=== PATIENT | female | born 1945 | race Caucasian/White ===

== ENCOUNTER → 2022-01-04 | Outpatient (CLI) | payer MEDICARE ==
[2022-01-04 23:13] LABS: Appearance,Urine Clear (Clear); Bilirubin,Urine Negative (Negative); Blood,Urine Negative (Negative); Color,Urine Yellow (Yellow); Ketones,Urine Negative (Negative); Nitrite,Urine Negative (Negative); Specific Gravity,Urine 1.016 (1.001-1.030); Urobilinogen,Urine 0.2 (0.2,1.0)
[2022-01-04 23:28] LABS: Bacteria,Urine None Seen /HPF (None Seen)
[2022-01-04 23:51] LABS: Basophils # (A) 0.07 X 10*3/uL (0.00-0.10); Eosinophils # (A) 0.33 X 10*3/uL (0.04-0.35); Eosinophils % (A) 4.7 %; HCT 39.2 % (37.2-46.3); HGB 12.4 g/dL (12.0-15.0); Immature Grans, Automated 0.1 %; Lymphocytes # (A) 1.85 X 10*3/uL (0.90-5.00); Lymphocytes % (A) 26.5 %; MCH 29.7 pg (27.0-32.0); MCHC 31.6 g/dL (32.0-37.0); Mean Platelet Volume 9.5 fL (9.5-12.2); NRBC Per 100 WBC 0 /100 WBCS (0.0-0.0); Neutrophils # (A) 4.02 X 10*3/uL (1.80-7.70); Neutrophils % (A) 57.7 %; Platelet Count 239 X 10*3/uL (140-440); RBC 4.17 X 10*6/uL (4.10-5.20); RDW 13.6 % (11.5-14.5); WBC 6.98 X 10*3/uL (4.50-10.00)
== END | disposition home or self-care (01) ==
LOC: LABPAT 16:09
PROVIDERS: ATTEND Urology
DX: Z01.812 Encounter for preprocedural laboratory examination (principal); D41.02 Neoplasm of uncertain behavior of left kidney
CPT/HCPCS: 81001; 85025; 87086

== ENCOUNTER 2022-01-13 05:36 | Inpatient (IN) | payer MEDICARE ==
[2022-01-07 15:13] VITALS: BMI 32.0
[2022-01-13] MEDS ORDERED: ONDANSETRON 4 MG/2 ML VIAL IVP ONE (06:02)
[2022-01-13] MEDS ORDERED: MIDAZOLAM 2 MG/2 ML VIAL IV PRN (06:02)
[2022-01-13] MEDS ORDERED: DEXAMETHASONE SOD PHOSPHATE 4 MG/ML 1 ML VIAL IV ONE (06:02)
[2022-01-13] MEDS ORDERED: LIDOCAINE 1% (10MG/ML) FOR IV START INTRADERMA PRN (06:02)
[2022-01-13 06:32] LABS: Glucose,Whole Blood 100 mg/dL (70-110)
[2022-01-13] MEDS ORDERED: LACTATED RINGERS 1,000 ML IV ONE ×4 (06:35→11:14)
[2022-01-13 06:50] LABS: Calcium 9.3 mg/dL (8.4-10.2); Potassium 3.5 mmol/L (3.5-5.1)
[2022-01-13] MEDS ORDERED: HYDROmorphone 0.5 MG/0.5 ML SYRINGE IVP PRN (07:00)
[2022-01-13] MEDS: fentaNYL (PF) 50 MCG/ML 2 ML AMP IVP ONE ×5 (07:09→11:47)
[2022-01-13] MEDS ORDERED: MIDAZOLAM 2 MG/2 ML VIAL IVP ONE (07:09)
[2022-01-13] MEDS ORDERED: ROCURONIUM 10 MG/ML (5 ML VIAL) IV ONE (07:25)
[2022-01-13] MEDS ORDERED: PHENYLEPHRINE-0.9% NACL SYG 1,000 MCG/10 ML SYRINGE ONE (07:25)
[2022-01-13] MEDS ORDERED: NEOSTIGMINE 1 MG/ML 10 ML VIAL ONE (07:25)
[2022-01-13] MEDS ORDERED: SUCCINYLCHOLINE CHLORIDE 200 MG/10 ML VIAL IV ONE (07:25)
[2022-01-13] MEDS ORDERED: fentaNYL (PF) 50 MCG/ML 2 ML AMP ONE (07:25)
[2022-01-13] MEDS ORDERED: ePHEDrine 50 MG/ML 1 ML VIAL ONE (07:25)
[2022-01-13] MEDS ORDERED: GLYCOPYRROLATE 0.2 MG/ML 2 ML VIAL ONE (07:25)
[2022-01-13] MEDS ORDERED: LIDOCAINE 2% INJ 20 MG/ML (2 ML VIAL) ONE (07:25)
[2022-01-13] MEDS ORDERED: PROPOFOL 10 MG/ML 20 ML VIAL IV ONE (07:25)
--- NOTE | 2022-01-13 07:34 | P.HPIHPCON ---
History of Present Illness H&P Date: 01/13/22 Chief Complaint: left renal mass This is a 76 yo female with hx of 9.5 cm left sided upper pole renal mass and 3 cm left lower pole renal mass. Mass was found incidentally on a CT scan for abdominal pain. Had a prolonged discussion with the patient and her family the findings are highly concerning for renal cell carcinoma. Option of robotic versus open nephrectomy was discussed in detail. Risk and benefit were discussed in detail. Discussed given the size of the tumor a it's not amenable to nephron sparing surgery. She agreed to proceed with left-sided radical n ephrectomy. Discussed the risk which includes but not limited to bleeding, infection, injury to nearby organs which include but not limited to the spleen, pancreas, bowel. Discussed also the potential of needing hemodialysis in the future and following surgery. Discussed also the risk of cancer recurrence even if nephrectomy is performed, and the need for post op imaging. Discussed also the potential this could be a benign pathology but highly unlikely. Discussed also the risk of anesthesia and that she is at increased risk given her age. She understood all the risk and agreed to proceed with left-sided open nephrectomy Consent for Procedure: I have explained the operation/procedure to the patient, including the risks, benefits, side effects, alternative therapies (including not receiving the proposed treatment or service), the likelihood of the patient achieving his/her goals, and potential recuperation problems for the procedure/sedation/analgesia, as well as any blood products, if indicated. I also explained to the patient the risks, benefits and side effects of the alternatives, as well as the risks related to not receiving the proposed procedure, care, treatment, or services. Past Medical History Past Medical History: Hypertension Additional Past Medical History / Comment(s): left kidney mass,"prediabetes" History of Any Multi-Drug Resistant Organisms: None Reported Past Surgical History: Appendectomy, Cholecystectomy, Hysterectomy, Tonsillectomy Additional Past Anesthesia/Blood Transfusion Reaction / Comment(s): no hx blood transfusions Smoking Status: Never smoker - Past Family History Mother Family Medical History: Cancer Additional Family Medical History / Comment(s): lung Medications and Allergies Home Medications Medication Instructions Recorded Confirmed Type Sertraline [Zoloft] 150 mg PO DAILY 01/07/22 01/13/22 History amLODIPine [Norvasc] 5 mg PO QAM 01/07/22 01/13/22 History hydrALAZINE HCL [Apresoline] 50 mg PO TID 01/07/22 01/13/22 History metFORMIN HCL 500 mg PO 1800 01/07/22 01/13/22 History Allergies Allergy/AdvReac Type Severity Reaction Status Date / Time Sulfa (Sulfonamide Allergy Rash/Hives Verified 01/13/22 06:24 Antibiotics) Surgical - Exam Vital Signs Temp Pulse Resp BP Pulse Ox 98.1 F 80 16 180/81 94 L 01/13/22 06:25 01/13/22 06:25 01/13/22 06:25 01/13/22 06:25 01/13/22 06:25 - General no distress, no pain - Eyes normal ocular movement, no pale - Respiratory normal expansion, normal respiratory effort - Abdomen Abdomen: soft, non tender Results - Labs 01/13/22 06:32 Abnormal Lab Results - Last 24 Hours (Table) 01/13/22 Range/Units 06:32 Chloride 109 H (98-107) mmol/L Carbon Dioxide 20 L (22-30) mmol/L Glucose 105 H (74-99) mg/dL Diabetes panel 01/13/22 Range/Units 06:32 Sodium 142 (137-145) mmol/L Potassium 3.5 (3.5-5.1) mmol/L Chloride 109 H (98-107) mmol/L Carbon Dioxide 20 L (22-30) mmol/L BUN 16 (7-17) mg/dL Creatinine 0.81 (0.52-1.04) mg/dL Glucose 105 H (74-99) mg/dL Calcium 9.3 (8.4-10.2) mg/dL Calcium panel 01/13/22 Range/Units 06:32 Calcium 9.3 (8.4-10.2) mg/dL Pituitary panel 01/13/22 Range/Units 06:32 Sodium 142 (137-145) mmol/L Potassium 3.5 (3.5-5.1) mmol/L Chloride 109 H (98-107) mmol/L Carbon Dioxide 20 L (22-30) mmol/L BUN 16 (7-17) mg/dL Creatinine 0.81 (0.52-1.04) mg/dL Glucose 105 H (74-99) mg/dL Calcium 9.3 (8.4-10.2) mg/dL Adrenal panel 01/13/22 Range/Units 06:32 Sodium 142 (137-145) mmol/L Potassium 3.5 (3.5-5.1) mmol/L Chloride 109 H (98-107) mmol/L Carbon Dioxide 20 L (22-30) mmol/L BUN 16 (7-17) mg/dL Creatinine 0.81 (0.52-1.04) mg/dL Glucose 105 H (74-99) mg/dL Calcium 9.3 (8.4-10.2) mg/dL Assessment and Plan Assessment: OR for left-sided open nephrectomy
[2022-01-13] MEDS ORDERED: MAG HYDROX/AL HYDROX/SIMETH 30 ML CUP PO PRN (07:35)
[2022-01-13] MEDS ORDERED: ACETAMINOPHEN TAB 325 MG TAB PO PRN (07:35)
[2022-01-13] MEDS ORDERED: ONDANSETRON 4 MG/2 ML VIAL IVP PRN (07:35)
[2022-01-13] MEDS ORDERED: NALOXONE 0.4 MG/ML 1 ML VIAL IV PRN (08:20)
--- NOTE | 2022-01-13 08:30 | P.ANPRN ---
Procedure Note - Anesthesia - Epidural/Spinal Epidural Time Out Performed: Yes Date of Procedure: 01/13/22 Procedure Start Time: 07:08 Procedure Stop Time: :19 Location of Patient: PreOp Indication: Acute Post-Operative Pain, Requested by Surgeon Sedation Type: Sedate with meaningful contact maintained Preparation: Sterile Dressing Position: Sitting Catheter: Indwelling Needle Guage: 18 Injectate: Test Dose Lidocaine1.5% w/1:200,000 epi (3cc without response) Blood Aspirated: No Pain Paresthesia on Injection Noted: No Events: Uneventful and Well Tolerated
[2022-01-13] MEDS ORDERED: amLODIPine 5 MG TAB PO SCH (09:00)
[2022-01-13] MEDS ORDERED: hydrALAZINE HCL 50 MG TAB PO SCH (09:00)
[2022-01-13] MEDS ORDERED: SODIUM CHLORIDE 0.9% 1,000 ML IV ONE (09:10)
--- NOTE | 2022-01-13 10:06 | P.OP ---
Date of Procedure: 01/13/22 Preoperative Diagnosis: Left renal mass Postoperative Diagnosis: Same Procedure(s) Performed: Open left radical nephrectomy Implants: none Anesthesia: JOSIAH Surgeon: Car Benton Estimated Blood Loss (ml): 1,500 Pathology: other (left kidney) Condition: stable Disposition: PACU Indications for Procedure: This is a 76 yo female with hx of 9.5 cm left sided upper pole renal mass and 3 cm left lower pole renal mass. Mass was found incidentally on a CT scan for abdominal pain. Had a prolonged discussion with the patient and her family the findings are highly concerning for renal cell carcinoma. Option of robotic versus open nephrectomy was discussed in detail. Risk and benefit were discussed in detail. Discussed given the size of the tumor a it's not amenable to nephron sparing surgery. She agreed to proceed with left-sided radical nephrectomy. Discussed the risk which includes but not limited to bleeding, infection, injury to nearby organs which include but not limited to the spleen, pancreas, bowel. Discussed also the potential of needing hemodialysis in the future and following surgery. Discussed also the risk of cancer recurrence even if nephrectomy is performed, and the need for post op imaging. Discussed also the potential this could be a benign pathology but highly unlikely. Discussed also the risk of anesthesia and that she is at increased risk given her age. She understood all the risk and agreed to proceed with left-sided open nephrectomy Description of Procedure: The patient was taken to the operating room and placed in the supine position. After being given general anesthesia, the abdomen was prepped and draped sterilely. A left sided chevron incision was made using the scalpel. The Bovie electrocautery was used to incise the subcutaneous tissues and muscular layers of the abdominal wall down to the peritoneum. The peritoneum was then carefully entered, and opened the full length of the incision. The abdomen was examined, and no abnormalities were noted other than the renal mass. Specifically, there was no evidence of malignancy elsewhere within the abdomen. The Bookwalter retractor was used for exposure. The peritoneum was incised at the line of Toldt, allowing the left hemicolon to be mobilized medially off of Gerota's fascia. Patient had significant amount of parasitic vessel around the tumor. Which made mobilizing the kidney very challenging, parasitic vessels were controlled using clips. Given the amount of bleeding from the parasitic vessel, and made exposure of the aorta challenging. Eventually the lateral edge of the aorta was palpated, The aorta was exposed anteriorly. The left renal vein was identified at this time, and dissected in preparation to the ligation.. At this time given the anterior location of the tumor visualization of the renal artery was not possible, additionally there was significant parasitic bleeding which limited visualization. We attempted to place a silk suture around the artery were unsuccessful. At this time using the stellae the artery was controlled. The left renal vein was then ligated twice proximally and distally. A suture ligature was placed through the proximal aspect of the vein prior to dividing it. There continues to be significant backbleeding from the kidney, the parasitic vessels. Given this finding decision was made to proceed with removal of the kidney prior to dividing the renal artery.The tail of Gerota's fascia was isolated, and both the ureter and gonadal veins were identified. The ureter was clipped, the gonadal vein was ligated, and both were divided. Blunt dissection was then performed to dissect the kidney off of the posterior abdominal wall. Superiorly, the thick perinephric fat was divided down to the upper pole of the kidney. The remaining dissection was then performed over the superior aspect of the kidney, thus preserving the left adrenal gland. At this time renal artery could be clearly visualized and dissected. The renal artery was divided using a vascular stapler.The remaining hilar tissues were clipped and divided at this time. A small amount of bleeding occurred from a lumbar vein, which required placement of a 3-0 silk suture. Once the hilar dissection had been completed, the inferior aspect of the dissection was performed. T Once all attachments were divided, the specimen was removed. The surgical field was examined for hemostasis. Some oozing was noted from the left adrenal gland, requiring placement of a silk suture. Hemostasis within the entire surgical field was excellent at this time. The kidney bed was irrigated with warm sterile water. The Bookwalter retractor was removed. The abdominal contents were allowed to return to their normal location. Each individual muscle layer of the anterior abdominal wall was closed using #1 Vicryl suture in a running fashion. Hemostasis within the subcutaneous tissues was excellent. The skin was closed using camacho. A sterile gauze dressing was applied over the incision. All sponge and needle counts were correct. The patient tolerated the procedure well was taken to the recovery room in stable condition.
[2022-01-13 12:30] LABS: Glucose,Whole Blood 229 mg/dL (70-110)
[2022-01-13] MEDS: amLODIPine 5 MG TAB PO SCH (12:46)
[2022-01-13] MEDS: methocarbamoL 750 MG TAB PO SCH ×3 (12:46→22:57)
[2022-01-13] MEDS: ROPIVACAINE 250 MG, fentaNYL (PF) 625 MCG in SODIUM CHLORIDE 0.9% 188 ML EPIDURAL PRN (13:09)
[2022-01-13] MEDS: SODIUM CHLORIDE 0.9% 1,000 ML IV SCH ×2 (13:37→16:12)
[2022-01-13] MEDS: LACTATED RINGERS 1,000 ML IV SCH ×2 (13:37→23:00)
[2022-01-13] MEDS: HEPARIN SODIUM,PORCINE/PF 5,000 UNIT/0.5 ML SYRINGE SQ SCH ×2 (14:33→22:57)
[2022-01-13] MEDS: HYDROmorphone 0.5 MG/0.5 ML SYRINGE IVP PRN (14:33)
--- NOTE | 2022-01-13 14:42 | P.CNPUL ---
History of Present Illness Consult date: 01/13/22 Chief complaint: Left nephrectomy History of present illness: Visit 76-year-old female patient who was found to have an operative 5 cm left sided upper lobe/cold renal mass. The patient was found to have a renal mass on a CAT scan of the abdomen and this was an incidental finding. There was a high concern for renal cell carcinoma. Based on that, the patient was taken to the operating room and the patient underwent an open left radical nephrectomy. During the procedure, there was some intraoperative blood loss that was controlled. The patient suspected to have a total blood loss of 1500 mL's. The patient was given a total of packed RBC. Awaiting a follow-up hemoglobin level for now. She did get extubated in the operating room and she was brought in to the ICU for further monitoring. At this point in time, the patient is awake and alert and she is following commands. She has an NG tube in place. She is currently on oxygen at 3 L nasal cannula. She is on IV fluids running in the form of lactated Ringer at the rate of 75 mL an hour. She receives a total of 2 L of fluid or less in the form of normal saline in the PACU. She is producing adequate amount of urine output. No hematuria this point in time. Castañeda cath is in place. Cardiac rhythm is sinus. The postop electrolytes were checked and the patient is a BUN of 60 with a creatinine of 0.8. Sodium is 142. Blood sugars at 229. The patient is diabetic and the patient has been maintained on metformin on an outpatient basis. She also has issues with hypertension. In terms of pain control, the patient currently has an epidural and she is receiving epidural. Bupivacaine along with fentanyl. Review of Systems Constitutional: Reports as per HPI Eyes: denies as per HPI, denies blurred vision, denies bulging eye, denies decreased vision, denies diplopia, denies discharge, denies dry eye, denies irritation, denies itching, denies pain, denies photophobia, denies loss of peripheral vision, denies loss of vision, denies tunnel vision/blind spots Ears: deny: decreased hearing, ear discharge, earache, tinnitus Ears, nose, mouth and throat: Reports as per HPI Breasts: absent: as per HPI, change in shape, gynecomastia, masses, nipple discharge, pain, skin changes, swelling Cardiovascular: Reports as per HPI Respiratory: Reports as per HPI Gastrointestinal: Reports as per HPI Genitourinary: Reports as per HPI Menstruation: Reports as per HPI Musculoskeletal: Reports as per HPI Musculoskeletal: absent: ankle pain, ankle stiffness, ankle swelling, as per HPI, elbow pain, elbow stiffness, elbow swelling, foot pain, foot stiffness, foot swelling, hand pain, hand stiffness, hand swelling, hip pain, hip stiffness, hip swelling, knee pain, knee stiffness, knee swelling, shoulder pain, shoulder stiffness, shoulder swelling, wrist pain, wrist stiffness, wrist swelling Integumentary: Reports as per HPI Neurological: Reports as per HPI Psychiatric: Reports as per HPI Endocrine: Reports as per HPI Hematologic/Lymphatic: Reports as per HPI Allergic/Immunologic: Reports as per HPI Past Medical History Past Medical History: Hypertension Additional Past Medical History / Comment(s): left kidney mass,"prediabetes" History of Any Multi-Drug Resistant Organisms: None Reported Past Surgical History: Appendectomy, Cholecystectomy, Hysterectomy, Tonsillectomy Additional Past Anesthesia/Blood Transfusion Reaction / Comment(s): no hx blood transfusions Smoking Status: Never smoker - Past Family History Mother Family Medical History: Cancer Additional Family Medical History / Comment(s): lung Medications and Allergies Home Medications Medication Instructions Recorded Confirmed Type Sertraline [Zoloft] 150 mg PO DAILY 01/07/22 01/13/22 History amLODIPine [Norvasc] 5 mg PO QAM 01/07/22 01/13/22 History hydrALAZINE HCL [Apresoline] 50 mg PO TID 01/07/22 01/13/22 History metFORMIN HCL 500 mg PO 1800 01/07/22 01/13/22 History Allergies Allergy/AdvReac Type Severity Reaction Status Date / Time Sulfa (Sulfonamide Allergy Rash/Hives Verified 01/13/22 06:24 Antibiotics) Physical Exam Vitals: Vital Signs Temp Pulse Pulse Pulse Resp BP BP 01/13/22 12:14 67 16 92/51 01/13/22 12:00 70 16 94/53 01/13/22 11:47 69 16 102/50 01/13/22 11:36 97.4 F L 71 16 91/55 01/13/22 11:30 71 16 91/55 01/13/22 11:15 71 16 97/51 01/13/22 11:04 76 16 92/55 10/12/22 10:54 97.6 F 75 16 84/52 01/13/22 10:46 79 16 85/53 01/13/22 10:34 96.8 F L 84 16 90/54 01/13/22 10:30 83 16 84/49 01/13/22 10:15 88 14 89/49 01/13/22 10:04 97.1 F L 110 H 14 93/52 01/13/22 09:58 97.1 F L 89 14 89/49 01/13/22 07:27 81 17 114/57 01/13/22 06:25 98.1 F 80 16 180/81 Pulse Ox 01/13/22 12:14 96 01/13/22 12:00 96 01/13/22 11:47 96 01/13/22 11:36 96 01/13/22 11:30 96 01/13/22 11:15 100 01/13/22 11:04 100 01/13/22 10:54 100 01/13/22 10:46 100 01/13/22 10:34 100 01/13/22 10:30 100 01/13/22 10:15 99 01/13/22 10:04 99 01/13/22 09:58 98 01/13/22 07:27 95 01/13/22 06:25 94 L Intake and Output 01/12/22 01/13/22 01/13/22 22:59 06:59 14:59 Intake Total 400 3310 Output Total 1630 Balance 400 1680 Intake: IV 400 3000 Blood Product 310 As-1 Unit 0 [id number] As-1 Unit 310 [id number] Output: Urine 130 Estimated Blood Loss 1500 Other: Weight 78.71 kg General appearance the patient is calm and comfortable awake, NG tube is in place and the patient's oxygen by nasal cannula at 2 L Head exam was generally normal. There was no scleral icterus or corneal arcus. Mucous membranes were moist. Neck was supple and without jugular venous distension, thyromegaly, or carotid bruits. Carotids were easily palpable bilaterally. There was no adenopathy. She was in place for now. Lungs sounds are diminished bilaterally other was clear. Cardiac exam revealed the PMI to be normally situated and sized. The rhythm was regular and no extrasystoles were noted during several minutes of auscultation. The first and second heart sounds were normal and physiologic splitting of the second heart sound was noted. There were no murmurs, rubs, clicks, or gallops. Abdomen is soft and the patient's surgical sites are clean and intact. The patient has an incision over the left lateral abdominal wall. Bowel sounds are hypoactive. No direct tenderness. No rebound tenderness. No guarding. Examination of the extremities revealed easily palpable radial, femoral and pedal pulses. There was no cyanosis, clubbing or edema. Examination of the skin revealed no evidence of significant rashes, suspicious a ppearing nevi or other concerning lesions. Neurologically, the patient is awake and alert and the patient does not have any focal neurological deficit. Cranial nerves are essentially intact. Results - Laboratory Findings CBC and BMP: 01/13/22 06:32 Abnormal lab findings: Abnormal Labs 01/04/22 01/13/22 01/13/22 16:41 06:32 12:29 Chloride 109 H Carbon Dioxide 20 L Glucose 105 H POC Glucose (mg/dL) 229 H Crossmatch See Detail - Diagnostic Findings Chest x-ray: image reviewed Assessment and Plan Plan: Kidney mass, post left nephrectomy. The patient supposedly #0. Based on the CAT scan findings, the findings highly suspicious for renal cell carcinoma Intraoperative blood loss and the order of 1.5 L, she was transfused with a total of 2 units of packed RBC. The patient's hemodynamics are stable. Adequate urine output Hypertension Diabetes mellitus maternal metformin outpatient basis Plan Keep the NG tube in place and monitor the output The patient has epidural Dilaudid for pain control in addition to bupivacaine. Pain is under adequate control for now. Compression devices to lower extremities regarding DVT prophylaxis and the patient can be started on heparin subcu after confirming this with urology IV fluids with lactated Ringer at a rate of 75 mL an hour Insulin sliding scale coverage Resume all medications Clear liquid diet only Incentive spirometer We'll continue to follow
[2022-01-13 15:22] LABS: Basophils % (A) 0 %; Eosinophils % (A) 0 %; HCT 32.4 % (34.0-46.0); HGB 10.4 gm/dL (11.4-16.0); Hypochromasia Marked; Lymphocytes # (A) 0.3 k/uL (1.0-4.8); Lymphocytes % (A) 2 %; MCH 30.2 pg (25.0-35.0); MCHC 32.1 g/dL (31.0-37.0); Mean Platelet Volume 8.1; Monocytes # (A) 0.9 k/uL (0-1.0); Monocytes % (A) 5 %; Neutrophils # (A) 16.8 k/uL (1.3-7.7); Neutrophils % (A) 92 %; Platelet Count 190 k/uL (150-450); RBC 3.45 m/uL (3.80-5.40); WBC 18.2 k/uL (3.8-10.6)
[2022-01-13 15:36] LABS: Albumin 2.3 g/dL (3.5-5.0); Calcium 7.3 mg/dL (8.4-10.2); Potassium 3.5 mmol/L (3.5-5.1); Total Bilirubin 0.4 mg/dL (0.2-1.3); Total Protein 4.1 g/dL (6.3-8.2)
[2022-01-13] MEDS: hydrALAZINE HCL 50 MG TAB PO SCH ×2 (16:09→22:57)
[2022-01-13] MEDS: POTASSIUM CHLORIDE ER 20 MEQ TAB.ER PO SCH ×2 (16:12→17:14)
[2022-01-13] MEDS: metFORMIN 500 MG TAB PO SCH (17:14)
[2022-01-14] MEDS: HYDROmorphone 0.5 MG/0.5 ML SYRINGE IVP PRN ×3 (03:58→21:11)
[2022-01-14 07:57] LABS: HCT 28.2 % (34.0-46.0); HGB 9.4 gm/dL (11.4-16.0); Hypochromasia Slight; MCHC 33.3 g/dL (31.0-37.0); MCV 90.1 fL (80.0-100.0); Mean Platelet Volume 8.6; Platelet Count 158 k/uL (150-450); Poikilocytosis Slight; RBC 3.13 m/uL (3.80-5.40); RDW 15.5 % (11.5-15.5); WBC 12.1 k/uL (3.8-10.6)
--- NOTE | 2022-01-14 08:01 | P.PN ---
Progress Note - Text Date: 01/14/2022 Time: 07:07 The patient is status post, left open nephrectomy, postoperative day number 1. The patient has no complaints of nausea vomiting or headache. The patient does not complain of any lower extremity numbness or weakness. The epidural is running at 5 mL per hour. VAS 2-10. The epidural will be maintained and a djusted as needed.
[2022-01-14 08:11] LABS: Albumin 2.3 g/dL (3.5-5.0); Calcium 7.6 mg/dL (8.4-10.2); Magnesium 1.6 mg/dL (1.6-2.3); Potassium 4.1 mmol/L (3.5-5.1); Total Bilirubin 0.4 mg/dL (0.2-1.3); Total Protein 4.3 g/dL (6.3-8.2)
[2022-01-14] MEDS: SERTRALINE 50 MG TAB PO SCH (08:29)
[2022-01-14] MEDS: HEPARIN SODIUM,PORCINE/PF 5,000 UNIT/0.5 ML SYRINGE SQ SCH ×2 (08:29→16:15)
[2022-01-14] MEDS: methocarbamoL 750 MG TAB PO SCH ×4 (08:29→21:11)
[2022-01-14] MEDS: LACTATED RINGERS 1,000 ML IV SCH (08:30)
[2022-01-14] MEDS: amLODIPine 5 MG TAB PO SCH (08:30)
--- NOTE | 2022-01-14 09:31 | P.PN ---
Subjective Progress Note Date: 01/14/22 first post op day from left rad nephrectomy. In icu because of intraop hypotension due to acute blood loss . Has recouperated nicely with blood repllacement. Did well over night. VSS uo adequate hgb 9.4 cr 1.3 abdomen soft. Urine clear. WIll c/w supportive care. Objective - Vital Signs Vital signs: Vital Signs Temp 98.3 F 01/14/22 08:00 Pulse 68 01/14/22 08:00 Resp 10 L 01/14/22 08:00 BP 111/54 01/14/22 08:00 Pulse Ox 96 01/14/22 08:00 FiO2 Intake & Output 01/13/22 01/14/22 01/14/22 18:59 06:59 18:59 Intake Total 3460 960 150 Output Total 1690 185 45 Balance 1770 775 105 Weight 87 kg Intake: IV 3000 900 150 LR @ 75 900 150 Intake, IV Titration 150 60 Amount Lactated Ringers 1,000 ml 150 @ 75 mls/hr IV .[id number] Rx#:[id number] Ropivacaine 250 mg 60 fentaNYL (PF) 625 mcg In Sodium Chloride 0.9% 188 ml @ Per Protocol EPIDURAL .Q0M PRN Rx#: [id number] Blood Product 310 Rc As-1 Unit 0 [id number] Rc As-1 Unit 310 [id number] Output: Urine 190 185 45 Estimated Blood Loss 1500 Other: Voiding Method Indwelling Catheter Indwelling Catheter - Labs CBC & Chem 7: 01/14/22 07:14 01/14/22 07:14 Labs: Abnormal Lab Results - Last 24 Hours (Table) 01/04/22 01/13/22 01/13/22 Range/Units 16:41 12:29 14:48 WBC 18.2 H (3.8-10.6) k/uL RBC 3.45 L (3.80-5.40) m/uL Hgb 10.4 L (11.4-16.0) gm/dL Hct 32.4 L (34.0-46.0) % Neutrophils # 16.8 H (1.3-7.7) k/uL Lymphocytes # 0.3 L (1.0-4.8) k/uL Chloride (98-107) mmol/L Carbon Dioxide (22-30) mmol/L BUN (7-17) mg/dL Creatinine (0.52-1.04) mg/dL Glucose (74-99) mg/dL POC Glucose (mg/dL) 229 H (70-110) mg/dL Calcium (8.4-10.2) mg/dL Alkaline Phosphatase (38-126) U/L Total Protein (6.3-8.2) g/dL Albumin (3.5-5.0) g/dL Crossmatch See Detail 01/13/22 01/14/22 01/14/22 Range/Units 14:48 07:14 07:14 WBC 12.1 H (3.8-10.6) k/uL RBC 3.13 L (3.80-5.40) m/uL Hgb 9.4 L (11.4-16.0) gm/dL Hct 28.2 L (34.0-46.0) % Neutrophils # (1.3-7.7) k/uL Lymphocytes # (1.0-4.8) k/uL Chloride 113 H 114 H (98-107) mmol/L Carbon Dioxide 18 L 19 L (22-30) mmol/L BUN 20 H (7-17) mg/dL Creatinine 1.05 H 1.31 H (0.52-1.04) mg/dL Glucose 163 H (74-99) mg/dL POC Glucose (mg/dL) (70-110) mg/dL Calcium 7.3 L 7.6 L (8.4-10.2) mg/dL Alkaline Phosphatase 32 L 32 L (38-126) U/L Total Protein 4.1 L 4.3 L (6.3-8.2) g/dL Albumin 2.3 L 2.3 L (3.5-5.0) g/dL Crossmatch
--- NOTE | 2022-01-14 09:31 | P.PN ---
Subjective Progress Note Date: 01/14/22 first post op day from left rad nephrectomy. In icu because of intraop hypotension due to acute blood loss . Has recouperated nicely with blood repllacement. Did well over night. VSS uo adequate hgb 9.4 cr 1.3 abdomen soft. Urine clear. WIll c/w supportive care. Objective - Vital Signs Vital signs: Vital Signs Temp 98.3 F 01/14/22 08:00 Pulse 68 01/14/22 08:00 Resp 10 L 01/14/22 08:00 BP 111/54 01/14/22 08:00 Pulse Ox 96 01/14/22 08:00 FiO2 Intake & Output 01/13/22 01/14/22 01/14/22 18:59 06:59 18:59 Intake Total 3460 960 150 Output Total 1690 185 45 Balance 1770 775 105 Weight 87 kg Intake: IV 3000 900 150 LR @ 75 900 150 Intake, IV Titration 150 60 Amount Lactated Ringers 1,000 ml 150 @ 75 mls/hr IV .[id number] Rx#:[id number] Ropivacaine 250 mg 60 fentaNYL (PF) 625 mcg In Sodium Chloride 0.9% 188 ml @ Per Protocol EPIDURAL .Q0M PRN Rx#: [id number] Blood Product 310 Rc As-1 Unit 0 [id number] Rc As-1 Unit 310 [id number] Output: Urine 190 185 45 Estimated Blood Loss 1500 Other: Voiding Method Indwelling Catheter Indwelling Catheter - Labs CBC & Chem 7: 01/14/22 07:14 01/14/22 07:14 Labs: Abnormal Lab Results - Last 24 Hours (Table) 01/04/22 01/13/22 01/13/22 Range/Units 16:41 12:29 14:48 WBC 18.2 H (3.8-10.6) k/uL RBC 3.45 L (3.80-5.40) m/uL Hgb 10.4 L (11.4-16.0) gm/dL Hct 32.4 L (34.0-46.0) % Neutrophils # 16.8 H (1.3-7.7) k/uL Lymphocytes # 0.3 L (1.0-4.8) k/uL Chloride (98-107) mmol/L Carbon Dioxide (22-30) mmol/L BUN (7-17) mg/dL Creatinine (0.52-1.04) mg/dL Glucose (74-99) mg/dL POC Glucose (mg/dL) 229 H (70-110) mg/dL Calcium (8.4-10.2) mg/dL Alkaline Phosphatase (38-126) U/L Total Protein (6.3-8.2) g/dL Albumin (3.5-5.0) g/dL Crossmatch See Detail 01/13/22 01/14/22 01/14/22 Range/Units 14:48 07:14 07:14 WBC 12.1 H (3.8-10.6) k/uL RBC 3.13 L (3.80-5.40) m/uL Hgb 9.4 L (11.4-16.0) gm/dL Hct 28.2 L (34.0-46.0) % Neutrophils # (1.3-7.7) k/uL Lymphocytes # (1.0-4.8) k/uL Chloride 113 H 114 H (98-107) mmol/L Carbon Dioxide 18 L 19 L (22-30) mmol/L BUN 20 H (7-17) mg/dL Creatinine 1.05 H 1.31 H (0.52-1.04) mg/dL Glucose 163 H (74-99) mg/dL POC Glucose (mg/dL) (70-110) mg/dL Calcium 7.3 L 7.6 L (8.4-10.2) mg/dL Alkaline Phosphatase 32 L 32 L (38-126) U/L Total Protein 4.1 L 4.3 L (6.3-8.2) g/dL Albumin 2.3 L 2.3 L (3.5-5.0) g/dL Crossmatch
[2022-01-14] MEDS: hydrALAZINE HCL 50 MG TAB PO SCH ×3 (09:56→21:11)
[2022-01-14] MEDS ORDERED: Magnesium Replacement Protocol 1 EACH MISC MISCELLANE PRN (09:58)
--- NOTE | 2022-01-14 09:58 | P.PN ---
Subjective Progress Note Date: 01/14/22 Visit 76-year-old female patient who was found to have an operative 5 cm left sided upper lobe/cold renal mass. The patient was found to have a renal mass on a CAT scan of the abdomen and this was an incidental finding. There was a high concern for renal cell carcinoma. Based on that, the patient was taken to the operating room and the patient underwent an open left radical nephrectomy. During the procedure, there was some intraoperative blood loss that was controlled. The patient suspected to have a total blood loss of 1500 mL's. The patient was given a total of packed RBC. Awaiting a follow-up hemoglobin level for now. She did get extubated in the operating room and she was brought in to the ICU for further monitoring. At this point in time, the patient is awake and alert and she is following commands. She has an NG tube in place. She is currently on oxygen at 3 L nasal cannula. She is on IV fluids running in the form of lactated Ringer at the rate of 75 mL an hour. She receives a total of 2 L of fluid or less in the form of normal saline in the PACU. She is producing adequate amount of urine output. No hematuria this point in time. Castñaeda cath is in place. Cardiac rhythm is sinus. The postop electrolytes were checked and the patient is a BUN of 60 with a creatinine of 0.8. Sodium is 142. Blood sugars at 229. The patient is diabetic and the patient has been maintained on metformin on an outpatient basis. She also has issues with hypertension. In terms of pain control, the patient currently has an epidural and she is receiving epidural. Bupivacaine along with fentanyl. On 01/14/2022, the patient is profoundly #1. Doing well. NG tube is still in place and the output cannot be accurately recorded as the patient is taking some clear liquid diet in addition. Nevertheless, her abdomen is non-distended. Bowel sounds are hypoactive. She has not passed any flatus yet. No bowel movements yet. No fever. No chills. Surgical incisions are clean and intact. No signs of any respiratory distress. The patient remains on normal saline at rate of 75 mL an hour. The patient is on 2 L O2 nasal cannula with pulse ox of 96%. In terms of her blood work, the patient's is showing a white cell count of 12.1 with a hemoglobin of 9.4. There is a slight drop in hemoglobin and creatinine is up to 1.3 from a baseline of 1 and his sodiums of 140 with a pot assium level of 4.1. Total protein is 4.3 albumin is low at 2.3. She does have Dilaudid epidural catheter along with bupivacaine for pain control and her pain is under excellent control for now. She is using the [place] spirometer. Objective - Vital Signs Vital signs: Vital Signs Temp 98.3 F 01/14/22 08:00 Pulse 68 01/14/22 08:00 Resp 10 L 01/14/22 08:00 BP 111/54 01/14/22 08:00 Pulse Ox 96 01/14/22 08:00 FiO2 Intake & Output 01/13/22 01/14/22 01/14/22 18:59 06:59 18:59 Intake Total 3460 960 150 Output Total 1690 185 45 Balance 1770 775 105 Weight 87 kg Intake: IV 3000 900 150 LR @ 75 900 150 Intake, IV Titration 150 60 Amount Lactated Ringers 1,000 ml 150 @ 75 mls/hr IV .[id number] [facility] Rx#:[id number] Ropivacaine 250 mg 60 fentaNYL (PF) 625 mcg In Sodium Chloride 0.9% 188 ml @ Per Protocol EPIDURAL .Q0M PRN Rx#: [id number] Blood Product 310 Rc As-1 Unit 0 [id number] Rc As-1 Unit 310 [id number] Output: Urine 190 185 45 Estimated Blood Loss 1500 Other: Voiding Method Indwelling Catheter Indwelling Catheter - Exam General appearance the patient is calm and comfortable awake, NG tube is in place and the patient's oxygen by nasal cannula at 2 L Head exam was generally normal. There was no scleral icterus or corneal arcus. Mucous membranes were moist. Neck was supple and without jugular venous distension, thyromegaly, or carotid bruits. Carotids were easily palpable bilaterally. There was no adenopathy. She was in place for now. Lungs sounds are diminished bilaterally other was clear. Cardiac exam revealed the PMI to be normally situated and sized. The rhythm was regular and no extrasystoles were noted during several minutes of auscultation. The first and second heart sounds were normal and physiologic splitting of the second heart sound was noted. There were no murmurs, rubs, clicks, or gallops. Abdomen is soft and the patient's surgical sites are clean and intact. The patient has an incision over the left lateral abdominal wall. Bowel sounds are hypoactive. No direct tenderness. No rebound tenderness. No guarding. Examination of the extremities revealed easily palpable radial, femoral and pedal pulses. There was no cyanosis, clubbing or edema. Examination of the skin revealed no evidence of significant rashes, suspicious appearing nevi or other concerning lesions. Neurologically, the patient is awake and alert and the patient does not have any focal neurological deficit. Cranial nerves are essentially intact. - Labs CBC & Chem 7: 01/14/22 07:14 01/14/22 07:14 Labs: Abnormal Lab Results - Last 24 Hours (Table) 01/04/22 01/13/22 01/13/22 Range/Units 16:41 12:29 14:48 WBC 18.2 H (3.8-10.6) k/uL RBC 3.45 L (3.80-5.40) m/uL Hgb 10.4 L (11.4-16.0) gm/dL Hct 32.4 L (34.0-46.0) % Neutrophils # 16.8 H (1.3-7.7) k/uL Lymphocytes # 0.3 L (1.0-4.8) k/uL Chloride (98-107) mmol/L Carbon Dioxide (22-30) mmol/L BUN (7-17) mg/dL Creatinine (0.52-1.04) mg/dL Glucose (74-99) mg/dL POC Glucose (mg/dL) 229 H (70-110) mg/dL Calcium (8.4-10.2) mg/dL Alkaline Phosphatase (38-126) U/L Total Protein (6.3-8.2) g/dL Albumin (3.5-5.0) g/dL Crossmatch See Detail 01/13/22 01/14/22 01/14/22 Range/Units 14:48 07:14 07:14 WBC 12.1 H (3.8-10.6) k/uL RBC 3.13 L (3.80-5.40) m/uL Hgb 9.4 L (11.4-16.0) gm/dL Hct 28.2 L (34.0-46.0) % Neutrophils # (1.3-7.7) k/uL Lymphocytes # (1.0-4.8) k/uL Chloride 113 H 114 H (98-107) mmol/L Carbon Dioxide 18 L 19 L (22-30) mmol/L BUN 20 H (7-17) mg/dL Creatinine 1.05 H 1.31 H (0.52-1.04) mg/dL Glucose 163 H (74-99) mg/dL POC Glucose (mg/dL) (70-110) mg/dL Calcium 7.3 L 7.6 L (8.4-10.2) mg/dL Alkaline Phosphatase 32 L 32 L (38-126) U/L Total Protein 4.1 L 4.3 L (6.3-8.2) g/dL Albumin 2.3 L 2.3 L (3.5-5.0) g/dL Crossmatch Assessment and Plan Plan: Kidney mass, post left nephrectomy. The patient POD #1. Based on the CAT scan findings, the findings highly suspicious for renal cell carcinoma Intraoperative blood loss and the order of 1.5 L, she was transfused with a total of 2 units of packed RBC. The patient's hemodynamics are stable. A dequate urine output subsequent hemoglobin came at 10.4 and later on dropped to 9.4. No evidence of any bleeding in the surgical incisions are clean and intact. We're monitoring the hemoglobin. A little mottling also the creatinine. The patient did develop a rise in the creatinine up to 1.3. Her pain is under adequate control for now. She has an epidural Dilaudid in combination with bupivacaine. Hypertension Diabetes mellitus maternal metformin outpatient basis Plan Keep the NG tube in place and monitor the output, this will be kept for another 24 hours The patient has epidural Dilaudid for pain control in addition to bupivacaine. Pain is under adequate control for now. Compression devices to lower extremities regarding DVT prophylaxis and the patient can be started on heparin subcu after confirming this with urology IV fluids with lactated Ringer at a rate of 75 mL an hour Insulin sliding scale coverage Resume all medications Monitor the creatinine and the hemoglobin On a chair Incentive spirometer We'll continue to follow May transfer to a medical surgical floor
[2022-01-14] MEDS: MAGNESIUM SULFATE-D5W PMX 1 GM in DEXTROSE/WATER 1 100ML.BAG IVPB SCH ×2 (11:18→12:40)
--- NOTE | 2022-01-14 16:30 | CDI ---
Documentation Clarification Form Date: 01/14/2022 04:08:07 PM From: Marta Tavares RN, CCDS Email: [email or web address] Admit Date: 01/13/2022 05:36:00 AM Patient Name: Geraldine Peters Visit Number: [id number] Discharge Date: ATTENTION: The Clinical Documentation Specialists (CDI) and [facility] Coding Staff appreciate your assistance in clarifying documentation. Please respond to the clarification below the line at the bottom and electronically sign. The CDI & [facility] Coding staff will review the response and follow-up if needed. Please note: Queries are made part of the Legal Health Record. If you have any questions, please contact the author of this message via ITS. Dr. Car Benton Your patient had intraop acute blood loss. Please clarify if there is an additional diagnosis and/or clinical significance related to this. 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 At this time given the anterior location of the tumor, visualization of the renal artery was not possible, additionally there was significant parasitic bleeding which limited visualization. A small amount of bleeding occurred from a lumbar vein. Some oozing was noted from the left adrenal gland, requiring placement of a silk suture." EBL 1500 ml 01/14: "first post op day from left rad nephrectomy. In ICU because of intraop hypotension due to acute blood loss. Has recuperated nicely with blood replacement." Treatment: 2 units PRBC's, 1L IV bolus on 01/13 Is there an additional diagnosis and/or clinical significance related to the above information: [ X ] Acute blood loss anemia [ ] Unable to determine [ ] Other, please specify MTDD
--- NOTE | 2022-01-14 16:30 | CDI ---
Documentation Clarification Form Date: 01/14/2022 04:08:07 PM From: Marta Tavares RN, CCDS Email: [email or web address] Admit Date: 01/13/2022 05:36:00 AM Patient Name: Geraldine Peters Visit Number: [id number] Discharge Date: ATTENTION: The Clinical Documentation Specialists (CDI) and [facility] Coding Staff appreciate your assistance in clarifying documentation. Please respond to the clarification below the line at the bottom and electronically sign. The CDI & [facility] Coding staff will review the response and follow-up if needed. Please note: Queries are made part of the Legal Health Record. If you have any questions, please contact the author of this message via ITS. Dr. Car Benton Your patient had intraop acute blood loss. Please clarify if there is an additional diagnosis and/or clinical significance related to this. 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 At this time given the anterior location of the tumor, visualization of the renal artery was not possible, additionally there was significant parasitic bleeding which limited visualization. A small amount of bleeding occurred from a lumbar vein. Some oozing was noted from the left adrenal gland, requiring placement of a silk suture." EBL 1500 ml 01/14: "first post op day from left rad nephrectomy. In ICU because of intraop hypotension due to acute blood loss. Has recuperated nicely with blood replacement." Treatment: 2 units PRBC's, 1L IV bolus on 01/13 Is there an additional diagnosis and/or clinical significance related to the above information: [ X ] Acute blood loss anemia [ ] Unable to determine [ ] Other, please specify MTDD
[2022-01-14] MEDS: metFORMIN 500 MG TAB PO SCH (17:38)
[2022-01-15] MEDS: HEPARIN SODIUM,PORCINE/PF 5,000 UNIT/0.5 ML SYRINGE SQ SCH ×3 (00:50→17:23)
[2022-01-15] MEDS: LACTATED RINGERS 1,000 ML IV SCH ×2 (03:30→14:49)
--- NOTE | 2022-01-15 07:47 | P.PN ---
Subjective Progress Note Date: 01/15/22 The patient is status post radical nephrectomy. She is in the intensive care unit. She seems to be doing well from a clinical standpoint. Her vital signs are stable. Urine output is good. I removed her NG tube this morning. It was somewhat soft. From a urologic standpoint she can be transferred to the floor whenever it is okay with the intensive physicians. Objective - Vital Signs Vital signs: Vital Signs Temp 97.6 F 01/14/22 23:00 Pulse 90 01/14/22 23:00 Resp 22 01/14/22 23:00 BP 147/71 01/14/22 23:15 Pulse Ox 93 L 01/14/22 23:15 FiO2 Intake & Output 01/14/22 01/15/22 01/15/22 18:59 06:59 18:59 Intake Total 875 Output Total 315 Balance 560 Weight 86.2 kg Intake: IV 875 LR @ 75 675 Magnesium Sulfate-D5w Pmx 200 1 gm In Dextrose/Water 1 100ml.bag @ 100 mls/hr IVPB Q1H [facility] Rx#: [id number] Output: Urine 315 Other: Voiding Method Indwelling Catheter - Labs CBC & Chem 7: 01/14/22 07:14 01/14/22 07:14 Labs: Abnormal Lab Results - Last 24 Hours (Table) 01/14/22 01/14/22 Range/Units 07:14 07:14 WBC 12.1 H (3.8-10.6) k/uL RBC 3.13 L (3.80-5.40) m/uL Hgb 9.4 L (11.4-16.0) gm/dL Hct 28.2 L (34.0-46.0) % Chloride 114 H (98-107) mmol/L Carbon Dioxide 19 L (22-30) mmol/L BUN 20 H (7-17) mg/dL Creatinine 1.31 H (0.52-1.04) mg/dL Calcium 7.6 L (8.4-10.2) mg/dL Alkaline Phosphatase 32 L (38-126) U/L Total Protein 4.3 L (6.3-8.2) g/dL Albumin 2.3 L (3.5-5.0) g/dL
--- NOTE | 2022-01-15 07:47 | P.PN ---
Subjective Progress Note Date: 01/15/22 The patient is status post radical nephrectomy. She is in the intensive care unit. She seems to be doing well from a clinical standpoint. Her vital signs are stable. Urine output is good. I removed her NG tube this morning. It was somewhat soft. From a urologic standpoint she can be transferred to the floor whenever it is okay with the intensive physicians. Objective - Vital Signs Vital signs: Vital Signs Temp 97.6 F 01/14/22 23:00 Pulse 90 01/14/22 23:00 Resp 22 01/14/22 23:00 BP 147/71 01/14/22 23:15 Pulse Ox 93 L 01/14/22 23:15 FiO2 Intake & Output 01/14/22 01/15/22 01/15/22 18:59 06:59 18:59 Intake Total 875 Output Total 315 Balance 560 Weight 86.2 kg Intake: IV 875 LR @ 75 675 Magnesium Sulfate-D5w Pmx 200 1 gm In Dextrose/Water 1 100ml.bag @ 100 mls/hr IVPB Q1H [facility] Rx#: [id number] Output: Urine 315 Other: Voiding Method Indwelling Catheter - Labs CBC & Chem 7: 01/14/22 07:14 01/14/22 07:14 Labs: Abnormal Lab Results - Last 24 Hours (Table) 01/14/22 01/14/22 Range/Units 07:14 07:14 WBC 12.1 H (3.8-10.6) k/uL RBC 3.13 L (3.80-5.40) m/uL Hgb 9.4 L (11.4-16.0) gm/dL Hct 28.2 L (34.0-46.0) % Chloride 114 H (98-107) mmol/L Carbon Dioxide 19 L (22-30) mmol/L BUN 20 H (7-17) mg/dL Creatinine 1.31 H (0.52-1.04) mg/dL Calcium 7.6 L (8.4-10.2) mg/dL Alkaline Phosphatase 32 L (38-126) U/L Total Protein 4.3 L (6.3-8.2) g/dL Albumin 2.3 L (3.5-5.0) g/dL
--- NOTE | 2022-01-15 09:34 | P.PN ---
Progress Note - Text 01/15/22 651am 76-year-old female status post left open nephrectomy by . Patient has an epidural catheter for postop pain control with the solution running at 5 mL an hour with a VAS of 4. No motor or sensory deficit noted. Plan to continue epidural infusion and DC the catheter postop day 3
[2022-01-15] MEDS: amLODIPine 5 MG TAB PO SCH (09:52)
[2022-01-15] MEDS: hydrALAZINE HCL 50 MG TAB PO SCH ×3 (09:52→21:34)
[2022-01-15] MEDS: SERTRALINE 50 MG TAB PO SCH (09:52)
[2022-01-15] MEDS: methocarbamoL 750 MG TAB PO SCH ×3 (09:53→17:29)
[2022-01-15] MEDS: HYDROmorphone 0.5 MG/0.5 ML SYRINGE IVP PRN (09:57)
--- NOTE | 2022-01-15 10:57 | P.PN ---
Subjective Progress Note Date: 01/15/22 Visit 76-year-old female patient who was found to have an operative 5 cm left sided upper lobe/cold renal mass. The patient was found to have a renal mass on a CAT scan of the abdomen and this was an incidental finding. There was a high concern for renal cell carcinoma. Based on that, the patient was taken to the operating room and the patient underwent an open left radical nephrectomy. During the procedure, there was some intraoperative blood loss that was controlled. The patient suspected to have a total blood loss of 1500 mL's. The patient was given a total of packed RBC. Awaiting a follow-up hemoglobin level for now. She did get extubated in the operating room and she was brought in to the ICU for further monitoring. At this point in time, the patient is awake and alert and she is following commands. She has an NG tube in place. She is currently on oxygen at 3 L nasal cannula. She is on IV fluids running in the form of lactated Ringer at the rate of 75 mL an hour. She receives a total of 2 L of fluid or less in the form of normal saline in the PACU. She is producing adequate amount of urine output. No hematuria this point in time. Castañeda cath is in place. Cardiac rhythm is sinus. The postop electrolytes were checked and the patient is a BUN of 60 with a creatinine of 0.8. Sodium is 142. Blood sugars at 229. The patient is diabetic and the patient has been maintained on metformin on an outpatient basis. She also has issues with hypertension. In terms of pain control, the patient currently has an epidural and she is receiving epidural. Bupivacaine along with fentanyl. On 01/14/2022, the patient is profoundly #1. Doing well. NG tube is still in place and the output cannot be accurately recorded as the patient is taking some clear liquid diet in addition. Nevertheless, her abdomen is non-distended. Bowel sounds are hypoactive. She has not passed any flatus yet. No bowel movements yet. No fever. No chills. Surgical incisions are clean and intact. No signs of any respiratory distress. The patient remains on normal saline at rate of 75 mL an hour. The patient is on 2 L O2 nasal cannula with pulse ox of 96%. In terms of her blood work, the patient's is showing a white cell count of 12.1 with a hemoglobin of 9.4. There is a slight drop in hemoglobin and creatinine is up to 1.3 from a baseline of 1 and his sodiums of 140 with a pot assium level of 4.1. Total protein is 4.3 albumin is low at 2.3. She does have Dilaudid epidural catheter along with bupivacaine for pain control and her pain is under excellent control for now. She is using the [place] spirometer. On 01/15/2022, the patient's postop day #2. For the most part, the patient is doing well. NG tube is notable today. The patient is passing flatness. Her diet will be gradually advanced and currently she is taken clear liquid diet. Surgical once is striking and intact. The ends of 20 with a creatinine of 1.3 and there is an obvious size and the creatinine post nephrectomy. Sodiums of 140 and the serum bicarbs of 19. The white cell count is at 12.1 with a hemoglobin of 9.3. Note that these are yesterday's labs and follow-up as from today are still pending. Using [employer] spirometer. No altered mentation. She is hard of hearing. No other significant events overnight. She is currently on oxygen at 2 L and the pulse ox 94%. She is on heparin subcu for DVT prophylaxis. At epidural is in till tomorrow and she is receiving adequate pain control with a combination of fentanyl and bupivacaine Objective - Vital Signs Vital signs: Vital Signs Temp 98.1 F 01/15/22 08:00 Pulse 89 01/15/22 08:00 Resp 15 01/15/22 08:00 BP 157/74 01/15/22 10:00 Pulse Ox 95 01/15/22 10:00 FiO2 Intake & Output 01/14/22 01/15/22 01/15/22 18:59 06:59 18:59 Intake Total 875 Output Total 315 Balance 560 Weight 86.2 kg Intake: IV 875 LR @ 75 675 Magnesium Sulfate-D5w Pmx 200 1 gm In Dextrose/Water 1 100ml.bag @ 100 mls/hr IVPB Q1H [facility] Rx#: [id number] Output: Urine 315 Other: Voiding Method Indwelling Catheter - Exam General appearance the patient is calm and comfortable awake, N the patient's oxygen by nasal cannula at 2 L Head exam was generally normal. There was no scleral icterus or corneal arcus. Mucous membranes were moist. Neck was supple and without jugular venous distension, thyromegaly, or carotid bruits. Carotids were easily palpable bilaterally. There was no adenopathy. She was in place for now. Lungs sounds are diminished bilaterally other was clear. Cardiac exam revealed the PMI to be normally situated and sized. The rhythm was regular and no extrasystoles were noted during several minutes of auscultation. The first and second heart sounds were normal and physiologic splitting of the second heart sound was noted. There were no murmurs, rubs, clicks, or gallops. Abdomen is soft and the patient's surgical sites are clean and intact. The patient has an incision over the left lateral abdominal wall. Bowel sounds are hypoactive. No direct tenderness. No rebound tenderness. No guarding. Examination of the extremities revealed easily palpable radial, femoral and pedal pulses. There was no cyanosis, clubbing or edema. Examination of the skin revealed no evidence of significant rashes, suspicious appearing nevi or other concerning lesions. Neurologically, the patient is awake and alert and the patient does not have any focal neurological deficit. Cranial nerves are essentially intact. - Labs CBC & Chem 7: 01/14/22 07:14 01/14/22 07:14 Assessment and Plan Plan: Kidney mass, post left nephrectomy. The patient POD #3. Based on the CAT scan findings, the findings highly suspicious for renal cell carcinoma recovering nicely, adequate pain control with fentanyl and epidural catheter and the patient has been NG tube removed and the diet is being gradually advanced. Surgical with suspected and intact. Intraoperative blood loss and the order of 1.5 L, she was transfused with a total of 2 units of packed RBC. The patient's hemodynamics are stable. She has an epidural Fentanyl in combination with bupivacaine. Hypertension Diabetes mellitus maternal metformin outpatient basis Acute kidney injury, post nephrectomy and the creatinine was monitored. Last creatinine was 1.3, Plan Discontinue the NG tube The patient has epidural fentanyl for pain control in addition to bupivacaine. Pain is under adequate control for now. The catheter will be kept for another 24 hours Compression devices to lower extremities regarding DVT prophylaxis and subcutaneous heparin Advanced oral intake IV fluids with lactated Ringer at a rate of 75 mL an hour Insulin sliding scale coverage Resume all medications Monitor the creatinine and the hemoglobin On a chair Incentive spirometer We'll continue to follow We'll definitely needs labs from today to follow-up on her renal function and electrolytes post Nephrectomy May transfer to a medical surgical floor
[2022-01-15 13:11] LABS: Calcium 8.3 mg/dL (8.4-10.2); HCT 25.4 % (34.0-46.0); HGB 8.5 gm/dL (11.4-16.0); Hypochromasia Slight; MCH 30.7 pg (25.0-35.0); MCHC 33.5 g/dL (31.0-37.0); MCV 91.6 fL (80.0-100.0); Mean Platelet Volume 9.9; Platelet Count 161 k/uL (150-450); RBC 2.77 m/uL (3.80-5.40); RDW 14.8 % (11.5-15.5); WBC 11.1 k/uL (3.8-10.6)
[2022-01-15] MEDS: ROPIVACAINE 250 MG, fentaNYL (PF) 625 MCG in SODIUM CHLORIDE 0.9% 188 ML EPIDURAL PRN (13:35)
[2022-01-15] MEDS: metFORMIN 500 MG TAB PO SCH (17:24)
[2022-01-16] MEDS: HEPARIN SODIUM,PORCINE/PF 5,000 UNIT/0.5 ML SYRINGE SQ SCH ×3 (01:00→17:08)
[2022-01-16] MEDS: methocarbamoL 750 MG TAB PO SCH ×5 (02:16→21:32)
[2022-01-16] MEDS: LACTATED RINGERS 1,000 ML IV SCH ×3 (04:43→21:33)
[2022-01-16] MEDS: amLODIPine 5 MG TAB PO SCH (09:00)
[2022-01-16] MEDS: hydrALAZINE HCL 50 MG TAB PO SCH ×3 (09:01→21:32)
[2022-01-16] MEDS: SERTRALINE 50 MG TAB PO SCH (09:01)
--- NOTE | 2022-01-16 10:24 | P.PN ---
Progress Note - Text Progress Note Date: 01/16/22 (9326) Anesthesia Postop day #3 Status post left open nephrectomy with epidural and #4 Patient seen and examined. Doing well without complaint. VAS 0 out of 10. No nausea vomiting or pruritus. Ropivacaine 0.1% with fentanyl at 5 mL an hour. + Ambulation Objective: Vital signs reviewed Lungs: Good chest excursion Abdomen: Appears nondistended Other: Epidural Site Intact without induration. Dressing intact Neuro: No apparent motor block. Sensory within normal limits. Assessment: Status post left open nephrectomy postop day #3 Plan: Continue current care with your medical management. Anticipate discontinued catheter today. Spoke with nurse and inform them catheter must be pulled 6 hours after last subcu heparin dose..
--- NOTE | 2022-01-16 10:24 | P.PN ---
Progress Note - Text Progress Note Date: 01/16/22 (5442) Anesthesia Postop day #3 Status post left open nephrectomy with epidural and #4 Patient seen and examined. Doing well without complaint. VAS 0 out of 10. No nausea vomiting or pruritus. Ropivacaine 0.1% with fentanyl at 5 mL an hour. + Ambulation Objective: Vital signs reviewed Lungs: Good chest excursion Abdomen: Appears nondistended Other: Epidural Site Intact without induration. Dressing intact Neuro: No apparent motor block. Sensory within normal limits. Assessment: Status post left open nephrectomy postop day #3 Plan: Continue current care with your medical management. Anticipate discontinued catheter today. Spoke with nurse and inform them catheter must be pulled 6 hours after last subcu heparin dose..
--- NOTE | 2022-01-16 10:33 | P.PN ---
Subjective Progress Note Date: 01/16/22 the patient is in her third postoperative day from a left radical nephrectomy. She continues to improve. She is tolerating liquids although not very hungry. Her urine is clear. Abdomen was soft. The wound looks good. Her vital signs are stable. The Castañeda catheter be removed. The epidural is removed. She is on oral pain medicine. HER diet to regular. She'll ambulate. Objective - Vital Signs Vital signs: Vital Signs Temp 98.4 F 01/16/22 08:00 Pulse 84 01/16/22 08:00 Resp 18 01/16/22 08:00 BP 159/74 01/16/22 08:00 Pulse Ox 93 L 01/16/22 08:00 FiO2 Intake & Output 01/15/22 01/16/22 01/16/22 18:59 06:59 18:59 Intake Total 1242.167 60 Output Total 240 1500 400 Balance 1002.167 -1500 -340 Intake: IV 600 LR @ 75 600 Intake, IV Titration 242.167 Amount Ropivacaine 250 mg 242.167 fentaNYL (PF) 625 mcg In Sodium Chloride 0.9% 188 ml @ Per Protocol EPIDURAL .Q0M PRN Rx#: [id number] Oral 400 60 Output: Urine 240 1500 400 Other: Voiding Method Indwelling Catheter Indwelling Catheter - Labs CBC & Chem 7: 01/15/22 07:25 01/15/22 07:25 Labs: Abnormal Lab Results - Last 24 Hours (Table) 01/15/22 01/15/22 Range/Units 07:25 07:25 WBC 11.1 H (3.8-10.6) k/uL RBC 2.77 L (3.80-5.40) m/uL Hgb 8.5 L (11.4-16.0) gm/dL Hct 25.4 L (34.0-46.0) % Chloride 111 H (98-107) mmol/L Carbon Dioxide 19 L (22-30) mmol/L Creatinine 1.15 H (0.52-1.04) mg/dL Calcium 8.3 L (8.4-10.2) mg/dL
--- NOTE | 2022-01-16 13:28 | P.PN ---
Subjective Progress Note Date: 01/16/22 Visit 76-year-old female patient who was found to have an operative 5 cm left sided upper lobe/cold renal mass. The patient was found to have a renal mass on a CAT scan of the abdomen and this was an incidental finding. There was a high concern for renal cell carcinoma. Based on that, the patient was taken to the operating room and the patient underwent an open left radical nephrectomy. During the procedure, there was some intraoperative blood loss that was controlled. The patient suspected to have a total blood loss of 1500 mL's. The patient was given a total of packed RBC. Awaiting a follow-up hemoglobin level for now. She did get extubated in the operating room and she was brought in to the ICU for further monitoring. At this point in time, the patient is awake and alert and she is following commands. She has an NG tube in place. She is currently on oxygen at 3 L nasal cannula. She is on IV fluids running in the form of lactated Ringer at the rate of 75 mL an hour. She receives a total of 2 L of fluid or less in the form of normal saline in the PACU. She is producing adequate amount of urine output. No hematuria this point in time. Castañeda cath is in place. Cardiac rhythm is sinus. The postop electrolytes were checked and the patient is a BUN of 60 with a creatinine of 0.8. Sodium is 142. Blood sugars at 229. The patient is diabetic and the patient has been maintained on metformin on an outpatient basis. She also has issues with hypertension. In terms of pain control, the patient currently has an epidural and she is receiving epidural. Bupivacaine along with fentanyl. On 01/14/2022, the patient is profoundly #1. Doing well. NG tube is still in place and the output cannot be accurately recorded as the patient is taking some clear liquid diet in addition. Nevertheless, her abdomen is non-distended. Bowel sounds are hypoactive. She has not passed any flatus yet. No bowel movements yet. No fever. No chills. Surgical incisions are clean and intact. No signs of any respiratory distress. The patient remains on normal saline at rate of 75 mL an hour. The patient is on 2 L O2 nasal cannula with pulse ox of 96%. In terms of her blood work, the patient's is showing a white cell count of 12.1 with a hemoglobin of 9.4. There is a slight drop in hemoglobin and creatinine is up to 1.3 from a baseline of 1 and his sodiums of 140 with a pot assium level of 4.1. Total protein is 4.3 albumin is low at 2.3. She does have Dilaudid epidural catheter along with bupivacaine for pain control and her pain is under excellent control for now. She is using the senna spirometer. On 01/15/2022, the patient's postop day #2. For the most part, the patient is doing well. NG tube is notable today. The patient is passing flatness. Her diet will be gradually advanced and currently she is taken clear liquid diet. Surgical once is striking and intact. The ends of 20 with a creatinine of 1.3 and there is an obvious size and the creatinine post nephrectomy. Sodiums of 140 and the serum bicarbs of 19. The white cell count is at 12.1 with a hemoglobin of 9.3. Note that these are yesterday's labs and follow-up as from today are still pending. Using incentive spirometer. No altered mentation. She is hard of hearing. No other significant events overnight. She is currently on oxygen at 2 L and the pulse ox 94%. She is on heparin subcu for DVT prophylaxis. At epidural is in till tomorrow and she is receiving adequate pain control with a combination of fentanyl and bupivacaine 01/16/2022, the patient's postop day #3. She is transferred out of the intensive care unit. She is using the incentive spirometer which is falling a pproximately 500 mL. She has no respiratory difficulties. Surgical incisions are clean and intact. She is passing flatness to no bowel movements yet. Epidural catheter has been removed. No nausea, no vomiting. No other significant event otherwise for now. Renal function is normalized and the creatinine is currently down to 1.15. Sodium is at 138. Hemoglobin is at 8.5. White cell count is 11.1. Objective - Vital Signs Vital signs: Vital Signs Temp 98.4 F 01/16/22 08:00 Pulse 84 01/16/22 08:00 Resp 18 01/16/22 08:00 BP 159/74 01/16/22 08:00 Pulse Ox 93 L 01/16/22 08:00 FiO2 Intake & Output 01/15/22 01/16/22 01/16/22 18:59 06:59 18:59 Intake Total 1242.167 60 Output Total 240 1500 400 Balance 1002.167 -1500 -340 Intake: IV 600 LR @ 75 600 Intake, IV Titration 242.167 Amount Ropivacaine 250 mg 242.167 fentaNYL (PF) 625 mcg In Sodium Chloride 0.9% 188 ml @ Per Protocol EPIDURAL .Q0M PRN Rx#: [id number] Oral 400 60 Output: Urine 240 1500 400 Other: Voiding Method Indwelling Catheter Indwelling Catheter - Exam General appearance the patient is calm and comfortable awake, N the patient's oxygen by nasal cannula at 2 L Head exam was generally normal. There was no scleral icterus or corneal arcus. Mucous membranes were moist. Neck was supple and without jugular venous distension, thyromegaly, or carotid bruits. Carotids were easily palpable bilaterally. There was no adenopathy. She was in place for now. Lungs sounds are diminished bilaterally other was clear. Cardiac exam revealed the PMI to be normally situated and sized. The rhythm was regular and no extrasystoles were noted during several minutes of auscultation. The first and second heart sounds were normal and physiologic splitting of the second heart sound was noted. There were no murmurs, rubs, clicks, or gallops. Abdomen is soft and the patient's surgical sites are clean and intact. The blake ent has an incision over the left lateral abdominal wall. Bowel sounds are hypoactive. No direct tenderness. No rebound tenderness. No guarding. Examination of the extremities revealed easily palpable radial, femoral and pedal pulses. There was no cyanosis, clubbing or edema. Examination of the skin revealed no evidence of significant rashes, suspicious appearing nevi or other concerning lesions. Neurologically, the patient is awake and alert and the patient does not have any focal neurological deficit. Cranial nerves are essentially intact. - Labs CBC & Chem 7: 01/15/22 07:25 01/15/22 07:25 Assessment and Plan Plan: Kidney mass, post left nephrectomy. The patient POD #3. Based on the CAT scan findings, the findings highly suspicious for renal cell carcinoma recovering nicely, adequate pain control with fentanyl and epidural catheter and the patient has been NG tube removed and the diet is being gradually advanced. Surgical with suspected and intact. Intraoperative blood loss and the order of 1.5 L, she was transfused with a total of 2 units of packed RBC. The patient's hemodynamics are stable. She has an epidural Fentanyl in combination with bupivacaine. The epidural catheter has been removed Hypertension Diabetes mellitus maternal metformin outpatient basis Acute kidney injury, post nephrectomy and the creatinine was monitored. Last creatinine was 1.15 Plan Patient is passing flatness No bowel movements yet Epidural catheter has been removed Physical intake Continue IV fluids IV fluids with lactated Ringer at a rate of 75 mL an hour Insulin sliding scale coverage Resume all medications Monitor the creatinine and the hemoglobin On a chair Incentive spirometer We'll continue to follow Keep the patient on medical floor
[2022-01-16] MEDS: metFORMIN 500 MG TAB PO SCH (17:08)
[2022-01-17] MEDS: HEPARIN SODIUM,PORCINE/PF 5,000 UNIT/0.5 ML SYRINGE SQ SCH ×3 (00:02→17:54)
[2022-01-17 08:16] VITALS: RESP 18
[2022-01-17] MEDS: amLODIPine 5 MG TAB PO SCH (08:45)
[2022-01-17] MEDS: methocarbamoL 750 MG TAB PO SCH ×4 (08:45→22:47)
[2022-01-17] MEDS: SERTRALINE 50 MG TAB PO SCH (08:45)
[2022-01-17] MEDS: hydrALAZINE HCL 50 MG TAB PO SCH ×3 (08:45→22:47)
--- NOTE | 2022-01-17 12:46 | P.PN ---
Subjective Progress Note Date: 01/17/22 Visit 76-year-old female patient who was found to have an operative 5 cm left sided upper lobe/cold renal mass. The patient was found to have a renal mass on a CAT scan of the abdomen and this was an incidental finding. There was a high concern for renal cell carcinoma. Based on that, the patient was taken to the operating room and the patient underwent an open left radical nephrectomy. During the procedure, there was some intraoperative blood loss that was controlled. The patient suspected to have a total blood loss of 1500 mL's. The patient was given a total of packed RBC. Awaiting a follow-up hemoglobin level for now. She did get extubated in the operating room and she was brought in to the ICU for further monitoring. At this point in time, the patient is awake and alert and she is following commands. She has an NG tube in place. She is currently on oxygen at 3 L nasal cannula. She is on IV fluids running in the form of lactated Ringer at the rate of 75 mL an hour. She receives a total of 2 L of fluid or less in the form of normal saline in the PACU. She is producing adequate amount of urine output. No hematuria this point in time. Castañeda cath is in place. Cardiac rhythm is sinus. The postop electrolytes were checked and the patient is a BUN of 60 with a creatinine of 0.8. Sodium is 142. Blood sugars at 229. The patient is diabetic and the patient has been maintained on metformin on an outpatient basis. She also has issues with hypertension. In terms of pain control, the patient currently has an epidural and she is receiving epidural. Bupivacaine along with fentanyl. On 01/14/2022, the patient is profoundly #1. Doing well. NG tube is still in place and the output cannot be accurately recorded as the patient is taking some clear liquid diet in addition. Nevertheless, her abdomen is non-distended. Bowel sounds are hypoactive. She has not passed any flatus yet. No bowel movements yet. No fever. No chills. Surgical incisions are clean and intact. No signs of any respiratory distress. The patient remains on normal saline at rate of 75 mL an hour. The patient is on 2 L O2 nasal cannula with pulse ox of 96%. In terms of her blood work, the patient's is showing a white cell count of 12.1 with a hemoglobin of 9.4. There is a slight drop in hemoglobin and creatinine is up to 1.3 from a baseline of 1 and his sodiums of 140 with a pot assium level of 4.1. Total protein is 4.3 albumin is low at 2.3. She does have Dilaudid epidural catheter along with bupivacaine for pain control and her pain is under excellent control for now. She is using the senna spirometer. On 01/15/2022, the patient's postop day #2. For the most part, the patient is doing well. NG tube is notable today. The patient is passing flatness. Her diet will be gradually advanced and currently she is taken clear liquid diet. Surgical once is striking and intact. The ends of 20 with a creatinine of 1.3 and there is an obvious size and the creatinine post nephrectomy. Sodiums of 140 and the serum bicarbs of 19. The white cell count is at 12.1 with a hemoglobin of 9.3. Note that these are yesterday's labs and follow-up as from today are still pending. Using incentive spirometer. No altered mentation. She is hard of hearing. No other significant events overnight. She is currently on oxygen at 2 L and the pulse ox 94%. She is on heparin subcu for DVT prophylaxis. At epidural is in till tomorrow and she is receiving adequate pain control with a combination of fentanyl and bupivacaine 01/16/2022, the patient's postop day #3. She is transferred out of the intensive care unit. She is using the incentive spirometer which is falling a pproximately 500 mL. She has no respiratory difficulties. Surgical incisions are clean and intact. She is passing flatness to no bowel movements yet. Epidural catheter has been removed. No nausea, no vomiting. No other significant event otherwise for now. Renal function is normalized and the creatinine is currently down to 1.15. Sodium is at 138. Hemoglobin is at 8.5. White cell count is 11.1. 01/17 2022, postoperative day number the #4. Creatinine is stable at 0.6. BUN is 18. Sodiums of 135. Passing flatus. No bowel movement yet. Surgical incision site clean and intact. Using incentive spirometer. Hemoglobin was at 7.8. Objective - Vital Signs Vital signs: Vital Signs Temp 98.3 F 01/17/22 08:00 Pulse 86 01/17/22 08:00 Resp 18 01/17/22 08:00 BP 156/79 01/17/22 08:00 Pulse Ox 95 01/17/22 08:00 FiO2 Intake & Output 01/16/22 01/17/22 01/17/22 18:59 06:59 18:59 Intake Total 60 100 Output Total 400 Balance -340 100 Intake: Oral 60 100 Output: Urine 400 Other: Voiding Method Toilet # Voids 1 2 - Exam General appearance the patient is calm and comfortable awake, N the patient's ox ygen by nasal cannula at 2 L Head exam was generally normal. There was no scleral icterus or corneal arcus. Mucous membranes were moist. Neck was supple and without jugular venous distension, thyromegaly, or carotid bruits. Carotids were easily palpable bilaterally. There was no adenopathy. She was in place for now. Lungs sounds are diminished bilaterally other was clear. Cardiac exam revealed the PMI to be normally situated and sized. The rhythm was regular and no extrasystoles were noted during several minutes of auscultation. The first and second heart sounds were normal and physiologic splitting of the second heart sound was noted. There were no murmurs, rubs, clicks, or gallops. Abdomen is soft and the patient's surgical sites are clean and intact. The patient has an incision over the left lateral abdominal wall. Bowel sounds are hypoactive. No direct tenderness. No rebound tenderness. No guarding. Examination of the extremities revealed easily palpable radial, femoral and pedal pulses. There was no cyanosis, clubbing or edema. Examination of the skin revealed no evidence of significant rashes, suspicious appearing nevi or other concerning lesions. Neurologically, the patient is awake and alert and the patient does not have any focal neurological deficit. Cranial nerves are essentially intact. - Labs CBC & Chem 7: 01/15/22 07:25 01/15/22 07:25 Assessment and Plan Plan: Kidney mass, post left nephrectomy. The patient POD #4. Based on the CAT scan findings, the findings highly suspicious for renal cell carcinoma recovering nicely, adequate pain control with fentanyl and epidural catheter and the patient has been NG tube removed and the diet is being gradually advanced. Surgical with suspected and intact. Intraoperative blood loss and the order of 1.5 L, she was transfused with a total of 2 units of packed RBC. The patient's hemodynamics are stable. She has an epidural Fentanyl in combination with bupivacaine. The epidural catheter has been removed Hypertension Diabetes mellitus maternal metformin outpatient basis Acute kidney injury, post nephrectomy , recovered Plan Patient is on room air oxygen Patient is passing flatness No bowel movements yet Epidural catheter has been removed Physical intake Continue IV fluids IV fluids with lactated Ringer at a rate of 75 mL an hour Creatinine is normalized Insulin sliding scale coverage Resume all medications Monitor the creatinine and the hemoglobin On a chair Incentive spirometer Surgical wounds is clean We'll sign off the case
[2022-01-17] MEDS: metFORMIN 500 MG TAB PO SCH (17:52)
--- NOTE | 2022-01-17 19:36 | P.PN ---
Subjective Progress Note Date: 01/17/22 76 yo female sp left radical nephrectomy 01/13/2022. She is recouperating nicely. SHe is voiding without problems. She is not having pain. Her vss SHe is tolerating a regular diet. SHe will ambulate today and if she feels better she will go home tomorrow. Objective - Vital Signs Vital signs: Vital Signs Temp 98.3 F 01/17/22 14:00 Pulse 91 01/17/22 14:00 Resp 18 01/17/22 14:00 BP 171/80 01/17/22 14:00 Pulse Ox 93 L 01/17/22 14:00 FiO2 Intake & Output 01/17/22 01/17/22 01/18/22 06:59 18:59 06:59 Intake Total 100 Balance 100 Intake: Oral 100 Other: Voiding Method Toilet Toilet # Voids 2 1 - Labs CBC & Chem 7: 01/15/22 07:25 01/15/22 07:25
[2022-01-17] MEDS: LACTATED RINGERS 1,000 ML IV SCH (23:06)
[2022-01-18] MEDS: HEPARIN SODIUM,PORCINE/PF 5,000 UNIT/0.5 ML SYRINGE SQ SCH ×2 (01:32→08:50)
[2022-01-18 08:47] VITALS: BP 177/78; PULSE 75; TEMP 98.7
[2022-01-18] MEDS: amLODIPine 5 MG TAB PO SCH (08:50)
[2022-01-18] MEDS: SERTRALINE 50 MG TAB PO SCH (08:50)
[2022-01-18] MEDS: hydrALAZINE HCL 50 MG TAB PO SCH (08:50)
[2022-01-18] MEDS: methocarbamoL 750 MG TAB PO SCH ×2 (08:50→14:55)
[2022-01-18] MEDS: LACTATED RINGERS 1,000 ML IV SCH (14:55)
== END 2022-01-18 15:45 | disposition home or self-care (01) | DRG 657 ==
LOC: 2ORMAIN 05:36 → 2SICU 11:46 → 6NMEDSUR 01-15 15:40
PROVIDERS: ADMIT Urology; ATTEND Urology
PROC: 0TT10ZZ Resection of Left Kidney, Open Approach (ICD-10-PCS; principal; 2022-01-13 07:30)
PROC: 30233N1 Transfusion of Nonautologous Red Blood Cells into Peripheral Vein, Percutaneous Approach (ICD-10-PCS; principal; 2022-01-13 07:30)
DX: C64.2 Malignant neoplasm of left kidney, except renal pelvis (principal); D62 Acute posthemorrhagic anemia; N17.9 Acute kidney failure, unspecified; I95.89 Other hypotension; H91.90 Unspecified hearing loss, unspecified ear; E11.9 Type 2 diabetes mellitus without complications; I10 Essential (primary) hypertension; Z79.84 Long term (current) use of oral hypoglycemic drugs; Z79.899 Other long term (current) drug therapy; Z88.2 Allergy status to sulfonamides
CPT/HCPCS: 36430; 80048; 80053; 83735; 85025; 85027; 86850; 86900; 86901; 86920; 88307

== ENCOUNTER → 2022-08-13 | Outpatient (CLI) | payer MEDICARE ==
--- NOTE | 2022-08-13 10:50 | CT ---
EXAMINATION TYPE: CT abdomen pelvis wo con DATE OF EXAM: 08/13/2022 COMPARISON: None available HISTORY: 77-year-old female C64.2 Left kidney cancer-removed CT DLP: 990 mGycm. Automated exposure control for dose reduction was used. TECHNIQUE: Contiguous axial scanning of the abdomen and pelvis without IV contrast. Coronal and sagit rachna reconstructions performed. FINDINGS: Heart normal size without pericardial effusion. Coronary calcifications are present and there are mar ker for coronary artery disease. Emphysematous change of the lower lungs. There is some reticular homer nge in the subpleural regions and some mild patchy scattered groundglass as well. Possible postinfect ious scarring. Small hiatal hernia. Noncontrast appearance of the liver, adrenal glands, right kidney, spleen, and pancreas show no gross abnormal body. Surgical material in the left nephrectomy bed. There is some soft tissue nodularity here measuring 1. 6 cm. Moderate prostatic calcifications abdominal aorta and iliac arteries. No dilated small bowel, free fluid, or free air. No mesenteric or retroperitoneal lymphadenopathy. High riding cecum. Mild stool wording. No pericolonic inflammatory change. Bladder is urine distended. Multiple pelvic phlebolith. Uterus surgically absent. Neither ovary is se en. No abnormal fluid collection in the pelvis or pelvic lymphadenopathy. Mild pelvic floor relaxatio n. Hypertrophic facet arthropathy mid to lower lumbar spine. Degenerative grade 1 anterolisthesis L4-L5 and L5-S1. IMPRESSION: 1. Status post left nephrectomy. There is a soft tissue nodule measuring 1.6 cm in the left nephrect jackeline bed. Correlate with any available outside prior to determine stability. Close surveillance recomm ended as early local recurrence is not excluded at this time. 2. COPD with scattered reticular and mild groundglass in the lower lungs, possible postinfectious sc arring. 3. Incidental: Small hiatal hernia, status post hysterectomy, and mild pelvic floor relaxation.
== END | disposition home or self-care (01) ==
LOC: RADCTMAIN 09:14
PROVIDERS: ATTEND Urology
DX: C64.2 Malignant neoplasm of left kidney, except renal pelvis (principal); J44.9 Chronic obstructive pulmonary disease, unspecified; J98.4 Other disorders of lung; N28.89 Other specified disorders of kidney and ureter; Z90.5 Acquired absence of kidney
CPT/HCPCS: 74176

== ENCOUNTER → 2023-02-28 | Outpatient (CLI) | payer MEDICARE ==
--- NOTE | 2023-02-28 13:12 | CT ---
EXAMINATION TYPE: CT abdomen pelvis wo con DATE OF EXAM: 02/28/2023 HISTORY: f/u kidney ca CT DLP: 856 mGycm. Automated Exposure Control for Dose Reduction was Utilized. TECHNIQUE: CT scan of the abdomen and pelvis is performed without oral or IV contrast. COMPARISON: Prior CT August 13, 2022 and PET/CT October 23, 2022 FINDINGS: Within the limitations of a non-contrast study, the following observations are made. LUNG BASES: Mild scattered linear scarring and/or atelectasis is present. Coronary artery calcificati on and/or stents are again seen. Stable tiny anterior inferior pericardial effusion. LIVER/GB: Cholecystectomy clips are redemonstrated. PANCREAS: No significant abnormality is seen. SPLEEN: No significant abnormality is seen. ADRENALS: No significant abnormality is seen. KIDNEYS: Left kidney is surgically absent. Enlarging suspicious soft tissue nodularity at this level measuring 2.1 x 1.6 cm current study axial image 41 is noted. BOWEL: No significant abnormality is seen. GENITAL ORGANS: Uterus is surgically absent or atrophic in appearance. Scattered tiny bilateral pelvi c phleboliths are present. LYMPH NODES: No greater than 1cm abdominal or pelvic lymph nodes are appreciated. OSSEOUS STRUCTURES: No significant abnormality is seen. OTHER: Moderate calcified plaque of the aorta extends into branch vessels. IMPRESSION: Left-sided nephrectomy changes redemonstrated. Enlarging soft tissue mass at nephrectomy bed is noted and suspicious for residual/recurrent local neoplasm.
== END | disposition home or self-care (01) ==
LOC: RADCTMAIN 12:32
PROVIDERS: ATTEND Urology
DX: C64.2 Malignant neoplasm of left kidney, except renal pelvis (principal); Z90.5 Acquired absence of kidney
CPT/HCPCS: 74176

== ENCOUNTER → 2023-03-31 | Outpatient (CLI) | payer MEDICARE ==
[2023-03-31 13:43] LABS: African American GFR (CKD) 45 (>60 ml/min/1.73 sqM); Blood Urea Nitrogen 23 mg/dL (7-17); Non-African American GFR(CKD) 39 (>60 ml/min/1.73 sqM)
--- NOTE | 2023-03-31 14:41 | CT ---
EXAMINATION TYPE: CT chest w con DATE OF EXAM: 03/31/2023 COMPARISON: None HISTORY: Renal cell ca f/u CT DLP: 471.70 mGycm Automated exposure control for dose reduction was used. TECHNIQUE: CT scan of the chest is performed with IV Contrast, patient injected with 80 mL of Isovue 300. MIP I mages are created on CT scanner and reviewed. 3D reconstructed images are created on an independent w orkstation and reviewed. FINDINGS: There is a 7 mm well-circumscribed nodule in the left upper lobe which given the history of renal matt l carcinoma, metastatic disease cannot be excluded. No other lung nodules are seen. There is no airspace consolidation. There is no pleural effusion, pleural thickening or pneumothorax. The great vessels the chest are normal is no mediastinal, hilar or axillary adenopathy. There is a new soft tissue mass with bone destruction and the right aspect of T10 with extension into the epidural space on the right. This is consistent with bone metastasis. IMPRESSION: 1. Findings highly suspicious for metastatic disease including a left upper lobe pulmonary nodule and a lytic osseous lesion in T10. 2. No acute cardiopulmonary disease.
== END | disposition home or self-care (01) ==
LOC: RADCTMAIN 12:48
PROVIDERS: ATTEND Internal Medicine
DX: C64.2 Malignant neoplasm of left kidney, except renal pelvis (principal)
CPT/HCPCS: 82565; 84520; 71260; 36415; Q9967

== ENCOUNTER 2023-04-04 21:44 | Emergency (ER) | payer MEDICARE ==
[2023-04-04] MEDS ORDERED: MORPHINE SULFATE 4 MG/ML SYRINGE IVP STA ×2 (22:15→23:56)
--- NOTE | 2023-04-04 22:17 | ED ---
General Adult HPI - General Stated complaint: Fall, right knee injury Time Seen by Provider: 04/04/23 22:09 Source: patient, family, RN notes reviewed, old records reviewed Limitations: no limitations - History of Present Illness Initial comments: 77-year-old female presenting for evaluation of right knee pain status post fall. Patient does have chronic knee pain and was scheduled to see orthopedics tomorrow. While getting out of the shower this evening she fell and believes she landed on her right knee. There is no head or neck trauma. Pain is isolated to the right knee. She denies hip pain. - Related Data Home Medications Medication Instructions Recorded Confirmed Sertraline [Zoloft] 150 mg PO DAILY 01/07/22 01/13/22 amLODIPine [Norvasc] 5 mg PO QAM 01/07/22 01/13/22 hydrALAZINE HCL [Apresoline] 50 mg PO TID 01/07/22 01/13/22 metFORMIN HCL 500 mg PO 1800 01/07/22 01/13/22 Previous Rx's Medication Instructions Recorded HYDROcodone/APAP 5-325MG [Newberg 1 tab PO Q4HR PRN 3 Days #18 tab 01/18/22 5-325] HYDROcodone/APAP 5-325MG [Newberg 1 tab PO Q4HR PRN 3 Days #18 tab 01/18/22 5-325] methocarbamoL [Robaxin-750] 750 mg PO QID #20 tab 01/18/22 Allergies Allergy/AdvReac Type Severity Reaction Status Date / Time Sulfa (Sulfonamide Allergy Rash/Hives Verified 04/04/23 22:16 Antibiotics) Review of Systems ROS Statement: Those systems with pertinent positive or pertinent negative responses have been documented in the HPI. ROS Other: All systems not noted in ROS Statement are negative. Past Medical History Past Medical History: Hypertension Additional Past Medical History / Comment(s): left kidney mass,"prediabetes" History of Any Multi-Drug Resistant Organisms: None Reported Past Surgical History: Appendectomy, Cholecystectomy, Hysterectomy, Tonsillectomy Additional Past Anesthesia/Blood Transfusion Reaction / Comment(s): no hx blood transfusions Past Psychological History: Anxiety Smoking Status: Never smoker - Past Family History Mother Family Medical History: Cancer Additional Family Medical History / Comment(s): lung General Exam General appearance: alert, in no apparent distress Head exam: Present: atraumatic, normocephalic Eye exam: Present: normal appearance, PERRL ENT exam: Present: normal exam Neck exam: Present: normal inspection. Absent: tenderness, meningismus Respiratory exam: Present: normal lung sounds bilaterally. Absent: respiratory distress, wheezes Cardiovascular Exam: Present: regular rate, normal rhythm GI/Abdominal exam: Present: soft. Absent: distended, tenderness Extremities exam: Present: tenderness (knee ), normal capillary refill, other. Absent: full ROM Neurological exam: Present: alert, oriented X3, CN II-XII intact. Absent: motor sensory deficit Skin exam: Present: warm, dry, intact Course Vital Signs 04/04/23 04/04/23 22:17 22:20 Temperature 98.8 F 98.8 F Pulse Rate 80 80 Respiratory 18 18 Rate Blood Pressure 179/89 179/89 O2 Sat by Pulse 98 98 Oximetry Medical Decision Making - Medical Decision Making Was pt. sent in by a medical professional or institution (, PA, BASIN TENDER, urgent care, hospital, or long term...) When possible be specific @ -No Did you speak to anyone other than the patient for history (EMS, parent, family, police, friend...)? What history was obtained from this source @ -No Did you review nursing and triage notes (agree or disagree)? Why? @ -I reviewed and agree with nursing and triage notes Were old charts reviewed (outside hosp., previous admission, EMS record, old EKG, old radiological studies, urgent care reports/EKG's, long term records)? Report findings @ -No old charts were reviewed Differential Diagnosis (chest pain, altered mental status, abdominal pain women, abdominal pain men, vaginal bleeding, weakness, fever, dyspnea, syncope, headache, dizziness, GI bleed, back pain, seizure, CVA, palpatations, mental health, musculoskeletal)? @ traumatic injury after fall EKG interpreted by me (3pts min.). @ Sinus rhythm first-degree AV block rate of 69, GA interval 210, QRS duration 100, QTC [address] segment elevation. X-rays interpreted by me (1pt min.). @ -X-ray of the right femur shows a distal femur fracture, displaced fracture CT interpreted by me (1pt min.). @ -None done U/S interpreted by me (1pt. min.). @ -None done What testing was considered but not performed or refused? (CT, X-rays, U/S, labs)? Why? @ -None What meds were considered but not given or refused? Why? @ -None Did you discuss the management of the patient with other professionals (professionals i.e. , PA, BASIN TENDER, lab, RT, psych nurse, high school social studies teacher, belting and webbing inspector, teacher, hospital security officer, director case management)? Give summary @ -Discussed with Dr. Bernardo beltran for orthopedics, recommends transfer. Case discussed with [facility], will except. Was smoking cessation discussed for >3mins.? @ -No Was critical care preformed (if so, how long)? @ -No Were there social determinants of health that impacted care today? How? (Homelessness, low income, unemployed, alcoholism, drug addiction, transportation, low edu. Level, literacy, decrease access to med. care, half-way, rehab)? @ -No Was there de-escalation of care discussed even if they declined (Discuss DNR or withdrawal of care, Hospice)? DNR status @ -No What co-morbidities impacted this encounter? (DM, HTN, Smoking, COPD, CAD, C ancer, CVA, ARF, Chemo, Hep., AIDS, mental health diagnosis, sleep apnea, morbid obesity)? @ -Obesity, diabetes Was patient admitted / discharged? Hospital course, mention meds given and route, prescriptions, significant lab abnormalities, going to OR and other pertinent info. @ -[77-year-old female with mechanical fall, right knee pain. The knee is externally rotated with soft tissue swelling in the distal femur and proximal knee. Patient's has 2+ distal pulses. She is placed in a knee immobilizer. She will require higher level of care, transferred to [facility] Undiagnosed new problem with uncertain prognosis? @ -No Drug Therapy requiring intensive monitoring for toxicity (Heparin, Nitro, Insulin, Cardizem)? @ -No Were any procedures done? @ -No Diagnosis/symptom? @ - distal Femur fracture Acute, or Chronic, or Acute on Chronic? @ -[acute Uncomplicated (without systemic symptoms) or Complicated (systemic symptoms)? @ -[complicated Side effects of treatment? @ -No Exacerbation, Progression, or Severe Exacerbation? @ -No Poses a threat to life or bodily function? How? (Chest pain, USA, DC, pneumonia, PE, COPD, DKA, ARF, appy, cholecystitis, CVA, Diverticulitis, Homicidal, Suicidal, threat to staff... and all critical care pts) @ -yes, femur fracture - Lab Data Result diagrams: 04/04/23 23:00 04/04/23 23:00 Lab Results 04/04/23 04/04/23 Range/Units 23:00 23:00 WBC 14.6 H (3.8-10.6) k/uL RBC 4.34 (3.80-5.40) m/uL Hgb 12.9 (11.4-16.0) gm/dL Hct 39.9 (34.0-46.0) % MCV 92.0 (80.0-100.0) fL MCH 29.8 (25.0-35.0) pg MCHC 32.3 (31.0-37.0) g/dL RDW 13.5 (11.5-15.5) % Plt Count 186 (150-450) k/uL MPV 7.0 Neutrophils % 84 % Lymphocytes % 7 % Monocytes % 6 % Eosinophils % 2 % Basophils % 0 % Neutrophils # 12.3 H (1.3-7.7) k/uL Lymphocytes # 1.1 (1.0-4.8) k/uL Monocytes # 0.8 (0-1.0) k/uL Eosinophils # 0.2 (0-0.7) k/uL Basophils # 0.1 (0-0.2) k/uL Sodium 136 L (137-145) mmol/L Potassium 5.2 H (3.5-5.1) mmol/L Chloride 104 (98-107) mmol/L Carbon Dioxide 21 L (22-30) mmol/L Anion Gap 11 mmol/L BUN 23 H (7-17) mg/dL Creatinine 1.16 H (0.52-1.04) mg/dL Est GFR (CKD-EPI)AfAm 52 (>60 ml/min/1.73 sqM) Est GFR (CKD-EPI)NonAf 45 (>60 ml/min/1.73 sqM) Glucose 142 H (74-99) mg/dL Calcium 9.3 (8.4-10.2) mg/dL Total Bilirubin 0.6 (0.2-1.3) mg/dL AST 30 (14-36) U/L ALT 13 (4-34) U/L Alkaline Phosphatase 70 (38-126) U/L Total Protein 6.9 (6.3-8.2) g/dL Albumin 3.7 (3.5-5.0) g/dL Disposition Clinical Impression: Fall, Fracture, femur, distal Disposition: OTHER INSTITUTION NOT DEFINED Condition: Stable Is patient prescribed a controlled substance at d/c from ED?: No Referrals: None,Stated [Primary Care Provider] - 1-2 days Time of Disposition: 00:02 - Out of Hospital Transfer - Req. Specs Out of Hospital Transfer - Requested Specifics: Other Emergency Center ([facility])
[2023-04-04 22:27] VITALS: RESP 18
[2023-04-04 23:23] LABS: Basophils # (A) 0.1 k/uL (0-0.2); Basophils % (A) 0 %; Eosinophils # (A) 0.2 k/uL (0-0.7); Eosinophils % (A) 2 %; HCT 39.9 % (34.0-46.0); HGB 12.9 gm/dL (11.4-16.0); Lymphocytes # (A) 1.1 k/uL (1.0-4.8); Lymphocytes % (A) 7 %; MCH 29.8 pg (25.0-35.0); MCHC 32.3 g/dL (31.0-37.0); Monocytes # (A) 0.8 k/uL (0-1.0); Monocytes % (A) 6 %; Neutrophils # (A) 12.3 k/uL (1.3-7.7); Neutrophils % (A) 84 %; Platelet Count 186 k/uL (150-450); RBC 4.34 m/uL (3.80-5.40); RDW 13.5 % (11.5-15.5); WBC 14.6 k/uL (3.8-10.6)
[2023-04-04 23:34] LABS: ALT 13 U/L (4-34); African American GFR (CKD) 52 (>60 ml/min/1.73 sqM); Anion Gap 11 mmol/L; Blood Urea Nitrogen 23 mg/dL (7-17); Calcium 9.3 mg/dL (8.4-10.2); Carbon Dioxide 21 mmol/L (22-30); Chloride 104 mmol/L (98-107); Glucose 142 mg/dL (74-99); Non-African American GFR(CKD) 45 (>60 ml/min/1.73 sqM); Sodium 136 mmol/L (137-145); Total Bilirubin 0.6 mg/dL (0.2-1.3)
[2023-04-04 23:39] LABS: AST 30 U/L (14-36); Albumin 3.7 g/dL (3.5-5.0); Alkaline Phosphatase 70 U/L (38-126); Potassium 5.2 mmol/L (3.5-5.1); Total Protein 6.9 g/dL (6.3-8.2)
[2023-04-05 01:27] VITALS: BP 182/86; PULSE 78; TEMP 98.2
--- NOTE | 2023-04-05 02:14 | XR ---
EXAM: XR Right Knee, 3 Views CLINICAL HISTORY: ITS.REASON XR Reason: fall TECHNIQUE: Three views of the right knee. COMPARISON: No relevant prior studies available. IMPRESSION: Comminuted and significantly displaced distal femoral fracture
--- NOTE | 2023-04-05 02:15 | XR ---
EXAM: XR Chest, 1 View CLINICAL HISTORY: ITS.REASON XR Reason: FALL TECHNIQUE: Frontal view of the chest. COMPARISON: No relevant prior studies available. FINDINGS: Lungs: No consolidation or mass. Pleural space: No acute findings Heart: cardiomegaly. Bones/joints: No acute findings. IMPRESSION: No acute cardiopulmonary process.
--- NOTE | 2023-04-05 02:15 | XR ---
EXAM: XR Right Femur, 2 Views CLINICAL HISTORY: ITS.REASON XR Reason: fall TECHNIQUE: Frontal and lateral views of the right femur. COMPARISON: No relevant prior studies available. IMPRESSION: Comminuted and significantly displaced distal femoral fracture
== END 2023-04-05 01:21 | disposition other institution (70) ==
LOC: EC 21:44
DX: S72.401A Unspecified fracture of lower end of right femur, initial encounter for closed fracture (principal); I10 Essential (primary) hypertension; I25.2 Old myocardial infarction; I44.0 Atrioventricular block, first degree; F41.9 Anxiety disorder, unspecified; Z79.899 Other long term (current) drug therapy; Z88.2 Allergy status to sulfonamides; W19.XXXA Unspecified fall, initial encounter
CPT/HCPCS: 36415; 93005; 80053; 85025; 73552; 73560; 71045; 99284; 96374; 96376; J2270

== ENCOUNTER → 2023-05-27 | Outpatient (CLI) | payer MEDICARE ==
--- NOTE | 2023-05-28 15:12 | MR ---
EXAMINATION TYPE: MR brain/cspine wo/w DATE OF EXAM: 05/27/2023 4:51 PM CLINICAL INDICATION:Female, 77 years old with history of C64.9 Kidney cancer; PHH, Renal Cell Carcino ma with Nephrectomy, Pain, weakness, and numbness Left side, Right side hearing loss COMPARISON: None. TECHNIQUE: Multi planar, multi sequence imaging was performed through the brain including: T1, T2, Inversion rec overy, Diffusion weighted imaging, and gradient echo imaging. No gadolinium was given. Multi planar, multi sequence imaging was performed utilizing: T1-weighted, T2-weighted, and turbo inv ersion recovery imaging of the cervical spine. IV Contrast: 7.5 cc Gadavist FINDINGS: The crawford-white junctions, ventricular system, basal cisterns appear unremarkable. Patchy areas of h igh T2 signal intensity are seen within the periventricular white matter. Midline structures show no abnormality. Diffusion-weighted imaging shows no evidence of restricted diffusion. The susceptibility weighted images do not reveal any evidence for micro-hemorrhage. The bone marrow signal is within normal limits. Paranasal sinuses and mastoid air cells: No significant paranasal sinus disease. Visualized orbits: Bilaterally aphakia. Motion artifact limits evaluation. Alignment: The cervical vertebral bodies have preserved heights. Alignment is within normal limits gi lobo patient positioning. Bones: Bone signal is within normal limits. No abnormal bone marrow edema on inversion recovery seque nces. No abnormal postcontrast enhancement. Cord: The spinal cord is unremarkable with regards to their signal intensity and morphology. No abnormal postcontrast enhancement. Discs: Multilevel disc desiccation is present. C2-C3: No significant disc pathology. The spinal canal is patent. No neural foraminal stenosis. C3-C4: No significant disc pathology. The spinal canal is patent. No neural foraminal stenosis. C4-C5: No significant disc pathology. The spinal canal is patent. No neural foraminal stenosis. C5-C6: No significant disc pathology. The spinal canal is patent. No neural foraminal stenosis. C6-C7: No significant disc pathology. The spinal canal is patent. No neural foraminal stenosis. C7-T1: No significant disc pathology. The spinal canal is patent. No neural foraminal stenosis. Other: None. IMPRESSION: 1. No evidence for disc herniation or significant spinal canal stenosis. 2. Multilevel disc degeneration with associated osteoarthritic changes. 3. No evidence of intracranial mass or acute/subacute infarct. 4. Nonspecific white matter changes, likely secondary to small vessel ischemic disease. 5. No abnormal postcontrast enhancement.
== END | disposition home or self-care (01) ==
LOC: RADMRIMAIN 15:22
PROVIDERS: ATTEND Orthopaedic Surgery
DX: G93.89 Other specified disorders of brain (principal); C64.9 Malignant neoplasm of unspecified kidney, except renal pelvis; S24.113A Complete lesion at T7-T10 level of thoracic spinal cord, initial encounter; I10 Essential (primary) hypertension; R53.1 Weakness; Z90.5 Acquired absence of kidney; H91.91 Unspecified hearing loss, right ear; X58.XXXA Exposure to other specified factors, initial encounter
CPT/HCPCS: 70553; 72156; A9585

== ENCOUNTER → 2023-05-30 | Outpatient (CLI) | payer MEDICARE ==
--- NOTE | 2023-05-31 10:47 | MR ---
EXAMINATION TYPE: MR tspine/lspine wo/w con DATE OF EXAM: 05/30/2023 11:03 AM CLINICAL INDICATION:Female, 77 years old with history of T10 lesion; PHH, Hx renal cell cancer, fract ured femur Apr 2023, unable to ambulate. COMPARISON: Pet/CT 10/23/2022, 03/31/2023 CT TECHNIQUE: Multi planar, multi sequence imaging was performed utilizing: T1-weighted, T2-weighted, a nd turbo inversion recovery imaging of the thoracic and lumbar spine. IV Contrast: 8 cc Gadavist. None. FINDINGS: Alignment: The thoracic and lumbar vertebral bodies have preserved heights and alignment. Cord: The conus medullaris and the distal spinal cord appear unremarkable with regards to their signa l intensity and morphology. Bones/Discs: Bone signal is within normal limits. Multilevel degenerative disc disease is noted and most pronounced at the . THORACIC: Metastatic lesion in the T10 vertebral body measures 25 x 29 x 21 mm it extends to the post erior vertebral body wall into the spinal canal with mild to moderate spinal canal stenosis. The spin al cord signal is maintained. The lesion does appear to extend into the pedicle on the right. LUMBAR: T12-L1: No evidence of significant spinal canal stenosis or neural foraminal stenosis. L1-L2: No evidence of significant spinal canal stenosis or neural foraminal stenosis. L2-L3: No evidence of significant spinal canal stenosis or neural foraminal stenosis. L3-L4: No evidence of significant spinal canal stenosis or neural foraminal stenosis. L4-L5: No evidence of significant spinal canal stenosis or neural foraminal stenosis. L5-S1: The disc is rounded posterior morphology without significant spinal canal stenosis. Facet join t arthropathy with mild neural foraminal stenosis. Other findings: None. IMPRESSION: T10 vertebral body metastatic lesion which extends through the posterior vertebral body wall into the spinal canal. This results in at least mild to moderate spinal canal stenosis.
== END | disposition home or self-care (01) ==
LOC: RADMRIMAIN 08:33
PROVIDERS: ATTEND Orthopaedic Surgery
DX: C79.51 Secondary malignant neoplasm of bone (principal); C64.9 Malignant neoplasm of unspecified kidney, except renal pelvis; M48.04 Spinal stenosis, thoracic region
CPT/HCPCS: 72157; 72158; A9585

== ENCOUNTER → 2023-06-20 | Outpatient (CLI) | payer MEDICARE ==
[2023-06-20 16:09] LABS: HCT 39.4 % (37.2-46.3); HGB 11.9 g/dL (12.0-15.0); MCH 27.7 pg (27.0-32.0); MCHC 30.2 g/dL (32.0-37.0); MCV 91.8 FL (80.0-97.0); Mean Platelet Volume 10.3 FL (9.5-12.2); NRBC Per 100 WBC 0 X 10*3/uL (0.00-0.01); Platelet Count 212 X 10*3/uL (140-440); RBC 4.29 X 10*6/uL (4.10-5.20); WBC 7.31 X 10*3/uL (4.50-10.00)
[2023-06-20 16:33] LABS: ALT <5 U/L (8-44); AST 17 U/L (13-35); Albumin 3.6 g/dL (3.8-4.9); Albumin/Globulin Ratio 1.33 Ratio (1.60-3.17); Alkaline Phosphatase 77 U/L (41-126); Blood Urea Nitrogen 11.7 mg/dL (9.0-27.0); Calcium 9.9 mg/dL (8.7-10.3); Carbon Dioxide 18.5 mmol/L (21.6-31.8); Chloride 106 mmol/L (96-109); Globulin 2.7 g/dL (1.6-3.3); Glucose 79 mg/dL (70-110); Potassium 4.3 mmol/L (3.5-5.5); Sodium 140 mmol/L (135-145); Total Bilirubin 0.3 mg/dL (0.3-1.2); Total Protein 6.3 g/dL (6.2-8.2)
[2023-06-20 20:33] LABS: INR 1.14 sec (0.93-1.11); Prothrombin Time 12.2 sec (9.9-11.9)
== END | disposition home or self-care (01) ==
LOC: LABWHC1 09:28
PROVIDERS: ATTEND Orthopaedic Surgery
DX: Z01.812 Encounter for preprocedural laboratory examination (principal); C79.51 Secondary malignant neoplasm of bone; I21.9 Acute myocardial infarction, unspecified; I21.09 ST elevation (STEMI) myocardial infarction involving other coronary artery of anterior wall; R94.31 Abnormal electrocardiogram [ECG] [EKG]
CPT/HCPCS: 36415; 80053; 82306; 85027; 85610; 86850; 86900; 86901; 87070; 93005

== ENCOUNTER 2023-08-08 05:37 | Day surgery (SDC) | payer MEDICARE ==
[2023-08-03 15:13] VITALS: BMI 29.2
[~2023-08-08 05:37] MED LIST: ONDANSETRON 4 MG/2 ML VIAL IVP PRN; TRANEXAMIC 1,000 MG/100ML-NACL 1,000 MG in SALINE 1 100ML.BAG IVPB PRN
[2023-08-08] MEDS: ACETAMINOPHEN TAB 500 MG TAB PO PRN (06:44)
[2023-08-08] MEDS: GABAPENTIN 300 MG CAP PO PRN (06:44)
[2023-08-08] MEDS: LIDOCAINE 1% (10MG/ML) FOR IV START INTRADERMA ONE (06:47)
[2023-08-08] MEDS: LACTATED RINGERS 1,000 ML IV SCH (06:48)
[2023-08-08] MEDS: ONDANSETRON 4 MG/2 ML VIAL IVP ONE (06:48)
[2023-08-08] MEDS: DEXAMETHASONE SOD PHOSPHATE 4 MG/ML 1 ML VIAL IV ONE (06:48)
[2023-08-08] MEDS ORDERED: HYDROmorphone 0.5 MG/0.5 ML SYRINGE IVP PRN (07:00)
[2023-08-08] MEDS: DEXTROSE 50% SYRINGE 50 ML IVP ONE (07:05)
[2023-08-08 07:07] LABS: Glucose,Whole Blood 66 mg/dL (70-110)
[2023-08-08] MEDS ORDERED: SUCCINYLCHOLINE CHLORIDE 200 MG/10 ML VIAL IV ONE (07:24)
[2023-08-08] MEDS ORDERED: PROPOFOL 10 MG/ML 20 ML VIAL IV ONE (07:24)
[2023-08-08] MEDS ORDERED: KETAMINE HCL IN 0.9 % NACL 50 MG/5 ML SYRINGE ONE (07:24)
[2023-08-08] MEDS ORDERED: PHENYLEPHRINE-0.9% NACL SYG 1,000 MCG/10 ML SYRINGE ONE (07:24)
[2023-08-08] MEDS ORDERED: TRANEXAMIC 1,000 MG/100ML-NACL PREMIX BAG ONE (07:24)
[2023-08-08] MEDS ORDERED: LIDOCAINE 1% INJ 10MG/ML (20 ML MDV) ONE (07:24)
--- NOTE | 2023-08-08 07:24 | P.HPOR ---
History of Present Illness H&P Date: 08/08/23 .D:Date: 06/17/23 : 08:22am .T:Title: [facility] HISTORY AND PHYSICAL Age: 77 year Height: 5' Weight: 175 lbs BMI: 34.18 kg/m2 Occupation: Retired VAS: 0 CC: Evaluation of lesion on thoracic spine / Review MRIs of brain, cervical, thoracic, and lumbar spine HISTORY: Ms. Peters presents to the office today,06/17/23, for re-evaluation of possible lesion on thoracic spine and review recent MRIs of the brain, cervical, thoracic, and lumbar spine. The patient denies experiencing any significant pain throughout the neck, mid or low back. The patient continues to note numbness throughout the left hand. She states her current numbness occurs on an intermittent basis. The patient reports a continued inability to walk. She states her symptoms have remained relatively stable since she was last evaluated in office on 05/13/2023. She is currently taking Tylenol and Oxycodone for relief of her current symptoms. Otherwise patient denies any f/c/sob/cp, perineal numbness or tingling, bowel or bladder incontinence/retention. Patient is ambulatorywith the use of a wheelchair today. The patients' past social, medical, family, surgical history, as well as review of systems, have been reviewed. Please refer to the Neurosurgery History and Physical form that has been scanned into our electronic medical record system. 16 points review of systems completed and as stated in HPI, all other systems reviewed are negative. PAST TREATMENTS: PAST IMAGING: - MRI brain and cervical spine completed at [facility] on 05/27/2022 - MRI thoracic and lumbar spine completed at [facility] on 05/30/2023 TRAUMA RELATED: - No WORK RELATED: - No PT IN LAST 6 MONTHS: - No PHYSICIAN DIRECTED HOME EXERCISE PRO - No ACTIVITY MODIFICAITON: - Yes MEDICATIONS: - Tylenol & Oxycodone ALTERNATIVE INTERVENTIONS (CHIROPRACTIC, ACCUPUNCTURE, MASSAGE, RICE): - Rest BRACING: - No INJECTIONS (HARLEY, TF, RFA): - None MEDICAL HISTORY: Social History: Reviewed, see appropriate section of the chart for details. Family History: Reviewed, see appropriate section of the chart for details. P2 Past Medical History: Reviewed, see appropriate section of the chart for details. Current Medications: P1Rx: amLODIPine 5 mg tablet Ref: 0 Rx: metFORMIN 500 mg tablet Ref: 0 Rx: oxyCODONE 5 mg capsule Ref: 0 Rx: TylenoL 325 mg tablet Ref: 0 Rx: Zoloft 100 mg tablet Ref: 0 P1 IMAGING Study Findings XRAY No new x-rays taken in office today. Please see previous notes CT N/A MRI Brain Date: 05/27/2023 Location: [facility] Region:Brain Contrast:Y (with and without) MRI Cervical Date: 05/27/2023 Location: [facility] Region:Cervical Contrast:Y (with and without) MRI Thoracic Date: 05/27/2023 Location: [facility] Region:Thoracic Contrast:Y (with and without) MRI Lumbar Date: 05/30/2023 Location: [facility] Region:Lumbar Contrast:Y (wit and without) MRI of the Brain, Ceevical spine, Lumbar and Tgoracic spine are reviewed with thw patient today in office. I have also revi ewed the radiology reqds and agree with their assessments. On the thoracic image there appears to be recurrence of the T10 metastatic lesion with hypertensive signal on T2 and STIR images this suggests a lesion in the T10 body and given her history would likely be mets. Biopsy needed to confirm. No acute fractures noted at this time. Alignment relatively stable. PHYSICAL EXAM: General: AOX3, NAD, Well hydrate, Well nourished HEENT: No lumps or masses Extremities: No color changes, no pooling INTEGUMENT: Hairy Patches: ABSENT Dorsal Skin Dimples: Normal [employer] spots: ABSENT Surgical Incisions: None Muscle Appearance: Well formed, no atrophy PALPATION: Midline: NO Paracervical:NO Parathoracic:YES Paralumbar:NO SIJ TESTING: Yes TTP: No [place] Finger:No FABER4:No Compression:No Distraction:No Thigh thrust:No Hip thrust: No POSTURAL BALANCE: Coronal: BALANCED Sagittal: BALANCED Shoulder height: LEVEL Pelvic Girdle: LEVEL ROM AND APPEARANCE: Neck: UNRESTRICTED Lumbar: RESTRICTED Shoulders: Symmetrical Hips: Symmetrical Knees: Symmetrical Hands: Symmetrical Feet: Symmetrical VASCULAR STATUS: RUE- 2 LUE-2 RLE-2 LLE-2 Edema: NONE NEUROLOGICAL EXAMINATION: Mental Status: Awake, alert, oriented fully with normal attention, concentration and memory. Fluent appropriate speech. CRANIAL NERVES: I: Olfactory not tested. II: Visual acuity normal, no visual field deficit noted with confrontation. III,IV: Normal pupillary reflexes & intact extraocular movements without nystagmus. V,: Intact symmetrical facial sensation. VII: Intact symmetrical facial motor movementVIII: Hearing intact. IX,X: Intact gag, swallow, & normal voice. XI: Sternocleidomastoid, trapezius function intact. XII: Tongue midline with normal movements. TENSIONING: L'HERMITTE'S SIGN NEG SPURLUNG'S SIGN NEG CUBITAL COMPRESSION NEG TINELS AT WRIST NEG SLR/CROSSED SLR NEG MOTOR EXAM (0-5/5, NT) Muscle appearance:Symmetrical, without signs of atrophy or dystrophy UPPER EXTREMITY RIGHT LEFT Shoulder Abduction 5 5 Biceps 5 5 Triceps 5 5 Wrist Extension 5 5 Hand Intrnsics 5 5 Centrifuge Operator 5 5 LOWER EXTREMITY RIGHT LEFT Hip Flexion 5 5 Knee Extension 5 5 Knee Flexion 5 5 Dorsiflexion 5 5 Plantarflexion 5 5 EHL 5 5 FHL 5 5 -Hand and finger dexterity intact bilaterally? YES -Dysdiadochokinesia examination negative bilaterally? YES -Toe heel walk / heel-toe walk intact while maintaining satisfactory balance? YES -Squatting/straightening w/o assistance to a min of 60 degree knee flexion? YES -Single leg stance: ABLE -Trendelenburg sign NEGATIVE B/L REFLEXES (0-4/2, NT): RUE- 2LUE- 2 RLE- 2 LLE- 2 PATHOLOGICAL REFLEXES: RIGHT LEFT LE'S ABSENT ABSENT CLONUS ABSENT ABSENT BABINSKI ABSENT ABSENT Rectal Tone: INTACT SENSATION (0-4, NT): RUE-2LUE-2 RLE-2 LLE-2 Dermatomal deficit: none GAIT AND FUNCTIONAL EVALUATION: Ambulatory aids - INDEPENDENT Rombergs test - NEG IMPRESSION: It was my pleasure to have seen and examined Yuliya. I reviewed the patient's clinical syndrome, physical findings, and imaging studies during the appointment today. It is my impression that the patient has a diagnosis of. 1. T10 metastatic lesion, recurrent PLAN: MEDICATIONS - Take all current medications as directed IMAGING - MRIs of brain, cervical, thoracic, and lumbar spine all reviewed today in office with the patient and her family members SURGICAL RECOMMENDATION - Recommended T10 Biopsy with tumoral ablation to address the patient's recurrent T10 metastatic lesion. The patient verbally understands all risks, benefits, and alternatives to surgeryand elects to proceed at this time. Spine Surgery Risk Review Ms. Peters is presenting for evaluation of T10 lesion. It was my pleasure to have seen and examined Ms. Peters. In our visit today we have had a chance to go over subjective complaints, physical examination findings and treatments including the natural course history without intervention and various interventional options. The patients imaging demonstrates: T10 likely metestatic lesion in vertebralbody, biopay needed to confirm. No acute fractures. alignment maintained. On physical exam, Ms. Peters demonstrates: The patient denies experiencing any significant pain throughout the neck, mid or low back. The patient continues to note numbness throughout the left hand. She states her current numbness occurs on an intermittent basis. The patient reports a continued inability to walk. She states her symptoms have remained relatively stable since she was last evaluated in office on 05/13/2023. She is currently taking Tylenol and Oxycodone for relief of her current symptoms. I have explained to the patient that as their condition progresses it will cause further neurological deficits and eventual paralysis. Based on the patients imaging, physical exam, and the rapid progression and disabling nature of their symptoms, at this time I recommend surgery in the form of a: T10 biopsy with tumoral ablation. I discussed the risk and benefits of this procedure at length with Ms. Peters. The patient agreed to considered pursuing the procedure above mentioned. Prior to surgery, she should follow up with her PCP (Cardio, ID, IM etc) for clearance. Questions were invited and answered, and the patient wishes to proceed as outlined below. n Currently, I am recommendin.T10 biopsy with tumoral ablation 2.Follow up with PCP for surgical clearance 3.Review of surgical risks and benefits as well as an educational packet on the proposed surgical procedure. Risks: All surgical procedures come with inherent risks, including those related to positioning, anesthesia, intraoperative findings, and postoperative complications. It is important to understand that surgery does not come with any guarantee of a successful outcome as complications and adverse events are always possible. The patient was given a handout in office today discussing the surgical procedure and risks associated with the intervention, both of which were discussed with the patient. These risks include but are not limited to the following: * Experiencing same, different or even worse symptoms in back, neck, arms, or legs compared to before surgery. Requiring further surgery or other forms of treatment presently or at some time in the future at same or other levels of the intended spine surgery. On an extreme but fortunately relatively rare basis severe complication such as blindness, stroke, heart attack, temporary and/or permanent nerve injury, paralysis, coma, or may occur, sometimes without known explanation. Surgical complications may include but are not limited to risk of infection, fluid accumulation in the surgical dissection site, including a seroma or hematoma, that requires additional surgery, wound drainage, bleeding, new numbness or weakness, vision changes/loss, spinal fluid leakage, non-healing and/or infected incision, headaches, difficulty or inability to swallow, swathi rseness, hemopneumothorax, pneumothorax, impotence, retrograde ejaculation, vaginal dryness; injury to nerves, spinal cord, blood vessels, lymphatics or other vital organs (i.e., bowel injury, injury to the great vessels); heterotopic bone formation; complications related to the hardware such as screws, rods, cages including misplaced hardware, device failure, instrumentation at the wrong spine level, hardware fracture/breakage, or hardware loosening; vertebral failure of the spinal column above or below the newly placed hardware; retained surgical instrumentations or devices and the need for further surgery. * Medical risks of the planned spine surgery include but are not limited to generalized Infections to the whole body or local areas outside of the surgical site (sepsis), heart attack, bleeding, anaphylaxis, meningitis, seizure, epilepsy, hearing loss, burn robertson, laceration of the head or other areas of the body, bruising, hypersensitivity of the skin, bladder over distension; allergic reaction; shoulder injury related to positioning; fat, blood and air clots to other areas of the body like heart, lungs, brain; failure of internal organs such as lungs, kidneys, liver and excessive bleeding. If blood transfusions are necessary, note that transfusions may cause intolerance reactions such as anaphylaxis or other complex reactions. Despite best efforts, the results of spine surgery might not heal in terms of bone, soft tissues such as skin, fascia, ligaments, and joints. Additionally, in order to achieve best possible results, spine surgery may be carried out beyond the initially planned levels and involve decompression, fusion including insertion of hardware at levels other than the original intended area of surgical interest change some portions of the procedure in order to ensure the best possible outcomes. With spine surgery and spinal fusion, there are different off label uses of instrumentation (devices, implants and hardware) as well as biological friend bstances (bone morphogenic proteins, demineralized bone matrix) as well as using extra bone from allograft sources (i.e. cadaver bone) or autograft (iliac crest bone, ribs, or the spine itself). The patient has been given information about these practices and their inherent risks and benefits. [facility] is an educational center that serves as a training facility for neurosurgical and orthopedic RISK PREVENTION ENGINEER and Nursing students. Physician assistants are medically trained surgical providers who function in the outpatient, inpatient, and operating room setting under the direct supervision of the attending surgeon. [facility] has multiple operating rooms with single and overlapping rooms running daily. They currently function under the required guidelines as produced by the [facility] Finance Committee with regards to the overlapping rooms and will continue to comply with changes to this policy as they occur. The requirements include and are complied with as follows: (1) the critical portions of the overlapping rooms will not occur at the same time, (2) the attending physician will be physically present during the critical portions of the procedure and immediately available during the entire case, and (3) a back-up attending is designated should the primary attending not be immediately available. The patient has had a chance to review all the listed information, has been given print outs detailing this information, and has had all his/her questions answered to their satisfaction. It was my pleasure to have seen and examined Ms. Peters. In our visit today we have had a chance to go over my understanding of our patient's current condition, the natural course history without intervention and various interventional options. Questions were invited and answered, and the patient wishes to proceed as outlined above. I have seen and examined the patient for 25 minutes and we have spent more than 50% of the time in repeat and detailed counseling about the patient's condition, its natural course history with out and as much as can be predicted with surgery and re-review of various surgical treatment options. In conclusion, Ms. Peters requested we proceed with the above suggested surgery and are willing to accept risks and limitations of the suggested surgery as nature of the disease process and our best attempts at treatment for the condition. Thank you again for allowing us to be part of your patient's care. Please don't hesitate to contact me if you have any further questions. Madan Bass DO [facility] Orthopedics and Spine Complex and Minimally Invasive Spine Surgery [address] [facility], [address] [address] FOLLOW UP: Post Procedure PATIENT EDUCATION: Medications Reviewed: YES In our visit today Ms. Peters and I have had a chance to go over my understanding of the patient's current condition, the natural course history without intervention and various interventional options. Questions were invited and answered, and the patient wishes to proceed as outlined above. I will be sure to keep you updated after Ms. Peters returns here for further follow-up. Thank you again for your referral. Please do not hesitate to contact me if you have any further questions. Signed and authenticated by: Madan Bass DO [facility] and Minimally Invasive Spine Surgery [address], [address] [address] This message is confidential, intended only for the named recipient(s) and may contain information that is privileged or exempt from disclosure under applicable law. If you are not the intended recipient(s), you are notified that the dissemination, distribution or copying of this information is strictly prohibited. If you received this message in error, please notify the sender then delete this message. 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 Type II DM. Hx fractured right femur from fall 04/04/23. History of Any Multi-Drug Resistant Organisms: None Reported Past Surgical History: Appendectomy, Cholecystectomy, Hysterectomy, Orthopedic Surgery, Tonsillectomy Additional Past Surgical History / Comment(s): Left nephrectomy 01/23, left femur surgery. Past Anesthesia/Blood Transfusion Reactions: No Reported Reaction Additional Past Anesthesia/Blood Transfusion Reaction / Comment(s): no hx blood transfusions Past Psychological History: Anxiety Smoking Status: Never smoker Past Alcohol Use History: None Reported Past Drug Use History: None Reported - Past Family History Mother Family Medical History: Cancer Additional Family Medical History / Comment(s): Lung cancer. Medications and Allergies Home Medications Medication Instructions Recorded Confirmed Type Sertraline [Zoloft] 150 mg PO QAM 01/07/22 08/03/23 History amLODIPine [Norvasc] 5 mg PO QAM 01/07/22 08/03/23 History metFORMIN HCL 500 mg PO 1800 01/07/22 08/03/23 History oxyCODONE HCL/ACETAMINOPHEN 1 tab PO Q6HR PRN 06/24/23 08/03/23 History [Endocet 2.5-325 mg Tablet] Vitamin B (Unknown Dose) 1 tab PO DAILY 08/03/23 08/03/23 History Vitamin D (Unknown Dose) 1 tab PO DAILY 08/03/23 08/03/23 History Allergies Allergy/AdvReac Type Severity Reaction Status Date / Time Sulfa (Sulfonamide Allergy Rash/Hives Verified 08/03/23 14:43 Antibiotics) Physical Examination Osteopathic Statement: *. No significant issues noted on an osteopathic structural exam other than those noted in the History and Physical/Consult.
[2023-08-08 07:25] LABS: Glucose,Whole Blood 109 mg/dL (70-110)
[2023-08-08] MEDS: BUPIVACAINE (PF) 0.5% 30 ML VIAL SQ ONE (08:00)
[2023-08-08] MEDS: IOPAMIDOL M200 10 ML VIAL MISCELLANE ONE (08:00)
[2023-08-08] MEDS: LIDOCAINE 2%-EPI 1:100,000 20 ML VIAL SQ ONE (08:00)
--- NOTE | 2023-08-08 08:20 | P.OP ---
Date of Procedure: 08/08/23 Preoperative Diagnosis: 1. T10 LYTIC LESION WITH PATHOLOGICAL FRACTURE 2. HX RCC 3. BACK PAIN Postoperative Diagnosis: 1. T10 LYTIC LESION WITH PATHOLOGICAL FRACTURE 2. HX RCC 3. BACK PAIN Procedure(s) Performed: 1. T10 BIOPSY WITH TUMORAL ABLATION AND KYPHOPLASTY Implants: CEMENT Anesthesia: GETA Surgeon: Madan Bass Filling Carrier #1: Glen Gonzalez (KRISTI Macdonald Was present and assisted with all aspects of the case from positioning to dressing placement) Estimated Blood Loss (ml): 15 IV fluids (ml): 1,000 Urine output (ml): 0 Pathology: other (T10 VERTEBRAL BODY) Condition: stable Disposition: PACU Indications for Procedure: Ms. Peters is presenting for evaluation of T10 lesion. It was my pleasure to have seen and examined Ms. Peters. In our visit today we have had a chance to go over subjective complaints, physical examination findings and treatments including the natural course history without intervention and various interventional options. The patients imaging demonstrates: T10 likely metestatic lesion in vertebralbody, biopay needed to confirm. No acute fractures. alignment maintained. On physical exam, Ms. Peters demonstrates: The patient denies experiencing any significant pain throughout the neck, mid or low back. The patient continues to note numbness throughout the left hand. She states her current numbness occurs on an intermittent basis. The patient reports a continued inability to walk. She states her symptoms have remained relatively stable since she was last evaluated in office on 05/13/2023. She is currently taking Tylenol and Oxycodone for relief of her current symptoms. I have explained to the patient that as their condition progresses it will cause further neurological deficits and eventual paralysis. Based on the patients imaging, physical exam, and the rapid progression and disabling nature of their symptoms, at this time I recommend surgery in the form of a: T10 biopsy with tumoral ablation. I discussed the risk and benefits of this procedure at length with Ms. Peters. The patient agreed to considered pursuing the procedure above mentioned. Prior to surgery, she should follow up with her PCP (Cardio, ID, IM etc) for clearance. Questions were invited and answered, and the patient wishes to proceed as outlined below. n Currently, I am recommendin.T10 biopsy with tumoral ablation Description of Procedure: T10 kyphoplasty, biopsy, tumoral ablation, Spine Pritesh The patient was seen and examined in the preoperative area. All preoperative protocols were followed. Informed consent was obtained, risks and benefits of the procedure were discussed at length. Risks including bleeding infection damage to the surrounding tissue and risk of re-operation were discussed with the patient. Risk of anesthesia up to and including was discussed with the patient. These are outlined in the risk review. They were willing to accept these risks and all the risks of surgery. The patient was given a weight-based dose of antibiotics in the form of 2 g Ancef. The patient was seen and evaluated by the anesthesia team who deemed them fit for surgery. The site was marked, the patient was willing to proceed with the procedure. The patient was transferred to the operative suite by the Department of anesthesia. They were then drifted off to sleep by the department anesthesia and GETA was performed. The patient tolerated this well. Once confirmation of lines and ventilation the patient was transferred to a prone Tom table very carefully. All bony prominences including wrists, elbows, axilla, chest, hips, and thighs, and feet were padded very well. Special attention was paid to the genitalia, and these were padded accordingly. SCDs were placed on bilateral lower extremities and were connected. Arms were well padded and placed on arm boards up and out in the 90/90 position. Once in position, again we confirmed good ventilation capabilities and that lines were running appropriately. The patients Lumbar spine was then exposed. 1010s were placed outlining the incision site. Standard alcohol was used to clean the incision site and allowed to dry. C-arm was used to needle localize the pedicles at T10 and bio-connie the patient and confirm level for incision which was marked with a skin marker. Operative briefing was performed with all teams and everyone in agreement to proceed. The patient was then prepped and draped in a normal sterile fashion. Timeout was then performed, and all parties agreed with the procedure to be perf ormed. Bilateral Skin binh was made. Jamshitdis was passed into the T10 vertebral body via the pedicle. This was done with biplane fluoroscopy. Once in good position in the body the trochar removed. Biopsy needle was passed into the body and biopsy taken. Drill was then passed and biopsy material taken from drill as well. Ablation probes were then passed into the vertebral body bilaterally and t he tumoral ablation was run for 9 min as prescribed and as directed in [employer] Ablation protocol. Balloon was then passed an inflated which showed minor reduction of endplate on AP and Lateral and confirmed central placement. It was then elected to proceed with Spine Pritesh system as the balloon was not adequate. Bilateral access was kept. The Spine Pritesh protocol was followed and bilateral jacks placed. They were then sequentially and simultaneously expanded bilateral in optimal position until good reduction of height and sagittal alignment was obtained. Cement was then placed bilaterally under flouroscopic guidance. Good fill of cement was seen without extravasation. Pt remained stable through process. Once good fill, the Jamshedi was removed and the wound irrigated. AP and lateral confirmed good reduction of the fracture and good cement fill. The skin was closed with a simple stitch and dressed with glue and a bandaid. The patient was then transferred off the table back to their hospital bed a- traumatically. They were extubated by the department of anesthesia. They were then transferred to PACU in stable condition having tolerated the procedure with no complications.
[2023-08-08 08:37] LABS: Glucose,Whole Blood 104 mg/dL (70-110)
[2023-08-08 09:02] VITALS: TEMP 97
--- NOTE | 2023-08-08 10:07 | FL ---
EXAMINATION TYPE: FL guidance operating room, XR thoracic spine 2V Intraoperative/procedural fluorosc opic services were provided. Total fluoroscopy time is 1 minute 1 second with a total of 8 submitted images to PACS. Please see the operative/procedural note for further details. DAP: 5.8695 Gycm2
[2023-08-08 11:04] LABS: Glucose,Whole Blood 116 mg/dL (70-110)
[2023-08-08 11:19] VITALS: BP 133/75; PULSE 78; RESP 16
== END 2023-08-08 11:20 | disposition home or self-care (01) ==
LOC: OR 05:37
PROVIDERS: ATTEND Orthopaedic Surgery
DX: S24.113A Complete lesion at T7-T10 level of thoracic spinal cord, initial encounter (principal); C79.51 Secondary malignant neoplasm of bone; E11.9 Type 2 diabetes mellitus without complications; F03.94 Unspecified dementia, unspecified severity, with anxiety; I10 Essential (primary) hypertension; Z85.528 Personal history of other malignant neoplasm of kidney; Z88.1 Allergy status to other antibiotic agents; Z88.2 Allergy status to sulfonamides; X58.XXXA Exposure to other specified factors, initial encounter
CPT/HCPCS: 20220; 22513; 88307; 72070; J0330; J1100; J0690; J2405; J2001; J2704; Q9966; J2371; J0665

== ENCOUNTER → 2023-09-13 | Outpatient (CLI) | payer MEDICARE ==
[2023-09-13 11:49] LABS: African American GFR (CKD) 75 (>60 ml/min/1.73 sqM); Blood Urea Nitrogen 19 mg/dL (7-17); Non-African American GFR(CKD) 65 (>60 ml/min/1.73 sqM)
--- NOTE | 2023-09-13 15:03 | CT ---
EXAMINATION TYPE: CT ChestAbdPelvis w con CT DLP: 1418 mGycm, Automated exposure control for dose reduction was used. DATE OF EXAM: 09/13/2023 2:35 PM COMPARISON: CT chest 03/31/2023, CT abdomen and pelvis 02/28/2023, PET/CT 10/23/2022. CLINICAL INDICATION:Female, 78 years old with history of C64.2 MALIGNANT NEOPLASM OF LEFT KIDNEY; PH[facility] , Malignant neoplasm of kidney Technique: Multiple axial images of the chest, abdomen, and pelvis were obtained following the intrav enous administration of 100 mL Isovue-300. Oral contrast was administered. Two-dimensional coronal an d sagittal reconstructions were obtained. Findings: CHEST: LUNGS/ PLEURA: No pleural effusion, focal consolidation, or pneumothorax. Bibasilar subpleural reticu lar opacities redemonstrated. Stable left upper lobe 6 mm pulmonary nodule. (Series 4, image 11). No new or enlarging pulmonary nodules. AIRWAY: Patent and unremarkable.. HEART: Size within normal limits. Trace pericardial effusion. Moderate coronary arterial calcificatio ns. MEDIASTINUM: No gross evidence of adenopathy. VASCULATURE: No aortic aneurysm. Tortuosity of the thoracic aorta. At this chronic calcification of the aorta and its branches. MUSCULOSKELETAL: No acute osseous abnormalities. Redemonstration of lytic lesion involving the T10 ve rtebral body with pathologic collapse and vertebral augmentation demonstrated. There is a soft tissue expansile lesion identified within the sternum measuring 2.9 x 1.8 x 4.7 cm which has progressed fro m prior exam. SOFT TISSUES/LYMPH NODES: Stable 1.5 cm lesion with peripheral coarse calcifications within the left breast (series 3, image 35). LOWER NECK: Subcentimeter hypodense nodule within the inferior right thyroid lobe. ABDOMEN: ABDOMEN LIVER: Unremarkable GALLBLADDER AND BILE DUCTS: Mild intra and extra hepatic biliary duct dilatation which is likely rela jasmyne to postcholecystectomy. PANCREAS: Unremarkable. SPLEEN: Small region of low attenuation along the inferior aspect of the spleen. ADRENAL GLANDS: Right adrenal gland is unremarkable. The left adrenal gland is not well identified an d may be surgically absent. KIDNEYS AND URETERS: No hydronephrosis or renal calculus involving the right kidney. Contrast demonst rated within the right collecting system on the delayed phase. Postsurgical changes from left nephrec cindy. There is enhancing nodularity in the left nephrectomy bed posteriorly measuring 2.5 cm (series 3, image 56 and 2.9 x 1.8 cm (series 3, image 52). Previously measured 2.5 x 1.4 cm. Additional incr eased nodularity within the left paracolic gutter measuring up to 2.2 cm, previously measured up to 1 .6 cm (series 3, image 67). PELVIS BLADDER: Unremarkable REPRODUCTIVE: Uterus is surgically absent. ABDOMEN & PELVIS STOMACH AND BOWEL: Stomach and duodenum are unremarkable. No focal bowel wall thickening or surroundi ng inflammatory changes. Enteric contrast reaches the cecum. No evidence of bowel obstruction. PERITONEUM: No evidence of pneumoperitoneum or free fluid. VASCULATURE: Moderate atherosclerotic calcifications are present throughout the abdominal aorta and i ts branches. No abdominal aortic aneurysm. Few pelvic phleboliths. MUSCULOSKELETAL: No acute osseous abnormalities. Partial visualization of right intramedullary femora l cynthia. LYMPH NODES: No gross evidence for lymphadenopathy. SOFT TISSUE/ABDOMINAL WALL: Mild diffuse anasarca. IMPRESSION: 1. Status post left nephrectomy with progression of disease demonstrating several enhancing and enla rging nodules within the left nephrectomy site and in the left paracolic gutter. 2. Redemonstration of osseous metastasis with pathologic collapse of the T10 vertebral body status p ost vertebral augmentation. Progression of osseous metastasis with enlarging expansile soft tissue le curry within the sternum. 3. Small low density region within the inferior spleen likely representing a splenic infarct. 4. Stable nonspecific left upper lobe 6 mm pulmonary nodule. No new or enlarging pulmonary nodules. 5. Stable 1.5 cm lesion within the left breast with peripheral coarse calcifications. Correlation wi th prior breast imaging is recommended.
--- NOTE | 2023-09-14 08:34 | NM ---
EXAMINATION TYPE: NM bone scan whole body DATE OF EXAM: 09/13/2023 COMPARISON: NONE CLINICAL INDICATION: Female, 78 years old with history of C64.2 MALIGNANT NEOPLASM OF LEFT KIDNEY; Delayed whole-body scanning was performed following the injection of 22.8 mCi Tc 99m MDP. Images acq uired 3 hours post injection. FINDINGS: There is bilateral pedicle uptake involving T10. There also appears to be sternal uptake. Focal uptak e is noted to involve left rib #8 anteriorly laterally. Moderate uptake about the knees. Intramedull melany cynthia noted right femur. Focal defect suggestive distal right femur or lytic lesion is difficult to exclude. Focal uptake left midfoot. IMPRESSION: These compatible with bony metastatic disease as discussed above. Radiographic correlation advised.
== END | disposition home or self-care (01) ==
LOC: RADNMMAIN 10:49
PROVIDERS: ATTEND Internal Medicine
DX: C79.51 Secondary malignant neoplasm of bone (principal); C64.2 Malignant neoplasm of left kidney, except renal pelvis; N28.89 Other specified disorders of kidney and ureter; M48.54XA Collapsed vertebra, not elsewhere classified, thoracic region, initial encounter for fracture; R91.1 Solitary pulmonary nodule; N64.9 Disorder of breast, unspecified; R92.1 Mammographic calcification found on diagnostic imaging of breast; Z90.5 Acquired absence of kidney; Z96.698 Presence of other orthopedic joint implants
CPT/HCPCS: 82565; 84520; 71260; 74177; 36415; 78306; A9503; Q9967

== ENCOUNTER 2023-09-29 11:15 | Day surgery (SDC) | payer MEDICARE ==
[2023-09-27 12:33] VITALS: BMI 28.5
[~2023-09-29 11:15] MED LIST changes: +ACETAMINOPHEN TAB 500 MG TAB PO PRN; +HYDROmorphone 0.5 MG/0.5 ML SYRINGE IVP PRN; +LACTATED RINGERS 1,000 ML IV SCH; +LIDOCAINE 1% (10MG/ML) FOR IV START INTRADERMA PRN; +MIDAZOLAM 2 MG/2 ML VIAL IV PRN; -ONDANSETRON 4 MG/2 ML VIAL IVP PRN; +Pre Op ABX Message 1 EACH MISC MISCELLANE ONE; -TRANEXAMIC 1,000 MG/100ML-NACL 1,000 MG in SALINE 1 100ML.BAG IVPB PRN; +fentaNYL (PF) 50 MCG/ML 2 ML AMP IVP PRN
[2023-09-29] MEDS: IV FLUID CONTINUATION 1,000 ML IV ONE (12:30)
[2023-09-29] MEDS: HEPARIN SODIUM,PORCINE 5,000 UNIT/ML 1 ML VIAL SQ PRN (12:55)
[2023-09-29] MEDS: DEXAMETHASONE SOD PHOSPHATE 4 MG/ML 1 ML VIAL IV ONE (12:55)
[2023-09-29] MEDS: ONDANSETRON 4 MG/2 ML VIAL IVP ONE (12:55)
--- NOTE | 2023-09-29 12:56 | P.GSHP ---
History of Present Illness H&P Date: 09/29/23 Chief Complaint: Metastatic renal cancer 78-year-old female here today for Port-A-Cath placement. Patient with poor IV access. Recently diagnosed with metastatic renal cancer. She has not had a port previously. Past Medical History Past Medical History: Dementia, Diabetes Mellitus, Hypertension Additional Past Medical History / Comment(s): Current renal cell cancer. 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 Type II DM. Hx fractured right femur from fall 04/04/23. No medication needed for Diabetes at this time. History of Any Multi-Drug Resistant Organisms: None Reported Past Surgical History: Appendectomy, Cholecystectomy, Hysterectomy, Orthopedic Surgery, Tonsillectomy Additional Past Surgical History / Comment(s): Left nephrectomy 01/23, left femur surgery, T-10 ablation with vertebroplasty. Past Anesthesia/Blood Transfusion Reactions: No Reported Reaction Additional Past Anesthesia/Blood Transfusion Reaction / Comment(s): Hx blood transfusion witj no issues. Past Psychological History: Anxiety Smoking Status: Never smoker Past Alcohol Use History: None Reported Past Drug Use History: None Reported - Past Family History Mother Family Medical History: Cancer Additional Family Medical History / Comment(s): Lung cancer. Medications and Allergies Home Medications Medication Instructions Recorded Confirmed Type Sertraline [Zoloft] 150 mg PO QAM 01/07/22 09/29/23 History amLODIPine [Norvasc] 5 mg PO QAM 01/07/22 09/29/23 History Vitamin D (Unknown Dose) 1 tab PO DAILY 08/03/23 09/29/23 History Vitamin B-12 (Unknown Dose) 1 tab PO DAILY 09/27/23 09/29/23 History oxyCODONE HCL [oxyCODONE HCL (IR)] 5 mg PO Q6H PRN 09/27/23 09/29/23 History Allergies Allergy/AdvReac Type Severity Reaction Status Date / Time Sulfa (Sulfonamide Allergy Rash/Hives Verified 09/29/23 12:29 Antibiotics) Surgical - Exam Physical exam: General: Well-developed, well-nourished HEENT: Normocephalic, sclerae nonicteric Abdomen: Nontender, nondistended Extremities: No edema Neuro: Alert and oriented Assessment and Plan (1) Renal cancer Narrative/Plan: 78-year-old female with metastatic renal cancer. Will proceed with Port-A-Cath placement at this time. Risks of bleeding, infection, DVT, pneumothorax, catheter malfunction, anesthesia related complications were discussed. The patient understands and wishes to proceed. Current Visit: Yes Status: Acute Code(s): C64.9 - MALIGNANT NEOPLASM OF UNSP KIDNEY, EXCEPT RENAL PELVIS SNOMED Code(s): 789697220
[2023-09-29 13:03] LABS: Glucose,Whole Blood 66 mg/dL (70-110)
[2023-09-29] MEDS: DEXTROSE 5% IN WATER 50 ML BAG IVPB ONE (13:07)
[2023-09-29] MEDS ORDERED: DEXTROSE 50% SYRINGE 50 ML IVP STA (13:07)
[2023-09-29] MEDS ORDERED: LIDOCAINE 1% INJ 10MG/ML (20 ML MDV) ONE (13:40)
[2023-09-29] MEDS ORDERED: fentaNYL (PF) 50 MCG/ML 2 ML AMP ONE (13:40)
[2023-09-29] MEDS ORDERED: PROPOFOL 10 MG/ML 20 ML VIAL IV ONE (13:40)
[2023-09-29] MEDS: HEPARIN SODIUM,PORCINE 100 UNIT/ML 5 ML VIAL IV ONE ×2 (14:33→14:36)
[2023-09-29] MEDS: LIDOCAINE (PF) 10 MG/ML 2 ML VIAL SQ ONE (14:34)
[2023-09-29] MEDS: LIDOCAINE 1% INJ 10MG/ML (20 ML MDV) SQ ONE (14:36)
[2023-09-29] MEDS ORDERED: NALOXONE 0.4 MG/ML 1 ML VIAL IV PRN (14:41)
--- NOTE | 2023-09-29 14:42 | FL ---
EXAMINATION TYPE: FL guided central line placemt Intraoperative/procedural fluoroscopic services were provided. Total fluoroscopy time is 9.1 seconds with a total of 1 submitted images to PACS. Please s ee the operative/procedural note for further details. DAP: 0.4932 mGym2
[2023-09-29 14:45] LABS: Glucose,Whole Blood 73 mg/dL (70-110)
[2023-09-29 14:50] VITALS: TEMP 97
--- NOTE | 2023-09-29 15:03 | XR ---
EXAMINATION TYPE: XR chest 1V confirm line [facility] DATE OF EXAM: 09/29/2023 COMPARISON: 04/04/2023 HISTORY: 78-year-old female confirm line placement TECHNIQUE: Single frontal view of the chest is obtained. FINDINGS: Right anterior chest wall injection port with catheter tip at the cavoatrial junction. Hea rt upper limits of normal size. Borderline heart size. Similar hazy upper lung densities may be due t o patient positioning. Unable to exclude developing infiltrate here. No sizable pleural effusion. IMPRESSION: Right anterior chest wall injection port. Catheter tip at the cavoatrial junction. Hazy upper lung densities may be projectional or could represent developing infiltrates. Attention on foll ow-up.
[2023-09-29 15:15] LABS: Glucose,Whole Blood 90 mg/dL (70-110)
[2023-09-29 15:52] VITALS: RESP 14
[2023-09-29 16:00] LABS: Glucose,Whole Blood 94 mg/dL (70-110)
[2023-09-29 16:01] VITALS: BP 130/83; PULSE 78
--- NOTE | 2023-09-30 11:41 | P.OP ---
Date of Procedure: 09/30/23 Procedure(s) Performed: PREOPERATIVE DIAGNOSIS: Breast cancer POSTOPERATIVE DIAGNOSIS: Same PROCEDURE: Port-A-Cath placement with fluoroscopic and ultrasound guidance SURGEON: Patricia EBL: Minimal ANESTHESIA: General COMPLICATIONS: None OPERATIVE PROCEDURE: Patient was brought and placed on the operative table in the supine position. The patient was placed under general anesthesia at that time. The chest and neck were prepped and draped in usual sterile fashion. The ultrasound probe was used to identify the location of the right internal jugular vein. The skin was localized with lidocaine. The Seldinger needle was advanced into the IJ under ultrasound guidance. The wire was advanced through the needle under fluoroscopic guidance into the superior vena cava. A port pocket was created in the right infraclavicular location. The catheter was tunneled from the wire entrance site to the port pocket. The port was then connected to the catheter. The dilator introducer was threaded over the guidewire. The guidewire and dilator were then removed. The catheter was advanced through the introducer and introducer was then removed. The tip was seen to be in the right atrial junction via fluoroscopy. A picture of the radiograph showing the tip of the catheter was taken. Port was flushed with both saline and a Hep-Lock solution. There was good flow both in and out of the port. The port was sutured in underlying tissues using 3-0 silk sutures. The subcutaneous tissues were reapproximated using 3-0 Vicryl sutures and the skin at both locations using 4-0 Monocryl sutures. Skin glue and sterile dressings then applied. DISPOSITION: Stable to recovery room
== END 2023-09-29 16:16 | disposition home or self-care (01) ==
LOC: OR 11:15
PROVIDERS: ATTEND Surgery
DX: Z45.2 Encounter for adjustment and management of vascular access device (principal); C50.919 Malignant neoplasm of unspecified site of unspecified female breast; E11.9 Type 2 diabetes mellitus without complications; F03.94 Unspecified dementia, unspecified severity, with anxiety; I10 Essential (primary) hypertension; J98.4 Other disorders of lung; Z85.528 Personal history of other malignant neoplasm of kidney; Z88.1 Allergy status to other antibiotic agents; Z88.2 Allergy status to sulfonamides; Z90.49 Acquired absence of other specified parts of digestive tract; Z90.710 Acquired absence of both cervix and uterus; Z79.899 Other long term (current) drug therapy
CPT/HCPCS: 77001; 36561; J1644; J1642; J1100; J2405; J2001

== ENCOUNTER 2023-10-12 10:01 | Inpatient (IN) | payer MEDICARE ==
[2023-10-12] MEDS: KETOROLAC 15 MG/ML 1 ML VIAL IVP STA (10:41)
--- NOTE | 2023-10-12 10:45 | ED ---
General Adult HPI - General Chief complaint: Chest Pain Stated complaint: Chest pain, fall Time Seen by Provider: 10/12/23 10:05 Source: patient, RN notes reviewed, old records reviewed Mode of arrival: ambulatory Limitations: no limitations - History of Present Illness Initial comments: This is an 78-year-old female who presents to the emergency department past medical history significant for renal cell carcinoma with metastatic disease. Patient comes in complaining of right-sided chest pain and according to the oncologist who saw him today the patient is also somewhat confused and weaker in general. Patient did have a fall but only scraped her right knee. Patient denies any head trauma or neck pain. According to the oncologist friends are helping her but they are unable to be with her at all times and she is unsafe at home according to them and the oncologist agrees. Patient's chest pain only occurs if she is moving or walking. Patient states that she is lying here still in bed she has no chest pain on the right side. - Related Data Home Medications Medication Instructions Recorded Confirmed Sertraline [Zoloft] 150 mg PO QAM 01/07/22 10/12/23 amLODIPine [Norvasc] 5 mg PO QAM 01/07/22 10/12/23 Vitamin D (Unknown Dose) 1 tab PO DAILY 08/03/23 10/12/23 Vitamin B-12 (Unknown Dose) 1 tab PO DAILY 09/27/23 10/12/23 oxyCODONE HCL [oxyCODONE HCL (IR)] 5 mg PO Q6H PRN 09/27/23 10/12/23 Acetaminophen [Tylenol] 650 mg PO Q6HR PRN 09/29/23 10/12/23 Cabozantinib S-Malate [Cabometyx] 20 mg PO DAILY 10/12/23 10/12/23 Mirtazapine [Remeron] 15 mg PO HS 10/12/23 10/12/23 Allergies Allergy/AdvReac Type Severity Reaction Status Date / Time Sulfa (Sulfonamide Allergy Rash/Hives Verified 10/12/23 11:38 Antibiotics) Review of Systems ROS Statement: Those systems with pertinent positive or pertinent negative responses have been documented in the HPI. ROS Other: All systems not noted in ROS Statement are negative. Past Medical History Past Medical History: Cancer, Dementia, Diabetes Mellitus, Hypertension Additional Past Medical History / Comment(s): Current renal cell cancer. 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 Type II DM. Hx fractured right femur from fall 04/04/23. No medication needed for Diabetes at this time. History of Any Multi-Drug Resistant Organisms: None Reported Past Surgical History: Appendectomy, Cholecystectomy, Hysterectomy, Orthopedic Surgery, Tonsillectomy Additional Past Surgical History / Comment(s): Left nephrectomy 01/23, left femur surgery, T-10 ablation with vertebroplasty. Past Anesthesia/Blood Transfusion Reactions: No Reported Reaction Additional Past Anesthesia/Blood Transfusion Reaction / Comment(s): Hx blood transfusion witj no issues. Past Psychological History: Anxiety Smoking Status: Never smoker Past Alcohol Use History: None Reported Past Drug Use History: None Reported - Past Family History Mother Family Medical History: Cancer Additional Family Medical History / Comment(s): Lung cancer. General Exam - General Exam Comments Initial Comments: GENERAL: Patient is well-developed and well-nourished. Patient is nontoxic and well- hydrated and is in mild distress. ENT: Neck is soft and supple. No significant lymphadenopathy is noted. Oropharynx is clear. Moist mucous membranes. Neck has full range of motion without eliciting any pain. EYES: The sclera were anicteric and conjunctiva were pink and moist. Extraocular movements were intact and pupils were equal round and reactive to light. Eyelids were unremarkable. PULMONARY: Unlabored respirations. Good breath sounds bilaterally. No audible rales rhonchi or wheezing was noted. CARDIOVASCULAR: There is a regular rate and rhythm without any murmurs gallops or rubs. ABDOMEN: Soft and nontender with normal bowel sounds. No palpable organomegaly was noted. There is no palpable pulsatile mass. SKIN: Superficial abrasion right knee NEUROLOGIC: Patient is alert and oriented x 2. Cranial nerves II through XII are grossly intact. Motor and sensory are also intact. Normal speech, volume and content. Symmetrical smile. MUSCULOSKELETAL: Normal extremities with adequate strength and full range of motion. No lower extremity swelling or edema. No calf tenderness. LYMPHATICS: No significant lymphadenopathy is noted PSYCHIATRIC: Normal psychiatric evaluation. Limitations: no limitations Course Vital Signs 10/12/23 10/12/23 10:03 10:30 Temperature 97.9 F Pulse Rate 82 85 Respiratory 18 20 Rate Blood Pressure 129/75 148/65 O2 Sat by Pulse 98 96 Oximetry Medical Decision Making - Medical Decision Making EKG is interpreted by myself. EKG shows sinus rhythm with occasional PAC at 85 bpm parables 187 QRS is 102 QT interval 391 QTc is 434. Patient's EKG shows no ST segment ovation or depression. Was pt. sent in by a medical professional or institution (, PA, DIRECTOR COUNSELING [employer], urgent care, hospital, or senior care...) When possible be specific @ -Patient was sent in by her oncologist Did you speak to anyone other than the patient for history (EMS, parent, family, police, friend...)? What history was obtained from this source @ -I spoke with the physician kennel assistant from the oncology office to get the past medical history and this patient prior to arrival Did you review nursing and triage notes (agree or disagree)? Why? @ -I reviewed and agree with nursing and triage notes Were old charts reviewed (outside hosp., previous admission, EMS record, old EKG, old radiological studies, urgent care reports/EKG's, senior care records)? Report findings @ -I compared to the CT scan with the prior CT scan there is no change patient has metastatic disease to the sternum Differential Diagnosis? @ -Differential Chest Pain: Stable Angina, Unstable Angina, STEMI, NSTEMI Aortic Dissection, Pneumothorax, Musculoskeletal, Esophageal Spasm GERD, Cholecystitis, Pancreatitis, Zoster, this is not meant to be an all-inclusive list. EKG interpreted by me (3pts min.). @ -As above X-rays interpreted by me (1pt min.). @ -Chest x-ray shows no acute abnormality CT interpreted by me (1pt min.). @ -CT of the chest shows metastatic disease to the sternum that appears unchanged from prior studies U/S interpreted by me (1pt. min.). @ -None done What testing was considered but not performed or refused? (CT, X-rays, U/S, labs)? Why? @ -None What meds were considered but not given or refused? Why? @ -None Did you discuss the management of the patient with other professionals (professionals i.e. , KRISTI, DIRECTOR [employer]SEL[employer], lab, RT, psych nurse, health social work professor, utility systems repairer operator, teacher, structural engineering drafting officer, field case manager)? Give summary @ -I spoke with Dr. Macias he agreed to accept the patient for admission Was smoking cessation discussed for >3mins.? @ -No Was critical care preformed (if so, how long)? @ -No Were there social determinants of health that impacted care today? How? (Homelessness, low income, unemployed, alcoholism, drug addiction, transportation, low edu. Level, literacy, decrease access to med. care, intermediate, rehab)? @ -No Was there de-escalation of care discussed even if they declined (Discuss DNR or withdrawal of care, Hospice)? DNR status @ -No What co-morbidities impacted this encounter? (DM, HTN, Smoking, COPD, CAD, Cancer, CVA, ARF, Chemo, Hep., AIDS, mental health diagnosis, sleep apnea, morbid obesity)? @ -None Was patient admitted / discharged? Hospital course, mention meds given and route, prescriptions, significant lab abnormalities, going to OR and other pertinent info. @ -Patient continued to have intermittent chest pain particularly associated with movement. Patient's lab work was relatively normal. I spoke with Dr. Pabon he agreed admit the patient. Undiagnosed new problem with uncertain prognosis? @ -No Drug Therapy requiring intensive monitoring for toxicity (Heparin, Nitro, Insulin, Cardizem)? @ -No Were any procedures done? @ -No Diagnosis/symptom? @ -Chest pain Acute, or Chronic, or Acute on Chronic? @ -Acute Uncomplicated (without systemic symptoms) or Complicated (systemic symptoms)? @ -Complicated Side effects of treatment? @ -No Exacerbation, Progression, or Severe Exacerbation? @ -No Poses a threat to life or bodily function? How? (Chest pain, [place], [place], pneumonia, PE, COPD, DKA, ARF, appy, cholecystitis, CVA, Diverticulitis, Homicidal, Suicidal, threat to staff... and all critical care pts) @ -Yes this can lead to an TN and endorgan dysfunction Diagnosis/symptom? @ -Generalized weakness Acute, or Chronic, or Acute on Chronic? @ -Acute Uncomplicated (without systemic symptoms) or Complicated (systemic symptoms)? @ -Complicated Side effects of treatment? @ -None Exacerbation, Progression, or Severe Exacerbation] @ -No Poses a threat to life or bodily function? @ -No - Lab Data Result diagrams: 10/12/23 10:34 10/12/23 10:50 Lab Results 10/12/23 10/12/23 10/12/23 Range/Units 10:34 10:34 10:50 WBC 9.7 (3.8-10.6) k/uL RBC 4.42 (3.80-5.40) m/uL Hgb 13.4 (11.4-16.0) gm/dL Hct 43.9 (34.0-46.0) % MCV 99.3 (80.0-100.0) fL MCH 30.3 (25.0-35.0) pg MCHC 30.5 L (31.0-37.0) g/dL RDW 14.7 (11.5-15.5) % Plt Count 281 (150-450) k/uL MPV 8.7 Neutrophils % 76 % Lymphocytes % 11 % Monocytes % 10 % Eosinophils % 1 % Basophils % 1 % Neutrophils # 7.4 (1.3-7.7) k/uL Lymphocytes # 1.1 (1.0-4.8) k/uL Monocytes # 1.0 (0-1.0) k/uL Eosinophils # 0.1 (0-0.7) k/uL Basophils # 0.1 (0-0.2) k/uL Manual Slide Review Performed Hypochromasia Moderate PT 11.0 (10.0-12.5) sec INR 1.0 (<1.2) APTT 24.8 (22.0-30.0) sec D-Dimer 5.24 H (<0.60) mg/L FEU Sodium 141 (137-145) mmol/L Potassium 4.7 (3.5-5.1) mmol/L Chloride 115 H (98-107) mmol/L Carbon Dioxide 19 L (22-30) mmol/L Anion Gap 7 mmol/L BUN 17 (7-17) mg/dL Creatinine 0.83 (0.52-1.04) mg/dL Est GFR (CKD-EPI)AfAm 77 (>60 ml/min/1.73 sqM) Est GFR (CKD-EPI)NonAf 67 (>60 ml/min/1.73 sqM) Glucose 90 (74-99) mg/dL Calcium 9.7 (8.4-10.2) mg/dL Magnesium 2.0 (1.6-2.3) mg/dL Total Bilirubin 0.8 (0.2-1.3) mg/dL AST 26 (14-36) U/L ALT 8 (4-34) U/L Alkaline Phosphatase 66 (38-126) U/L Troponin I (0.000-0.034) ng/mL Total Protein 6.2 L (6.3-8.2) g/dL Albumin 3.2 L (3.5-5.0) g/dL 10/12/23 Range/Units 10:50 WBC (3.8-10.6) k/uL RBC (3.80-5.40) m/uL Hgb (11.4-16.0) gm/dL Hct (34.0-46.0) % MCV (80.0-100.0) fL MCH (25.0-35.0) pg MCHC (31.0-37.0) g/dL RDW (11.5-15.5) % Plt Count (150-450) k/uL MPV Neutrophils % % Lymphocytes % % Monocytes % % Eosinophils % % Basophils % % Neutrophils # (1.3-7.7) k/uL Lymphocytes # (1.0-4.8) k/uL Monocytes # (0-1.0) k/uL Eosinophils # (0-0.7) k/uL Basophils # (0-0.2) k/uL Manual Slide Review Hypochromasia PT (10.0-12.5) sec INR (<1.2) APTT (22.0-30.0) sec D-Dimer (<0.60) mg/L FEU Sodium (137-145) mmol/L Potassium (3.5-5.1) mmol/L Chloride (98-107) mmol/L Carbon Dioxide (22-30) mmol/L Anion Gap mmol/L BUN (7-17) mg/dL Creatinine (0.52-1.04) mg/dL Est GFR (CKD-EPI)AfAm (>60 ml/min/1.73 sqM) Est GFR (CKD-EPI)NonAf (>60 ml/min/1.73 sqM) Glucose (74-99) mg/dL Calcium (8.4-10.2) mg/dL Magnesium (1.6-2.3) mg/dL Total Bilirubin (0.2-1.3) mg/dL AST (14-36) U/L ALT (4-34) U/L Alkaline Phosphatase (38-126) U/L Troponin I <0.012 (0.000-0.034) ng/mL Total Protein (6.3-8.2) g/dL Albumin (3.5-5.0) g/dL Disposition Clinical Impression: Chest pain, Generalized weakness, Confusion Disposition: ADMITTED IP TO THIS HOSP Referrals: Bhupendra Zhong MD [Primary Care Provider] - 1-2 days Time of Disposition: 13:16
--- NOTE | 2023-10-12 10:53 | XR ---
EXAMINATION TYPE: XR chest 2V DATE OF EXAM: 10/12/2023 10:43 AM COMPARISON: Chest radiographs from 09/29/2023, CT chest abdomen and pelvis 09/13/2023 TECHNIQUE: XR chest 2V Frontal and lateral views of the chest. CLINICAL INDICATION:Female, 78 years old with history of Chest Pain; FINDINGS: Lungs/Pleura: There is no evidence of pleural effusion, focal consolidation, or pneumothorax. Pulmonary vascularity: Unremarkable. Heart/mediastinum: Cardiomediastinal silhouette is enlarged and stable. Atherosclerotic calcificatio ns are seen in the aorta. Musculoskeletal: No acute osseous pathology. Vertebral augmentation changes of the T10 vertebral body known pathologic fracture redemonstrated. Multilevel degenerative changes of the visualized spine. K nown osseous sternal metastasis is better appreciated on prior CT. Other findings: None Lines/Tubes: Right IJ Mediport catheter is in stable position with tip at the superior cavoatrial junction. IMPRESSION: Overall stable examination without radiographic evidence for an acute process.
[2023-10-12 11:22] LABS: Partial Thromboplastin Time 24.8 sec (22.0-30.0)
[2023-10-12 11:28] LABS: ALT 8 U/L (4-34); African American GFR (CKD) 77 (>60 ml/min/1.73 sqM); Anion Gap 7 mmol/L; Blood Urea Nitrogen 17 mg/dL (7-17); Calcium 9.7 mg/dL (8.4-10.2); Carbon Dioxide 19 mmol/L (22-30); Chloride 115 mmol/L (98-107); Glucose 90 mg/dL (74-99); Non-African American GFR(CKD) 67 (>60 ml/min/1.73 sqM); Sodium 141 mmol/L (137-145); Total Bilirubin 0.8 mg/dL (0.2-1.3); Total Protein 6.2 g/dL (6.3-8.2)
[2023-10-12 11:31] LABS: Basophils # (A) 0.1 k/uL (0-0.2); Basophils % (A) 1 %; Eosinophils # (A) 0.1 k/uL (0-0.7); Eosinophils % (A) 1 %; HCT 43.9 % (34.0-46.0); HGB 13.4 gm/dL (11.4-16.0); Hypochromasia Moderate; Lymphocytes # (A) 1.1 k/uL (1.0-4.8); Lymphocytes % (A) 11 %; MCH 30.3 pg (25.0-35.0); MCHC 30.5 g/dL (31.0-37.0); MCV 99.3 fL (80.0-100.0); Mean Platelet Volume 8.7; Monocytes % (A) 10 %; Neutrophils # (A) 7.4 k/uL (1.3-7.7); Neutrophils % (A) 76 %; Platelet Count 281 k/uL (150-450); RBC 4.42 m/uL (3.80-5.40); RDW 14.7 % (11.5-15.5); WBC 9.7 k/uL (3.8-10.6)
[2023-10-12 11:34] LABS: AST 26 U/L (14-36); Albumin 3.2 g/dL (3.5-5.0); Alkaline Phosphatase 66 U/L (38-126); Potassium 4.7 mmol/L (3.5-5.1)
--- NOTE | 2023-10-12 12:30 | CT ---
EXAMINATION TYPE: CT chest angio for PE CT DLP: 309.8 mGycm, Automated exposure control for dose reduction was used. DATE OF EXAM: 10/12/2023 12:15 PM COMPARISON: Chest radiograph from 10/12/2023, CT chest abdomen pelvis 09/13/2023, CT chest 03/31/2023. CLINICAL INDICATION:Female, 78 years old with history of elevated D-dimer, chest pain; chest pain, el evated d-dimer TECHNIQUE/CONTRAST: CTA scan of the thorax is performed with IV Contrast, patient injected with 100 mL of Isovue 370, pul monary embolism protocol. MIP images are created and reviewed. FINDINGS: Pulmonary Artery: There is no evidence for a filling defect within the pulmonary vasculature to sugge st acute pulmonary embolism. The pulmonary artery is of normal size. No CT evidence for right heart strain. Lungs/Pleura: No evidence of focal consolidation, pleural effusion or pneumothorax. Bibasilar subpleu ral reticular opacities redemonstrated. Stable left upper lobe 6 mm pulmonary nodule (series [id number], sarah ge [id number]). No new or enlarging pulmonary nodules identified. Airway: Large airways are patent. Heart: Moderately enlarged. Similar small pericardial effusion. Moderate coronary arterial calcificat ions. Vasculature: No evidence of aortic aneurysm. Mild to moderate atherosclerotic calcification of the ao rta and its branches. There is tortuosity of the descending thoracic aorta. Interval placement of rig ht IJ Mediport catheter with distal tip terminating in the low SVC. Mediastinum: No gross evidence of adenopathy. Musculoskeletal: No acute osseous abnormalities. Similar expansile heterogenous metastasis within the sternum measuring 3.0 x 2.1 cm. Redemonstration of lytic lesion involving the T10 vertebral body wit h pathologic collapse of vertebral augmentation demonstrated. Soft Tissues: Stable 1.5 cm lesion with peripheral coarse calcifications within the left breast. Lower neck: Stable subcentimeter hypodense nodule within the inferior right thyroid lobe. Upper Abdomen: Post left nephrectomy changes again demonstrated with similar size of enhancing nodule s within the nephrectomy bed measuring up to 2.9 cm. Postcholecystectomy changes with expected common bile duct dilatation. Similar appearance of low density within the inferior aspect of the spleen lik rosa representing infarct. IMPRESSION: 1. No evidence of pulmonary embolism. 2. Similar appearance of osseous metastasis most prominently involving the sternum. Similar enhancing nodularity post left nephrectomy most consistent with recurrence.
[2023-10-12] MEDS ORDERED: NITROGLYCERIN SL TABS 0.4 MG TAB SUBLINGUAL PRN (13:18)
[2023-10-12] MEDS: ASPIRIN 81 MG PO STA (13:25)
--- NOTE | 2023-10-12 16:05 | P.HPIM ---
History of Present Illness 78-year-old female with history of renal cell cancer metastic disease and mets to sternum came with complaints of chest pain pain in abdomen as well which is chronic. Pain in the chest started yesterday sharp nonradiating constant with no not associate with food nonexertional EKG did not show any acute ST-T wave changes 1 set of troponin is negative. Patient also has positive D-dimer of 5.24 because of which patient underwent CT angio of the chest which showed sternal metastasis but no pulmonary embolism. Patient lives with family who is not present at this time and patient is unable to take care of herself patient is dependent on ADLs and IADLs. Patient is admitted because of generalized weakness and chest pain. Her chest pain worsens with chest wall movement and reproducible. REVIEW OF SYSTEMS: All other systems are negative except those mentioned in the HPI PHYSICAL EXAMINATION: GENERAL: The patient is alert and oriented x3, not in any acute distress. Thin built female HEENT: Pupils are round and equally reacting to light. EOMI. No scleral icterus. No conjunctival pallor. Normocephalic, atraumatic. No pharyngeal erythema. No thyromegaly. CARDIOVASCULAR: S1 and S2 present. No murmurs, rubs, or gallops. PULMONARY: Chest is clear to auscultation, no wheezing or crackles. ABDOMEN: Soft, nontender, nondistended, normoactive bowel sounds. No palpable organomegaly. MUSCULOSKELETAL: No joint swelling or deformity. EXTREMITIES: No cyanosis, clubbing, or pedal edema. NEUROLOGICAL: Gross neurological examination did not reveal any focal deficits. SKIN: No rashes. Assessment and plan -Chest pain musculoskeletal reproducible secondary to mets from the sternum. Will rule out acute coronary syndromes patient will not need any further intervention at this time -Rule out pulmonary embolism -Generalized weakness secondary to cancer metastatic renal disease physical therapy Occupational Therapy evaluation -Hypertension -Hyperlipidemia For above-mentioned chronic medical problems patient will be resumed on appropriate home medications DVT prophylaxis: Lovenox Past Medical History Past Medical History: Cancer, Dementia, Diabetes Mellitus, Hypertension Additional Past Medical History / Comment(s): Current renal cell cancer. 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 Type II DM. Hx fractured right fem ur from fall 04/04/23. No medication needed for Diabetes at this time. History of Any Multi-Drug Resistant Organisms: None Reported Past Surgical History: Appendectomy, Cholecystectomy, Hysterectomy, Orthopedic Surgery, Tonsillectomy Additional Past Surgical History / Comment(s): Left nephrectomy 01/23, left femur surgery, T-10 ablation with vertebroplasty. Past Anesthesia/Blood Transfusion Reactions: No Reported Reaction Additional Past Anesthesia/Blood Transfusion Reaction / Comment(s): Hx blood transfusion witj no issues. Past Psychological History: Anxiety Smoking Status: Never smoker Past Alcohol Use History: None Reported Past Drug Use History: None Reported - Past Family History Mother Family Medical History: Cancer Additional Family Medical History / Comment(s): Lung cancer. Medications and Allergies Home Medications Medication Instructions Recorded Confirmed Type Sertraline [Zoloft] 150 mg PO QAM 01/07/22 10/12/23 History amLODIPine [Norvasc] 5 mg PO QAM 01/07/22 10/12/23 History Vitamin D (Unknown Dose) 1 tab PO DAILY 08/03/23 10/12/23 History Vitamin B-12 (Unknown Dose) 1 tab PO DAILY 09/27/23 10/12/23 History oxyCODONE HCL [oxyCODONE HCL (IR)] 5 mg PO Q6H PRN 09/27/23 10/12/23 History Acetaminophen [Tylenol] 650 mg PO Q6HR PRN 09/29/23 10/12/23 History Cabozantinib S-Malate [Cabometyx] 20 mg PO DAILY 10/12/23 10/12/23 History Mirtazapine [Remeron] 15 mg PO HS 10/12/23 10/12/23 History Allergies Allergy/AdvReac Type Severity Reaction Status Date / Time Sulfa (Sulfonamide Allergy Rash/Hives Verified 10/12/23 11:38 Antibiotics) Physical Exam Vitals: Vital Signs Temp Pulse Resp BP Pulse Ox 10/12/23 13:26 83 18 152/67 100 10/12/23 10:30 85 20 148/65 96 10/12/23 10:03 97.9 F 82 18 129/75 98 Intake and Output 10/12/23 10/12/23 10/12/23 06:59 14:59 22:59 Other: Weight 62.596 kg Results CBC & Chem 7: 10/12/23 10:34 10/12/23 10:50 Labs: Abnormal Lab Results - Last 24 Hours (Table) 10/12/23 10/12/23 10/12/23 Range/Units 10:34 10:34 10:50 MCHC 30.5 L (31.0-37.0) g/dL D-Dimer 5.24 H (<0.60) mg/L FEU Chloride 115 H (98-107) mmol/L Carbon Dioxide 19 L (22-30) mmol/L Total Protein 6.2 L (6.3-8.2) g/dL Albumin 3.2 L (3.5-5.0) g/dL
[2023-10-12] MEDS: NITROGLYCERIN OINT 1 INCH/GM PACKET TOPICAL SCH (18:31)
[2023-10-12] MEDS: MIRTAZAPINE 15 MG TAB PO SCH (22:07)
--- NOTE | 2023-10-13 07:15 | P.CRDCN ---
History of Present Illness History of present illness: HISTORY OF PRESENTING ILLNESS This is a pleasant 78-year-old with past medical history significant for renal cell cancer with metastasis to the sternum, diabetes mellitus type 2, hypertension, status post port placement. 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 She has never had any significant cardiac history. She does have a new diagnosis of renal cell cancer with metastasis and therefore is looking to start chemotherapy tomorrow. She has been receiving pain medications for chest pain which appears related to her sternum. She has reproducible chest pain with palpation of her right ninth and 10th rib. No recent fevers, chills, cough. No significant shortness of breath. Her d-dimer is elevated and therefore CT performed which showed no PE however sternal metastases. EKG shows normal sinus rhythm without significant ST or T-wave abnormalities. REVIEW OF SYSTEMS At the time of my exam: CONSTITUTIONAL: Denies fever or chills. CARDIOVASCULAR: +chest pain, no shortness of breath, orthopnea, PND or palpitations. RESPIRATORY: Denies cough. GASTROINTESTINAL: Denies abdominal pain, diarrhea, constipation, nausea or vomiting. MUSCULOSKELETAL: Denies myalgias. NEUROLOGIC: Denies numbness, tingling or weakness. ENDOCRINE: Denies fatigue, weight change, polydipsia or polyurina. GENITOURINARY: Denies burning, hematuria or urgency with micturation. HEMATOLOGIC: Denies history of anemia or bleeding. PHYSICAL EXAMINATION Vital signs reviewed. CONSTITUTIONAL: No apparent distress. HEENT: Head is normocephalic. Pupils are equal, round. Sclerae anicteric. Mucous membranes of the mouth are moist. No JVD. No carotid bruit. CHEST EXAMINATION: Lungs are clear to auscultation. + chest wall tenderness is noted on palpation HEART EXAMINATION: Regular rate and rhythm. S1, S2 heard. No murmurs, gallops or rub. ABDOMEN: Soft, nontender. Positive bowel sounds. EXTREMITIES: 2+ peripheral pulses, no lower extremity edema and no calf tenderness. NEUROLOGIC EXAMINATION: Patient is awake, alert and oriented x3. ASSESSMENT Reproducible, noncardiac chest pain related to metastasis Elevated d-dimer, no PE Hypertension controlled Renal cell cancer with metastasis PLAN Patient's chest pain is noncardiac. It is reproducible on exam and appears at the area of her metastasis. This is improved with pain medications. No need for further workup as an inpatient. Follow-up outpatient and consider echo. Stable for discharge home. Past Medical History Past Medical History: Cancer, Dementia, Diabetes Mellitus, Hypertension Additional Past Medical History / Comment(s): Current renal cell cancer. 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 Type II DM. Hx fractured right femur from fall 04/04/23. No medication needed for Diabetes at this time. History of Any Multi-Drug Resistant Organisms: None Reported Past Surgical History: Appendectomy, Cholecystectomy, Hysterectomy, Orthopedic Surgery, Tonsillectomy Additional Past Surgical History / Comment(s): Left nephrectomy 01/23, left femur surgery, T-10 ablation with vertebroplasty. Past Anesthesia/Blood Transfusion Reactions: No Reported Reaction Additional Past Anesthesia/Blood Transfusion Reaction / Comment(s): Hx blood transfusion witj no issues. Past Psychological History: Anxiety Smoking Status: Never smoker Past Alcohol Use History: None Reported Past Drug Use History: None Reported - Past Family History Mother Family Medical History: Cancer Additional Family Medical History / Comment(s): Lung cancer. Medications and Allergies Home Medications Medication Instructions Recorded Confirmed Type Sertraline [Zoloft] 150 mg PO QAM 01/07/22 10/12/23 History amLODIPine [Norvasc] 5 mg PO QAM 01/07/22 10/12/23 History Vitamin D (Unknown Dose) 1 tab PO DAILY 08/03/23 10/12/23 History Vitamin B-12 (Unknown Dose) 1 tab PO DAILY 09/27/23 10/12/23 History oxyCODONE HCL [oxyCODONE HCL (IR)] 5 mg PO Q6H PRN 09/27/23 10/12/23 History Acetaminophen [Tylenol] 650 mg PO Q6HR PRN 09/29/23 10/12/23 History Cabozantinib S-Malate [Cabometyx] 20 mg PO DAILY 10/12/23 10/12/23 History Mirtazapine [Remeron] 15 mg PO HS 10/12/23 10/12/23 History Allergies Allergy/AdvReac Type Severity Reaction Status Date / Time Sulfa (Sulfonamide Allergy Rash/Hives Verified 10/12/23 11:38 Antibiotics) Physical Exam Vitals: Vital Signs Temp Pulse Pulse Resp BP BP Pulse Ox 10/13/23 02:00 97.6 F 72 18 100/53 95 10/12/23 20:56 81 10/12/23 20:00 98.3 F 81 18 118/66 97 10/12/23 18:29 80 18 127/72 95 10/12/23 16:30 82 18 113/57 95 10/12/23 13:26 83 18 152/67 100 10/12/23 10:30 85 20 148/65 96 10/12/23 10:03 97.9 F 82 18 129/75 98 Intake and Output 10/12/23 10/13/23 10/13/23 22:59 06:59 14:59 Other: # Voids 1 1 Weight 62.596 kg Results 10/12/23 10:34 10/12/23 10:50 Cardiac Enzymes 10/12/23 10/12/23 10/12/23 Range/Units 10:50 10:50 16:06 AST 26 (14-36) U/L Troponin I <0.012 <0.012 (0.000-0.034) ng/mL 10/12/23 Range/Units 20:33 AST (14-36) U/L Troponin I <0.012 (0.000-0.034) ng/mL Coagulation 10/12/23 Range/Units 10:34 PT 11.0 (10.0-12.5) sec APTT 24.8 (22.0-30.0) sec CBC 10/12/23 Range/Units 10:34 WBC 9.7 (3.8-10.6) k/uL RBC 4.42 (3.80-5.40) m/uL Hgb 13.4 (11.4-16.0) gm/dL Hct 43.9 (34.0-46.0) % Plt Count 281 (150-450) k/uL Comprehensive Metabolic Panel 10/12/23 Range/Units 10:50 Sodium 141 (137-145) mmol/L Potassium 4.7 (3.5-5.1) mmol/L Chloride 115 H (98-107) mmol/L Carbon Dioxide 19 L (22-30) mmol/L BUN 17 (7-17) mg/dL Creatinine 0.83 (0.52-1.04) mg/dL Glucose 90 (74-99) mg/dL Calcium 9.7 (8.4-10.2) mg/dL AST 26 (14-36) U/L ALT 8 (4-34) U/L Alkaline Phosphatase 66 (38-126) U/L Total Protein 6.2 L (6.3-8.2) g/dL Albumin 3.2 L (3.5-5.0) g/dL Current Medications Generic Name Dose Route Start Last Admin Trade Name Freq PRN Reason Stop Dose Admin Amlodipine Besylate 5 mg 10/13/23 09:00 Amlodipine 5 Mg Tab PO QAM [facility] Aspirin 325 mg 10/13/23 09:00 Aspirin 325 Mg Tab PO DAILY [facility] Enoxaparin Sodium 40 mg 10/13/23 09:00 Enoxaparin 40 Mg/0.4 Ml Syringe SQ DAILY [facility] Mirtazapine 15 mg 10/12/23 21:00 10/12/23 22:07 Mirtazapine 15 Mg Tab PO 15 mg HS AKIKO Administration Nitroglycerin 0.4 mg 10/12/23 13:18 Nitroglycerin Sl Tabs 0.4 Mg Tab SUBLINGUAL Q5M PRN Chest Pain Nitroglycerin 1 inch 10/12/23 18:00 10/13/23 05:48 Nitroglycerin Oint 1 Inch/Gm Packet TOPICAL Not Given Q6HR AKIKO Oxycodone HCl 5 mg 10/12/23 13:20 10/12/23 13:36 Oxycodone Hcl 5 Mg Tab PO 5 mg Q6H PRN Administration Pain Sertraline HCl 150 mg 10/13/23 09:00 Sertraline 50 Mg Tab PO QAM [facility] Intake and Output 10/12/23 10/13/23 10/13/23 22:59 06:59 14:59 Other: # Voids 1 1 Weight 62.596 kg 10/12/23 10:34 10/12/23 10:50
[2023-10-13] MEDS: amLODIPine 5 MG TAB PO SCH (08:30)
[2023-10-13] MEDS: ASPIRIN 325 MG TAB PO SCH (08:30)
[2023-10-13] MEDS: SERTRALINE 50 MG TAB PO SCH (08:30)
[2023-10-13] MEDS: ENOXAPARIN 40 MG/0.4 ML SYRINGE SQ SCH (08:31)
[2023-10-13 10:46] LABS: Chol/HDL Ratio 4.18 Ratio; LDL Cholesterol,Calculated 58.7 mg/dL (0.0-131.0)
[2023-10-13 13:59] VITALS: BMI 25.2
--- NOTE | 2023-10-13 15:05 | P.PN ---
Subjective October 13, 2023 No significant change compared to yesterday pain is better controlled with present regimen patient is having bowel movements. Patient will need subacute rehabilitation. October 12, 2023 78-year-old female with history of renal cell cancer metastic disease and mets to sternum came with complaints of chest pain pain in abdomen as well which is chronic. Pain in the chest started yesterday sharp nonradiating constant with no not associate with food nonexertional EKG did not show any acute ST-T wave changes 1 set of troponin is negative. Patient also has positive D-dimer of 5.24 because of which patient underwent CT angio of the chest which showed sternal metastasis but no pulmonary embolism. Patient lives with family who is not present at this time and patient is unable to take care of herself patient is dependent on ADLs and IADLs. Patient is admitted because of generalized weakness and chest pain. Her chest pain worsens with chest wall movement and reproducible. REVIEW OF SYSTEMS: All other systems are negative except those mentioned in the HPI PHYSICAL EXAMINATION: GENERAL: The patient is alert and oriented x3, not in any acute distress. Thin built female HEENT: Pupils are round and equally reacting to light. EOMI. No scleral icterus. No conjunctival pallor. Normocephalic, atraumatic. No pharyngeal erythema. No thyromegaly. CARDIOVASCULAR: S1 and S2 present. No murmurs, rubs, or gallops. PULMONARY: Chest is clear to auscultation, no wheezing or crackles. ABDOMEN: Soft, nontender, nondistended, normoactive bowel sounds. No palpable organomegaly. MUSCULOSKELETAL: No joint swelling or deformity. EXTREMITIES: No cyanosis, clubbing, or pedal edema. NEUROLOGICAL: Gross neurological examination did not reveal any focal deficits. SKIN: No rashes. Assessment and plan -Chest pain musculoskeletal reproducible secondary to mets from the sternum. Will rule out acute coronary syndromes patient will not need any further intervention at this time -Rule out pulmonary embolism -Generalized weakness secondary to cancer metastatic renal disease physical therapy Occupational Therapy evaluation, recommended subacute rehab -Hypertension -Hyperlipidemia For above-mentioned chronic medical problems patient will be resumed on appropriate home medications DVT prophylaxis: Lovenox Objective - Vital Signs Vital signs: Vital Signs Temp 97.8 F 10/13/23 07:00 Pulse 80 10/13/23 07:00 Resp 16 10/13/23 07:00 BP 156/76 07/11/24 07:00 Pulse Ox 97 10/13/23 07:00 FiO2 Intake & Output 10/12/23 10/13/23 10/13/23 18:59 06:59 18:59 Weight 62.596 kg 62.596 kg 62.596 kg Other: Voiding Method Toilet # Voids 1 - Labs CBC & Chem 7: 10/12/23 10:34 10/12/23 10:50 Labs: Abnormal Lab Results - Last 24 Hours (Table) 10/12/23 Range/Units 10:50 HDL Cholesterol 26.30 L (40.00-60.00) mg/dL
--- NOTE | 2023-10-14 11:31 | P.PN ---
Subjective HISTORY OF PRESENTING ILLNESS This is a pleasant 78-year-old with past medical history significant for renal cell cancer with metastasis to the sternum, diabetes mellitus type 2, hypertension, status post port placement. 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 She has never had any significant cardiac history. She does have a new diagnosis of renal cell cancer with metastasis and therefore is looking to start chemotherapy tomorrow. She has been receiving pain medications for chest pain which appears related to her sternum. She has reproducible chest pain with palpation of her right ninth and 10th rib. No recent fevers, chills, cough. No significant shortness of breath. Her d-dimer is elevated and therefore CT performed which showed no PE however sternal metastases. EKG shows normal sinus rhythm without significant ST or T-wave abnormalities. 10/13 Patient still having some atypical chest pain. This is reproduced with exam. Denies any shortness breath. Chest pain similar to yesterday. PHYSICAL EXAMINATION Vital signs reviewed. CONSTITUTIONAL: No apparent distress. HEENT: Head is normocephalic. Pupils are equal, round. Sclerae anicteric. Mucous membranes of the mouth are moist. No JVD. No carotid bruit. CHEST EXAMINATION: Lungs are clear to auscultation. + chest wall tenderness is noted on palpation HEART EXAMINATION: Regular rate and rhythm. S1, S2 heard. No murmurs, gallops or rub. ABDOMEN: Soft, nontender. Positive bowel sounds. EXTREMITIES: 2+ peripheral pulses, no lower extremity edema and no calf ten derness. NEUROLOGIC EXAMINATION: Patient is awake, alert and oriented x3. ASSESSMENT Reproducible, noncardiac chest pain related to metastasis Elevated d-dimer, no PE Hypertension controlled Renal cell cancer with metastasis PLAN Noncardiac chest pain. Patient may be discharged home with outpatient follow- up. No further recommendations. Please call with questions. Objective - Vital Signs Vital signs: Vital Signs Temp 98.0 F 10/14/23 07:00 Pulse 77 10/14/23 07:00 Resp 16 10/14/23 07:00 BP 115/65 10/14/23 07:00 Pulse Ox 96 10/14/23 07:00 FiO2 Intake & Output 10/13/23 10/14/23 10/14/23 18:59 06:59 18:59 Intake Total 238 Balance 238 Weight 62.596 kg Intake: Oral 238 Other: Voiding Method Toilet Toilet # Voids 3 1 - Labs CBC & Chem 7: 10/12/23 10:34 10/12/23 10:50
--- NOTE | 2023-10-14 14:55 | P.DS ---
Providers Date of admission: 10/12/23 13:51 Attending physician: Syeda Macias [facility] Course: Final Diagnosis -Chest pain musculoskeletal reproducible secondary to mets from the sternum. -Elevated D-dimer was CT angiography showing no evidence for pulmonary embolism -Generalized weakness secondary to cancer metastatic renal disease physical therapy Occupational Therapy evaluation, recommended subacute rehab -Hypertension -Hyperlipidemia Discharge Disposition Stable for discharge to subacute rehab. Patient will continue all same home medications. Need to hold her Cabometyx while she is at rehab. Patient to [facility] w up with Dr. Sarah Moore in the office on discharge. Patient to continue on bowel regimen. Hospital Course 78-year-old female with history of renal cell cancer metastic disease and mets to sternum came with complaints of chest pain pain in abdomen as well which is chronic. Pain in the chest started yesterday sharp nonradiating constant with no not associate with food nonexertional EKG did not show any acute ST-T wave changes 1 set of troponin is negative. Patient also has positive D-dimer of 5.24 because of which patient underwent CT angio of the chest which showed sternal metastasis but no pulmonary embolism. Patient lives with family who is not present at this time and patient is unable to take care of herself patient is dependent on ADLs and IADLs. Patient is admitted because of generalized weakness and chest pain. Her chest pain worsens with chest wall movement and reproducible. Patient continues on her home medication she is on oxycodone immediate release as managed by oncology services. Additionally patient has been maintained on chemotherapy and will need to hold this medication while going to subacute rehab. Patient was seen and consultation by cardiology for th e chest pain and felt this was musculoskeletal in nature and no further workup needed. Patient is not have any shortness of breath or chest pain she is not having nausea vomiting or diarrhea. She continues to have pain to her mediastinum and sternal area secondary to metastatic cancer. This is chronic in nature. Patient is cleared for discharge to subacute rehabilitation. Please see medication reconciliation for a list of current medications. Thank you for allowing us to participate in the care of this patient. The impression and plan of care has been dictated by Rashida Cruz, Nurse Practitioner as directed. Dr. Colleen MD I have performed a history and physical examination and medical decision making of this patient, discussed the same with the dictator, and agree with the dic tators assessment and plan as written, documented as a scribe. Based on total visit time, I have performed more than 50% of this visit. Patient Condition at Discharge: Stable Plan - Discharge Summary Discharge Rx Participant: No New Discharge Prescriptions: New Enoxaparin [Lovenox] 40 mg SQ DAILY each Aspirin 325 mg PO DAILY tab polyethylene glycoL 3350 [Miralax] 17 gm PO DAILY PRN packet PRN Reason: Constipation Continue Sertraline [Zoloft] 150 mg PO QAM Vitamin D (Unknown Dose) 1 tab PO DAILY Vitamin B-12 (Unknown Dose) 1 tab PO DAILY Acetaminophen [Tylenol] 650 mg PO Q6HR PRN PRN Reason: Pain Mirtazapine [Remeron] 15 mg PO HS amLODIPine [Norvasc] 5 mg PO QAM oxyCODONE HCL [oxyCODONE HCL (IR)] 5 mg PO Q6H PRN #4 cap PRN Reason: Pain Discontinued Cabozantinib S-Malate [Cabometyx] 20 mg PO DAILY Discharge Medication List Sertraline [Zoloft] 150 mg PO QAM 01/07/22 [History] amLODIPine [Norvasc] 5 mg PO QAM 01/07/22 [History] Vitamin D (Unknown Dose) 1 tab PO DAILY 08/03/23 [History] Vitamin B-12 (Unknown Dose) 1 tab PO DAILY 09/27/23 [History] Acetaminophen [Tylenol] 650 mg PO Q6HR PRN 09/29/23 [History] Mirtazapine [Remeron] 15 mg PO HS 10/12/23 [History] Aspirin 325 mg PO DAILY tab 10/14/23 [Rx] Enoxaparin [Lovenox] 40 mg SQ DAILY each 10/14/23 [Rx] oxyCODONE HCL [oxyCODONE HCL (IR)] 5 mg PO Q6H PRN #4 cap 10/14/23 [Rx] polyethylene glycoL 3350 [Miralax] 17 gm PO DAILY PRN packet 10/14/23 [Rx] Follow up Appointment(s)/Referral(s): Bhupendra Zhong MD [Primary Care Provider] - 1-2 days Sarah Moore MD [STAFF PHYSICIAN] - 1 Week Discharge Disposition: TRANSFER TO SNF/ECF
--- NOTE | 2023-10-15 21:04 | P.PN ---
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 Pain in the chest started yesterday sharp nonradiating constant with no not associate with food nonexertional EKG did not show any acute ST-T wave changes 1 set of troponin is negative. Patient also has positive D-dimer of 5.24 because of which patient underwent CT angio of the chest which showed sternal metastasis but no pulmonary embolism. Patient lives with family who is not present at this time and patient is unable to take care of herself patient is dependent on ADLs and IADLs. Patient is admitted because of generalized weakness and chest pain. Her chest pain worsens with chest wall movement and reproducible. Patient continues on her home medication she is on oxycodone immediate release as managed by oncology services. Additionally patient has been maintained on chemotherapy and will need to hold this medication while going to subacute rehab. Patient was seen and consultation by cardiology for the chest pain and felt this was musculoskeletal in nature and no further workup needed. Patient is not have any shortness of breath or chest pain she is not having nausea vomiting or diarrhea. She continues to have pain to her mediastinum and sternal area secondary to metastatic cancer. This is chronic in nature. Patient is cleared for discharge to subacute rehabilitation. 10/15/2023 Patient is evaluated today in follow up on the medical floor. Patient is upset and tearful that discharge wont be until tuesday as insurance authorization is still pending. Patient then later on this afternoon fell on her bottom when up attempting to put her shoes on. Patient did not hit her head and was assisted to the ground. REVIEW OF SYSTEMS: CONSTITUTIONAL: No fever, no malaise, no fatigue. HEENT: No recent visual problems or hearing problems. Denied any sore throat. CARDIOVASCULAR: No chest pain, orthopnea, PND, no palpitations, no syncope. PULMONARY: No shortness of breath, no cough, no hemoptysis. GASTROINTESTINAL: No abdominal pain, nausea, no vomiting or diarrhea. NEUROLOGICAL: No headaches, no weakness, no numbness. PHYSICAL EXAMINATION: GENERAL: The patient is alert and oriented x3, not in any acute distress. Thin built female HEENT: Pupils are round and equally reacting to light. EOMI. No scleral icterus. No conjunctival pallor. Normocephalic, atraumatic. No pharyngeal erythema. No thyromegaly. CARDIOVASCULAR: S1 and S2 present. No murmurs, rubs, or gallops. PULMONARY: Chest is clear to auscultation, no wheezing or crackles. ABDOMEN: Soft, nontender, nondistended, normoactive bowel sounds. No palpable organomegaly. MUSCULOSKELETAL: No joint swelling or deformity. EXTREMITIES: No cyanosis, clubbing, or pedal edema. NEUROLOGICAL: Gross neurological examination did not reveal any focal deficits. SKIN: No rashes. Assessment and Plan -Chest pain musculoskeletal reproducible secondary to mets from the sternum. -Elevated D-dimer was CT angiography showing no evidence for pulmonary embolism -Generalized weakness secondary to cancer metastatic renal disease physical therapy Occupational Therapy evaluation, recommended subacute rehab -Hypertension -Hyperlipidemia DVT prophylaxis The impression and plan of care has been dictated by Rashida Cruz Nurse Practitioner as directed. Dr. Colleen MD I have performed a history and physical examination and medical decision making of this patient, discussed the same with the dictator, and agree with the dictators assessment and plan as written, documented as a scribe. Based on total visit time, I have performed more than 50% of this visit. Objective - Vital Signs Vital signs: Vital Signs Temp 97.8 F 10/15/23 13:41 Pulse 78 10/15/23 13:41 Resp 17 10/15/23 13:41 BP 90/53 10/15/23 13:41 Pulse Ox 93 L 10/15/23 13:41 FiO2 Intake & Output 10/15/23 10/15/23 10/16/23 06:59 18:59 06:59 Intake Total 240 Balance 240 Intake: Oral 240 Other: # Voids 1 0 - Labs CBC & Chem 7: 10/12/23 10:34 10/12/23 10:50 Assessment and Plan Time with Patient: Less than 30
[2023-10-15] MEDS: NYSTATIN 100,000 UNIT/GM POWD 15 GM TOPICAL SCH (21:25)
[2023-10-16] MEDS: polyethylene glycoL 3350 17 GM POWD.PACK PO PRN (20:20)
--- NOTE | 2023-10-16 23:14 | P.PN ---
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 Pain in the chest started yesterday sharp nonradiating constant with no not associate with food nonexertional EKG did not show any acute ST-T wave changes 1 set of troponin is negative. Patient also has positive D-dimer of 5.24 because of which patient underwent CT angio of the chest which showed sternal metastasis but no pulmonary embolism. Patient lives with family who is not present at this time and patient is unable to take care of herself patient is dependent on ADLs and IADLs. Patient is admitted because of generalized weakness and chest pain. Her chest pain worsens with chest wall movement and reproducible. Patient continues on her home medication she is on oxycodone immediate release as managed by oncology services. Additionally patient has been maintained on chemotherapy and will need to hold this medication while going to subacute rehab. Patient was seen and consultation by cardiology for the chest pain and felt this was musculoskeletal in nature and no further workup needed. Patient is not have any shortness of breath or chest pain she is not having nausea vomiting or diarrhea. She continues to have pain to her mediastinum and sternal area secondary to metastatic cancer. This is chronic in nature. Patient is cleared for discharge to subacute rehabilitation. 10/15/2023 Patient is evaluated today in follow up on the medical floor. Patient is upset and tearful that discharge wont be until tuesday as insurance authorization is still pending. Patient then later on this afternoon fell on her bottom when up attempting to put her shoes on. Patient did not hit her head and was assisted to the ground. 10/16/2023 Patient is evaluated today on the medical floor. Patient is pending authorization for discharge to rehab which will likely be on tuesday. Patient is having no acute complaints at this time and pain is controlled. REVIEW OF SYSTEMS: CONSTITUTIONAL: No fever, no malaise, no fatigue. HEENT: No recent visual problems or hearing problems. Denied any sore throat. CARDIOVASCULAR: No chest pain, orthopnea, PND, no palpitations, no syncope. PULMONARY: No shortness of breath, no cough, no hemoptysis. GASTROINTESTINAL: No abdominal pain, nausea, no vomiting or diarrhea. NEUROLOGICAL: No headaches, no weakness, no numbness. PHYSICAL EXAMINATION: GENERAL: The patient is alert and oriented x3, not in any acute distress. Thin built female HEENT: Pupils are round and equally reacting to light. EOMI. No scleral icterus. No conjunctival pallor. Normocephalic, atraumatic. No pharyngeal erythema. No thyromegaly. CARDIOVASCULAR: S1 and S2 present. No murmurs, rubs, or gallops. PULMONARY: Chest is clear to auscultation, no wheezing or crackles. ABDOMEN: Soft, nontender, nondistended, normoactive bowel sounds. No palpable organomegaly. MUSCULOSKELETAL: No joint swelling or deformity. EXTREMITIES: No cyanosis, clubbing, or pedal edema. NEUROLOGICAL: Gross neurological examination did not reveal any focal deficits. SKIN: No rashes. Assessment and Plan -Chest pain musculoskeletal reproducible secondary to mets from the sternum. -Elevated D-dimer was CT angiography showing no evidence for pulmonary embolism -Generalized weakness secondary to cancer metastatic renal disease physical therapy Occupational Therapy evaluation, recommended subacute rehab -Hypertension -Hyperlipidemia DVT prophylaxis The impression and plan of care has been dictated by Rashida Cruz, Nurse Practitioner as directed. Dr. Colleen MD I have performed a history and physical examination and medical decision making of this patient, discussed the same with the dictator, and agree with the dictators assessment and plan as written, documented as a scribe. Based on total visit time, I have performed more than 50% of this visit. Objective - Vital Signs Vital signs: Vital Signs Temp 98.2 F 10/16/23 07:40 Pulse 71 10/16/23 07:40 Resp 16 10/16/23 07:40 BP 112/58 10/16/23 07:40 Pulse Ox 96 10/16/23 07:40 FiO2 Intake & Output 10/15/23 10/16/23 10/16/23 18:59 06:59 18:59 Intake Total 240 Balance 240 Intake: Oral 240 Other: # Voids 0 - Labs CBC & Chem 7: 10/12/23 10:34 10/12/23 10:50 Assessment and Plan Time with Patient: Less than 30
[2023-10-17 11:08] LABS: BUN/Creat Ratio 25.62 Ratio (12.00-20.00); Blood Urea Nitrogen 20.5 mg/dL (9.0-27.0); Calcium 9.1 mg/dL (8.7-10.3); Carbon Dioxide 22.8 mmol/L (21.6-31.8); Chloride 109 mmol/L (96-109); Glucose 92 mg/dL (70-110); Potassium 4.8 mmol/L (3.5-5.5); Sodium 141 mmol/L (135-145)
--- NOTE | 2023-10-17 15:16 | P.PN ---
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 Pain in the chest started yesterday sharp nonradiating constant with no not associate with food nonexertional EKG did not show any acute ST-T wave changes 1 set of troponin is negative. Patient also has positive D-dimer of 5.24 because of which patient underwent CT angio of the chest which showed sternal metastasis but no pulmonary embolism. Patient lives with family who is not present at this time and patient is unable to take care of herself patient is dependent on ADLs and IADLs. Patient is admitted because of generalized weakness and chest pain. Her chest pain worsens with chest wall movement and reproducible. Patient continues on her home medication she is on oxycodone immediate release as managed by oncology services. Additionally patient has been maintained on chemotherapy and will need to hold this medication while going to subacute rehab. Patient was seen and consultation by cardiology for the chest pain and felt this was musculoskeletal in nature and no further workup needed. Patient is not have any shortness of breath or chest pain she is not having nausea vomiting or diarrhea. She continues to have pain to her mediastinum and sternal area secondary to metastatic cancer. This is chronic in nature. Patient is cleared for discharge to subacute rehabilitation. 10/15/2023 Patient is evaluated today in follow up on the medical floor. Patient is upset and tearful that discharge wont be until tuesday as insurance authorization is still pending. Patient then later on this afternoon fell on her bottom when up attempting to put her shoes on. Patient did not hit her head and was assisted to the ground. 10/16/2023 Patient is evaluated today on the medical floor. Patient is pending authorization for discharge to rehab which will likely be on tuesday. Patient is having no acute complaints at this time and pain is controlled. 10/17/2023 Patient is evaluated in follow-up on the medical floor. Patient is currently pending authorization for discharge to subacute rehab. Has no acute complaints with the exception of anxiety as she has been waiting for discharge for 3 to 4 days now. REVIEW OF SYSTEMS: CONSTITUTIONAL: No fever, no malaise, no fatigue. HEENT: No recent visual problems or hearing problems. Denied any sore throat. CARDIOVASCULAR: No chest pain, orthopnea, PND, no palpitations, no syncope. PULMONARY: No shortness of breath, no cough, no hemoptysis. GASTROINTESTINAL: No abdominal pain, nausea, no vomiting or diarrhea. NEUROLOGICAL: No headaches, no weakness, no numbness. PHYSICAL EXAMINATION: GENERAL: The patient is alert and oriented x3, not in any acute distress. Thin built female HEENT: Pupils are round and equally reacting to light. EOMI. No scleral icterus. No conjunctival pallor. Normocephalic, atraumatic. No pharyngeal erythema. No thyromegaly. CARDIOVASCULAR: S1 and S2 present. No murmurs, rubs, or gallops. PULMONARY: Chest is clear to auscultation, no wheezing or crackles. ABDOMEN: Soft, nontender, nondistended, normoactive bowel sounds. No palpable organomegaly. MUSCULOSKELETAL: No joint swelling or deformity. EXTREMITIES: No cyanosis, clubbing, or pedal edema. NEUROLOGICAL: Gross neurological examination did not reveal any focal deficits. SKIN: No rashes. Assessment and Plan -Chest pain musculoskeletal reproducible secondary to mets from the sternum. -Elevated D-dimer was CT angiography showing no evidence for pulmonary embolism -Generalized weakness secondary to cancer metastatic renal disease physical t herapy Occupational Therapy evaluation, recommended subacute rehab -Hypertension -Hyperlipidemia DVT prophylaxis The impression and plan of care has been dictated by Rashida Cruz, Nurse Practitioner as directed. Dr. Colleen MD I have performed a history and physical examination and medical decision making of this patient, discussed the same with the dictator, and agree with the dictators assessment and plan as written, documented as a scribe. Based on total visit time, I have performed more than 50% of this visit. Objective - Vital Signs Vital signs: Vital Signs Temp 97.8 F 10/17/23 14:00 Pulse 75 10/17/23 14:00 Resp 17 10/17/23 14:00 BP 105/61 10/17/23 14:00 Pulse Ox 95 10/17/23 14:00 FiO2 Intake & Output 10/16/23 10/17/23 10/17/23 18:59 06:59 18:59 Intake Total 618 0 Balance 618 0 Weight 62.596 kg Intake: Oral 618 0 Other: Voiding Method Toilet Toilet # Voids 1 - Labs CBC & Chem 7: 10/12/23 10:34 10/17/23 06:36 Labs: Abnormal Lab Results - Last 24 Hours (Table) 10/17/23 Range/Units 06:36 BUN/Creatinine Ratio 25.62 H (12.00-20.00) Ratio Assessment and Plan Time with Patient: Less than 30
[2023-10-17] MEDS: ALPRAZolam 0.25 MG TAB PO STA (17:15)
[2023-10-18 02:06] VITALS: RESP 15
[2023-10-18 07:50] VITALS: BP 148/69; PULSE 80; TEMP 98.2
--- NOTE | 2023-10-18 11:33 | P.DS ---
Providers Date of admission: 10/12/23 13:51 Attending physician: Syeda Macias [facility] Course: Final Diagnosis -Chest pain musculoskeletal reproducible secondary to mets from the sternum. -Elevated D-dimer was CT angiography showing no evidence for pulmonary embolism -Generalized weakness secondary to cancer metastatic renal disease, and medical debility. physical therapy Occupational Therapy evaluation, recommended subacute rehab -Hypertension -Hyperlipidemia Discharge Disposition Stable for discharge to subacute rehab. Patient will continue all same home medications. Need to hold her Cabometyx while she is at rehab. Patient to follow up with Dr. Sarah Moore in the office on discharge. Patient to continue on bowel regimen. Hospital Course 78-year-old female with history of renal cell cancer metastic disease and mets to sternum came with complaints of chest pain pain in abdomen as well which is chronic. Pain in the chest started yesterday sharp nonradiating constant with no not associate with food nonexertional EKG did not show any acute ST-T wave changes 1 set of troponin is negative. Patient also has positive D-dimer of 5.24 because of which patient underwent CT angio of the chest which showed sternal metastasis but no pulmonary embolism. Patient lives with family who is not present at this time and patient is unable to take care of herself patient is dependent on ADLs and IADLs. Patient is admitted because of generalized weakness and chest pain. Her chest pain worsens with chest wall movement and reproducible. Patient continues on her home medication she is on oxycodone immediate release as managed by oncology services. Additionally patient has been maintained on chemotherapy and will need to hold this medication while going to subacute rehab. Patient was seen and consultation by cardiology for the chest pain and felt this was musculoskeletal in nature and no further workup needed. Patient is not have any shortness of breath or chest pain she is not having nausea vomiting or diarrhea. She continues to have pain to her mediastinum and sternal area secondary to metastatic cancer. This is chronic in nature. Patient is cleared for discharge to subacute rehabilitation. Please see medication reconciliation for a list of current medications. Thank you for allowing us to participate in the care of this patient. The impression and plan of care has been dictated by Rashida Cruz, Nurse Practitioner as directed. Dr. Colleen MD I have performed a history and physical examination and medical decision making of this patient, discussed the same with the dictator, and agree with the dictators assessment and plan as written, documented as a scribe. Based on total visit time, I have performed more than 50% of this visit. Patient Condition at Discharge: Stable Plan - Discharge Summary Discharge Rx Participant: No New Discharge Prescriptions: New Enoxaparin [Lovenox] 40 mg SQ DAILY each Aspirin 325 mg PO DAILY tab polyethylene glycoL 3350 [Miralax] 17 gm PO DAILY PRN packet PRN Reason: Constipation Continue Sertraline [Zoloft] 150 mg PO QAM Vitamin D (Unknown Dose) 1 tab PO DAILY Vitamin B-12 (Unknown Dose) 1 tab PO DAILY Acetaminophen [Tylenol] 650 mg PO Q6HR PRN PRN Reason: Pain Mirtazapine [Remeron] 15 mg PO HS amLODIPine [Norvasc] 5 mg PO QAM oxyCODONE HCL [oxyCODONE HCL (IR)] 5 mg PO Q6H PRN #4 cap PRN Reason: Pain Discontinued Cabozantinib S-Malate [Cabometyx] 20 mg PO DAILY Discharge Medication List Sertraline [Zoloft] 150 mg PO QAM 01/07/22 [History] amLODIPine [Norvasc] 5 mg PO QAM 01/07/22 [History] Vitamin D (Unknown Dose) 1 tab PO DAILY 08/03/23 [History] Vitamin B-12 (Unknown Dose) 1 tab PO DAILY 09/27/23 [History] Acetaminophen [Tylenol] 650 mg PO Q6HR PRN 09/29/23 [History] Mirtazapine [Remeron] 15 mg PO HS 10/12/23 [History] Aspirin 325 mg PO DAILY tab 10/14/23 [Rx] Enoxaparin [Lovenox] 40 mg SQ DAILY each 10/14/23 [Rx] oxyCODONE HCL [oxyCODONE HCL (IR)] 5 mg PO Q6H PRN #4 cap 10/14/23 [Rx] polyethylene glycoL 3350 [Miralax] 17 gm PO DAILY PRN packet 10/14/23 [Rx] Follow up Appointment(s)/Referral(s): Sarah Moore MD [STAFF PHYSICIAN] - 1 Week Bhupendra Zhong MD [Primary Care Provider] - 1-2 days Discharge Disposition: TRANSFER TO SNF/ECF
== END 2023-10-18 14:00 | DRG 948 ==
LOC: EC 10:01 → 6NMEDSUR 13:50 → OBSVTOIN 13:51 → 6NMEDSUR 14:31
PROVIDERS: ADMIT Internal Medicine; ATTEND Internal Medicine
DX: G89.3 Neoplasm related pain (acute) (chronic) (principal); C79.51 Secondary malignant neoplasm of bone; C78.1 Secondary malignant neoplasm of mediastinum; C64.9 Malignant neoplasm of unspecified kidney, except renal pelvis; F03.94 Unspecified dementia, unspecified severity, with anxiety; E11.9 Type 2 diabetes mellitus without complications; I10 Essential (primary) hypertension; Z28.310 Unvaccinated for COVID-19; E78.5 Hyperlipidemia, unspecified; S80.211A Abrasion, right knee, initial encounter; Z79.899 Other long term (current) drug therapy; W19.XXXA Unspecified fall, initial encounter; Z88.2 Allergy status to sulfonamides
CPT/HCPCS: 36415; 71046; 71275; 80048; 80053; 80061; 83735; 84484; 85025; 85379; 85610; 85730; 93005; 94760; 96374; 99285

== ENCOUNTER 2023-12-03 17:08 | Inpatient (IN) | payer MEDICARE ==
[2023-12-03 18:54] LABS: Basophils % (A) 1 %; Eosinophils # (A) 0.2 k/uL (0-0.7); Eosinophils % (A) 3 %; HCT 40.1 % (34.0-46.0); HGB 12.5 gm/dL (11.4-16.0); Hypochromasia Marked; Lymphocytes # (A) 1.2 k/uL (1.0-4.8); Lymphocytes % (A) 18 %; MCHC 31.1 g/dL (31.0-37.0); Mean Platelet Volume 7.1; Monocytes # (A) 0.5 k/uL (0-1.0); Monocytes % (A) 8 %; Neutrophils # (A) 4.6 k/uL (1.3-7.7); Neutrophils % (A) 68 %; Platelet Count 245 k/uL (150-450); WBC 6.7 k/uL (3.8-10.6)
[2023-12-03] MEDS: SODIUM CHLORIDE 0.9% 500 ML 500 ML IV ONE (18:58)
[2023-12-03 19:09] LABS: Partial Thromboplastin Time 25.2 sec (22.0-30.0); Prothrombin Time 11.2 sec (10.0-12.5)
[2023-12-03 19:12] LABS: ALT 8 U/L (4-34); AST 15 U/L (14-36); African American GFR (CKD) 77 (>60 ml/min/1.73 sqM); Albumin 3.1 g/dL (3.5-5.0); Alkaline Phosphatase 71 U/L (38-126); Anion Gap 8 mmol/L; Blood Urea Nitrogen 23 mg/dL (7-17); Calcium 9.7 mg/dL (8.4-10.2); Carbon Dioxide 19 mmol/L (22-30); Chloride 112 mmol/L (98-107); Glucose 77 mg/dL (74-99); Non-African American GFR(CKD) 67 (>60 ml/min/1.73 sqM); Potassium 3.8 mmol/L (3.5-5.1); Sodium 139 mmol/L (137-145); Total Bilirubin 0.4 mg/dL (0.2-1.3); Total Protein 5.7 g/dL (6.3-8.2)
[2023-12-03 19:13] LABS: MCV 93.1 fL (80.0-100.0)
[2023-12-03 19:16] LABS: Appearance,Urine Cloudy (Clear); Bilirubin,Urine 1+ (Negative); Blood,Urine Negative (Negative); Color,Urine Yellow; Glucose,Urine (UA) Negative (Negative); Ketones,Urine 2+ (Negative); Leukocyte Esterase,Urine Small (Negative); Mucus,Urine Rare /hpf; Nitrite,Urine Negative (Negative); Protein,Urine 1+ (Negative); RBC,Urine 22 /hpf (0-5); Specific Gravity,Urine 1.035 (1.001-1.035); Squamous Epithelial Cell,Urine 1 /hpf (0-4); WBC,Urine 16 /hpf (0-5)
--- NOTE | 2023-12-03 20:11 | XR ---
EXAMINATION TYPE: XR chest 2V DATE OF EXAM: 12/03/2023 7:40 PM CLINICAL INDICATION: Female, 78 years old with history of altered mental status; COMPARISON: Chest radiographs from 10/12/2023 TECHNIQUE: XR chest 2V Frontal view of the chest. FINDINGS: Lungs/Pleura: There is no evidence of pleural effusion, focal consolidation, or pneumothorax. Pulmonary vascularity: Unremarkable. Heart/mediastinum: Cardiomediastinal silhouette is unremarkable. Musculoskeletal: No acute osseous pathology. Vertebroplasty changes of the thoracic spine. Other findings: None Lines/Tubes: Uuiwso-x-[id number] projecting over the right hemithorax with distal tip at the cavoatrial junction. IMPRESSION: No acute cardiopulmonary disease/process.
--- NOTE | 2023-12-03 20:17 | ED ---
Altered Mental Status HPI - General Chief Complaint: Weakness Stated Complaint: weakness Time Seen by Provider: 12/03/23 17:51 Source: patient Mode of arrival: ambulatory Limitations: no limitations - History of Present Illness Initial Comments: 78-year-old female brought in by her family with chief complaint of weakness. Patient was recently being cared for at home by a caregiver, however the family found out that caregiver was not properly caring for the patient and they have recently taken on the role of her care. They stated they are unable to lift her and get around the house and do not feel capable of providing the level of care that she needs at this time. They are requesting rehab placement. They are also concerned that she may have a UTI. She seems to be hallucinating today. No fevers. No chest pain or difficulty breathing. No abdominal pain, nausea, vomiting, cough, congestion, sore throat. No headache or injuries. - Related Data Home Medications Medication Instructions Recorded Confirmed Sertraline [Zoloft] 150 mg PO DAILY 01/07/22 12/04/23 amLODIPine [Norvasc] 5 mg PO DAILY 01/07/22 12/04/23 Vitamin D (Unknown Dose) 1 tab PO DAILY 08/03/23 12/04/23 Mirtazapine [Remeron] 15 mg PO HS 10/12/23 12/04/23 Acetaminophen Tab [Tylenol Tab] 1,000 mg PO Q6H PRN 12/04/23 12/04/23 oxyCODONE HCL [oxyCODONE HCL (IR)] 10 mg PO Q6H PRN 12/04/23 12/04/23 Allergies Allergy/AdvReac Type Severity Reaction Status Date / Time Sulfa (Sulfonamide Allergy Rash/Hives Verified 12/03/23 17:13 Antibiotics) Review of Systems ROS Statement: Those systems with pertinent positive or pertinent negative responses have been documented in the HPI. ROS Other: All systems not noted in ROS Statement are negative. Past Medical History Past Medical History: Cancer, Dementia, Diabetes Mellitus, Hypertension Additional Past Medical History / Comment(s): Current renal cell cancer. 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 Type II DM. Hx fractured right femur from fall 04/04/23. No medication needed for Diabetes at this time. History of Any Multi-Drug Resistant Organisms: None Reported Past Surgical History: Appendectomy, Cholecystectomy, Hysterectomy, Orthopedic Surgery, Tonsillectomy Additional Past Surgical History / Comment(s): Left nephrectomy 01/23, left femur surgery, T-10 ablation with vertebroplasty. Past Anesthesia/Blood Transfusion Reactions: No Reported Reaction Additional Past Anesthesia/Blood Transfusion Reaction / Comment(s): Hx blood transfusion witj no issues. Past Psychological History: Anxiety Smoking Status: Never smoker Past Alcohol Use History: None Reported Past Drug Use History: None Reported - Past Family History Mother Family Medical History: Cancer Additional Family Medical History / Comment(s): Lung cancer. General Exam Limitations: no limitations General appearance: alert, in no apparent distress Head exam: Present: atraumatic, normocephalic Eye exam: Present: normal appearance, EOMI Neck exam: Present: normal inspection. Absent: meningismus Respiratory exam: Present: normal lung sounds bilaterally. Absent: respiratory distress, wheezes, rales, rhonchi, stridor Cardiovascular Exam: Present: regular rate, normal rhythm, normal heart sounds. Absent: systolic murmur, diastolic murmur, rubs, gallop, clicks GI/Abdominal exam: Present: soft. Absent: distended, tenderness, guarding, rebound, rigid Neurological exam: Present: alert Expanded Eye Response: (4) open spontaneously Motor Response: (6) obeys commands Verbal Response: (5) oriented Leonarda Total: 15 Psychiatric exam: Present: normal affect, normal mood Skin exam: Present: warm, dry Course Vital Signs 12/03/23 12/03/23 12/03/23 17:09 17:51 19:58 Temperature 97.7 F Pulse Rate 75 74 63 Pulse Rate [ Pulse Oximetery ] Respiratory 18 18 20 Rate Blood Pressure 124/60 136/66 149/67 Blood Pressure [Right Arm] O2 Sat by Pulse 97 96 94 L Oximetry 12/03/23 12/03/23 12/04/23 20:53 22:55 00:00 Temperature 98.6 F Pulse Rate 77 84 72 Pulse Rate [ Pulse Oximetery ] Respiratory 19 18 16 Rate Blood Pressure 138/78 150/68 132/75 Blood Pressure [Right Arm] O2 Sat by Pulse 98 97 97 Oximetry 12/04/23 12/04/23 12/04/23 04:00 06:19 08:34 Temperature 97.7 F Pulse Rate 85 75 Pulse Rate [ 67 Pulse Oximetery ] Respiratory 17 19 18 Rate Blood Pressure 163/73 148/69 Blood Pressure 148/69 [Right Arm] O2 Sat by Pulse 95 96 96 Oximetry Medical Decision Making - Medical Decision Making Was pt. sent in by a medical professional or institution (KRISTI Carlos, [employer], urgent care, hospital, or assisted...) When possible be specific @ -No Did you speak to anyone other than the patient for history (EMS, parent, family, police, friend...)? What history was obtained from this source @ -History obtained from son and [id number] Did you review nursing and triage notes (agree or disagree)? Why? @ -I reviewed and agree with nursing and triage notes Were old charts reviewed (outside hosp., previous admission, EMS record, old EKG, old radiological studies, urgent care reports/EKG's, assisted records)? Report findings @ -No old charts were reviewed Differential Diagnosis (chest pain, altered mental status, abdominal pain women, abdominal pain men, vaginal bleeding, weakness, fever, dyspnea, syncope, headache, dizziness, GI bleed, back pain, seizure, CVA, palpatations, mental health, musculoskeletal)? @ -MDM Differential Weakness: Hypoglycemia, shock, sepsis, hyponatremia, anemia, infection, PA, ETOH, adverse medicine reaction, overdose, stroke. ... This is not meant to be an all- inclusive list EKG interpreted by me (3pts min.). @ -Sinus rhythm ventricular rate 75. NJ interval 198. QRS 111. QT 424. QTc 453. X-rays interpreted by me (1pt min.). @ -Chest x-ray shows no acute cardiopulmonary disease/process CT interpreted by me (1pt min.). @ -None done U/S interpreted by me (1pt. min.). @ -None done What testing was considered but not performed or refused? (CT, X-rays, U/S, labs)? Why? @ -None What meds were considered but not given or refused? Why? @ -None Did you discuss the management of the patient with other professionals (professionals i.e. KRISTI Carlos, [employer]IDGE [employer]OR, lab, RT, psych nurse, director social welfare, tile classifier, teacher, sanitation officer, rifle case repairer)? Give summary @ -Spoke with [facility] provider on-call who accepted admission Was smoking cessation discussed for >3mins.? @ -No Was critical care preformed (if so, how long)? @ -No Were there social determinants of health that impacted care today? How? (Homelessness, low income, unemployed, alcoholism, drug addiction, transportation, low edu. Level, literacy, decrease access to med. care, residential, rehab)? @ -No Was there de-escalation of care discussed even if they declined (Discuss DNR or withdrawal of care, Hospice)? DNR status @ -No What co-morbidities impacted this encounter? (DM, HTN, Smoking, COPD, CAD, Cancer, CVA, ARF, Chemo, Hep., AIDS, mental health diagnosis, sleep apnea, morbid obesity)? @ -None Was patient admitted / discharged? Hospital course, mention meds given and route, prescriptions, significant lab abnormalities, going to OR and other pertinent info. @ -78-year-old female brought in by her family with chief complaint of weakness. They also are concerned about a UTI she has been having some hallucinations. History and physical exam are conducted. No leukocytosis or anemia. She has signs of dehydration and malnutrition with low protein and albumin as well as 2+ ketones in the urine. Questionable UTI with 22 RBCs and 16 WBCs. Patient is given 1 dose of Rocephin here in the ER. Chest x-ray negative for acute process. The patient's family with her states that they are unable to care for her properly at home and are requesting that she be placed in rehab. Patient is agreeable with this plan. I discussed this case with my attending Dr. Hinkle Undiagnosed new problem with uncertain prognosis? @ -no Drug Therapy requiring intensive monitoring for toxicity (Heparin, Nitro, Insulin, Cardizem)? @ -No Were any procedures done? @ -No Diagnosis/symptom? @ -Weakness, physical deconditioning, UTI Acute, or Chronic, or Acute on Chronic? @ -Acute Uncomplicated (without systemic symptoms) or Complicated (systemic symptoms)? @ -Complicated Side effects of treatment? @ -No Exacerbation, Progression, or Severe Exacerbation? @ -No Poses a threat to life or bodily function? How? (Chest pain, USA, PA, pneumonia, PE, COPD, DKA, ARF, appy, cholecystitis, CVA, Diverticulitis, Homicidal, Suicidal, threat to staff... and all critical care pts) @ -Yes - Lab Data Result diagrams: 12/03/23 18:30 12/03/23 18:30 Lab Results 12/03/23 12/03/23 12/03/23 Range/Units 18:30 18:30 18:30 WBC 6.7 (3.8-10.6) k/uL RBC 4.30 (3.80-5.40) m/uL Hgb 12.5 (11.4-16.0) gm/dL Hct 40.1 (34.0-46.0) % MCV 93.1 D (80.0-100.0) fL MCH 29.0 (25.0-35.0) pg MCHC 31.1 (31.0-37.0) g/dL RDW 14.0 (11.5-15.5) % Plt Count 245 (150-450) k/uL MPV 7.1 Neutrophils % 68 % Lymphocytes % 18 % Monocytes % 8 % Eosinophils % 3 % Basophils % 1 % Neutrophils # 4.6 (1.3-7.7) k/uL Lymphocytes # 1.2 (1.0-4.8) k/uL Monocytes # 0.5 (0-1.0) k/uL Eosinophils # 0.2 (0-0.7) k/uL Basophils # 0.0 (0-0.2) k/uL Hypochromasia Marked PT 11.2 (10.0-12.5) sec INR 1.0 (<1.2) APTT 25.2 (22.0-30.0) sec Sodium 139 (137-145) mmol/L Potassium 3.8 (3.5-5.1) mmol/L Chloride 112 H (98-107) mmol/L Carbon Dioxide 19 L (22-30) mmol/L Anion Gap 8 mmol/L BUN 23 H (7-17) mg/dL Creatinine 0.83 (0.52-1.04) mg/dL Est GFR (CKD-EPI)AfAm 77 (>60 ml/min/1.73 sqM) Est GFR (CKD-EPI)NonAf 67 (>60 ml/min/1.73 sqM) Glucose 77 (74-99) mg/dL Calcium 9.7 (8.4-10.2) mg/dL Total Bilirubin 0.4 (0.2-1.3) mg/dL AST 15 (14-36) U/L ALT 8 (4-34) U/L Alkaline Phosphatase 71 (38-126) U/L Total Protein 5.7 L (6.3-8.2) g/dL Albumin 3.1 L (3.5-5.0) g/dL Urine Color Urine Appearance (Clear) Urine pH (5.0-8.0) Ur Specific Hulen (1.001-1.035) Urine Protein (Negative) Urine Glucose (UA) (Negative) Urine Ketones (Negative) Urine Blood (Negative) Urine Nitrite (Negative) Urine Bilirubin (Negative) Urine Urobilinogen (<2.0) mg/dL Ur Leukocyte Esterase (Negative) Urine RBC (0-5) /hpf Urine WBC (0-5) /hpf Ur Squamous Epith Cells (0-4) /hpf Urine Mucus (None) /hpf 12/03/23 Range/Units 18:57 WBC (3.8-10.6) k/uL RBC (3.80-5.40) m/uL Hgb (11.4-16.0) gm/dL Hct (34.0-46.0) % MCV (80.0-100.0) fL MCH (25.0-35.0) pg MCHC (31.0-37.0) g/dL RDW (11.5-15.5) % Plt Count (150-450) k/uL MPV Neutrophils % % Lymphocytes % % Monocytes % % Eosinophils % % Basophils % % Neutrophils # (1.3-7.7) k/uL Lymphocytes # (1.0-4.8) k/uL Monocytes # (0-1.0) k/uL Eosinophils # (0-0.7) k/uL Basophils # (0-0.2) k/uL Hypochromasia PT (10.0-12.5) sec INR (<1.2) APTT (22.0-30.0) sec Sodium (137-145) mmol/L Potassium (3.5-5.1) mmol/L Chloride (98-107) mmol/L Carbon Dioxide (22-30) mmol/L Anion Gap mmol/L BUN (7-17) mg/dL Creatinine (0.52-1.04) mg/dL Est GFR (CKD-EPI)AfAm (>60 ml/min/1.73 sqM) Est GFR (CKD-EPI)NonAf (>60 ml/min/1.73 sqM) Glucose (74-99) mg/dL Calcium (8.4-10.2) mg/dL Total Bilirubin (0.2-1.3) mg/dL AST (14-36) U/L ALT (4-34) U/L Alkaline Phosphatase (38-126) U/L Total Protein (6.3-8.2) g/dL Albumin (3.5-5.0) g/dL Urine Color Yellow Urine Appearance Cloudy H (Clear) Urine pH 6.0 (5.0-8.0) Ur Specific Hulen 1.035 (1.001-1.035) Urine Protein 1+ H (Negative) Urine Glucose (UA) Negative (Negative) Urine Ketones 2+ H (Negative) Urine Blood Negative (Negative) Urine Nitrite Negative (Negative) Urine Bilirubin 1+ H (Negative) Urine Urobilinogen 3.0 (<2.0) mg/dL Ur Leukocyte Esterase Small H (Negative) Urine RBC 22 H (0-5) /hpf Urine WBC 16 H (0-5) /hpf Ur Squamous Epith Cells 1 (0-4) /hpf Urine Mucus Rare H (None) /hpf Disposition Clinical Impression: Weakness, Physical deconditioning, UTI (urinary tract infection) Disposition: ADMITTED IP TO THIS HOSP Condition: Fair Time of Disposition: 20:17
[2023-12-03] MEDS: cefTRIAXone IN SWFI 1,000 MG/10 ML SYRINGE IVP STA (20:48)
[2023-12-03] MEDS ORDERED: NALOXONE 0.4 MG/ML 1 ML VIAL IV PRN (22:41)
[2023-12-04] MEDS: SODIUM CHLORIDE 0.9% 1,000 ML IV SCH
[2023-12-04] MEDS: ACETAMINOPHEN TAB 325 MG TAB PO PRN (02:03)
[2023-12-04] MEDS: SERTRALINE 50 MG TAB PO SCH (12:02)
[2023-12-04] MEDS: amLODIPine 5 MG TAB PO SCH (12:02)
[2023-12-04] MEDS: ENOXAPARIN 40 MG/0.4 ML SYRINGE SQ SCH (12:02)
[2023-12-04 15:00] VITALS: BMI 28.3
--- NOTE | 2023-12-04 15:40 | P.HPIM ---
History of Present Illness H&P Date: 12/04/23 Chief Complaint: Hallucination This is a pleasant 78-year-old patient who follows with visiting physician Dr. Zhong. Chronic stable medical conditions include cognitive impairment, diabetes mellitus,-off medications, essential hypertension. Has left kidney cancer with nephrectomy and January 2022. Denies metastasis to the bone. Pending immunotherapy with Dr. Ismael Moore. Patient 5 days ago moved from assisted living to live with her son and wztdjfdv-[id number]. Does use of normally a wheelchair. For last few days patient been having auditory and visual visual hallucinations. Not good appetite. Dark cloudy urine. Very weak not able to walk much. Hence was brought in. Decreased appetite. Tired. Patient was started on treatment for UTI in the ER. Feeling a bit better this morning. Review of systems: GEN.: Tired weak EYES: None HEENT: None NECK: None RESPIRATORY: None CARDIOVASCULAR: None GASTROINTESTINAL: None GENITOURINARY: None MUSCULOSKELETAL: [Some joint pains LYMPHATICS: None HEMATOLOGICAL: None PSYCHIATRY: Hallucinations NEUROLOGICAL: Does use a walker Social history: For last 5 days patient is moved into live with her son and mipddhad-vx-zyw. No smoking or alcohol. Prior to that was apparently living in assisted living. Physical examination: VITAL SIGNS: 97.7, 75, 18, 124 x 60, 97% room air upon presentation GENERAL: [BMI 28.3, resting bed awake tired appearing. EYES: Pupils equal. Conjunctiva tanvir l. HEENT: External appearance of nose and ears normal, oral cavity grossly normal. NECK: JVD not raised; masses not palpable. HEART: First and second heart sounds are normal; no edema. LUNGS: Respiratory rate normal; clear to auscultation. ABDOMEN: Soft, nontender, liver spleen not palpable, no masses palpable. PSYCH: Alert and oriented x3; mood and affect tanvir l. Bit forgetful MUSCULOSKELETAL:No Clubbing/cyanosis;muscles-grossly intact. OA NEUROLOGICAL: Cranial nerves grossly intact; no facial asymmetry, power and sensation grossly intact. LYMPHATICS: No lymph nodes palpable in the axilla and neck INVESTIGATIONS, reviewed in the clinical context: December 03, 2023: White count 6.7 hemoglobin 12.5 platelets 245 sodium 139 potassium 3.8 bicarb 19 BUN 23 creatinine 0.83 UA positive for leukoesterase WBC EKG tracing normal sinus rhythm. Some ST-T wave changes. Chest x-ray film personally reviewed by me-some cardiomegaly. Assessment plan: -Hallucinations both auditory and visual. Patient's fccviodn-xf-vcm noticed that patient was talking about the soap EMS in the family room and patient has been off recently. Could be from underlying cognitive impairment and also UTI -Acute UTI with cystitis IV ceftriaxone -Cognitive impairment -Acute on chronic medical debility. Normally uses a walker. Currently very weak. PT OT. Evaluate for rehab -Essential hypertension Amlodipine 5 mg a day -Insomnia Remeron -Depression Decrease Zoloft to 100 mg a day. -Bone pain. Use Tylenol as needed. Use naproxen as needed. -Metastatic kidney cancer with left nephrectomy in January 2022. Patient due to start immunotherapy with Dr. Ismael Moore. -Full code IV ceftriaxone. PT OT. Evaluate for inpatient rehab. Past Medical History Past Medical History: Cancer, Dementia, Diabetes Mellitus, Hypertension Additional Past Medical History / Comment(s): Current renal cell cancer. Hx left kidney cancer (01/23) with metastasis to bone. Type II DM-no medication needed. Hx fractured right femur from fall 04/04/23. History of Any Multi-Drug Resistant Organisms: None Reported Past Surgical History: Appendectomy, Cholecystectomy, Hysterectomy, Orthopedic Surgery, Tonsillectomy Additional Past Surgical History / Comment(s): Left nephrectomy 01/23, left femur surgery, T-10 ablation with vertebroplasty. Past Anesthesia/Blood Transfusion Reactions: No Reported Reaction Additional Past Anesthesia/Blood Transfusion Reaction / Comment(s): Hx blood transfusion witj no issues. Past Psychological History: Anxiety Smoking Status: Never smoker Past Alcohol Use History: None Reported Past Drug Use History: None Reported - Past Family History Mother Family Medical History: Cancer Additional Family Medical History / Comment(s): Lung cancer. Medications and Allergies Home Medications Medication Instructions Recorded Confirmed Type Sertraline [Zoloft] 150 mg PO DAILY 01/07/22 12/04/23 History amLODIPine [Norvasc] 5 mg PO DAILY 01/07/22 12/04/23 History Vitamin D (Unknown Dose) 1 tab PO DAILY 08/03/23 12/04/23 History Mirtazapine [Remeron] 15 mg PO HS 10/12/23 12/04/23 History Acetaminophen Tab [Tylenol Tab] 1,000 mg PO Q6H PRN 12/04/23 12/04/23 History oxyCODONE HCL [oxyCODONE HCL (IR)] 10 mg PO Q6H PRN 12/04/23 12/04/23 History Allergies Allergy/AdvReac Type Severity Reaction Status Date / Time Sulfa (Sulfonamide Allergy Rash/Hives Verified 12/03/23 17:13 Antibiotics) Physical Exam Vitals: Vital Signs Temp Pulse Pulse Resp BP BP Pulse Ox 12/04/23 13:01 97.4 F L 75 16 121/57 95 12/04/23 08:34 97.7 F 67 18 148/69 96 12/04/23 06:19 75 19 148/69 96 12/04/23 04:00 85 17 163/73 95 12/04/23 00:00 98.6 F 72 16 132/75 97 12/03/23 22:55 84 18 150/68 97 12/03/23 20:53 77 19 138/78 98 12/03/23 19:58 63 20 149/67 94 L 12/03/23 17:51 74 18 136/66 96 12/03/23 17:09 97.7 F 75 18 124/60 97 Intake and Output 12/04/23 12/04/23 12/04/23 06:59 14:59 22:59 Other: Voiding Method Diaper Weight 65.771 kg Results CBC & Chem 7: 12/03/23 18:30 12/03/23 18:30 Labs: Abnormal Lab Results - Last 24 Hours (Table) 12/03/23 12/03/23 Range/Units 18:30 18:57 Chloride 112 H (98-107) mmol/L Carbon Dioxide 19 L (22-30) mmol/L BUN 23 H (7-17) mg/dL Total Protein 5.7 L (6.3-8.2) g/dL Albumin 3.1 L (3.5-5.0) g/dL Urine Appearance Cloudy H (Clear) Urine Protein 1+ H (Negative) Urine Ketones 2+ H (Negative) Urine Bilirubin 1+ H (Negative) Ur Leukocyte Esterase Small H (Negative) Urine RBC 22 H (0-5) /hpf Urine WBC 16 H (0-5) /hpf Urine Mucus Rare H (None) /hpf Thrombosis Risk Factor Assmnt - Choose All That Apply Each Risk Factor Represents 2 Points: Malignancy Each Risk Factor Represents 3 Points: Age 75 years or older Thrombosis Risk Factor Assessment Total Risk Factor Score: 5 Thrombosis Risk Factor Assessment Level: High Risk
[2023-12-04] MEDS: LACTULOSE 20 GM/30 ML CUP PO ONE (16:21)
[2023-12-04] MEDS: NYSTATIN 100,000 UNIT/GM POWD 15 GM TOPICAL SCH (20:26)
[2023-12-04] MEDS: MIRTAZAPINE 15 MG TAB PO SCH (20:26)
[2023-12-05] MEDS: SERTRALINE 100 MG TAB PO SCH (08:43)
[2023-12-05 12:11] LABS: BUN/Creat Ratio 19.57 Ratio (12.00-20.00); Blood Urea Nitrogen 13.7 mg/dL (9.0-27.0); Calcium 8.8 mg/dL (8.7-10.3); Carbon Dioxide 19.1 mmol/L (21.6-31.8); Chloride 114 mmol/L (96-109); Glucose 93 mg/dL (70-110); Potassium 3.7 mmol/L (3.5-5.5); Sodium 143 mmol/L (135-145)
[2023-12-05 12:59] LABS: Basophils # (A) 0.09 X 10*3/uL (0.00-0.10); Basophils % (A) 1.2 %; Eosinophils # (A) 0.19 X 10*3/uL (0.04-0.35); Eosinophils % (A) 2.5 %; HCT 38.4 % (37.2-46.3); HGB 11.7 g/dL (12.0-15.0); Lymphocytes # (A) 1.42 X 10*3/uL (0.90-5.00); Lymphocytes % (A) 18.5 %; MCH 29.2 pg (27.0-32.0); MCHC 30.5 g/dL (32.0-37.0); MCV 95.8 FL (80.0-97.0); Mean Platelet Volume 9.6 FL (9.5-12.2); Monocytes # (A) 0.73 X 10*3/uL (0.20-1.00); Monocytes % (A) 9.5 %; NRBC Per 100 WBC 0 X 10*3/uL (0.00-0.01); Neutrophils % (A) 67.9 %; Platelet Count 232 X 10*3/uL (140-440); RBC 4.01 X 10*6/uL (4.10-5.20); RDW 14.1 % (11.5-14.5); WBC 7.66 X 10*3/uL (4.50-10.00)
--- NOTE | 2023-12-05 15:23 | P.PN ---
Progress Note - Text Progress Note Date: 12/05/23 Chief Complaint: Hallucination This is a pleasant 78-year-old patient who follows with visiting physician Dr. Zhong. Chronic stable medical conditions include cognitive impairment, diabetes mellitus,-off medications, essential hypertension. Has left kidney cancer with nephrectomy and January 2022. Denies metastasis to the bone. Pending immunotherapy with Dr. Ismael Moore. Patient 5 days ago moved from assisted living to live with her son and daughte r-in-law. Does use of normally a wheelchair. For last few days patient been having auditory and visual visual hallucinations. Not good appetite. Dark cloudy urine. Very weak not able to walk much. Hence was brought in. Decreased appetite. Tired. Patient was started on treatment for UTI in the ER. Feeling a bit better this morning. December 04: No further hallucinations. Eating well. Aignuhuc-ul-acs at the bedside. PT on the case. Evaluation for rehab. Will also [facility] for [facility] inpatient rehab. Discussed. Urine culture negative Active Medications Acetaminophen (Acetaminophen Tab 325 Mg Tab) 650 mg PO Q6HR PRN PRN Reason: Mild Pain or Fever > 100.5 Last Admin: 12/04/23 02:03 Dose: 650 mg Amlodipine Besylate (Amlodipine 5 Mg Tab) 5 mg PO DAILY [facility] Last Admin: 12/05/23 08:43 Dose: 5 mg Enoxaparin Sodium (Enoxaparin 40 Mg/0.4 Ml Syringe) 40 mg SQ DAILY [facility] Last Admin: 12/05/23 08:43 Dose: 40 mg Ceftriaxone Sodium 1 gm/ (Sodium Chloride) 50 mls @ 100 mls/hr IVPB Q24HR [facility]; Protocol Last Admin: 12/05/23 08:44 Dose: 100 mls/hr Mirtazapine (Mirtazapine 15 Mg Tab) 15 mg PO HS [facility] Last Admin: 12/04/23 20:26 Dose: 15 mg Naloxone HCl (Naloxone 0.4 Mg/Ml 1 Ml Vial) 0.2 mg IV Q2M PRN PRN Reason: Opioid Reversal Nystatin (Nystatin 100,000 Unit/Gm Powd 15 Gm) 1 applic TOPICAL BID [facility]; Protocol Last Admin: 12/05/23 08:44 Dose: 1 applic Sertraline HCl (Sertraline 100 Mg Tab) 100 mg PO DAILY [facility] Last Admin: 12/05/23 08:43 Dose: 100 mg Social history: For last 5 days patient is moved into live with her son and ynrvohdi-uc-ssf. No smoking or alcohol. Prior to that was apparently living in assisted living. Physical examination: VITAL SIGNS: 97.7, 73, 16, 127 x 61, 95% room air GENERAL: [Resting in bed, tired EYES: Pupils equal. Conjunctiva tanvir l. HEENT: External appearance of nose and ears normal, oral cavity grossly normal. NECK: JVD not raised; masses not palpable. HEART: First and second heart sounds are normal; no edema. LUNGS: Respiratory rate normal; clear to auscultation. ABDOMEN: Soft, nontender, liver spleen not palpable, no masses palpable. PSYCH: Alert and oriented x3; mood and affect tanvir l. Bit forgetful MUSCULOSKELETAL:No Clubbing/cyanosis;muscles-grossly intact. OA INVESTIGATIONS, reviewed in the clinical context: Urine culture: Negative December 04: White count 7.6 hemoglobin 11.7 platelets 232 potassium 3.7 creatinine 0.7 December 03, 2023: White count 6.7 hemoglobin 12.5 platelets 245 sodium 139 potassium 3.8 bicarb 19 BUN 23 creatinine 0.83 UA positive for leukoesterase WBC EKG tracing normal sinus rhythm. Some ST-T wave changes. Chest x-ray film personally reviewed by me-some cardiomegaly. Assessment plan: -Hallucinations both auditory and visual. Patient's drrnqbii-ic-bzg noticed that patient was talking about the soap EMS in the family room and patient has been off recently. Could be from underlying cognitive impairment and also UTI -Acute UTI with cystitis IV ceftriaxone. Switch over to Keflex tomorrow -Cognitive impairment -Acute on chronic medical debility. Normally uses a walker. Currently very weak. PT OT. Evaluate for rehab -Essential hypertension Amlodipine 5 mg a day -Insomnia Remeron -Depression Decrease Zoloft to 100 mg a day. -Bone pain. Use Tylenol as needed. Use naproxen as needed. -Metastatic kidney cancer with left nephrectomy in January 2022. Patient due to start immunotherapy with Dr. Ismael Moore. -Full code IV ceftriaxone. binder coverstitch to Keflex tomorrow. Pending evaluation for rehab. Discussed Past Medical History Past Medical History: Cancer, Dementia, Diabetes Mellitus, Hypertension Additional Past Medical History / Comment(s): Current renal cell cancer. Hx left kidney cancer (01/23) with metastasis to bone. Type II DM-no medication needed. Hx fractured right femur from fall 04/04/23. History of Any Multi-Drug Resistant Organisms: None Reported Past Surgical History: Appendectomy, Cholecystectomy, Hysterectomy, Orthopedic Surgery, Tonsillectomy Additional Past Surgical History / Comment(s): Left nephrectomy 01/23, left femur surgery, T-10 ablation with vertebroplasty. Past Anesthesia/Blood Transfusion Reactions: No Reported Reaction Additional Past Anesthesia/Blood Transfusion Reaction / Comment(s): Hx blood transfusion witj no issues. Past Psychological History: Anxiety Smoking Status: Never smoker Past Alcohol Use History: None Reported Past Drug Use History: None Reported
[2023-12-06] MEDS: CEPHALEXIN 500 MG CAP PO SCH (09:22)
--- NOTE | 2023-12-06 10:00 | P.CONS ---
History of Present Illness - Reason for Consult Consult date: 12/06/23 - Chief Complaint weakness, eval for rehab recs - History of Present Illness Geraldine right handed female, , who lives with her son and daughter in law in a single story home with no steps to enter. She was previously in assisted living per EMR but was recently moved to live with her son. She required assistance with ADLs including dressing and bathing. She used a 2 wheel walker and a wheelchair to ambulate. Children are home to help. She had femur fx in April and went to [facility]. She was dced home and had caregiver. Per EMR patient had been having auditory and visual visual hallucinations for the last few days with increased weakness. Patient was started on treatment for UTI in the ER. Currently reports feeling weaker than baseline. No c/o pain, sob, abdominal pain. LBM yesterday. PM&R consulted for rehab recommendations Review of Systems negative unless per HPI Past Medical History Past Medical History: Cancer, Dementia, Diabetes Mellitus, Hypertension Additional Past Medical History / Comment(s): Current renal cell cancer. 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 Type II DM. Hx fractured right femur from fall 04/04/23. No medication needed for Diabetes at this time. History of Any Multi-Drug Resistant Organisms: None Reported Past Surgical History: Appendectomy, Cholecystectomy, Hysterectomy, Orthopedic Surgery, Tonsillectomy Additional Past Surgical History / Comment(s): Left nephrectomy 01/23, left femur surgery, T-10 ablation with vertebroplasty. Past Anesthesia/Blood Transfusion Reactions: No Reported Reaction Additional Past Anesthesia/Blood Transfusion Reaction / Comm: Hx blood transfusion [facility] no issues. Past Psychological History: Anxiety Smoking Status: Never smoker Past Alcohol Use History: None Reported Past Drug Use History: None Reported - Past Family History Mother Family Medical History: Cancer Additional Family Medical History / Comment(s): Lung cancer. Medications and Allergies Home Medications Medication Instructions Recorded Confirmed Type Sertraline [Zoloft] 150 mg PO DAILY 01/07/22 12/04/23 History amLODIPine [Norvasc] 5 mg PO DAILY 01/07/22 12/04/23 History Vitamin D (Unknown Dose) 1 tab PO DAILY 08/03/23 12/04/23 History Mirtazapine [Remeron] 15 mg PO HS 10/12/23 12/04/23 History Acetaminophen Tab [Tylenol Tab] 1,000 mg PO Q6H PRN 12/04/23 12/04/23 History oxyCODONE HCL [oxyCODONE HCL (IR)] 10 mg PO Q6H PRN 12/04/23 12/04/23 History Allergies Allergy/AdvReac Type Severity Reaction Status Date / Time Sulfa (Sulfonamide Allergy Rash/Hives Verified 12/03/23 17:13 Antibiotics) Physical Exam Vitals: Vital Signs Temp Pulse Resp BP BP Pulse Ox 12/06/23 07:13 98.0 F 71 16 134/64 95 12/06/23 01:28 98.7 F 61 16 105/59 95 12/05/23 20:00 98.9 F 72 16 105/66 91 L 12/05/23 14:00 97.7 F 73 16 127/61 95 Intake and Output 12/05/23 12/06/23 12/06/23 22:59 06:59 14:59 Intake Total 480 240 Balance 480 240 Intake: Oral 480 240 Other: Voiding Method Diaper Diaper # Voids 2 2 # Bowel Movements 1 General: Lying in bed, on IV abx, NAD CV: No cyanosis, RRR Abdomen: No guarding, non distended Neuro: AO x 3 MSK: Left UE 5/5 Right UE 5/5 except shoulder abduction slightly weaker at 5-/5 Lower extremities: HF 2/5 b/l KE 4/5 b/l Skin: abrasion to the right knee and left knee Psych: Normal mood and affect Results CBC & Chem 7: 12/05/23 03:18 12/05/23 03:18 Labs: Abnormal Lab Results - Last 24 Hours (Table) 12/05/23 12/05/23 Range/Units 03:18 03:18 RBC 4.01 L (4.10-5.20) X 10*6/uL Hgb 11.7 L (12.0-15.0) g/dL MCHC 30.5 L (32.0-37.0) g/dL Chloride 114 H (96-109) mmol/L Carbon Dioxide 19.1 L (21.6-31.8) mmol/L Assessment and Plan Assessment: #Debility secondary to UTI -On IV Abx, PT/OT evals pending. #HTN -on amlodipine #DM -on metformin #insomnia -on Remeron #depression -on zoloft #Hx right femur fx s/p IMN April 2023 # h/o renal carcinoma s/p left nephrectomy -follows with Dr. Moore # CoMorbidities: HTN, depression,insomnia, DM Dispo: Pending PT/OT evals, but likely [facility] as patient was dced there in April. She does not have qualifying diagnosis for IPR. She will need slower paced and longer duration of therapy for safer DC home which is best found at a [facility]. Continue PT/OT while inpatient to reduce functional decline.
--- NOTE | 2023-12-06 15:27 | P.PN ---
Progress Note - Text Progress Note Date: 12/06/23 Chief Complaint: Hallucination This is a pleasant 78-year-old patient who follows with visiting physician Dr. Zhong. Chronic stable medical conditions include cognitive impairment, diabetes mellitus,-off medications, essential hypertension. Has left kidney cancer with nephrectomy and January 2022. Denies metastasis to the bone. Pending immunotherapy with Dr. Ismael Moore. Patient 5 days ago moved from assisted living to live with her son and daughte r-in-law. Does use of normally a wheelchair. For last few days patient been having auditory and visual visual hallucinations. Not good appetite. Dark cloudy urine. Very weak not able to walk much. Hence was brought in. Decreased appetite. Tired. Patient was started on treatment for UTI in the ER. Feeling a bit better this morning. December 04: No further hallucinations. Eating well. [id number]-[id number] at the bedside. PT on the case. Evaluation for rehab. Will also try for [facility] inpatient rehab. Discussed. Urine culture negative December 05: Comfortable. PT OT working with the patient. Requiring assist. Recommended subacute rehab. spice room worker working on the same. Oral intake fair. Active Medications Acetaminophen (Acetaminophen Tab 325 Mg Tab) 650 mg PO Q6HR PRN PRN Reason: Mild Pain or Fever > 100.5 Last Admin: 12/06/23 09:27 Dose: 650 mg Amlodipine Besylate (Amlodipine 5 Mg Tab) 5 mg PO DAILY [facility] Last Admin: 12/06/23 09:22 Dose: 5 mg Cephalexin (Cephalexin 500 Mg Cap) 500 mg PO QID [facility]; Protocol Last Admin: 12/06/23 13:10 Dose: 500 mg Enoxaparin Sodium (Enoxaparin 40 Mg/0.4 Ml Syringe) 40 mg SQ DAILY [facility] Last Admin: 12/06/23 09:23 Dose: 40 mg Mirtazapine (Mirtazapine 15 Mg Tab) 15 mg PO HS [facility] Last Admin: 12/05/23 20:18 Dose: 15 mg Naloxone HCl (Naloxone 0.4 Mg/Ml 1 Ml Vial) 0.2 mg IV Q2M PRN PRN Reason: Opioid Reversal Nystatin (Nystatin 100,000 Unit/Gm Powd 15 Gm) 1 applic TOPICAL BID [facility]; Protocol Last Admin: 12/06/23 09:23 Dose: 1 applic Sertraline HCl (Sertraline 100 Mg Tab) 100 mg PO DAILY [facility] Last Admin: 12/06/23 09:22 Dose: 100 mg Social history: For last 5 days patient is moved into live with her son and ddipsffo-ko-mcg. No smoking or alcohol. Prior to that was apparently living in assisted living. Physical examination: VITAL SIGNS: 97.6, 70, 16, 137 x 67, 94% room air GENERAL: Laying in bed, tired EYES: Pupils equal. Conjunctiva tanvir l. HEENT: External appearance of nose and ears normal, oral cavity grossly normal. NECK: JVD not raised; masses not palpable. HEART: First and second heart sounds are normal; no edema. LUNGS: Respiratory rate normal; clear to auscultation. ABDOMEN: Soft, nontender, liver spleen not palpable, no masses palpable. PSYCH: Alert and oriented x3; mood and affect tanvir l. Bit forgetful MUSCULOSKELETAL:No Clubbing/cyanosis;muscles-grossly intact. OA INVESTIGATIONS, reviewed in the clinical context: Urine culture: Negative December 04: White count 7.6 hemoglobin 11.7 platelets 232 potassium 3.7 creatinine 0.7 December 03, 2023: White count 6.7 hemoglobin 12.5 platelets 245 sodium 139 potassium 3.8 bicarb 19 BUN 23 creatinine 0.83 UA positive for leukoesterase WBC EKG tracing normal sinus rhythm. Some ST-T wave changes. Chest x-ray film personally reviewed by me-some cardiomegaly. Assessment plan: -Hallucinations both auditory and visual. Patient's sukjgdts-rh-jch noticed that patient was talking about the soap [employer] in the family room and patient has been off recently. Could be from underlying cognitive impairment and also UTI: Resolved -Acute UTI with cystitis IV ceftriaxone. Changed to Keflex today-will DC after tomorrow. -Cognitive impairment -Acute on chronic medical debility. Normally uses a walker. Seen by PT OT. For inpatient rehab -Essential hypertension Amlodipine 5 mg a day -Insomnia Remeron -Depression Decrease Zoloft to 100 mg a day. -Bone pain. Use Tylenol as needed. Use naproxen as needed. -Metastatic kidney cancer with left nephrectomy in January 2022. Patient due to start immunotherapy with Dr. Ismael Moore. -Full code Discussed. PT OT seen the patient. For inpatient rehab. Past Medical History Past Medical History: Cancer, Dementia, Diabetes Mellitus, Hypertension Additional Past Medical History / Comment(s): Current renal cell cancer. Hx left kidney cancer (01/23) with metastasis to bone. Type II DM-no medication needed. Hx fractured right femur from fall 04/04/23. History of Any Multi-Drug Resistant Organisms: None Reported Past Surgical History: Appendectomy, Cholecystectomy, Hysterectomy, Orthopedic Surgery, Tonsillectomy Additional Past Surgical History / Comment(s): Left nephrectomy 01/23, left femur surgery, T-10 ablation with vertebroplasty. Past Anesthesia/Blood Transfusion Reactions: No Reported Reaction Additional Past Anesthesia/Blood Transfusion Reaction / Comment(s): Hx blood transfusion witj no issues. Past Psychological History: Anxiety Smoking Status: Never smoker Past Alcohol Use History: None Reported Past Drug Use History: None Reported
[2023-12-07] MEDS: MELATONIN 3 MG TABLET PO SCH (21:34)
--- NOTE | 2023-12-07 21:40 | P.PN ---
Progress Note - Text Progress Note Date: 12/07/23 Chief Complaint: Tired This is a pleasant 78-year-old patient who follows with visiting physician Dr. Zhong. Chronic stable medical conditions include cognitive impairment, diabetes mellitus,-off medications, essential hypertension. Has left kidney cancer with nephrectomy and January 2022. Denies metastasis to the bone. Pending immunotherapy with Dr. Ismael Moore. Patient 5 days ago moved from assisted living to live with her son and xanzntzz-[id number]. Does use of normally a wheelchair. For last few days patient been having auditory and visual visual hallucinations. Not good appetite. Dark cloudy urine. Very weak not able to walk much. Hence was brought in. Decreased appetite. Tired. Patient was started on treatment for UTI in the ER. Feeling a bit better this morning. December 04: No further hallucinations. Eating well. Hqcnxwtp-me-vjb at the bedside. PT on the case. Evaluation for rehab. Will also try for [facility] inpatient rehab. Discussed. Urine culture negative December 05: Comfortable. PT OT working with the patient. Requiring assist. Recommended subacute rehab. workers' compensation commissioner working on the same. Oral intake fair. December 06: Saw the patient this morning. Tired. Social work working on rehab . Questions answered. On oral Keflex. Active Medications Acetaminophen (Acetaminophen Tab 325 Mg Tab) 650 mg PO Q6HR PRN PRN Reason: Mild Pain or Fever > 100.5 Last Admin: 12/07/23 09:52 Dose: 650 mg Amlodipine Besylate (Amlodipine 5 Mg Tab) 5 mg PO DAILY [facility] Last Admin: 12/07/23 09:53 Dose: 5 mg Cephalexin (Cephalexin 500 Mg Cap) 500 mg PO QID [facility]; Protocol Last Admin: 12/07/23 21:34 Dose: 500 mg Enoxaparin Sodium (Enoxaparin 40 Mg/0.4 Ml Syringe) 40 mg SQ DAILY [facility] Last Admin: 12/07/23 09:53 Dose: 40 mg Melatonin (Melatonin 3 Mg Tablet) 3 mg PO HS [facility] Last Admin: 12/07/23 21:34 Dose: 3 mg Mirtazapine (Mirtazapine 15 Mg Tab) 15 mg PO HS [facility] Last Admin: 12/07/23 21:34 Dose: 15 mg Naloxone HCl (Naloxone 0.4 Mg/Ml 1 Ml Vial) 0.2 mg IV Q2M PRN PRN Reason: Opioid Reversal Nystatin (Nystatin 100,000 Unit/Gm Powd 15 Gm) 1 applic TOPICAL BID [facility]; Protocol Last Admin: 12/07/23 21:35 Dose: 1 applic Sertraline HCl (Sertraline 100 Mg Tab) 100 mg PO DAILY [facility] Last Admin: 12/07/23 09:52 Dose: 100 mg Social history: For last 5 days patient is moved into live with her son and vxzdkqet-eo-iiw. No smoking or alcohol. Prior to that was apparently living in assisted living. Physical examination: VITAL SIGNS: 97.7, 74, 17, 129 x 60, 95% room air GENERAL: Laying in bed, tired EYES: Pupils equal. Conjunctiva tanvir l. HEENT: External appearance of nose and ears normal, oral cavity grossly normal. NECK: JVD not raised; masses not palpable. HEART: First and second heart sounds are normal; no edema. LUNGS: Respiratory rate normal; clear to auscultation. ABDOMEN: Soft, nontender, liver spleen not palpable, no masses palpable. PSYCH: Alert and oriented x3; mood and affect tanvir l. Bit forgetful MUSCULOSKELETAL:No Clubbing/cyanosis;muscles-grossly intact. OA INVESTIGATIONS, reviewed in the clinical context: Urine culture: Negative December 04: White count 7.6 hemoglobin 11.7 platelets 232 potassium 3.7 creatinine 0.7 December 03, 2023: White count 6.7 hemoglobin 12.5 platelets 245 sodium 139 potassium 3.8 bicarb 19 BUN 23 creatinine 0.83 UA positive for leukoesterase WBC EKG tracing normal sinus rhythm. Some ST-T wave changes. Chest x-ray film personally reviewed by me-some cardiomegaly. Assessment plan: -Hallucinations both auditory and visual. Patient's hkcotrbp-gk-adh noticed that patient was talking about the [facility] in the family room and patient has been off recently. Could be from underlying cognitive impairment and also UTI: Resolved -Acute UTI with cystitis IV ceftriaxone. Now on Keflex -Cognitive impairment -Acute on chronic medical debility. Normally uses a walker. Seen by PT OT. For inpatient rehab -Essential hypertension Amlodipine 5 mg a day -Insomnia Remeron -Depression Decrease Zoloft to 100 mg a day. -Bone pain. Use Tylenol as needed. Use naproxen as needed. -Metastatic kidney cancer with left nephrectomy in January 2022. Patient due to start immunotherapy with Dr. Ismael Moore. -Full code Discussed. Pending rehab placement Past Medical History Past Medical History: Cancer, Dementia, Diabetes Mellitus, Hypertension Additional Past Medical History / Comment(s): Current renal cell cancer. Hx left kidney cancer (01/23) with metastasis to bone. Type II DM-no medication needed. Hx fractured right femur from fall 04/04/23. History of Any Multi-Drug Resistant Organisms: None Reported Past Surgical History: Appendectomy, Cholecystectomy, Hysterectomy, Orthopedic Surgery, Tonsillectomy Additional Past Surgical History / Comment(s): Left nephrectomy 01/23, left femur surgery, T-10 ablation with vertebroplasty. Past Anesthesia/Blood Transfusion Reactions: No Reported Reaction Additional Past Anesthesia/Blood Transfusion Reaction / Comment(s): Hx blood transfusion witj no issues. Past Psychological History: Anxiety Smoking Status: Never smoker Past Alcohol Use History: None Reported Past Drug Use History: None Reported
[2023-12-08 08:38] VITALS: RESP 18
--- NOTE | 2023-12-08 13:43 | P.DS ---
Providers Date of admission: 12/04/23 02:01 Expected date of discharge: 12/08/23 Attending physician: David Rubin Consults: 12/05/23 12:40 Consult Physician Routine Consulting Provider: Bonilla Alcaraz Consult Reason/Comments: rehab eval Do you want consulting provider notified?: Yes Primary care physician: Bhupendra [facility] Course: Chief Complaint: Tired This is a pleasant 78-year-old patient who follows with visiting physician Dr. Zhong. Chronic stable medical conditions include cognitive impairment, diabetes mellitus,-off medications, essential hypertension. Has left kidney cancer with nephrectomy and January 2022. Denies metastasis to the bone. Pending immunotherapy with Dr. Ismael Moore. Patient 5 days ago moved from assisted living to live with her son and hpanldxm-cs-czt. Does use of normally a wheelchair. For last few days patient been having auditory and visual visual hallucinations. Not good appetite. Dark cloudy urine. Very weak not able to walk much. Hence was brought in. Decreased appetite. Tired. Patient was started on treatment for UTI in the ER. Feeling a bit better this morning. December 04: No further hallucinations. Eating well. Munkuszh-su-ken at the bedside. PT on the case. Evaluation for rehab. Will also try for [facility] inpatient rehab. Discussed. Urine culture negative December 05: Comfortable. PT OT working with the patient. Requiring assist. Recommended subacute rehab. glassworker working on the same. Oral intake fair. December 06: Saw the patient this morning. Tired. Social work working on rehab. Questions answered. On oral Keflex. December 07: Comfortable. Working with therapy. Has been accepted into rehab at [facility]. Questions answered. Social history: For last 5 days patient is moved into live with her son and rfpkbtsh-le-qcq. No smoking or alcohol. Prior to that was apparently living in assisted living. Physical examination: VITAL SIGNS: 97.8, 72, 18, 122 x 54, 95% room air GENERAL: Laying in bed, tired EYES: Pupils equal. Conjunctiva tanvir l. HEENT: External appearance of nose and ears normal, oral cavity grossly normal. NECK: JVD not raised; masses not palpable. HEART: First and second heart sounds are normal; no edema. LUNGS: Respiratory rate normal; clear to auscultation. ABDOMEN: Soft, nontender, liver spleen not palpable, no masses palpable. PSYCH: Alert and oriented x3; mood and affect tanvir l. Bit forgetful MUSCULOSKELETAL:No Clubbing/cyanosis;muscles-grossly intact. OA INVESTIGATIONS, reviewed in the clinical context: Urine culture: Negative December 04: White count 7.6 hemoglobin 11.7 platelets 232 potassium 3.7 creatinine 0.7 December 03, 2023: White count 6.7 hemoglobin 12.5 platelets 245 sodium 139 potassium 3.8 bicarb 19 BUN 23 creatinine 0.83 UA positive for leukoesterase WBC EKG tracing normal sinus rhythm. Some ST-T wave changes. Chest x-ray film personally reviewed by me-some cardiomegaly. Assessment plan: -Hallucinations both auditory and visual. Patient's tchdbrkl-ir-ncw noticed that patient was talking about the soap [employer] in the family room and patient has been off recently. Could be from underlying cognitive impairment and also UTI: Resolved -Acute UTI with cystitis IV ceftriaxone. Now on Keflex -Cognitive impairment -Acute on chronic medical debility. Normally uses a walker. Seen by PT OT. For inpatient rehab -Essential hypertension Amlodipine 5 mg a day -Insomnia Remeron -Depression Decrease Zoloft to 100 mg a day. -Bone pain. Use Tylenol as needed. Use naproxen as needed. -Metastatic kidney cancer with left nephrectomy in January 2022. Patient due to start immunotherapy with Dr. Ismael Moore. -Full code Disposition: [facility] Past Medical History Past Medical History: Cancer, Dementia, Diabetes Mellitus, Hypertension Additional Past Medical History / Comment(s): Current renal cell cancer. Hx left kidney cancer (01/23) with metastasis to bone. Type II DM-no medication needed. Hx fractured right femur from fall 04/04/23. History of Any Multi-Drug Resistant Organisms: None Reported Past Surgical History: Appendectomy, Cholecystectomy, Hysterectomy, Orthopedic Surgery, Tonsillectomy Additional Past Surgical History / Comment(s): Left nephrectomy 01/23, left femur surgery, T-10 ablation with vertebroplasty. Past Anesthesia/Blood Transfusion Reactions: No Reported Reaction Additional Past Anesthesia/Blood Transfusion Reaction / Comment(s): Hx blood transfusion witj no issues. Past Psychological History: Anxiety Smoking Status: Never smoker Past Alcohol Use History: None Reported Past Drug Use History: None Reported Plan - Discharge Summary Discharge Rx Participant: No New Discharge Prescriptions: New Cephalexin [Keflex] 500 mg PO QID #12 cap Nystatin 100,000 Unit/gm Powd [Mycostatin Powder] 1 applic TOPICAL BID each Melatonin 3 mg PO HS tab Continue Vitamin D (Unknown Dose) 1 tab PO DAILY Acetaminophen Tab [Tylenol] 1,000 mg PO Q6H PRN PRN Reason: Pain Mirtazapine [Remeron] 15 mg PO HS #3 tab amLODIPine [Norvasc] 5 mg PO DAILY Changed Sertraline [Zoloft] 100 mg PO DAILY #0 Discontinued oxyCODONE HCL [oxyCODONE HCL (IR)] 10 mg PO Q6H PRN PRN Reason: Pain Discharge Medication List amLODIPine [Norvasc] 5 mg PO DAILY 01/07/22 [History] Vitamin D (Unknown Dose) 1 tab PO DAILY 08/03/23 [History] Acetaminophen Tab [Tylenol] 1,000 mg PO Q6H PRN 12/04/23 [History] Cephalexin [Keflex] 500 mg PO QID #12 cap 12/08/23 [Rx] Melatonin 3 mg PO HS tab 12/08/23 [Rx] Mirtazapine [Remeron] 15 mg PO HS #3 tab 12/08/23 [Rx] Nystatin 100,000 Unit/gm Powd [Mycostatin Powder] 1 applic TOPICAL BID each 12/08/23 [Rx] Sertraline [Zoloft] 100 mg PO DAILY #0 12/08/23 [Rx] Follow up Appointment(s)/Referral(s): Bhupendra Zhong MD [Primary Care Provider] - 1-2 days
[2023-12-08 14:13] VITALS: BP 100/55; PULSE 66; TEMP 98.2
== END 2023-12-08 14:39 | DRG 690 ==
LOC: EC 17:08 → 5NMEDONC 12-04 02:01
PROVIDERS: ADMIT Hospitalist; ATTEND Hospitalist
DX: N30.00 Acute cystitis without hematuria (principal); F03.918 Unspecified dementia, unspecified severity, with other behavioral disturbance; R44.0 Auditory hallucinations; C79.51 Secondary malignant neoplasm of bone; G47.00 Insomnia, unspecified; F41.9 Anxiety disorder, unspecified; E11.9 Type 2 diabetes mellitus without complications; F32.A Depression, unspecified; I10 Essential (primary) hypertension; Z90.710 Acquired absence of both cervix and uterus; Z85.528 Personal history of other malignant neoplasm of kidney; Z79.899 Other long term (current) drug therapy; Z80.1 Family history of malignant neoplasm of trachea, bronchus and lung; Z90.5 Acquired absence of kidney; Z88.2 Allergy status to sulfonamides; Z90.49 Acquired absence of other specified parts of digestive tract; Z87.81 Personal history of (healed) traumatic fracture
CPT/HCPCS: 36415; 71046; 80048; 80053; 81001; 85025; 85610; 85730; 87086; 93005; 96361; 96374; 99285

== ENCOUNTER 2023-12-31 12:21 | Inpatient (IN) | payer MEDICARE ==
--- NOTE | 2023-12-31 13:08 | ED ---
General Adult HPI - General Stated complaint: Back pain Time Seen by Provider: 12/31/23 12:43 Source: patient, EMS, RN notes reviewed, old records reviewed Mode of arrival: EMS Limitations: altered mental status - History of Present Illness Initial comments: Patient is an 78-year-old female transferred to the emergency department secondary to unable to walk. Patient states symptoms have progressed over the past couple of months. Patient does have a history of kidney cancer that she believes is a new diagnosis and is still awaiting treatment for this. Patient does complain of back pain however is unclear how long it has been going on for. Patient does have some underlying dementia complicating history. Patient states she is unable to walk even a step or 2 at this point. - Related Data Home Medications Medication Instructions Recorded Confirmed amLODIPine [Norvasc] 5 mg PO DAILY 01/07/22 12/04/23 Vitamin D (Unknown Dose) 1 tab PO DAILY 08/03/23 12/04/23 Acetaminophen Tab [Tylenol] 1,000 mg PO Q6H PRN 12/04/23 12/04/23 Previous Rx's Medication Instructions Recorded Cephalexin [Keflex] 500 mg PO QID #12 cap 12/08/23 Melatonin 3 mg PO HS tab 12/08/23 Mirtazapine [Remeron] 15 mg PO HS #3 tab 12/08/23 Nystatin 100,000 Unit/gm Powd 1 applic TOPICAL BID each 12/08/23 [Mycostatin Powder] Sertraline [Zoloft] 100 mg PO DAILY #0 12/08/23 Allergies Allergy/AdvReac Type Severity Reaction Status Date / Time Sulfa (Sulfonamide Allergy Rash/Hives Verified 12/31/23 13:05 Antibiotics) Review of Systems ROS Statement: Those systems with pertinent positive or pertinent negative responses have been documented in the HPI. ROS Other: All systems not noted in ROS Statement are negative. Constitutional: Denies: fever Eyes: Denies: eye pain Respiratory: Denies: dyspnea Musculoskeletal: Reports: as per HPI, back pain Neurological: Reports: as per HPI, weakness Past Medical History Past Medical History: Cancer, Dementia, Diabetes Mellitus, Hypertension Additional Past Medical History / Comment(s): Current renal cell cancer. 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 Type II DM. Hx fractured right femur from fall 04/04/23. No medication needed for Diabetes at this time. History of Any Multi-Drug Resistant Organisms: None Reported Past Surgical History: Appendectomy, Cholecystectomy, Hysterectomy, Orthopedic Surgery, Tonsillectomy Additional Past Surgical History / Comment(s): Left nephrectomy 01/23, left femur surgery, T-10 ablation with vertebroplasty. Past Anesthesia/Blood Transfusion Reactions: No Reported Reaction Additional Past Anesthesia/Blood Transfusion Reaction / Comment(s): Hx blood transfusion witj no issues. Past Psychological History: Anxiety Smoking Status: Never smoker Past Alcohol Use History: None Reported Past Drug Use History: None Reported - Past Family History Mother Family Medical History: Cancer Additional Family Medical History / Comment(s): Lung cancer. General Exam Limitations: no limitations General appearance: alert, in no apparent distress Head exam: Present: atraumatic Eye exam: Present: normal appearance, PERRL, EOMI ENT exam: Present: mucous membranes dry Neck exam: Present: normal inspection. Absent: tenderness Respiratory exam: Present: normal lung sounds bilaterally Cardiovascular Exam: Present: regular rate, normal rhythm Expanded Peripheral pulses: 2+: Dorsalis Pedis (R), Dorsalis Pedis (L) GI/Abdominal exam: Present: soft. Absent: tenderness Extremities exam: Present: normal inspection. Absent: pedal edema, calf tenderness Neurological exam: Present: alert Expanded Neurological exam: Present: protecting the airway Patient oriented to: Present: person, place, time Speech: Present: fluid speech Cranial nerves: EOM's Intact: Normal Motor strength exam: RUE: 5, LUE: 5, RLE: 2/1, LLE: 2/1 Eye Response: (4) open spontaneously Motor Response: (6) obeys commands Verbal Response: (5) oriented Psychiatric exam: Present: normal affect, normal mood Skin exam: Present: normal color Course Vital Signs 12/31/23 12:57 Temperature 98.0 F Pulse Rate 90 Respiratory 17 Rate Blood Pressure 132/73 O2 Sat by Pulse 99 Oximetry EKG Findings - EKG Results: EKG: interpreted by ERMD (Septal and inferior Q waves. Poor R wave progression. Nonspecific ST-T.), sinus rhythm, normal axis Medical Decision Making - Medical Decision Making Was pt. sent in by a medical professional or institution (, PA, AUTOMATIC SHIRRING MACHINE OPERATOR, urgent care, hospital, or long-term...) When possible be specific @ -Patient was sent by [facility] Did you speak to anyone other than the patient for history (EMS, parent, family, police, friend...)? What history was obtained from this source @ -EMS provides transportation history. Did you review nursing and triage notes (agree or disagree)? Why? @ -I reviewed and agree with nursing and triage notes Were old charts reviewed (outside hosp., previous admission, EMS record, old EKG, old radiological studies, urgent care reports/EKG's, long-term records)? Report findings @ -Charts reviewed from [facility] as well as previous imaging with T10 lesion Differential Diagnosis (chest pain, altered mental status, abdominal pain women, abdominal pain men, vaginal bleeding, weakness, fever, dyspnea, syncope, headache, dizziness, GI bleed, back pain, seizure, CVA, palpatations, mental health, musculoskeletal)? @ -Differential Weakness: Hypoglycemia, shock, sepsis, hyponatremia, anemia, infection, [place], ETOH, adverse medicine reaction, overdose, stroke, this is not meant to be an all-inclusive list. EKG interpreted by me (3pts min.). @ -As above X-rays interpreted by me (1pt min.). @ -X-ray shows port in place. Previous kyphoplasty. CT interpreted by me (1pt min.). @ -Will be added for inpatient U/S interpreted by me (1pt. min.). @ -None done What testing was considered but not performed or refused? (CT, X-rays, U/S, labs)? Why? @ -Considered imaging of the thoracic go lumbar spine however this will be deferred to admitting team, as patient has known disease. After speaking with Dr. Olsen this will be added for inpatient What meds were considered but not given or refused? Why? @ -None Did you discuss the management of the patient with other professionals (professionals i.e. DrIrivng, PA, AUTOMATIC SHIRRING MACHINE OPERATOR, lab, RT, psych nurse, social media content manager, him tech, teacher, transportation officer, pillowcase turner)? Give summary @ -[facility], Dr. Olsen who will admit covering Dr. Blankenship. She does request CT scan of thoracic and lumbar spine. Was smoking cessation discussed for >3mins.? @ -No Was critical care preformed (if so, how long)? @ -31 minutes critical care time Were there social determinants of health that impacted care today? How? (Homelessness, low income, unemployed, alcoholism, drug addiction, transportation, low edu. Level, literacy, decrease access to med. care, group home, rehab)? @ -No Was there de-escalation of care discussed even if they declined (Discuss DNR or withdrawal of care, Hospice)? DNR status @ -No What co-morbidities impacted this encounter? (DM, HTN, Smoking, COPD, CAD, Cancer, CVA, ARF, Chemo, Hep., AIDS, mental health diagnosis, sleep apnea, morbid obesity)? @ -Metastatic renal cell cancer Was patient admitted / discharged? Hospital course, mention meds given and route, prescriptions, significant lab abnormalities, going to OR and other pertinent info. @ -Patient with history of metastatic renal cell cancer presents with progressive leg weakness, unable to walk. Patient will be admitted and consults will be placed. Admission orders written. Undiagnosed new problem with uncertain prognosis? @ -No Drug Therapy requiring intensive monitoring for toxicity (Heparin, Nitro, Insulin, Cardizem)? @ -No Were any procedures done? @ -No Diagnosis/symptom? @ -Leg weakness, chemo Acute, or Chronic, or Acute on Chronic? @ -Acute Uncomplicated (without systemic symptoms) or Complicated (systemic symptoms)? @ -Complicated with inability to ambulate and metastatic renal cancer history Side effects of treatment? @ -No Exacerbation, Progression, or Severe Exacerbation? @ -No Poses a threat to life or bodily function? How? (Chest pain, [place], [place], pneumonia, PE, COPD, DKA, ARF, appy, cholecystitis, CVA, Diverticulitis, Homicidal, Suicidal, threat to staff... and all critical care pts) @ -Threat to neurological function. Threat to renal function. - Lab Data Result diagrams: 12/31/23 13:25 12/31/23 13:25 Lab Results 12/31/23 12/31/23 Range/Units 13:25 13:25 WBC 12.7 H (3.8-10.6) k/uL RBC 4.36 (3.80-5.40) m/uL Hgb 12.4 (11.4-16.0) gm/dL Hct 40.4 (34.0-46.0) % MCV 92.6 (80.0-100.0) fL MCH 28.5 (25.0-35.0) pg MCHC 30.7 L (31.0-37.0) g/dL RDW 14.6 (11.5-15.5) % Plt Count 295 (150-450) k/uL MPV 7.1 Neutrophils % 78 % Lymphocytes % 8 % Monocytes % 9 % Eosinophils % 2 % Basophils % 1 % Neutrophils # 9.9 H (1.3-7.7) k/uL Lymphocytes # 1.0 (1.0-4.8) k/uL Monocytes # 1.2 H (0-1.0) k/uL Eosinophils # 0.3 (0-0.7) k/uL Basophils # 0.1 (0-0.2) k/uL Hypochromasia Marked Sodium 135 L (137-145) mmol/L Potassium 5.6 H (3.5-5.1) mmol/L Chloride 106 (98-107) mmol/L Carbon Dioxide 17 L (22-30) mmol/L Anion Gap 12 mmol/L BUN 79 H (7-17) mg/dL Creatinine 2.59 H (0.52-1.04) mg/dL Est GFR (CKD-EPI)AfAm 19 (>60 ml/min/1.73 sqM) Est GFR (CKD-EPI)NonAf 17 (>60 ml/min/1.73 sqM) Glucose 98 (74-99) mg/dL Calcium 10.0 (8.4-10.2) mg/dL Total Bilirubin 0.6 (0.2-1.3) mg/dL AST 18 (14-36) U/L ALT 9 (4-34) U/L Alkaline Phosphatase 76 (38-126) U/L Total Protein 6.0 L (6.3-8.2) g/dL Albumin 3.1 L (3.5-5.0) g/dL Critical Care Time Critical Care Time: Yes Total Critical Care Time: 31 Disposition Clinical Impression: Leg weakness, Metastasis, Renal cancer, CHEMO (acute kidney injury) Disposition: ADMITTED IP TO THIS [facility] Condition: Serious Is patient prescribed a controlled substance at d/c from ED?: No Referrals: Jerry Hall MD [Primary Care Provider] - 1-2 days Time of Disposition: 13:46
[2023-12-31 13:34] LABS: Basophils # (A) 0.1 k/uL (0-0.2); Basophils % (A) 1 %; Eosinophils # (A) 0.3 k/uL (0-0.7); Eosinophils % (A) 2 %; HCT 40.4 % (34.0-46.0); HGB 12.4 gm/dL (11.4-16.0); Hypochromasia Marked; Lymphocytes % (A) 8 %; MCH 28.5 pg (25.0-35.0); MCHC 30.7 g/dL (31.0-37.0); MCV 92.6 fL (80.0-100.0); Mean Platelet Volume 7.1; Monocytes # (A) 1.2 k/uL (0-1.0); Monocytes % (A) 9 %; Neutrophils # (A) 9.9 k/uL (1.3-7.7); Neutrophils % (A) 78 %; Platelet Count 295 k/uL (150-450); RBC 4.36 m/uL (3.80-5.40); RDW 14.6 % (11.5-15.5); WBC 12.7 k/uL (3.8-10.6)
[2023-12-31 13:44] LABS: ALT 9 U/L (4-34); AST 18 U/L (14-36); African American GFR (CKD) 19 (>60 ml/min/1.73 sqM); Albumin 3.1 g/dL (3.5-5.0); Alkaline Phosphatase 76 U/L (38-126); Anion Gap 12 mmol/L; Blood Urea Nitrogen 79 mg/dL (7-17); Carbon Dioxide 17 mmol/L (22-30); Chloride 106 mmol/L (98-107); Glucose 98 mg/dL (74-99); Non-African American GFR(CKD) 17 (>60 ml/min/1.73 sqM); Potassium 5.6 mmol/L (3.5-5.1); Sodium 135 mmol/L (137-145); Total Bilirubin 0.6 mg/dL (0.2-1.3)
[2023-12-31] MEDS ORDERED: NALOXONE 0.4 MG/ML 1 ML VIAL IV PRN (13:48)
--- NOTE | 2023-12-31 14:00 | XR ---
EXAMINATION TYPE: XR chest 2V DATE OF EXAM: 12/31/2023 COMPARISON: 12/03/2023 HISTORY: Weakness TECHNIQUE: Frontal and lateral views of the chest are obtained. FINDINGS: There is a Mediport catheter the tip of which is in the SVC/RA junction. There is no airspace consolidation or abnormal interstitial density. There is no pleural effusion or pneumothorax. The heart and pulmonary vasculature are normal. There is vertebral plasty in the lower thoracic vertebral segments. IMPRESSION: No acute cardiopulmonary disease with no interval change. [facility], , 12/31/2023 1:58 PM
[2023-12-31 14:09] LABS: Partial Thromboplastin Time 24.4 sec (22.0-30.0); Prothrombin Time 10.8 sec (10.0-12.5)
[2023-12-31] MEDS: SODIUM CHLORIDE 0.9% 1,000 ML IV SCH (14:15)
[2023-12-31] MEDS: SODIUM CHLORIDE 0.9% 500 ML 500 ML IV STA (14:16)
--- NOTE | 2023-12-31 14:25 | CT ---
EXAMINATION TYPE: CT thor lumbar spine wo con DATE OF EXAM: 12/31/2023 COMPARISON: None HISTORY: Leg weakness. CT DLP: 1143 mGycm Automated exposure control for dose reduction was used. Findings: Status post vertebroplasty for severe compression fracture of T10. There is posterior migration of ve rtebroplasty cement into the spinal canal resulting in mild compromise of the canal. There is abnorma l soft tissue density involving the right aspect of the T10 vertebral segment with destruction of the proximal T10 rib , right T10 pedicle and a portion of the T10 right transverse process. Findings are consistent with a progressive neoplastic mass. There is a possible mild superior endplate compression fracture T11. There is a mild superior endplat e compression fracture of T4 of indeterminate age. Neither result in retropulsion. The lumbar vertebral segments are normal in height and alignment. The disc spaces throughout the thoracic and lumbar region are well-preserved and there is no signific ant degenerative disc disease. There is advanced facet arthropathy at the L4-5 and L5-S1 levels. In combination with circumferential disc bulge and thickening ligamentum flavum, there is mild to moderate spinal stenosis at the L4-5 l evel. IMPRESSION: 1. Destructive metastatic lesion of T10 which is status post vertebroplasty. There is mild compromise of the spinal canal at the T10 level secondary to neoplastic mass and posterior migration of a verte broplasty cement. 2. Mild superior endplate compression fracture of T4 without destructive lesion or retropulsion. 3. Possible mild superior endplate compression fracture of T11 without retropulsion or destructive le curry is therefore no fractures or destructive lesions throughout the lumbar spine. 4. No significant degenerative disc disease or disc herniation throughout the thoracic or lumbar spin e. 5. Facet arthropathy and mild to moderate spinal stenosis at the L4-5 level. [facility], , 12/31/2023 2:22 PM
[2023-12-31 14:37] LABS: Appearance,Urine Turbid (Clear); Bacteria,Urine Rare /hpf; Bilirubin,Urine Negative (Negative); Blood,Urine Large (Negative); Color,Urine Light Brown; Glucose,Urine (UA) Negative (Negative); Ketones,Urine Negative (Negative); Leukocyte Esterase,Urine Large (Negative); Nitrite,Urine Negative (Negative); PH, Urine 8.5 (5.0-8.0); Protein,Urine 4+ (Negative); RBC,Urine >182 /hpf (0-5); Specific Gravity,Urine 1.017 (1.001-1.035); Urobilinogen,Urine <2.0 mg/dL (<2.0); WBC,Urine 65 /hpf (0-5)
[2023-12-31] MEDS ORDERED: diphenhydrAMINE 25 MG CAP PO PRN (15:05)
--- NOTE | 2023-12-31 15:28 | US ---
EXAMINATION TYPE: US kidneys/renal and bladder DATE OF EXAM: 12/31/2023 COMPARISON: 09/13/23 CT CLINICAL INDICATION: Female, 78 years old with history of ak; hx renal cell carcinoma; hx left nephre ctomy EXAM MEASUREMENTS: Right Kidney: 10.9 x 4.3 x 4.4 cm Left Kidney: Surgically absent Right Kidney: Mild to moderate hydronephrosis noted Left Kidney: Surgically absent, no surgical bed mass. Bladder: [place] distended with the layering debris noted; 988 ml Bilateral Jets seen: no IMPRESSION: 1. Mild right hydronephrosis. 2. Layering debris in the bladder correlate with urinalysis for cystitis. [facility], , 12/31/2023 3:25 PM
[2023-12-31] MEDS ORDERED: NON FORMULARY DRUG (Lactose-Reduced Food [Ensure Plus] 237 ML Liquid) PO SCH (17:00)
[2023-12-31] MEDS: MORPHINE SULFATE 4 MG/ML SYRINGE IV PRN (17:33)
--- NOTE | 2023-12-31 18:36 | P.HPIM ---
History of Present Illness H&P Date: 12/31/23 Chief Complaint: Back pain 78-year-old female transferred to the emergency department secondary to unable to walk. Patient states symptoms have progressed over the past couple of months. Patient does have a history of kidney cancer that she believes is a new diagnosis and is still awaiting treatment for this. Patient does complain of back pain however is unclear how long it has been going on for. Patient does have some underlying dementia complicating history. Patient states she is unable to walk even a step or 2 at this point. -Patient with history of metastatic renal cell cancer presents with progressive leg weakness, unable to walk. Patient will be admitted for further evaluation Blood work reveals a WBC of 12.7, hemoglobin of 12.4 and platelet count of 295, sodium 135, potassium 5.6, BUNs/creatinine of 79/2.59, blood glucose of 98 Chest x-ray is negative for any acute cardiopulmonary disease CT of the lumbar spine reveals destructive metastatic lesion of T10 which is status post vertebroplasty; mild compromise of spinal canal at T10 level secondary to neoplastic mass and posterior migration of vertebroplasty cement; mild superior endplate compression fracture of T4 without destructive lesion; possible superior endplate compression fracture of T11 Abdominal ultrasound reveals mild right hydronephrosis and layering debris in bladder, correlate with urinalysis for cystitis Review of Systems REVIEW OF SYSTEMS: CONSTITUTIONAL: No fever, no malaise, no fatigue. HEENT: No recent visual problems or hearing problems. Denied any sore throat. CARDIOVASCULAR: No chest pain, orthopnea, PND, no palpitations, no syncope. PULMONARY: No shortness of breath, no cough, no hemoptysis. GASTROINTESTINAL: No diarrhea, no nausea, no vomiting, no abdominal pain. NEUROLOGICAL: No headaches, no weakness, no numbness. HEMATOLOGICAL: Denies any bleeding or petechiae. GENITOURINARY: Denies any burning micturition, frequency, or urgency. MUSCULOSKELETAL/RHEUMATOLOGICAL: Denies any joint pain, swelling, or any muscle pain. ENDOCRINE: Denies any polyuria or polydipsia. The rest of the 14-point review of systems is negative. Past Medical History Past Medical History: Cancer, Dementia, Diabetes Mellitus, Hypertension Additional Past Medical History / Comment(s): Current renal cell cancer. 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 Type II DM. Hx fractured right femur from fall 04/04/23. No medication needed for Diabetes at this time. History of Any Multi-Drug Resistant Organisms: None Reported Past Surgical History: Appendectomy, Cholecystectomy, Hysterectomy, Orthopedic Surgery, Tonsillectomy Additional Past Surgical History / Comment(s): Left nephrectomy 01/23, left femur surgery, T-10 ablation with vertebroplasty. Past Anesthesia/Blood Transfusion Reactions: No Reported Reaction Additional Past Anesthesia/Blood Transfusion Reaction / Comment(s): Hx blood transfusion witj no issues. Past Psychological History: Anxiety Smoking Status: Never smoker Past Alcohol Use History: None Reported Past Drug Use History: None Reported - Past Family History Mother Family Medical History: Cancer Additional Family Medical History / Comment(s): Lung cancer. Medications and Allergies Home Medications Medication Instructions Recorded Confirmed Type amLODIPine [Norvasc] 5 mg PO DAILY@0901/07/22 12/31/23 History Acetaminophen Tab [Tylenol] 1,000 mg PO Q6H PRN 12/04/23 12/31/23 History Cholecalciferol (Vitamin D3) 50 mcg PO DAILY@89912/31/23 12/31/23 History [Vitamin D3 (50 Mcg = 2000 Iu)] Clotrimazole/Betameth Cream 1 applic TOPICAL HS 12/31/23 12/31/23 History [Lotrisone] Lactose-Reduced Food [Ensure Plus] 237 ml PO BID@0900,1700 12/31/23 12/31/23 His tory Melatonin 3 mg PO HS@209912/31/23 12/31/23 History Mirtazapine [Remeron] 15 mg PO HS@209912/31/23 12/31/23 History Sertraline [Zoloft] 100 mg PO DAILY@89912/31/23 12/31/23 History Therahoney External Gel (Wound 1 applic TOPICAL DAILY PRN 12/31/23 12/31/23 History Dressing) Therahoney External Gel (Wound 1 applic TOPICAL HS 12/31/23 12/31/23 History Dressing) diphenhydrAMINE HCL [Benadryl] 25 mg PO TID PRN 12/31/23 12/31/23 History Allergies Allergy/AdvReac Type Severity Reaction Status Date / Time Sulfa (Sulfonamide Allergy Rash/Hives Verified 12/31/23 14:14 Antibiotics) Physical Exam Vitals: Vital Signs Temp Pulse Resp BP Pulse Ox 12/31/23 12:57 98.0 F 90 17 132/73 99 Intake and Output 12/30/23 12/31/23 12/31/23 22:59 06:59 14:59 Other: Weight 61.235 kg General appearance: alert, in no apparent distress Head exam: Present: atraumatic Eye exam: Present: normal appearance, PERRL, EOMI ENT exam: Present: mucous membranes dry Neck exam: Present: normal inspection. Absent: tenderness Respiratory exam: Present: normal lung sounds bilaterally Cardiovascular Exam: Present: regular rate, normal rhythm GI/Abdominal exam: Present: soft. Absent: tenderness Extremities exam: Present: normal inspection. Absent: pedal edema, calf tenderness Neurological exam: Present: alert Cranial nerves: EOM's Intact: Normal Motor strength exam: RUE: 5, LUE: 5, RLE: 2/1, LLE: 2/1 Psychiatric exam: Present: normal affect, normal mood Skin exam: Present: normal color Results CBC & Chem 7: 12/31/23 13:25 12/31/23 13:25 Labs: Abnormal Lab Results - Last 24 Hours (Table) 12/31/23 12/31/23 12/31/23 Range/Units 13:25 13:25 14:15 WBC 12.7 H (3.8-10.6) k/uL MCHC 30.7 L (31.0-37.0) g/dL Neutrophils # 9.9 H (1.3-7.7) k/uL Monocytes # 1.2 H (0-1.0) k/uL Sodium 135 L (137-145) mmol/L Potassium 5.6 H (3.5-5.1) mmol/L Carbon Dioxide 17 L (22-30) mmol/L BUN 79 H (7-17) mg/dL Creatinine 2.59 H (0.52-1.04) mg/dL Total Protein 6.0 L (6.3-8.2) g/dL Albumin 3.1 L (3.5-5.0) g/dL Urine Appearance Turbid H (Clear) Urine pH 8.5 H (5.0-8.0) Urine Protein 4+ H (Negative) Urine Blood Large H (Negative) Ur Leukocyte Esterase Large H (Negative) Urine RBC >182 H (0-5) /hpf Urine WBC 65 H (0-5) /hpf Urine Bacteria Rare H (None) /hpf Assessment and Plan Assessment: 1. Back pain; compression fractures T4/T11 -CT of the lumbar spine reveals destructive metastatic lesion of T10 which is status post vertebroplasty; mild compromise of spinal canal at T10 level secondary to neoplastic mass and posterior migration of vertebroplasty cement; mild superior endplate compression fracture of T4 without destructive lesion; possible superior endplate compression fracture of T11 -- Pain control with IV morphine -Orthopedic surgery is consulted 2. Acute renal injury; creatinine elevated at 2.59 -Start patient on IV fluid hydration; monitor strict CIPRIANO's, daily weights, renal function electrolytes; avoid nephrotoxins and hypotension -Consult nephrology 3. Hydronephrosis/possible cystitis Abdominal ultrasound reveals mild right hydronephrosis and layering debris in bladder, correlate with urinalysis for cystitis -UA is positive for bacteria, WBCs RBCs and leukocyte esterase -Will start patient on IV Rocephin; recommendations once culture results are available 4. Hyperkalemia; likely related to acute renal injury; we will monitor electrolytes closely 5. Metastatic renal cell carcinoma; oncology consulted DVT prophylaxis; SCDs only given hematuria CODE STATUS; full code
[2023-12-31] MEDS: SODIUM ZIRCONIUM CYCLOSILICATE 10 GM PACKET PO ONE (18:56)
[2023-12-31] MEDS: MELATONIN 3 MG TABLET PO SCH (20:57)
[2023-12-31] MEDS: MIRTAZAPINE 15 MG TAB PO SCH (20:57)
[2023-12-31] MEDS ORDERED: FAMOTIDINE 20 MG TAB PO SCH (21:00)
[2024-01-01 09:11] LABS: HCT 36.4 % (37.2-46.3); MCH 28.2 pg (27.0-32.0); MCHC 30.2 g/dL (32.0-37.0); MCV 93.3 FL (80.0-97.0); Mean Platelet Volume 9.6 FL (9.5-12.2); NRBC Per 100 WBC 0 X 10*3/uL (0.00-0.01); Platelet Count 254 X 10*3/uL (140-440); RDW 14.5 % (11.5-14.5); WBC 12.41 X 10*3/uL (4.50-10.00)
[2024-01-01] MEDS: SERTRALINE 100 MG TAB PO SCH (09:45)
[2024-01-01] MEDS: CHOLECALCIFEROL 25 MCG (1000 IU) TABLET PO SCH (09:45)
[2024-01-01] MEDS: amLODIPine 5 MG TAB PO SCH (09:45)
[2024-01-01] MEDS: FAMOTIDINE 20 MG TAB PO SCH (09:45)
[2024-01-01 10:24] LABS: ALT 7 U/L (8-44); AST 15 U/L (13-35); Albumin 2.9 g/dL (3.8-4.9); Albumin/Globulin Ratio 1.07 Ratio (1.60-3.17); Alkaline Phosphatase 70 U/L (41-126); BUN/Creat Ratio 28.85 Ratio (12.00-20.00); Calcium 9.3 mg/dL (8.7-10.3); Carbon Dioxide 17.2 mmol/L (21.6-31.8); Chloride 105 mmol/L (96-109); Globulin 2.7 g/dL (1.6-3.3); Glucose 76 mg/dL (70-110); Magnesium 2.3 mg/dL (1.5-2.4); Potassium 5.7 mmol/L (3.5-5.5); Sodium 134 mmol/L (135-145); Total Bilirubin 0.3 mg/dL (0.3-1.2); Total Protein 5.6 g/dL (6.2-8.2)
[2024-01-01 10:29] LABS: Basophils # (A) 0.09 X 10*3/uL (0.00-0.10); Basophils % (A) 0.7 %; Lymphocytes # (A) 1.39 X 10*3/uL (0.90-5.00); Lymphocytes % (A) 11.2 %; Monocytes # (A) 1.62 X 10*3/uL (0.20-1.00); Monocytes % (A) 13.1 %; Neutrophils # (A) 8.74 X 10*3/uL (1.80-7.70); Neutrophils % (A) 70.4 %
--- NOTE | 2024-01-01 10:34 | P.GSCN ---
History of Present Illness Consult date: 01/01/24 Reason for Consult: Hydronephrosis, urinary retention History of present illness: This is an 78-year-old female presented to the hospital with progressive weakness of the lower extremity, with difficulty ambulating. She has history of metastatic renal cell carcinoma status post left sided open radical nephrectomy back on January 2022 subsequently developed metastatic disease. Urology is consulted for finding of right-sided hydronephrosis on renal ultrasound, of note ultrasound also showed 988 mL urine in the bladder. Patient's creatinine is at 2.6. She denies any flank pain, gross hematuria, or dysuria. She is unaware of her full bladder. She indicated she is able to void without any difficulties, no previous known history of urinary retention. Review of Systems - Constitutional Reports weakness, Denies chills, Denies fever - EENT Ears, nose, mouth and throat: Denies dysphagia - Cardiovascular Denies chest pain, Denies shortness of breath - Respiratory Denies cough, Denies 7 - Gastrointestinal Reports abdominal pain, Denies nausea, Denies vomiting - Genitourinary Genitourinary: Reports flank pain, Denies dysuria, Denies hematuria Past Medical History Past Medical History: Cancer, Dementia, Diabetes Mellitus, Hypertension Additional Past Medical History / Comment(s): Current renal cell cancer. 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 Type II DM. Hx fractured right femur from fall 04/04/23. No medication needed for Diabetes at this time. History of Any Multi-Drug Resistant Organisms: None Reported Past Surgical History: Appendectomy, Cholecystectomy, Hysterectomy, Orthopedic Surgery, Tonsillectomy Additional Past Surgical History / Comment(s): Left nephrectomy 01/23, left femur surgery, T-10 ablation with vertebroplasty. Past Anesthesia/Blood Transfusion Reactions: No Reported Reaction Additional Past Anesthesia/Blood Transfusion Reaction / Comm: Hx blood transfusion witj no issues. Past Psychological History: Anxiety Smoking Status: Never smoker Past Alcohol Use History: None Reported Past Drug Use History: None Reported - Past Family History Mother Family Medical History: Cancer Additional Family Medical History / Comment(s): Lung cancer. Medications and Allergies Home Medications Medication Instructions Recorded Confirmed Type amLODIPine [Norvasc] 5 mg PO DAILY@0900 01/07/22 12/31/23 History Acetaminophen Tab [Tylenol] 1,000 mg PO Q6H PRN 12/04/23 12/31/23 History Cholecalciferol (Vitamin D3) 50 mcg PO DAILY@89912/31/23 12/31/23 History [Vitamin D3 (50 Mcg = 2000 Iu)] Clotrimazole/Betameth Cream 1 applic TOPICAL HS 12/31/23 12/31/23 History [Lotrisone] Lactose-Reduced Food [Ensure Plus] 237 ml PO BID@0900,1700 12/31/23 12/31/23 History Melatonin 3 mg PO HS@209912/31/23 12/31/23 History Mirtazapine [Remeron] 15 mg PO HS@209912/31/23 12/31/23 History Sertraline [Zoloft] 100 mg PO DAILY@89912/31/23 12/31/23 History Therahoney External Gel (Wound 1 applic TOPICAL DAILY PRN 12/31/23 12/31/23 History Dressing) Therahoney External Gel (Wound 1 applic TOPICAL HS 12/31/23 12/31/23 History Dressing) diphenhydrAMINE HCL [Benadryl] 25 mg PO TID PRN 12/31/23 12/31/23 History Allergies Allergy/AdvReac Type Severity Reaction Status Date / Time Sulfa (Sulfonamide Allergy Rash/Hives Verified 12/31/23 14:14 Antibiotics) Surgical - Exam Vital Signs Temp Pulse Resp BP Pulse Ox 98.0 F 90 17 132/73 99 12/31/23 12:57 12/31/23 12:57 12/31/23 12:57 12/31/23 12:57 12/31/23 12:57 - General no distress, no pain - Eyes normal ocular movement, pale - ENT normal nares, normal mucosa - Respiratory normal expansion, normal respiratory effort - Abdomen Abdomen: soft, non tender, no distended - Psychiatric oriented to time, oriented to person, oriented to place Results - Labs 01/01/24 06:40 01/01/24 06:40 Abnormal Lab Results - Last 24 Hours (Table) 12/31/23 12/31/23 12/31/23 Range/Units 13:25 13:25 14:15 WBC 12.7 H (3.8-10.6) k/uL RBC (4.10-5.20) X 10*6/uL Hgb (12.0-15.0) g/dL Hct (37.2-46.3) % MCHC 30.7 L (31.0-37.0) g/dL Neutrophils # 9.9 H (1.3-7.7) k/uL Monocytes # 1.2 H (0-1.0) k/uL Sodium 135 L (137-145) mmol/L Potassium 5.6 H (3.5-5.1) mmol/L Carbon Dioxide 17 L (22-30) mmol/L BUN 79 H (7-17) mg/dL Creatinine 2.59 H (0.52-1.04) mg/dL Est GFR (CKD-EPI) (>=60) BUN/Creatinine Ratio (12.00-20.00) Ratio ALT (8-44) U/L Total Protein 6.0 L (6.3-8.2) g/dL Albumin 3.1 L (3.5-5.0) g/dL Albumin/Globulin Ratio (1.60-3.17) Ratio Urine Appearance Turbid H (Clear) Urine pH 8.5 H (5.0-8.0) Urine Protein 4+ H (Negative) Urine Blood Large H (Negative) Ur Leukocyte Esterase Large H (Negative) Urine RBC >182 H (0-5) /hpf Urine WBC 65 H (0-5) /hpf Urine Bacteria Rare H (None) /hpf 01/01/24 01/01/24 Range/Units 06:40 06:40 WBC 12.41 H (3.8-10.6) k/uL RBC 3.90 L (4.10-5.20) X 10*6/uL Hgb 11.0 L (12.0-15.0) g/dL Hct 36.4 L (37.2-46.3) % MCHC 30.2 L (31.0-37.0) g/dL Neutrophils # (1.3-7.7) k/uL Monocytes # (0-1.0) k/uL Sodium 134 L (137-145) mmol/L Potassium 5.7 H (3.5-5.1) mmol/L Carbon Dioxide 17.2 L (22-30) mmol/L BUN 75.0 H (7-17) mg/dL Creatinine 2.6 H (0.52-1.04) mg/dL Est GFR (CKD-EPI) 18 L (>=60) BUN/Creatinine Ratio 28.85 H (12.00-20.00) Ratio ALT 7 L (8-44) U/L Total Protein 5.6 L (6.3-8.2) g/dL Albumin 2.9 L (3.5-5.0) g/dL Albumin/Globulin Ratio 1.07 L (1.60-3.17) Ratio Urine Appearance (Clear) Urine pH (5.0-8.0) Urine Protein (Negative) Urine Blood (Negative) Ur Leukocyte Esterase (Negative) Urine RBC (0-5) /hpf Urine WBC (0-5) /hpf Urine Bacteria (None) /hpf Diabetes panel 12/31/23 01/01/24 Range/Units 13:25 06:40 Sodium 135 L 134 L (137-145) mmol/L Potassium 5.6 H 5.7 H (3.5-5.1) mmol/L Chloride 106 105 (98-107) mmol/L Carbon Dioxide 17 L 17.2 L (22-30) mmol/L BUN 79 H 75.0 H (7-17) mg/dL Creatinine 2.59 H 2.6 H (0.52-1.04) mg/dL Glucose 98 76 (74-99) mg/dL Calcium 10.0 9.3 (8.4-10.2) mg/dL AST 18 15 (14-36) U/L ALT 9 7 L (4-34) U/L Alkaline Phosphatase 76 70 (38-126) U/L Total Protein 6.0 L 5.6 L (6.3-8.2) g/dL Albumin 3.1 L 2.9 L (3.5-5.0) g/dL Calcium panel 12/31/23 01/01/24 Range/Units 13:25 06:40 Calcium 10.0 9.3 (8.4-10.2) mg/dL Albumin 3.1 L 2.9 L (3.5-5.0) g/dL Pituitary panel 12/31/23 01/01/24 Range/Units 13:25 06:40 Sodium 135 L 134 L (137-145) mmol/L Potassium 5.6 H 5.7 H (3.5-5.1) mmol/L Chloride 106 105 (98-107) mmol/L Carbon Dioxide 17 L 17.2 L (22-30) mmol/L BUN 79 H 75.0 H (7-17) mg/dL Creatinine 2.59 H 2.6 H (0.52-1.04) mg/dL Glucose 98 76 (74-99) mg/dL Calcium 10.0 9.3 (8.4-10.2) mg/dL Adrenal panel 12/31/23 01/01/24 Range/Units 13:25 06:40 Sodium 135 L 134 L (137-145) mmol/L Potassium 5.6 H 5.7 H (3.5-5.1) mmol/L Chloride 106 105 (98-107) mmol/L Carbon Dioxide 17 L 17.2 L (22-30) mmol/L BUN 79 H 75.0 H (7-17) mg/dL Creatinine 2.59 H 2.6 H (0.52-1.04) mg/dL Glucose 98 76 (74-99) mg/dL Calcium 10.0 9.3 (8.4-10.2) mg/dL Total Bilirubin 0.6 0.3 (0.2-1.3) mg/dL AST 18 15 (14-36) U/L ALT 9 7 L (4-34) U/L Alkaline Phosphatase 76 70 (38-126) U/L Total Protein 6.0 L 5.6 L (6.3-8.2) g/dL Albumin 3.1 L 2.9 L (3.5-5.0) g/dL Assessment and Plan Assessment: 78-year-old female history of metastatic renal cell carcinoma, ultrasound showed evidence of mild right-sided hydronephrosis. Her hydronephrosis is secondary to her significant bladder distention as she had 988 mL of urine in the bladder. This is also probably contributing to her acute kidney injury. At this time we will obtain a bladder scan, if greater than 500 mL recommend inserting a Castañeda catheter
--- NOTE | 2024-01-01 11:19 | P.CONS ---
History of Present Illness - Reason for Consult Consult date: 01/01/24 RCC, weakness Requesting physician: Jay Quinonez - Chief Complaint Weakness - History of Present Illness Ms. Peters is a very pleasant 78 yo female with history of several comorbidities including metastatic RCC, recently started on palliative treatment with cabometyx and opdivo, received first dose of q4w opdivo on 11/29/23, missed 2nd dose on 12/27/23, here for increased weakness and back pain. She was last seen in clinic by Dr. Sarah Moore on 11/21/23, and plan was to proceed with opdivo and cabometyx. She started opdivo on 11/29/23. Has not yet received or started cabometyx per pt as this has not been delivered. Has been having slowly worsening weakness and back pain for past couple months. Work up here with WBC 12, Hgb 12, plt 290, K 5.6, Cr 2.6, which is higher than baseline of 0.8. CXR normal. She had CT T/L spine which does reveal compression Fx of T4 without destructive lesion, compression fracture of T11 without destructive lesion, and destructive lesion at T10, s/p vertebroplasty, with mild compromise of spinal canal at T10 due to mass. She was admitted with pain control and orthopedic consult. We were consulted for her RCC and onc care. Onc History: Follows with Dr. Sarah Moore Ms. Peters is a 78-year-old woman with a past medical history significant for stage II renal cell carcinoma status post left nephrectomy on 01/13/2022 who presents for evaluation of potential recurrent renal cell carcinoma. She was originally seen in consultation on 12/14/2021 at [facility] for left renal mass after admission for epigastric pain. At that time, was recommended she obtain CT of the chest to ensure there was no evidence of metastatic disease followed by urologic consultation. Following discharge, she is established with urology underwent total left nephrectomy on 01/13/2022. Pathology revealed 2 foci of clear-cell carcinoma that was grade 2 with a larger lesion measuring 8.5 cm and smaller lesion measuring 3 cm. Surgical margins were negative with no sarcomatoid/rhabdoid features or lymphovascular features identified. Pathologic staging was consistent with pT2aNx. Subsequently, she underwent surveillance with imaging every 3 to 4 months. Most recently, she had CT abdomen/pelvis without contrast on 02/28/2023, which noted suspicious enlarging soft tissue nodularity measuring 2.1 x 1.6 cm at the level of the left kidney. No suspicious lymphadenopathy or evidence for metastatic disease within the abdomen was noted. Based on this finding, she was referred to our clinic for additional evaluation Currently, she is feeling at her baseline. She denies any constitutional symptoms, flank/back pain, hematuria, dysuria, or focal bone pain. She has been passing urine and stool without any abnormalities. She remains active during the day completing ADLs independently. Last seen 11/21/23: -Reviewed clinical course since last visit with Geraldine and her caregiver -She was noted to have [address] abdomen/pelvis in December 2021 with no evidence of metastatic disease -She underwent radical left nephrectomy on 01/13/2022 revealing 2 foci of grade 2 renal cell carcinoma measuring 8.5 cm and 3 cm with negative margins -No high risk features such as sarcomatoid/rhabdoid histology or lymphovascular invasion was identified -This was consistent with stage II ([id number]) grade 2 renal cell carcinoma -Subsequently, she was on surveillance or most recent CT abdomen/pelvis without contrast on 02/28/2023 noted suspicious enlarging soft tissue nodularity measuring 2.1 cm in the largest dimension at the level of the left kidney -Following initial consultation, CT of the chest noted 7 mm left upper lobe nodule as well as soft tissue lesion at T10 concerning for metastases -She subsequently developed fall resulting in femur fracture requiring long course of rehabilitation -Biopsy of T10 was further delayed due to concern for cardiac abnormality noted on EKG, and was later not found to have any significant cardiac pathology -Eventual biopsy of T10 with vertebroplasty and tumor ablation on 08/08/2023 noted metastatic renal cell carcinoma -This is currently consistent with stage IV renal cell carcinoma -Repeat staging workup with CT chest/abdomen/pelvis along with nuclear medicine bone scan on 09/13/2023 noted 2 lesions close to the site of prior nephrectomy as well as bone metastases at T10, sternum, and potentially left eighth rib. 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 I did recommend diclofenac cream daily to the hands and feet to prevent hand-foot syndrome secondary to Cabometyx -Reviewed CBC on today's visit noting stable cell counts with hemoglobin 13.2 (MCV 92.6), WBC 8.6, platelets 199 -CMP and thyroid profile ordered from today's blood draw 11/29/23: Opdivo C1D1 given 12/27/23: Opdivo C2D1 due, not given Past Medical History Past Medical History: Cancer, Dementia, Diabetes Mellitus, Hypertension Additional Past Medical History / Comment(s): Current renal cell cancer. 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 Type II DM. Hx fractured right femur from fall 04/04/23. No medication needed for Diabetes at this time. History of Any Multi-Drug Resistant Organisms: None Reported Past Surgical History: Appendectomy, Cholecystectomy, Hysterectomy, Orthopedic Surgery, Tonsillectomy Additional Past Surgical History / Comment(s): Left nephrectomy 01/23, left femur surgery, T-10 ablation with vertebroplasty. Past Anesthesia/Blood Transfusion Reactions: No Reported Reaction Additional Past Anesthesia/Blood Transfusion Reaction / Comm: Hx blood transfusion witj no issues. Past Psychological History: Anxiety Smoking Status: Never smoker Past Alcohol Use History: None Reported Past Drug Use History: None Reported - Past Family History Mother Family Medical History: Cancer Additional Family Medical History / Comment(s): Lung cancer. Medications and Allergies Home Medications Medication Instructions Recorded Confirmed Type amLODIPine [Norvasc] 5 mg PO DAILY@0901/07/22 12/31/23 History Acetaminophen Tab [Tylenol] 1,000 mg PO Q6H PRN 12/04/23 12/31/23 History Cholecalciferol (Vitamin D3) 50 mcg PO DAILY@89912/31/23 12/31/23 History [Vitamin D3 (50 Mcg = 2000 Iu)] Clotrimazole/Betameth Cream 1 applic TOPICAL HS 12/31/23 12/31/23 History [Lotrisone] Lactose-Reduced Food [Ensure Plus] 237 ml PO BID@00,1700 12/31/23 12/31/23 History Melatonin 3 mg PO HS@2100 12/31/23 12/31/23 History Mirtazapine [Remeron] 15 mg PO HS@209912/31/23 12/31/23 History Sertraline [Zoloft] 100 mg PO DAILY@0900 12/31/23 12/31/23 History Therahoney External Gel (Wound 1 applic TOPICAL DAILY PRN 12/31/23 12/31/23 History Dressing) Therahoney External Gel (Wound 1 applic TOPICAL HS 12/31/23 12/31/23 History Dressing) diphenhydrAMINE HCL [Benadryl] 25 mg PO TID PRN 12/31/23 12/31/23 History Allergies Allergy/AdvReac Type Severity Reaction Status Date / Time Sulfa (Sulfonamide Allergy Rash/Hives Verified 12/31/23 14:14 Antibiotics) Physical Exam Vitals: Vital Signs Temp Pulse Pulse Resp BP BP Pulse Ox 01/01/24 09:00 97.9 F 86 16 99/48 98 01/01/24 06:26 81 18 110/52 97 01/01/24 05:06 78 18 114/54 97 01/01/24 03:01 80 17 117/52 98 01/01/24 00:02 80 18 113/56 97 12/31/23 22:21 87 16 123/54 96 12/31/23 20:47 85 14 120/66 96 12/31/23 19:36 98.3 F 87 15 137/79 97 12/31/23 18:00 83 121/56 12/31/23 17:00 87 17 135/68 98 12/31/23 15:00 79 17 127/60 98 12/31/23 14:05 73 17 119/53 98 12/31/23 12:57 98.0 F 90 17 132/73 99 No acute distress. Alert and oriented x 3. No respiratory distress. Regular heart rate. Results CBC & Chem 7: 01/01/24 06:40 01/01/24 06:40 Labs: Abnormal Lab Results - Last 24 Hours (Table) 12/31/23 12/31/23 12/31/23 Range/Units 13:25 13:25 14:15 WBC 12.7 H (3.8-10.6) k/uL RBC (4.10-5.20) X 10*6/uL Hgb (12.0-15.0) g/dL Hct (37.2-46.3) % MCHC 30.7 L (31.0-37.0) g/dL Neutrophils # 9.9 H (1.3-7.7) k/uL Monocytes # 1.2 H (0-1.0) k/uL Sodium 135 L (137-145) mmol/L Potassium 5.6 H (3.5-5.1) mmol/L Carbon Dioxide 17 L (22-30) mmol/L BUN 79 H (7-17) mg/dL Creatinine 2.59 H (0.52-1.04) mg/dL Total Protein 6.0 L (6.3-8.2) g/dL Albumin 3.1 L (3.5-5.0) g/dL Urine Appearance Turbid H (Clear) Urine pH 8.5 H (5.0-8.0) Urine Protein 4+ H (Negative) Urine Blood Large H (Negative) Ur Leukocyte Esterase Large H (Negative) Urine RBC >182 H (0-5) /hpf Urine WBC 65 H (0-5) /hpf Urine Bacteria Rare H (None) /hpf 01/01/24 Range/Units 06:40 WBC 12.41 H (3.8-10.6) k/uL RBC 3.90 L (4.10-5.20) X 10*6/uL Hgb 11.0 L (12.0-15.0) g/dL Hct 36.4 L (37.2-46.3) % MCHC 30.2 L (31.0-37.0) g/dL Neutrophils # (1.3-7.7) k/uL Monocytes # (0-1.0) k/uL Sodium (137-145) mmol/L Potassium (3.5-5.1) mmol/L Carbon Dioxide (22-30) mmol/L BUN (7-17) mg/dL Creatinine (0.52-1.04) mg/dL Total Protein (6.3-8.2) g/dL Albumin (3.5-5.0) g/dL Urine Appearance (Clear) Urine pH (5.0-8.0) Urine Protein (Negative) Urine Blood (Negative) Ur Leukocyte Esterase (Negative) Urine RBC (0-5) /hpf Urine WBC (0-5) /hpf Urine Bacteria (None) /hpf Assessment and Plan Assessment: 1. Cord compression due to met mass at T10 2. T4 and T11 compression fractures 3. Pain and weakness due to malignancy/cord compression 4. CHEMO 5. Leukocytosis, likely reactive Plan: Ms. Peters is a very pleasant 78 yo female with history of metastatic RCC, recently started on palliative treatment with cabometyx and opdivo, s/p C1D1 on 11/29/23, here for increased weakness and pain. Work up with concerns of d estructive T10 lesion with signs of cord compression. Also found to have CHEMO and hyperkalemia. - Spinal met's with signs of cord compression, agree with ortho consult - Recommend consult to Rad Onc as well - Pain control, decadron - Hydration for CHEMO - Hold opdivo for RCC while IP, will need to work with specialty pharmacy to get cabometyx delivered jesus. Discussed with pt and she was agreeable. All questions answered.
--- NOTE | 2024-01-01 11:52 | P.NPCON ---
History of Present Illness - Reason for Consult acute renal failure - History of Present Illness Reason for consultation: Acute kidney injury History of present illness: Patient is a 78-year-old female seen in renal consultation for acute kidney injury. Patient is not a very reliable historian. Patient's creatinine dated December 05, 2023 was 0.7 and has been stable at 2.6 this admission. Patient came to the hospital due to inability to walk and generalized weakness progressively getting worse over the last couple of months. Patient states she was diagnosed with kidney cancer but has not been treated for it yet. Kidney ultrasound showed right-sided hydronephrosis and absent left kidney. She is noted to have significant urinary retention and is being followed by urology. I do not see any NSAIDs on her home medication list. Denies history of diabetes. 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 She is being followed by oncology and orthopedic surgery as well as radiation oncology has been consulted. Denies gross hematuria or dysuria. Hemodynamically stable. Blood pressure on the lower side at 99/48 this morning. Vital signs are stable. General: No acute distress. HEENT: Head exam is unremarkable. LUNGS: No audible rhonchi or wheezes. HEART: Rate and Rhythm are regular. ABDOMEN: Nontender. EXTREMITITES: No edema. Past Medical History Past Medical History: Cancer, Dementia, Diabetes Mellitus, Hypertension Additional Past Medical History / Comment(s): Current renal cell cancer. 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 Type II DM. Hx fractured right femur from fall 04/04/23. No medication needed for Diabetes at this time. History of Any Multi-Drug Resistant Organisms: None Reported Past Surgical History: Appendectomy, Cholecystectomy, Hysterectomy, Orthopedic Surgery, Tonsillectomy Additional Past Surgical History / Comment(s): Left nephrectomy 01/23, left femur surgery, T-10 ablation with vertebroplasty. Past Anesthesia/Blood Transfusion Reactions: No Reported Reaction Additional Past Anesthesia/Blood Transfusion Reaction / Comment(s): Hx blood transfusion witj no issues. Past Psychological History: Anxiety Smoking Status: Never smoker Past Alcohol Use History: None Reported Past Drug Use History: None Reported - Past Family History Mother Family Medical History: Cancer Additional Family Medical History / Comment(s): Lung cancer. Medications and Allergies Home Medications Medication Instructions Recorded Confirmed Type amLODIPine [Norvasc] 5 mg PO DAILY@0900 01/07/22 09/28/24 History Acetaminophen Tab [Tylenol] 1,000 mg PO Q6H PRN 12/04/23 12/31/23 History Cholecalciferol (Vitamin D3) 50 mcg PO DAILY@89912/31/23 12/31/23 History [Vitamin D3 (50 Mcg = 2000 Iu)] Clotrimazole/Betameth Cream 1 applic TOPICAL HS 12/31/23 12/31/23 History [Lotrisone] Lactose-Reduced Food [Ensure Plus] 237 ml PO BID@0900,1700 12/31/23 12/31/23 History Melatonin 3 mg PO HS@209912/31/23 12/31/23 History Mirtazapine [Remeron] 15 mg PO HS@209912/31/23 12/31/23 History Sertraline [Zoloft] 100 mg PO DAILY@89912/31/23 12/31/23 History Therahoney External Gel (Wound 1 applic TOPICAL DAILY PRN 12/31/23 12/31/23 History Dressing) Therahoney External Gel (Wound 1 applic TOPICAL HS 12/31/23 12/31/23 History Dressing) diphenhydrAMINE HCL [Benadryl] 25 mg PO TID PRN 12/31/23 12/31/23 History Allergies Allergy/AdvReac Type Severity Reaction Status Date / Time Sulfa (Sulfonamide Allergy Rash/Hives Verified 12/31/23 14:14 Antibiotics) Physical Exam Vitals: Vital Signs Temp Pulse Pulse Resp BP BP Pulse Ox 01/01/24 09:00 97.9 F 86 16 99/48 98 01/01/24 06:26 81 18 110/52 97 01/01/24 05:06 78 18 114/54 97 01/01/24 03:01 80 17 117/52 98 01/01/24 00:02 80 18 113/56 97 12/31/23 22:21 87 16 123/54 96 12/31/23 20:47 85 14 120/66 96 12/31/23 19:36 98.3 F 87 15 137/79 97 12/31/23 18:00 83 121/56 12/31/23 17:00 87 17 135/68 98 12/31/23 15:00 79 17 127/60 98 12/31/23 14:05 73 17 119/53 98 12/31/23 12:57 98.0 F 90 17 132/73 99 Intake and Output 12/31/23 01/01/24 01/01/24 22:59 06:59 14:59 Output Total 903 Balance -903 Output: Post Void Residual 903 Other: Weight 61.235 kg Results - Lab Results Most recent lab results Calcium 9.3 mg/dL (8.7-10.3) 01/01/24 06:40 Magnesium 2.3 mg/dL (1.5-2.4) 01/01/24 06:40 01/01/24 06:40 01/01/24 06:40 Assessment and Plan Plan: Assessment: 1. Acute kidney injury secondary to ATN and urinary retention. Creatinine stable at 2.6. Baseline creatinine near 0.7. 2. Solitary right kidney with hydronephrosis being followed by urology. Left kidney absent. 3. Hyperkalemia secondary to acute kidney injury, acidosis and urinary retention. 4. Metabolic acidosis secondary to acute kidney injury. 5. Metastatic renal cancer. 6. Cord compression due to metastatic lesion at T10. Plan: Maintain IV fluids. Insert Castañeda catheter. Add oral bicarb. Lokelma 10 g once now. Avoid nephrotoxins. Continue to monitor renal function and urine output. Stop amlodipine as blood pressure is low. Thank you for the consultation. I will continue to follow the patient with you during her hospital stay.
[2024-01-01] MEDS: SODIUM BICARB 8.4% 50 ML SYR (1 MEQ/ML) IV STA (12:45)
--- NOTE | 2024-01-01 12:57 | P.PN ---
Subjective Progress Note Date: 01/01/24 78-year-old female transferred to the emergency department secondary to unable to walk. Patient states symptoms have progressed over the past couple of months. Patient does have a history of kidney cancer that she believes is a new diagnosis and is still awaiting treatment for this. Patient does complain of back pain however is unclear how long it has been going on for. Patient does have some underlying dementia complicating history. Patient states she is unable to walk even a step or 2 at this point. -Patient with history of metastatic renal cell cancer presents with progressive leg weakness, unable to walk. Patient will be admitted for further evaluation Blood work reveals a WBC of 12.7, hemoglobin of 12.4 and platelet count of 295, sodium 135, potassium 5.6, BUNs/creatinine of 79/2.59, blood glucose of 98 Chest x-ray is negative for any acute cardiopulmonary disease CT of the lumbar spine reveals destructive metastatic lesion of T10 which is status post vertebroplasty; mild compromise of spinal canal at T10 level secondary to neoplastic mass and posterior migration of vertebroplasty cement; mild superior endplate compression fracture of T4 without destructive lesion; possible superior endplate compression fracture of T11 Abdominal ultrasound reveals mild right hydronephrosis and layering debris in bladder, correlate with urinalysis for cystitis --Patient has Castañeda catheter in place; gross hematuria at this morning; urology is on board; will monitor CBC Objective - Vital Signs Vital signs: Vital Signs Temp 98.3 F 12/31/23 19:36 Pulse 81 01/01/24 06:26 Resp 18 01/01/24 06:26 BP 110/52 01/01/24 06:26 Pulse Ox 97 01/01/24 06:26 FiO2 Intake & Output 12/31/23 01/01/24 01/01/24 18:59 06:59 18:59 Weight 61.235 kg - Exam General appearance: alert, in no apparent distress Head exam: Present: atraumatic Eye exam: Present: normal appearance, PERRL, EOMI ENT exam: Present: mucous membranes dry Neck exam: Present: normal inspection. Absent: tenderness Respiratory exam: Present: normal lung sounds bilaterally Cardiovascular Exam: Present: regular rate, normal rhythm GI/Abdominal exam: Present: soft. Absent: tenderness Extremities exam: Present: normal inspection. Absent: pedal edema, calf tenderness Neurological exam: Present: alert Cranial nerves: EOM's Intact: Normal Motor strength exam: RUE: 5, LUE: 5, RLE: 2/1, LLE: 2/1 Psychiatric exam: Present: normal affect, normal mood Skin exam: Present: normal color - Labs CBC & Chem 7: 01/01/24 06:40 01/01/24 06:40 Labs: Abnormal Lab Results - Last 24 Hours (Table) 12/31/23 12/31/23 12/31/23 Range/Units 13:25 13:25 14:15 WBC 12.7 H (3.8-10.6) k/uL MCHC 30.7 L (31.0-37.0) g/dL Neutrophils # 9.9 H (1.3-7.7) k/uL Monocytes # 1.2 H (0-1.0) k/uL Sodium 135 L (137-145) mmol/L Potassium 5.6 H (3.5-5.1) mmol/L Carbon Dioxide 17 L (22-30) mmol/L BUN 79 H (7-17) mg/dL Creatinine 2.59 H (0.52-1.04) mg/dL Total Protein 6.0 L (6.3-8.2) g/dL Albumin 3.1 L (3.5-5.0) g/dL Urine Appearance Turbid H (Clear) Urine pH 8.5 H (5.0-8.0) Urine Protein 4+ H (Negative) Urine Blood Large H (Negative) Ur Leukocyte Esterase Large H (Negative) Urine RBC >182 H (0-5) /hpf Urine WBC 65 H (0-5) /hpf Urine Bacteria Rare H (None) /hpf Assessment and Plan Assessment: 1. Back pain; compression fractures T4/T11 -CT of the lumbar spine reveals destructive metastatic lesion of T10 which is status post vertebroplasty; mild compromise of spinal canal at T10 level secondary to neoplastic mass and posterior migration of vertebroplasty cement; mild superior endplate compression fracture of T4 without destructive lesion; possible superior endplate compression fracture of T11 -- Pain control with IV morphine -Orthopedic surgery is consulted 2. Acute renal injury; creatinine elevated at 2.59 -Start patient on IV fluid hydration; monitor strict CIPRIANO's, daily weights, renal function electrolytes; avoid nephrotoxins and hypotension -Consult nephrology 3. Hydronephrosis/possible cystitis Abdominal ultrasound reveals mild right hydronephrosis and layering debris in bladder, correlate with urinalysis for cystitis -UA is positive for bacteria, WBCs RBCs and leukocyte esterase -Will start patient on IV Rocephin; recommendations once culture results are available 4. Hyperkalemia; likely related to acute renal injury; we will monitor electrolytes closely 5. Metastatic renal cell carcinoma; oncology consulted DVT prophylaxis; SCDs only given hematuria CODE STATUS; full code
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
[2024-01-01] MEDS: SODIUM BICARBONATE TAB 650 MG TAB PO SCH (13:46)
[2024-01-01] MEDS: SODIUM ZIRCONIUM CYCLOSILICATE 10 GM PACKET PO ONE (13:46)
[2024-01-01 17:35] LABS: African American GFR (CKD) 24 (>60 ml/min/1.73 sqM); Anion Gap 7 mmol/L; Blood Urea Nitrogen 75 mg/dL (7-17); Calcium 9.2 mg/dL (8.4-10.2); Carbon Dioxide 21 mmol/L (22-30); Chloride 109 mmol/L (98-107); Glucose 65 mg/dL (74-99); Non-African American GFR(CKD) 21 (>60 ml/min/1.73 sqM); Potassium 4.6 mmol/L (3.5-5.1); Sodium 137 mmol/L (137-145)
[2024-01-02] MEDS: traMADol 50 MG TAB PO PRN (06:15)
[2024-01-02 08:58] LABS: Basophils # (A) 0.07 X 10*3/uL (0.00-0.10); Basophils % (A) 0.9 %; Eosinophils # (A) 0.48 X 10*3/uL (0.04-0.35); HCT 33.2 % (37.2-46.3); HGB 9.9 g/dL (12.0-15.0); Lymphocytes # (A) 1.45 X 10*3/uL (0.90-5.00); Lymphocytes % (A) 18.1 %; MCH 27.9 pg (27.0-32.0); MCHC 29.8 g/dL (32.0-37.0); MCV 93.5 FL (80.0-97.0); Mean Platelet Volume 9.9 FL (9.5-12.2); Monocytes # (A) 0.89 X 10*3/uL (0.20-1.00); Monocytes % (A) 11.1 %; NRBC Per 100 WBC 0 X 10*3/uL (0.00-0.01); Neutrophils # (A) 5.09 X 10*3/uL (1.80-7.70); Neutrophils % (A) 63.5 %; Platelet Count 221 X 10*3/uL (140-440); RBC 3.55 X 10*6/uL (4.10-5.20); RDW 14.3 % (11.5-14.5); WBC 8.01 X 10*3/uL (4.50-10.00)
[2024-01-02 09:13] LABS: BUN/Creat Ratio 32.84 Ratio (12.00-20.00); Blood Urea Nitrogen 62.4 mg/dL (9.0-27.0); Calcium 8.9 mg/dL (8.7-10.3); Chloride 110 mmol/L (96-109); Glucose 82 mg/dL (70-110); Potassium 3.9 mmol/L (3.5-5.5); Sodium 143 mmol/L (135-145)
[2024-01-02 11:46] VITALS: BMI 23.9
--- NOTE | 2024-01-02 13:11 | P.PN ---
Subjective Progress Note Date: 01/02/24 Urine is light red, Objective - Vital Signs Vital signs: Vital Signs Temp 98.1 F 01/02/24 13:01 Pulse 84 01/02/24 13:01 Resp 16 01/02/24 13:01 BP 111/54 01/02/24 13:01 Pulse Ox 94 L 01/02/24 13:01 FiO2 Intake & Output 01/01/24 01/02/24 01/02/24 18:59 06:59 18:59 Intake Total 480 0 Output Total 2803 725 Balance -2323 -725 Weight 61.235 kg 61.235 kg Intake: Oral 480 0 Output: Urine 1900 725 Post Void Residual 903 Other: Voiding Method Indwelling Catheter Indwelling Catheter Indwelling Catheter - Constitutional General appearance: Present: no acute distress - Gastrointestinal General gastrointestinal: Present: soft. Absent: distended, tenderness - Labs CBC & Chem 7: 01/02/24 05:24 01/02/24 05:24 Labs: Abnormal Lab Results - Last 24 Hours (Table) 01/01/24 01/02/24 01/02/24 Range/Units 16:57 05:24 05:24 RBC 3.55 L (4.10-5.20) X 10*6/uL Hgb 9.9 L (12.0-15.0) g/dL Hct 33.2 L (37.2-46.3) % MCHC 29.8 L (32.0-37.0) g/dL Eosinophils # 0.48 H (0.04-0.35) X 10*3/uL Chloride 109 H 110 H (98-107) mmol/L Carbon Dioxide 21 L 21.0 L (22-30) mmol/L BUN 75 H 62.4 H (7-17) mg/dL Creatinine 2.20 H 1.9 H (0.52-1.04) mg/dL Est GFR (CKD-EPI) 26 L (>=60) BUN/Creatinine Ratio 32.84 H (12.00-20.00) Ratio Glucose 65 L (74-99) mg/dL Assessment and Plan Assessment: 78-year-old female history of metastatic renal cell carcinoma, ultrasound showed evidence of mild right-sided hydronephrosis. Her hydronephrosis is secondary to her significant bladder distention as she had 988 mL of urine in the bladder. Castañeda catheter was placed with return of greater than 900 mL urine, having gross hematuria this morning. Gross which was likely secondary to bladder over diste ntion, at this point recommend keeping the catheter in place given her planned spinal surgery. -She can have a trial of void once she is closer to discharge
--- NOTE | 2024-01-02 13:18 | P.PN ---
Subjective patient is seen for follow-up for acute kidney injury. No significant complaints today. Currently with indwelling Castañeda catheter for significant urine retention and right hydronephrosis. Objective - Vital Signs Vital signs: Vital Signs Temp 98.1 F 01/02/24 13:01 Pulse 84 01/02/24 13:01 Resp 16 01/02/24 13:01 BP 111/54 01/02/24 13:01 Pulse Ox 94 L 01/02/24 13:01 FiO2 Intake & Output 01/01/24 01/02/24 01/02/24 18:59 06:59 18:59 Intake Total 480 0 Output Total 2803 725 Balance -2323 -725 Weight 61.235 kg 61.235 kg Intake: Oral 480 0 Output: Urine 1900 725 Post Void Residual 903 Other: Voiding Method Indwelling Catheter Indwelling Catheter Indwelling Catheter - Exam patient is a awake, comfortable, no acute distress. Examination of the heart S1 and S2 Examination of the lungs decreased breath sounds at the bases Abdomen is soft nontender Examination of lower extremity shows no evidence of edema. - Labs CBC & Chem 7: 01/02/24 05:24 01/02/24 05:24 Labs: Abnormal Lab Results - Last 24 Hours (Table) 01/01/24 01/02/24 01/02/24 Range/Units 16:57 05:24 05:24 RBC 3.55 L (4.10-5.20) X 10*6/uL Hgb 9.9 L (12.0-15.0) g/dL Hct 33.2 L (37.2-46.3) % MCHC 29.8 L (32.0-37.0) g/dL Eosinophils # 0.48 H (0.04-0.35) X 10*3/uL Chloride 109 H 110 H (98-107) mmol/L Carbon Dioxide 21 L 21.0 L (22-30) mmol/L BUN 75 H 62.4 H (7-17) mg/dL Creatinine 2.20 H 1.9 H (0.52-1.04) mg/dL Est GFR (CKD-EPI) 26 L (>=60) BUN/Creatinine Ratio 32.84 H (12.00-20.00) Ratio Glucose 65 L (74-99) mg/dL Assessment and Plan Assessment: 1. Acute kidney injury secondary to ATN and urinary retention. Creatinine at 1.9. Baseline creatinine near 0.7. 2. Solitary right kidney with hydronephrosis being followed by urology. Left kidney absent. 3. Hyperkalemia secondary to acute kidney injury, acidosis and urinary retention. 4. Metabolic acidosis secondary to acute kidney injury. 5. Metastatic renal cancer. 6. Cord compression due to metastatic lesion at T10. Plan: continue with Castañeda catheter. Continue with IV fluids continue oral sodium bicarb.
--- NOTE | 2024-01-02 15:50 | P.PN ---
Subjective Progress Note Date: 01/02/24 Principal diagnosis: Metastatic RCC, on IO, has not started oral. Cord Compression In f/u today pt reports that she cannot feel her legs, she required man placement for urinary retention. Denies back pain. She feels weak and tired. Objective - Vital Signs Vital signs: Vital Signs Temp 98.1 F 01/02/24 13:01 Pulse 84 01/02/24 13:01 Resp 16 01/02/24 13:01 BP 111/54 01/02/24 13:01 Pulse Ox 94 L 01/02/24 13:01 FiO2 Intake & Output 01/01/24 01/02/24 01/02/24 18:59 06:59 18:59 Intake Total 480 0 Output Total 2803 725 Balance -2323 -725 Weight 61.235 kg 61.235 kg Intake: Oral 480 0 Output: Urine 1900 725 Post Void Residual 903 Other: Voiding Method Indwelling Catheter Indwelling Catheter Indwelling Catheter - Constitutional General appearance: Present: cooperative, no acute distress, thin - EENT Eyes: Present: anicteric sclerae, EOMI ENT: Present: hearing grossly normal - Respiratory Details: resp even and unlabored - Cardiovascular Details: skin warm to touch, well perfused - Peripheral edema leg Peripheral Edema: bilateral: None - Neurologic Neurologic Comment(s): pt is unable to fell touch in the BLE, unable to move Neurologic: Present: CNII-XII intact - Musculoskeletal Musculoskeletal: Present: generalized weakness - Psychiatric Psychiatric: Present: A&O x's 3, appropriate affect, intact judgment & insight - Labs CBC & Chem 7: 01/02/24 05:24 01/02/24 05:24 Labs: Abnormal Lab Results - Last 24 Hours (Table) 01/01/24 01/02/24 01/02/24 Range/Units 16:57 05:24 05:24 RBC 3.55 L (4.10-5.20) X 10*6/uL Hgb 9.9 L (12.0-15.0) g/dL Hct 33.2 L (37.2-46.3) % MCHC 29.8 L (32.0-37.0) g/dL Eosinophils # 0.48 H (0.04-0.35) X 10*3/uL Chloride 109 H 110 H (98-107) mmol/L Carbon Dioxide 21 L 21.0 L (22-30) mmol/L BUN 75 H 62.4 H (7-17) mg/dL Creatinine 2.20 H 1.9 H (0.52-1.04) mg/dL Est GFR (CKD-EPI) 26 L (>=60) BUN/Creatinine Ratio 32.84 H (12.00-20.00) Ratio Glucose 65 L (74-99) mg/dL Assessment and Plan (1) Cord compression Current Visit: Yes Status: Acute Priority: High Code(s): G95.20 - UNSPECIFIED CORD COMPRESSION SNOMED Code(s): 92443888 (2) Renal cancer Current Visit: Yes Status: Acute Priority: High Code(s): C64.9 - MALIGNANT NEOPLASM OF UNSP KIDNEY, EXCEPT RENAL PELVIS SNOMED Code(s): 923744793 (3) Leg weakness Current Visit: Yes Status: Acute Priority: High Code(s): R29.898 - OTH SYMPTOMS AND SIGNS INVOLVING THE MUSCULOSKELETAL SYSTEM SNOMED Code(s): 679030709 Plan: Spinal cord compression, metastatic RCC - Destructive metastatic lesion of T10 which is status post vertebroplasty. Mild compromise of the spinal canal at T10 level secondary to neoplastic mass in posterior migration of the vertebroplasty cement. Mild superior endplate compression fracture of T4 with obstructive lesion or retropulsion. Possible mild superior endplate compression fracture of T11 without triple potion or destructive lesion, no fractures or destructive lesions to the lumbar spine. -Ortho spine has seen pt, possible surgical procedure? Pending evaluation and final recommendations -Rad Onc consulted -Pain controled at this time per pt. Cot dex and PPI -Nephrology following for CHEMO - Hold opdivo for RCC while IP. Cabometyx has been available since October. Pt did not follow up for education on the drug and did not call to [facility]. Will see how she progresses inpt as to plans for proceeding with treatment. attests: I have seen and examined pt, performed H&P, developed impression and plan of care. Discussed with dictator. Agree with documentation, dictated as a scribe
--- NOTE | 2024-01-02 16:29 | P.PN ---
Progress Note - Text Progress Note Date: 01/02/24 Spoke with family over the phone regarding surgery and wishes. Pt wishes to have surgery. Family would like her to as well for preservation of baser faculties as well as quality of life. They understand she may never walk again, but dominick like her to have as much quality as possible as does the patient. We will plan on decompression tomorrow as planned. Risks and benefits discussed at length. They are comfortable with this.
[2024-01-02 18:35] LABS: Basophils % (A) 0 %; Eosinophils # (A) 0.4 k/uL (0-0.7); Eosinophils % (A) 5 %; HCT 32.7 % (34.0-46.0); Hypochromasia Marked; Lymphocytes % (A) 14 %; MCH 28.3 pg (25.0-35.0); MCHC 30.6 g/dL (31.0-37.0); MCV 92.5 fL (80.0-100.0); Mean Platelet Volume 7.1; Monocytes # (A) 0.8 k/uL (0-1.0); Monocytes % (A) 11 %; Neutrophils # (A) 4.8 k/uL (1.3-7.7); Neutrophils % (A) 68 %; Platelet Count 247 k/uL (150-450); RBC 3.54 m/uL (3.80-5.40); RDW 14.3 % (11.5-15.5); WBC 7.1 k/uL (3.8-10.6)
--- NOTE | 2024-01-03 03:55 | P.PN ---
Subjective Progress Note Date: 01/02/24 78-year-old female transferred to the emergency department secondary to unable to walk. Patient states symptoms have progressed over the past couple of months. Patient does have a history of kidney cancer that she believes is a new diagnosis and is still awaiting treatment for this. Patient does complain of back pain however is unclear how long it has been going on for. Patient does have some underlying dementia complicating history. Patient states she is unable to walk even a step or 2 at this point. -Patient with history of metastatic renal cell cancer presents with progressive leg weakness, unable to walk. Patient will be admitted for further evaluation Blood work reveals a WBC of 12.7, hemoglobin of 12.4 and platelet count of 295, sodium 135, potassium 5.6, BUNs/creatinine of 79/2.59, blood glucose of 98 Chest x-ray is negative for any acute cardiopulmonary disease CT of the lumbar spine reveals destructive metastatic lesion of T10 which is status post vertebroplasty; mild compromise of spinal canal at T10 level secondary to neoplastic mass and posterior migration of vertebroplasty cement; mild superior endplate compression fracture of T4 without destructive lesion; possible superior endplate compression fracture of T11 Abdominal ultrasound reveals mild right hydronephrosis and layering debris in bladder, correlate with urinalysis for cystitis --Patient has Castañeda catheter in place; gross hematuria at this morning; urology is on board; will monitor CBC 01/02/2024 Patient is seen and evaluated in follow-up lethargic although arousable. Patient was having urinary retention had an indwelling Castañeda catheter placed with gross hematuria that persists. Patient was evaluated by urology reporting hematuria was likely due to retention recommend to continue with indwelling Castañeda catheter for now. Follow-up on repeat CBC and currently above 9. Patient and family would like to proceed with surgery for decompression to enhance quality of life. Patient will be considered moderate to high risk for surgical intervention and would need clearance by nephrology as well as patient does have a solitary kidney and came in with dehydration and CHEMO. Kidney functions are im proving and creatinine is 1.9 today. Review of systems: Constitutional: reports of fatigue, no fever, or chills Cardiovascular: No reports of chest pain or palpitations Respiratory: No reports of shortness of breath or cough GI: No reports of nausea, vomiting, or diarrhea, not much of an appetite at all : No reports of dysuria, reports retention Neurovascular: reports of generalized weakness with continued numbness in the lower extremities and inability to ambulate All medications have been reviewed Physical exam: Gen: This is a 78-year-old female who is lethargic although arousable, alert and oriented x 3, thin build, elderly appearing, ill appearing HEENT: Head is atraumatic, normocephalic. Pupils equal, round. Sclerae is anicteric. NECK: Supple. No JVD. No lymphadenopathy. No thyromegaly. LUNGS: Diminished breath sounds bilaterally otherwise clear to auscultation. No wheezes or rhonchi. No intercostal retractions. HEART: S1, S2 are muffled ABDOMEN: Soft. Thin, bowel sounds are present. No masses. No tenderness. EXTREMITIES: No pedal edema. No calf tenderness. NEUROLOGICAL: Patient is awake, alert and oriented x3. Diffusely weak Assessment: -Back pain; compression fractures T4/T11 -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 Orthopedics evaluated and scheduled for intervention tentatively on 01/03/2024 -Acute renal injury; creatinine elevated at 2.59, improving -Hydronephrosis, on the right and per urology likely secondary to retention and bladder distention Abdominal ultrasound reveals mild right hydronephrosis and layering debris in b ladder, correlate with urinalysis for cystitis -UA is positive for bacteria, WBCs RBCs and leukocyte esterase, possible cystitis, asymptomatic bacteriuria likely, continue ceftriaxone and await cultur e -Hyperkalemia; likely related to acute renal injury; we will monitor electrolytes closely -Metastatic renal cell carcinoma; oncology consulted -GI prophylaxis -DVT prophylaxis; SCDs only given hematuria -full code Plan: Patient was seen and evaluated by urology and an indwelling Castañeda catheter was placed with gross hematuria noted. Per urology most likely secondary to bladder distention and retention. Kidney functions are trending down and nephrology following we will continue gentle hydration and follow-up with repeat labs. Creatinine 1.9 today Orthopedics following with plans on surgical intervention to enhance the quality of life as patient was noted to have compression fractures of T4-T11. Patient with metastatic disease with oncology following Recommend PT/OT therapy postsurgery and may likely need ECF on discharge Patient given significant comorbidities, is considered moderate to high risk and risk versus benefits including were discussed with family and patient and they are agreeable to proceed with surgical intervention. Continue current regimen per urology and nephrology. Will await surgical report Overall prognosis is guarded at this time The impression and plan of care has been dictated by Lacy Brumfield, Nurse Practitioner as directed. Dr. Colleen MD I have performed a history and examination and MDM of this patient, discussed the same with the dictator, and agree with the dictator's assessment and plan as written ,documented as a scribe. Based on total visit time, I have performed more than 50% of the visit. Objective - Vital Signs Vital signs: Vital Signs Temp 98.9 F 01/02/24 07:33 Pulse 80 01/02/24 07:33 Resp 16 01/02/24 07:33 BP 121/67 01/02/24 07:33 Pulse Ox 97 01/02/24 07:33 FiO2 Intake & Output 01/01/24 01/02/24 01/02/24 18:59 06:59 18:59 Intake Total 480 0 Output Total 2803 725 Balance -2323 -725 Weight 61.235 kg Intake: Oral 480 0 Output: Urine 1900 725 Post Void Residual 903 Other: Voiding Method Indwelling Catheter Indwelling Catheter - Labs CBC & Chem 7: 01/02/24 18:20 01/02/24 05:24 Labs: Abnormal Lab Results - Last 24 Hours (Table) 01/01/24 01/01/24 01/01/24 Range/Units 06:40 06:40 16:57 RBC (4.10-5.20) X 10*6/uL Hgb (12.0-15.0) g/dL Hct (37.2-46.3) % MCHC (32.0-37.0) g/dL Immature Gran # 0.07 H (0.00-0.04) X 10*3/uL Neutrophils # 8.74 H (1.80-7.70) X 10*3/uL Monocytes # 1.62 H (0.20-1.00) X 10*3/uL Eosinophils # 0.50 H (0.04-0.35) X 10*3/uL Sodium 134 L (135-145) mmol/L Potassium 5.7 H (3.5-5.5) mmol/L Chloride 109 H (98-107) mmol/L Carbon Dioxide 17.2 L 21 L (21.6-31.8) mmol/L BUN 75.0 H 75 H (9.0-27.0) mg/dL Creatinine 2.6 H 2.20 H (0.6-1.5) mg/dL Est GFR (CKD-EPI) 18 L (>=60) BUN/Creatinine Ratio 28.85 H (12.00-20.00) Ratio Glucose 65 L (74-99) mg/dL ALT 7 L (8-44) U/L Total Protein 5.6 L (6.2-8.2) g/dL Albumin 2.9 L (3.8-4.9) g/dL Albumin/Globulin Ratio 1.07 L (1.60-3.17) Ratio 01/02/24 01/02/24 Range/Units 05:24 05:24 RBC 3.55 L (4.10-5.20) X 10*6/uL Hgb 9.9 L (12.0-15.0) g/dL Hct 33.2 L (37.2-46.3) % MCHC 29.8 L (32.0-37.0) g/dL Immature Gran # (0.00-0.04) X 10*3/uL Neutrophils # (1.80-7.70) X 10*3/uL Monocytes # (0.20-1.00) X 10*3/uL Eosinophils # 0.48 H (0.04-0.35) X 10*3/uL Sodium (135-145) mmol/L Potassium (3.5-5.5) mmol/L Chloride 110 H (98-107) mmol/L Carbon Dioxide 21.0 L (21.6-31.8) mmol/L BUN 62.4 H (9.0-27.0) mg/dL Creatinine 1.9 H (0.6-1.5) mg/dL Est GFR (CKD-EPI) 26 L (>=60) BUN/Creatinine Ratio 32.84 H (12.00-20.00) Ratio Glucose (74-99) mg/dL ALT (8-44) U/L Total Protein (6.2-8.2) g/dL Albumin (3.8-4.9) g/dL Albumin/Globulin Ratio (1.60-3.17) Ratio
[2024-01-03 06:52] LABS: ALT 10 U/L (4-34); AST 25 U/L (14-36); African American GFR (CKD) 49 (>60 ml/min/1.73 sqM); Albumin 2.3 g/dL (3.5-5.0); Alkaline Phosphatase 55 U/L (38-126); Anion Gap 7 mmol/L; Blood Urea Nitrogen 45 mg/dL (7-17); Calcium 9.1 mg/dL (8.4-10.2); Carbon Dioxide 20 mmol/L (22-30); Chloride 114 mmol/L (98-107); Globulin 2.4 g/dL; Glucose 72 mg/dL (74-99); Magnesium 1.8 mg/dL (1.6-2.3); Non-African American GFR(CKD) 43 (>60 ml/min/1.73 sqM); Potassium 3.4 mmol/L (3.5-5.1); Sodium 141 mmol/L (137-145); Total Bilirubin 0.3 mg/dL (0.2-1.3); Total Protein 4.7 g/dL (6.3-8.2)
[2024-01-03 07:10] LABS: Basophils % (A) 0 %; Eosinophils # (A) 0.3 k/uL (0-0.7); Eosinophils % (A) 5 %; HCT 31.6 % (34.0-46.0); HGB 9.7 gm/dL (11.4-16.0); Hypochromasia Marked; Lymphocytes # (A) 0.9 k/uL (1.0-4.8); Lymphocytes % (A) 13 %; MCH 28.3 pg (25.0-35.0); MCHC 30.6 g/dL (31.0-37.0); MCV 92.6 fL (80.0-100.0); Monocytes # (A) 0.7 k/uL (0-1.0); Monocytes % (A) 10 %; Neutrophils % (A) 71 %; Platelet Count 247 k/uL (150-450); RBC 3.42 m/uL (3.80-5.40); RDW 14.2 % (11.5-15.5); WBC 7.1 k/uL (3.8-10.6)
--- NOTE | 2024-01-03 08:53 | P.CONS ---
History of Present Illness - Reason for Consult Consult date: 01/02/24 spinal cord compression Requesting physician: Shonda Carlson - Chief Complaint unable to ambulate - History of Present Illness The patient is an 78-year-old female with a history of metastatic renal cell carcinoma. She was initially treated for localized disease with left nephrectomy in January 2022. She unfortunately was found to have metastatic disease this past year. In August 2023, the patient had biopsy of a T10 lesion with vertebro-plasty which was consistent with renal cell carcinoma. The patient was subsequently started on Opdivo/Cabometyx and appears to have perhaps only had one cycle. She was hospitalized on December 30 secondary to inability to ambulate. The patient was hospitalized secondary to increased difficulty with walking. She states is have been going on for at least one to 2 months. This has been associated with lower back pain as well. The patient had a CT of the thoracic and lumbar spine upon admission. This revealed enlarging soft tissue destructive process involving the right aspect of T10, unfortunately with migration of vertebroplasty cement into the spinal canal. There were mild superior endplate compression fractures noted at T4 and T11. Ultrasound of the abdomen unfortunately revealed a distended bladder, and the patient had a Castañeda placed. At the time of my consultation, the patient does not have any family present. She is not a very reliable historian. She states that she is not currently in any pain. She states she has been in rehab, where she has progressively worsened. She states she was previously using a walker to ambulate. Review of Systems Constitutional: Denies chills, Denies fever Ears, nose, mouth and throat: Denies headache Respiratory: Denies congestion, Denies cough Gastrointestinal: Denies abdominal pain Integumentary: Denies rash Neurological: Reports gait dysfunction, Reports vertigo Psychiatric: Reports confusion Past Medical History Past Medical History: Cancer, Dementia, Diabetes Mellitus, Hypertension Additional Past Medical History / Comment(s): Current renal cell cancer. 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 Type II DM. Hx fractured right femur from fall 04/04/23. No medication needed for Diabetes at this time. History of Any Multi-Drug Resistant Organisms: None Reported Past Surgical History: Appendectomy, Cholecystectomy, Hysterectomy, Orthopedic Surgery, Tonsillectomy Additional Past Surgical History / Comment(s): Left nephrectomy 01/23, left femur surgery, T-10 ablation with vertebroplasty. Past Anesthesia/Blood Transfusion Reactions: No Reported Reaction Additional Past Anesthesia/Blood Transfusion Reaction / Comm: Hx blood transfusion witj no issues. Past Psychological History: Anxiety Smoking Status: Never smoker Past Alcohol Use History: None Reported Past Drug Use History: None Reported - Past Family History Mother Family Medical History: Cancer Additional Family Medical History / Comment(s): Lung cancer. Medications and Allergies Home Medications Medication Instructions Recorded Confirmed Type amLODIPine [Norvasc] 5 mg PO DAILY@0901/07/22 12/31/23 History Acetaminophen Tab [Tylenol] 1,000 mg PO Q6H PRN 12/04/23 12/31/23 History Cholecalciferol (Vitamin D3) 50 mcg PO DAILY@89912/31/23 12/31/23 History [Vitamin D3 (50 Mcg = 2000 Iu)] Clotrimazole/Betameth Cream 1 applic TOPICAL HS 12/31/23 12/31/23 History [Lotrisone] Lactose-Reduced Food [Ensure Plus] 237 ml PO BID@0900,1700 12/31/23 12/31/23 History Melatonin 3 mg PO HS@209912/31/23 12/31/23 History Mirtazapine [Remeron] 15 mg PO HS@209912/31/23 12/31/23 History Sertraline [Zoloft] 100 mg PO DAILY@89912/31/23 12/31/23 History Therahoney External Gel (Wound 1 applic TOPICAL DAILY PRN 12/31/23 12/31/23 History Dressing) Therahoney External Gel (Wound 1 applic TOPICAL HS 12/31/23 12/31/23 History Dressing) diphenhydrAMINE HCL [Benadryl] 25 mg PO TID PRN 12/31/23 12/31/23 History Allergies Allergy/AdvReac Type Severity Reaction Status Date / Time Sulfa (Sulfonamide Allergy Rash/Hives Verified 12/31/23 14:14 Antibiotics) Physical Exam Vitals: Vital Signs Temp Pulse Resp BP Pulse Ox 01/03/24 07:18 97.6 F 68 16 107/58 94 L 01/03/24 01:50 98.4 F 81 16 109/59 95 01/02/24 20:00 99.0 F 84 16 104/56 94 L 01/02/24 13:01 98.1 F 84 16 111/54 94 L Intake and Output 01/02/24 01/03/24 01/03/24 22:59 06:59 14:59 Intake Total 240 0 Output Total 700 300 Balance -460 -300 Intake: Oral 240 0 Output: Urine 700 300 Other: Voiding Method Indwelling Catheter - Constitutional General appearance: disheveled - EENT Eyes: EOMI, PERRLA ENT: hearing grossly normal - Neck Neck: no lymphadenopathy - Respiratory Respiratory: bilateral: CTA - Cardiovascular Rhythm: regular - Gastrointestinal General gastrointestinal: no distended, no tenderness - Integumentary Integumentary: no rash - Neurologic Neurologic: CNII-XII intact - Musculoskeletal Musculoskeletal: right sided weakness, left sided weakness (Unable to move lower extremities upon command. No sensation to touch in lower extremities. ) Results CBC & Chem 7: 01/03/24 06:15 01/03/24 06:15 Labs: Abnormal Lab Results - Last 24 Hours (Table) 01/02/24 01/02/24 01/02/24 Range/Units 05:24 05:24 18:20 RBC 3.55 L 3.54 L (4.10-5.20) X 10*6/uL Hgb 9.9 L 10.0 L D (12.0-15.0) g/dL Hct 33.2 L 32.7 L (37.2-46.3) % MCHC 29.8 L 30.6 L (32.0-37.0) g/dL Lymphocytes # (1.0-4.8) k/uL Eosinophils # 0.48 H (0.04-0.35) X 10*3/uL Potassium (3.5-5.1) mmol/L Chloride 110 H (96-109) mmol/L Carbon Dioxide 21.0 L (21.6-31.8) mmol/L BUN 62.4 H (9.0-27.0) mg/dL Creatinine 1.9 H (0.6-1.5) mg/dL Est GFR (CKD-EPI) 26 L (>=60) BUN/Creatinine Ratio 32.84 H (12.00-20.00) Ratio Glucose (74-99) mg/dL Total Protein (6.3-8.2) g/dL Albumin (3.5-5.0) g/dL 01/03/24 01/03/24 Range/Units 06:15 06:15 RBC 3.42 L (4.10-5.20) X 10*6/uL Hgb 9.7 L (12.0-15.0) g/dL Hct 31.6 L (37.2-46.3) % MCHC 30.6 L (32.0-37.0) g/dL Lymphocytes # 0.9 L (1.0-4.8) k/uL Eosinophils # (0.04-0.35) X 10*3/uL Potassium 3.4 L (3.5-5.1) mmol/L Chloride 114 H (96-109) mmol/L Carbon Dioxide 20 L (21.6-31.8) mmol/L BUN 45 H (9.0-27.0) mg/dL Creatinine 1.21 H (0.6-1.5) mg/dL Est GFR (CKD-EPI) (>=60) BUN/Creatinine Ratio (12.00-20.00) Ratio Glucose 72 L (74-99) mg/dL Total Protein 4.7 L (6.3-8.2) g/dL Albumin 2.3 L (3.5-5.0) g/dL CT scan - chest: report reviewed, image reviewed Assessment and Plan Assessment: The patient is an 78-year-old female with a history of metastatic renal cell carcinoma. She was initially treated for localized disease with left nephrectomy in January 2022. She unfortunately was found to have metastatic disease this past year. In August 2023, the patient had biopsy of a T10 lesion with vertebro-plasty which was consistent with renal cell carcinoma. The patient was subsequently started on Opdivo/Cabometyx and appears to have perhaps only had one cycle. She was hospitalized on December 30 secondary to inability to ambulate. Plan: 1. Spinal cord compression T10: As detailed above, the patient's imaging unfortunately reveals a soft tissue mass at T10 with significant mass effect on the spinal canal as well as migration of vertebral plasty cement into the spinal canal. The patient appears to have paralysis of the bilateral lower extremities secondary to this as well as concern for neurogenic bladder. The patient is likely to have surgical decompression tomorrow. I believe this gives her the best chance at any functional improvement. Radiotherapy may help to shrink the mass, but it would likely not help with the cement involving the canal. She will likely require post-operative radiotherapy. Would ensure patient is also getting Decadron/PPI to help with swelling. 2. Metastatic RCC: Patient has initiated systemic therapy, but it does not appear she has gotten much at this point. Will discuss her case with medical oncology. Time with Patient: Greater than 30
[2024-01-03] MEDS: POTASSIUM CHLORIDE 10 MEQ in WATER FOR INJECTION 1 100ML.BAG IVPB SCH (10:46)
[2024-01-03] MEDS: DEXAMETHASONE SOD PHOSPHATE 4 MG/ML 1 ML VIAL IVP SCH (11:58)
--- NOTE | 2024-01-03 13:43 | P.PN ---
Subjective patient is seen for follow-up for acute kidney injury. No significant complaints today. Scheduled for back surgery, decompression today Currently with indwelling Castañeda catheter for significant urine retention and right hydronephrosis. Objective - Vital Signs Vital signs: Vital Signs Temp 98.1 F 01/03/24 12:03 Pulse 75 01/03/24 12:03 Resp 16 01/03/24 12:03 BP 113/64 01/03/24 12:03 Pulse Ox 96 01/03/24 12:03 FiO2 Intake & Output 01/02/24 01/03/24 01/03/24 18:59 06:59 18:59 Intake Total 240 0 Output Total 700 300 350 Balance -460 -300 -350 Weight 61.235 kg Intake: Oral 240 0 Output: Urine 700 300 350 Other: Voiding Method Indwelling Catheter Indwelling Catheter Indwelling Catheter - Exam patient is a awake, comfortable, no acute distress. Examination of the heart S1 and S2 Examination of the lungs decreased breath sounds at the bases Abdomen is soft nontender Examination of lower extremity shows no evidence of edema. - Labs CBC & Chem 7: 01/03/24 06:15 01/03/24 06:15 Labs: Abnormal Lab Results - Last 24 Hours (Table) 01/02/24 01/03/24 01/03/24 Range/Units 18:20 06:15 06:15 RBC 3.54 L 3.42 L (3.80-5.40) m/uL Hgb 10.0 L D 9.7 L (11.4-16.0) gm/dL Hct 32.7 L 31.6 L (34.0-46.0) % MCHC 30.6 L 30.6 L (31.0-37.0) g/dL Lymphocytes # 0.9 L (1.0-4.8) k/uL Potassium 3.4 L (3.5-5.1) mmol/L Chloride 114 H (98-107) mmol/L Carbon Dioxide 20 L (22-30) mmol/L BUN 45 H (7-17) mg/dL Creatinine 1.21 H (0.52-1.04) mg/dL Glucose 72 L (74-99) mg/dL Total Protein 4.7 L (6.3-8.2) g/dL Albumin 2.3 L (3.5-5.0) g/dL Assessment and Plan Assessment: 1. Acute kidney injury secondary to ATN and urinary retention. Creatinine at 1.2. Baseline creatinine near 0.7. 2. Solitary right kidney with hydronephrosis being followed by urology. Left kidney absent. 3. Hyperkalemia secondary to acute kidney injury, acidosis and urinary retention. 4. Metabolic acidosis secondary to acute kidney injury. 5. Metastatic renal cancer. 6. Cord compression due to metastatic lesion at T10. Plan: continue with Castañeda catheter. Continue with IV fluids Replace potassium continue oral sodium bicarb.
[2024-01-03] MEDS: HYDROmorphone 0.5 MG/0.5 ML SYRINGE IVP PRN (14:20)
[2024-01-03] MEDS: DEXTROSE 50% SYRINGE 50 ML IVP STA (19:01)
[2024-01-03] MEDS: DEXTROSE IV ONE (19:19)
[2024-01-03] MEDS: FLUID CONTINUATION IV ONE (19:19)
[2024-01-03] MEDS ORDERED: ROCURONIUM 10 MG/ML (5 ML VIAL) IV ONE (19:24)
[2024-01-03] MEDS ORDERED: SUCCINYLCHOLINE CHLORIDE 200 MG/10 ML VIAL IV ONE (19:24)
[2024-01-03] MEDS ORDERED: NEOSTIGMINE 1 MG/ML 10 ML VIAL ONE (19:24)
[2024-01-03] MEDS ORDERED: GLYCOPYRROLATE 0.2 MG/ML 2 ML VIAL ONE (19:24)
[2024-01-03] MEDS ORDERED: PROPOFOL 10 MG/ML 20 ML VIAL IV ONE (19:24)
[2024-01-03] MEDS ORDERED: TRANEXAMIC 1,000 MG/100ML-NACL PREMIX BAG ONE (19:24)
[2024-01-03] MEDS ORDERED: fentaNYL (PF) 50 MCG/ML 2 ML AMP ONE (19:24)
[2024-01-03] MEDS ORDERED: LIDOCAINE 1% INJ 10MG/ML (20 ML MDV) ONE (19:24)
[2024-01-03] MEDS: SODIUM CHLORIDE 0.9% 100 ML with ceFAZolin 2,000 MG IV ONE (19:40)
[2024-01-03] MEDS: ceFAZolin 3,000 MG in SODIUM CHLORIDE 0.9% IRRIGATIO 3,000 ML IRRIGATION ONE (19:52)
[2024-01-03] MEDS: THROMBIN (BOVINE) 5,000 UNIT VIAL TOPICAL ONE (19:52)
[2024-01-03] MEDS: BUPIVACAINE (PF) 0.5% 30 ML VIAL SQ ONE (19:52)
[2024-01-03] MEDS: LIDOCAINE 2%-EPI 1:100,000 20 ML VIAL SQ ONE (19:52)
[2024-01-03] MEDS: VANCOMYCIN 1,000 MG VIAL MISCELLANE ONE (20:24)
[2024-01-03] MEDS ORDERED: MAGNESIUM HYDROXIDE 2,400 MG/30 ML CUP PO PRN (20:41)
[2024-01-03] MEDS ORDERED: ONDANSETRON 4 MG/2 ML VIAL IVP PRN (20:41)
--- NOTE | 2024-01-03 20:44 | P.PN ---
Progress Note - Text Progress Note Date: 01/03/24 Brief Post op: Pre op Dx: T10 severe stenosis, RCC, T10 Fracture, Paraplegia Post op Dx: Same Procedure T9-11 Laminectomy Surgeon: Eber Assist: Carlos Anesthesia: GETJavon EBL: 50 cc Fluid: 500cc Urine: 450cc Specimen: Tumor T10 for permanent Complication: None Dispo: Stable to PACU Bed rest Pain control PRN IVF as kayleigh Cont decadron OK for PT/OT GI/DVT ppx Spinal cord injury percautions Turn q2 Aggressive bowel regimen Watch for autonaumic dysreflexia Maintain drain, record output
--- NOTE | 2024-01-03 21:00 | XR ---
Fluoroscopy INDICATION: Pain FINDINGS: Fluoroscopy time: 12.4 seconds. Total dose area product (DAP) in uGy*m?, mGy*cm? (or similar): 0.6859 Images obtained: 4. IMPRESSION: 1. Documentation of fluoroscopy. [facility], Workstation: [facility], 01/03/2024 8:58 PM
--- NOTE | 2024-01-03 21:30 | FL ---
Fluoroscopy INDICATION: Pain FINDINGS: Fluoroscopy time: 12.4 seconds. Total dose area product (DAP) in uGy*m?, mGy*cm? (or similar): 0.6859 Images obtained: 3. IMPRESSION: 1. Documentation of fluoroscopy. [facility], Workstation: [facility], 01/03/2024 9:27 PM
[2024-01-04] MEDS: HYDROcodone/APAP 5-325MG 1 EACH TAB PO PRN (02:22)
--- NOTE | 2024-01-04 05:57 | P.PN ---
Subjective Progress Note Date: 01/03/24 78-year-old female transferred to the emergency department secondary to unable to walk. Patient states symptoms have progressed over the past couple of months. Patient does have a history of kidney cancer that she believes is a new diagnosis and is still awaiting treatment for this. Patient does complain of back pain however is unclear how long it has been going on for. Patient does have some underlying dementia complicating history. Patient states she is unable to walk even a step or 2 at this point. -Patient with history of metastatic renal cell cancer presents with progressive leg weakness, unable to walk. Patient will be admitted for further evaluation Blood work reveals a WBC of 12.7, hemoglobin of 12.4 and platelet count of 295, sodium 135, potassium 5.6, BUNs/creatinine of 79/2.59, blood glucose of 98 Chest x-ray is negative for any acute cardiopulmonary disease CT of the lumbar spine reveals destructive metastatic lesion of T10 which is status post vertebroplasty; mild compromise of spinal canal at T10 level secondary to neoplastic mass and posterior migration of vertebroplasty cement; mild superior endplate compression fracture of T4 without destructive lesion; possible superior endplate compression fracture of T11 Abdominal ultrasound reveals mild right hydronephrosis and layering debris in bladder, correlate with urinalysis for cystitis --Patient has Castañeda catheter in place; gross hematuria at this morning; urology is on board; will monitor CBC 01/02/2024 Patient is seen and evaluated in follow-up lethargic although arousable. Patient was having urinary retention had an indwelling Castañeda catheter placed with gross hematuria that persists. Patient was evaluated by urology reporting hematuria was likely due to retention recommend to continue with indwelling Castañeda catheter for now. Follow-up on repeat CBC and currently above 9. Patient and family would like to proceed with surgery for decompression to enhance quality of life. Patient will be considered moderate to high risk for surgical intervention and would need clearance by nephrology as well as patient does have a solitary kidney and came in with dehydration and CHEMO. Kidney functions are im proving and creatinine is 1.9 today. 01/03/2024 Patient is seen and evaluated in follow-up currently scheduled to undergo decompression with orthopedics and currently NPO. Multiple family members at bedside awaiting surgery at this time. Kidney functions have improved and creatinine is 1.2, hemoglobin remained stable with noted hematuria in the Castañeda. Patient to continue with indwelling Castañeda catheter Review of systems: Constitutional: reports of fatigue, no fever, or chills Cardiovascular: No reports of chest pain or palpitations Respiratory: No reports of shortness of breath or cough GI: No reports of nausea, vomiting, or diarrhea, not much of an appetite at all : No reports of dysuria, reports retention Neurovascular: reports of generalized weakness with continued numbness in the lower extremities and inability to ambulate with continued lower back pain All medications have been reviewed Physical exam: Gen: This is a 78-year-old female who is lethargic although arousable, alert and oriented x 3, thin build, elderly appearing, ill appearing HEENT: Head is atraumatic, normocephalic. Pupils equal, round. Sclerae is anicteric. NECK: Supple. No JVD. No lymphadenopathy. No thyromegaly. LUNGS: Diminished breath sounds bilaterally otherwise clear to auscultation. No wheezes or rhonchi. No intercostal retractions. HEART: S1, S2 are muffled ABDOMEN: Soft. Thin, bowel sounds are present. No masses. No tenderness. EXTREMITIES: No pedal edema. No calf tenderness. NEUROLOGICAL: Patient is awake, alert and oriented x3. Diffusely weak Assessment: -Back pain; compression fractures T4/T11 -CT of the lumbar spine reveals destructive metastatic lesion of T10 which is s tatus post vertebroplasty; mild compromise of spinal canal at T10 level secondary to neoplastic mass and posterior migration of vertebroplasty cement; mild superior endplate compression fracture of T4 without destructive lesion; possible superior endplate compression fracture of T11. Orthopedics evaluated and scheduled for intervention today on 01/03/2024 -Acute renal injury; creatinine elevated at 2.59, improving and creatinine is 1.2 today -Hydronephrosis, on the right and per urology likely secondary to retention and bladder distention, continue indwelling Castañeda catheter Abdominal ultrasound reveals mild right hydronephrosis and layering debris in bladder, correlate with urinalysis for cystitis -UA is positive for bacteria, WBCs RBCs and leukocyte esterase, possible cystitis, asymptomatic bacteriuria likely, continue ceftriaxone and await culture -Hyperkalemia; likely related to acute renal injury; we will monitor electrolytes closely -Metastatic renal cell carcinoma; oncology and radiation oncology following -GI prophylaxis -DVT prophylaxis; SCDs only given hematuria -full code Plan: Patient was seen and evaluated by urology and an indwelling Castañeda catheter was placed with gross hematuria noted. Per urology most likely secondary to bladder distention and retention. Kidney functions are trending down and nephrology following we will continue gentle hydration and follow-up with repeat labs. Creatinine 1.2 today Orthopedics following with plans on surgical intervention to enhance the quality of life as patient was noted to have compression fractures of T4-T11. Patient with metastatic disease with oncology following. Radiation oncology following as well and may undergo palliative radiation postsurgical intervention Recommend PT/OT therapy postsurgery and may likely need ECF on discharge Patient given significant comorbidities, is considered moderate to high risk and risk versus benefits including were discussed with family and patient and they are agreeable to proceed with surgical intervention. Continue current regimen per urology and nephrology. Will await surgical report Overall prognosis is guarded at this time The impression and plan of care has been dictated by Lacy Brumfield, Nurse Practitioner as directed. Dr. Chele MD I have performed a history and examination and MDM of this patient, discussed the same with the dictator, and agree with the dictator's assessment and plan as written ,documented as a scribe. Based on total visit time, I have performed more than 50% of the visit. Objective - Vital Signs Vital signs: Vital Signs Temp 97.6 F 01/03/24 07:18 Pulse 68 01/03/24 07:18 Resp 16 01/03/24 07:18 BP 107/58 01/03/24 07:18 Pulse Ox 94 L 01/03/24 07:18 FiO2 Intake & Output 01/02/24 01/03/24 01/03/24 18:59 06:59 18:59 Intake Total 240 0 Output Total 700 300 350 Balance -460 -300 -350 Weight 61.235 kg Intake: Oral 240 0 Output: Urine 700 300 350 Other: Voiding Method Indwelling Catheter Indwelling Catheter - Labs CBC & Chem 7: 01/03/24 06:15 01/03/24 06:15 Labs: Abnormal Lab Results - Last 24 Hours (Table) 01/02/24 01/03/24 01/03/24 Range/Units 18:20 06:15 06:15 RBC 3.54 L 3.42 L (3.80-5.40) m/uL Hgb 10.0 L D 9.7 L (11.4-16.0) gm/dL Hct 32.7 L 31.6 L (34.0-46.0) % MCHC 30.6 L 30.6 L (31.0-37.0) g/dL Lymphocytes # 0.9 L (1.0-4.8) k/uL Potassium 3.4 L (3.5-5.1) mmol/L Chloride 114 H (98-107) mmol/L Carbon Dioxide 20 L (22-30) mmol/L BUN 45 H (7-17) mg/dL Creatinine 1.21 H (0.52-1.04) mg/dL Glucose 72 L (74-99) mg/dL Total Protein 4.7 L (6.3-8.2) g/dL Albumin 2.3 L (3.5-5.0) g/dL
[2024-01-04 08:49] LABS: Basophils # (A) 0.02 X 10*3/uL (0.00-0.10); Basophils % (A) 0.2 %; Eosinophils # (A) 0.01 X 10*3/uL (0.04-0.35); Eosinophils % (A) 0.1 %; HCT 34.1 % (37.2-46.3); HGB 9.9 g/dL (12.0-15.0); Lymphocytes # (A) 0.66 X 10*3/uL (0.90-5.00); Lymphocytes % (A) 8.1 %; MCV 93.2 FL (80.0-97.0); Monocytes # (A) 0.44 X 10*3/uL (0.20-1.00); Monocytes % (A) 5.4 %; NRBC Per 100 WBC 0 X 10*3/uL (0.00-0.01); Neutrophils # (A) 6.89 X 10*3/uL (1.80-7.70); Neutrophils % (A) 85.2 %; Platelet Count 254 X 10*3/uL (140-440); RBC 3.66 X 10*6/uL (4.10-5.20); RDW 14.1 % (11.5-14.5)
[2024-01-04 09:04] LABS: BUN/Creat Ratio 31.82 Ratio (12.00-20.00); Carbon Dioxide 14.8 mmol/L (21.6-31.8); Chloride 111 mmol/L (96-109); Glucose 87 mg/dL (70-110); Magnesium 1.7 mg/dL (1.5-2.4); Potassium 4.8 mmol/L (3.5-5.5); Sodium 140 mmol/L (135-145)
[2024-01-04] MEDS: HYDROmorphone 0.5 MG/0.5 ML SYRINGE IVP PRN (09:27)
--- NOTE | 2024-01-04 09:28 | P.OP ---
Date of Procedure: 01/03/24 Preoperative Diagnosis: PARAPLEGIA METESTATIC RCC T10 FRACTURE S/P KYPHOPLASTY SEVERE STENOSIS THORACIC SPINE WITH MYELOPATHY COMPLEX MEDICAL PATIENT Postoperative Diagnosis: PARAPLEGIA METESTATIC RCC T10 FRACTURE S/P KYPHOPLASTY SEVERE STENOSIS THORACIC SPINE WITH MYELOPATHY COMPLEX MEDICAL PATIENT Procedure(s) Performed: T9-T11 BILATERAL LAMINECTOMY, PARTIAL MEDIAL FACETECTOMY AND FORAMINOTOMY WITH EPIDURAL TUMOR REMOVAL Implants: NONE Anesthesia: GETA Surgeon: Madan Bass Oscillograph Technician #1: Glen Gonzalez (WAS PRESENT AND ASSISTED WITH ALL ASPECTS OF THE CASE FROM POSITION TO DRESSING PLACEMENT) Estimated Blood Loss (ml): 100 IV fluids (ml): 700 Urine output (ml): 350 Pathology: other (PERMANENT SPECIMINE, TUMOR T10 EPIDURAL SPACE) Condition: stable Disposition: PACU Indications for Procedure: 78 yo female presented with progressive debility, inability to ambulate, paraplegia and hx of RCC s/p kyphoplasty of T10. Per her daughter in law as well as her, she was at a care facility and had some issues. She has had several falls since her kyphoplasty and has had progressive neurological decline in her LE. She states she is unable to move her LE now and she has little to no feeling in her lower legs all the way up to her waistline. THis has been going on now for at least 2 months but progressive over the past 3 months. She states no pain at this time, but she also states she wants to be able to walk again. In speaking with the family, they would like to offer her the ability to potentially regain her LE function as well as preserve whatever bowel bladder function as well as LE sensation is left for her. This is reasonable given her guarded prognosis and the need for quality of life. They understand the risks and benefits of surgery including but not limited to risk of bleeding, infection, damage to tissues, nerve damage, risk of clots, stroke, UT, PE, risk of re-operation, reality and risk that she may never walk again and she may st ill have neurological decline despite surgery and best efforts. Risk of anesthesia up to and including . They are willing to assume these risks and all the risks of surgery and are willing to proceed with planned Laminectomy at T9-11. Description of Procedure: The patient was seen and examined in the preoperative area. All preoperative protocols were followed. Informed consent was obtained risks and benefits of the procedure were discussed at length. Risks including bleeding infection damage to the surrounding tissue and risk of reoperation were discussed with the patient. Risk of anesthesia up to and including was a discussed with the patient. These are outlined in the risk review. They were willing to accept these risks and all of the risks of surgery. The patient was given a weight- based dose of antibiotics in the form of cefepime from the floor The patient was seen and evaluated by the anesthesia team who deemed them fit for surgery. The site was marked, the patient was willing to proceed with the procedure. The patient was transferred to the operative suite by the Department of anesthesia. They were then drifted off to sleep by the department anesthesia and [anesthesia type] was performed. The patient tolerated this well. [Castañeda catheter was placed by nursing staff, atraumatically]. Once confirmation of lines and ventilation the patient was transferred to a [prone Tom table very carefully]. All bony prominences including wrists, elbows, axilla, chest, hips, and thighs, and feet were padded very well. Special attention was paid to the genitalia and these were padded accordingly. SCDs were placed on bilateral lower extremities and were connected. Arms were well padded and placed [on arm boards up and out in the 90/90 position]. Once in position, again we confirmed good ventilation capabilities and that lines were running appropriately. The patient's thoracolumbar spine was then exposed. 1010s were placed outlining the incision site. Standard alcohol was used to clean the incision site and allowed to dry. C-arm was used to biomark the patient and confirm level for incision which was marked with a skin marker. Operative briefing was performed with all teams and everyone in agreement to proceed. The patient was then prepped and draped in a normal sterile fashion. Timeout was then performed and all parties were in agreement with the procedure to be performed. Midline skin incision was made over the previously been marked. Dissection taken down to the fascia which was identified and cleaned with a Winter. Midline fasciotomy was then made over the T9 through T11 region. Subperiosteal dissection was taken down over the lamina to the facet joints and transverse processes which were identified. Blunt probe was placed at the T10 laminar surface and a lateral x-ray taken to confirm levels for surgery. Once confirmed bilateral laminectomy partial medial facetectomy and foraminotomy was done at T9 through T11 using a high-speed bur Wilfredo Kerrison rongeurs up-biting curettes. Once the canal was unroofed to T10 there is a large tumorous mass noted on the right-hand side which was removed entirely and sent for permanent section. This is likely renal cell as it was very bloody. Meticulous hemostasis was then performed and the area. There was good cord pulsations noted after de compression. The wound was then copiously irrigated with 3 L of Ancef solution 3 L with gentamicin solution 3 L of normal sterile saline. Again meticulous hemostasis was performed. We then placed a drain deep to the fascia Surgicel was placed over the dura. Then performed layered closure deep fascia was closed with #1 PDS deep subcu tissue closed with 0 Vicryl superficial subcu tissue closed with 2-0 Vicryl and skin closed with 2-0 nylon. The drain was secured with a stitch to the skin. The patient was transferred back to their hospital bed atraumatically. [Drain continued to hold suction and were in good position]. Patient was then awakened and extubated by the department of anesthesia having tolerated the procedure very well with no complications. They were transferred to the postoperative care unit in stable condition.
--- NOTE | 2024-01-04 12:58 | P.PN ---
Subjective Progress Note Date: 01/04/24 Principal diagnosis: Paraplegia Metastatic renal cell carcinoma T10 fracture status post kyphoplasty Severe stenosis of the thoracic spine with myelopathy Patient seen and examined this morning. Patient is resting comfortably in bed. She does report that her pain is managed on current regimen. Surgical dressing to the thoracic spine is clean dry and intact. Patient continues to make statements that she would like to walk again. Informed patient that physical therapy will begin to work with her today, encourage bed exercises. No acute concerns at this time. Objective - Vital Signs Vital signs: Vital Signs Temp 98 F 01/03/24 20:42 Pulse 78 01/03/24 21:30 Resp 16 01/04/24 05:56 BP 128/60 01/03/24 21:30 Pulse Ox 98 01/03/24 21:30 FiO2 Intake & Output 01/03/24 01/04/24 01/04/24 18:59 06:59 18:59 Intake Total 976 Output Total 800 425 Balance -800 551 Intake: IV 976 Output: Urine 800 375 Estimated Blood Loss 50 Other: Voiding Method Indwelling Catheter Indwelling Catheter - Exam Physical Examination General: The patient is awake and alert, in no acute distress Skin: Skin is warm and dry with no obvious rashes or lesions. Eye: Pupils are equal, round and reactive to light, extra-ocular movements are intact; there is normal conjunctiva bilaterally. Neck: The neck is supple, there is no tenderness and ROM intact. Cardiovascular: There is a regular rate and rhythm. No murmur, rub or gallop is appreciated. Respiratory: Respirations are non-labored, breath sounds are equal. Gastrointestinal: Soft, non-distended, non-tender abdomen. Back: There is no tenderness to palpation in the midline, paralumbar, parathoracic or buttocks region. There is no obvious deformity . Musculoskeletal: ROM limited secondary to pain and stiffness from surgical procedure. Right: Shoulder abduction 5/5, elbow flexors 5/5, wrist dorsiflexors 5/5. finger abductor 5/5, parts person 5/5. Left: Shoulder abduction 5/5, elbow flexors 5/5, wrist dorsiflexors 5/5. finger abductor 5/5, parts person 5/5. *Patient is unable to demonstrate any muscle tone activity or motion of the bilateral lower extremities, although she states she can feel herself trying. Neurological: CN 2-12 intact. There are no obvious motor or sensory deficits. Movement and coordination equal and intact. Sensory exam to light touch intact C5-T1 and intact from L2-S1. Reflexes 2/4 in bilateral upper and lower extremities. Negative Hoffmans, babinski, and clonus signs. Psychiatric: Cooperative, appropriate mood & affect, normal judgment. - Labs CBC & Chem 7: 01/04/24 03:13 01/04/24 03:13 Assessment and Plan Assessment: Postop day 1: T9-T11 BILATERAL LAMINECTOMY, PARTIAL MEDIAL FACETECTOMY AND FORAMINOTOMY WITH EPIDURAL TUMOR REMOVAL Plan: 1. PT/OT: May attempt to sit patient at bedside and perform bed exercises, turn q 2 hours. 2. Pain Management: Adequate at this time. Continue use of decadron 3. GI/DVT ppx; Aggressive bowel regimen 4. Spinal Cord Injury Signs, Symptoms and Management 5. Watch for Autonomic Dysreflexia: Patients with T6 and above spinal cord lesions are at risk for AD. This is an EMERGENCY and can lead to heart attack or stroke if not treated. It is ALWAYS due to something irritating the body below the neurologic level of injury. Presentation is normally sudden hypertension with bradycardia, symptoms include the following: sweating, redness, flushing, headache, congestion, chills above the level of injury. Treatment follows: Sit patient fully upright Loosen abdominal binders, TEDs, and clothing, remove shoes Make sure Castañeda is not kinked and draining Check bed for anything poking the skin Perform bowel program if constipated Check blood pressure every 5 minutes - once etiology is found, BP will quickly resume to normal If BP remains elevated, would treat temporarily with nitro paste 1/2 -1 inch as this can be wiped off once AD resolves. Most common etiologies: bladder obstruction, pain, constipation 6. Maintain drain, record output 7. Appreciate consult
--- NOTE | 2024-01-04 15:54 | P.PN ---
Subjective Progress Note Date: 01/04/24 Principal diagnosis: Metastatic RCC, on IO, has not started oral. Cord Compression In f/u today pt reports that she CAN feel her legs, she has some sensation of movement, she was able to feel touch. States she wants to walk. Objective - Vital Signs Vital signs: Vital Signs Temp 98.2 F 01/04/24 13:10 Pulse 76 01/04/24 13:10 Resp 16 01/04/24 13:10 BP 104/53 01/04/24 13:10 Pulse Ox 97 01/04/24 13:10 FiO2 Intake & Output 01/03/24 01/04/24 01/04/24 18:59 06:59 18:59 Intake Total 976 Output Total 800 425 Balance -800 551 Weight 61.235 kg Intake: IV 976 Output: Urine 800 375 Estimated Blood Loss 50 Other: Voiding Method Indwelling Catheter Indwelling Catheter # Bowel Movements 1 - Constitutional General appearance: Present: cooperative, no acute distress, thin - EENT Eyes: Present: anicteric sclerae, EOMI ENT: Present: hearing grossly normal - Respiratory Details: Respirations unlabored at rest - Peripheral edema leg Peripheral Edema: bilateral: None - Neurologic Neurologic Comment(s): Stimulation of the plantar surface of both feet did cause patient to withdraw, slight movement visible. - Musculoskeletal Musculoskeletal: Present: generalized weakness - Psychiatric Psychiatric: Present: A&O x's 3, appropriate affect, intact judgment & insight - Labs CBC & Chem 7: 01/04/24 03:13 01/04/24 03:13 Labs: Abnormal Lab Results - Last 24 Hours (Table) 01/04/24 01/04/24 Range/Units 03:13 03:13 RBC 3.66 L (4.10-5.20) X 10*6/uL Hgb 9.9 L (12.0-15.0) g/dL Hct 34.1 L (37.2-46.3) % MCHC 29.0 L (32.0-37.0) g/dL MPV 9.0 L (9.5-12.2) FL Immature Gran # 0.08 H (0.00-0.04) X 10*3/uL Lymphocytes # 0.66 L (0.90-5.00) X 10*3/uL Eosinophils # 0.01 L (0.04-0.35) X 10*3/uL Chloride 111 H (96-109) mmol/L Carbon Dioxide 14.8 L (21.6-31.8) mmol/L Anion Gap 14.20 H (4.00-12.00) mmol/L BUN 35.0 H (9.0-27.0) mg/dL Est GFR (CKD-EPI) 51 L (>=60) BUN/Creatinine Ratio 31.82 H (12.00-20.00) Ratio Assessment and Plan (1) Cord compression Current Visit: Yes Status: Acute Priority: High Code(s): G95.20 - UNSPECIFIED CORD COMPRESSION SNOMED Code(s): 20776646 (2) Renal cancer Current Visit: Yes Status: Acute Priority: High Code(s): C64.9 - MALIGNANT NEOPLASM OF UNSP KIDNEY, EXCEPT RENAL PELVIS SNOMED Code(s): 716011799 (3) Leg weakness Current Visit: Yes Status: Acute Priority: High Code(s): R29.898 - OTH SYMPTOMS AND SIGNS INVOLVING THE MUSCULOSKELETAL SYSTEM SNOMED Code(s): 284202331 Plan: Spinal cord compression, metastatic RCC - Destructive metastatic lesion of T10 which is status post vertebroplasty. Mild compromise of the spinal canal at T10 level secondary to neoplastic mass in posterior migration of the vertebroplasty cement. Mild superior endplate compression fracture of T4 with obstructive lesion or retropulsion. Possible mild superior endplate compression fracture of T11 without triple potion or destructive lesion, no fractures or destructive lesions to the lumbar spine. -Patient has had surgery with Ortho spine-she has some movement and sensation today! s -Rad Onc has seen patient. Further recommendations will follow -Patient is not complaining of any postoperative pain at this time. -Cont dex and PPI -Nephrology following for CHEMO - Hold opdivo for RCC while IP. Cabometyx has been available since October. 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 Will see how she progresses inpt as to plans for proceeding with treatment. attests: I have seen and examined pt, performed H&P, developed impression and plan of care. Discussed with dictator. Agree with documentation, dictated as a scribe
[2024-01-04] MEDS: HYDROmorphone 1 MG/ML 1 ML SYRINGE IVP PRN (17:06)
--- NOTE | 2024-01-04 19:03 | P.PN ---
Subjective Patient is seen for follow-up for acute kidney injury. No significant complaints today. Status post back surgery on 01/03/2024 with laminectomy and facetectomy Serum creatinine at 1.1 mg/dL. Objective - Vital Signs Vital signs: Vital Signs Temp 98.2 F 01/04/24 13:10 Pulse 76 01/04/24 13:10 Resp 16 01/04/24 13:10 BP 104/53 01/04/24 13:10 Pulse Ox 97 01/04/24 13:10 FiO2 Intake & Output 01/03/24 01/04/24 01/04/24 18:59 06:59 18:59 Intake Total 976 Output Total 800 425 Balance -800 551 Weight 61.235 kg Intake: IV 976 Output: Urine 800 375 Estimated Blood Loss 50 Other: Voiding Method Indwelling Catheter Indwelling Catheter # Bowel Movements 1 - Exam patient is a awake, comfortable, no acute distress. Examination of the heart S1 and S2 Examination of the lungs decreased breath sounds at the bases Abdomen is soft nontender Examination of lower extremity shows no evidence of edema. - Labs CBC & Chem 7: 01/04/24 03:13 01/04/24 03:13 Labs: Abnormal Lab Results - Last 24 Hours (Table) 01/04/24 01/04/24 Range/Units 03:13 03:13 RBC 3.66 L (4.10-5.20) X 10*6/uL Hgb 9.9 L (12.0-15.0) g/dL Hct 34.1 L (37.2-46.3) % MCHC 29.0 L (32.0-37.0) g/dL MPV 9.0 L (9.5-12.2) FL Immature Gran # 0.08 H (0.00-0.04) X 10*3/uL Lymphocytes # 0.66 L (0.90-5.00) X 10*3/uL Eosinophils # 0.01 L (0.04-0.35) X 10*3/uL Chloride 111 H (96-109) mmol/L Carbon Dioxide 14.8 L (21.6-31.8) mmol/L Anion Gap 14.20 H (4.00-12.00) mmol/L BUN 35.0 H (9.0-27.0) mg/dL Est GFR (CKD-EPI) 51 L (>=60) BUN/Creatinine Ratio 31.82 H (12.00-20.00) Ratio Assessment and Plan Assessment: 1. Acute kidney injury secondary to ATN and urinary retention. Creatinine at 1.1. Baseline creatinine near 0.7. 2. Solitary right kidney with hydronephrosis being followed by urology. Left kidney absent. 3. Hyperkalemia secondary to acute kidney injury, acidosis and urinary retent ion. 4. Metabolic acidosis secondary to acute kidney injury. 5. Metastatic renal cancer. 6. Cord compression due to metastatic lesion at T10. Status post laminectomy and facetectomy on 01/03/2024 Plan: Change IV fluids to IV bicarb Continue with oral sodium bicarb Repeat labs in a.m.
[2024-01-04] MEDS: DEXTROSE 5% IN WATER 1,000 ML with SODIUM BICARB (1 MEQ/ML) 150 ML IV SCH (21:50)
--- NOTE | 2024-01-05 06:08 | P.PN ---
Subjective Progress Note Date: 01/04/24 78-year-old female transferred to the emergency department secondary to unable to walk. Patient states symptoms have progressed over the past couple of months. Patient does have a history of kidney cancer that she believes is a new diagnosis and is still awaiting treatment for this. Patient does complain of back pain however is unclear how long it has been going on for. Patient does have some underlying dementia complicating history. Patient states she is unable to walk even a step or 2 at this point. -Patient with history of metastatic renal cell cancer presents with progressive leg weakness, unable to walk. Patient will be admitted for further evaluation Blood work reveals a WBC of 12.7, hemoglobin of 12.4 and platelet count of 295, sodium 135, potassium 5.6, BUNs/creatinine of 79/2.59, blood glucose of 98 Chest x-ray is negative for any acute cardiopulmonary disease CT of the lumbar spine reveals destructive metastatic lesion of T10 which is status post vertebroplasty; mild compromise of spinal canal at T10 level secondary to neoplastic mass and posterior migration of vertebroplasty cement; mild superior endplate compression fracture of T4 without destructive lesion; possible superior endplate compression fracture of T11 Abdominal ultrasound reveals mild right hydronephrosis and layering debris in bladder, correlate with urinalysis for cystitis --Patient has Castañeda catheter in place; gross hematuria at this morning; urology is on board; will monitor CBC 01/02/2024 Patient is seen and evaluated in follow-up lethargic although arousable. Patient was having urinary retention had an indwelling Castañeda catheter placed with gross hematuria that persists. Patient was evaluated by urology reporting hematuria was likely due to retention recommend to continue with indwelling Castañeda catheter for now. Follow-up on repeat CBC and currently above 9. Patient and family would like to proceed with surgery for decompression to enhance quality of life. Patient will be considered moderate to high risk for surgical intervention and would need clearance by nephrology as well as patient does have a solitary kidney and came in with dehydration and CHEMO. Kidney functions are im proving and creatinine is 1.9 today. 01/03/2024 Patient is seen and evaluated in follow-up currently scheduled to undergo decompression with orthopedics and currently NPO. Multiple family members at bedside awaiting surgery at this time. Kidney functions have improved and creatinine is 1.2, hemoglobin remained stable with noted hematuria in the Castañeda. Patient to continue with indwelling Castañeda catheter 01/04/2024 Patient is seen and evaluated in follow-up this morning extremely lethargic alth ough arousable. Patient reports is not sleeping very well and reports to feeling somewhat improved since surgery. Patient reports she can feel her lower extremities and on demonstration feels she is moving them although there is no movement at this time. Awaiting to work with PT/OT therapy. Discussed with [id number] at the bedside in detail about overall treatment plan with multiple consultations following. Oncology and radiation oncology following as well. Plan is to return to [facility] for continued strength and mobility once discharged. Review of systems: Constitutional: reports of fatigue, no fever, or chills Cardiovascular: No reports of chest pain or palpitations Respiratory: No reports of shortness of breath or cough GI: No reports of nausea, vomiting, or diarrhea, not much of an appetite at all although reports to feeling a little more hungry today : No reports of dysuria, reports retention Neurovascular: reports of generalized weakness with continued numbness in the lower extremities although reports being able to feel her legs All medications have been reviewed Physical exam: Gen: This is a 78-year-old female who is lethargic although arousable, alert and oriented x 3, thin build, elderly appearing, ill appearing HEENT: Head is atraumatic, normocephalic. Pupils equal, round. Sclerae is anicteric. NECK: Supple. No JVD. No lymphadenopathy. No thyromegaly. LUNGS: Diminished breath sounds bilaterally otherwise clear to auscultation. No wheezes or rhonchi. No intercostal retractions. HEART: S1, S2 are muffled ABDOMEN: Soft. Thin, bowel sounds are present. No masses. No tenderness. EXTREMITIES: No pedal edema. No calf tenderness. NEUROLOGICAL: Patient is awake, alert and oriented x3. Diffusely weak Assessment: -Back pain; compression fractures T4/T11, status post T9-11 bilateral laminectomy, partial medial facetectomy and foraminotomy with epidural tumor removal, postop day 1 -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 -Acute renal injury; creatinine elevated at 2.59, improving and creatinine is 1.1 today -Hydronephrosis, on the right and per urology likely secondary to retention and bladder distention, continue indwelling Castañeda catheter Abdominal ultrasound reveals mild right hydronephrosis and layering debris in bladder, correlate with urinalysis for cystitis -UA is positive for bacteria, WBCs RBCs and leukocyte esterase, possible cystitis, asymptomatic bacteriuria likely, continue ceftriaxone and await culture -Hyperkalemia; likely related to acute renal injury; we will monitor electrolytes closely -Metastatic renal cell carcinoma; oncology and radiation oncology following -GI prophylaxis -DVT prophylaxis; SCDs only given hematuria -full code Plan: Patient was seen and evaluated by urology and an indwelling Castañeda catheter was placed with gross hematuria noted. Per urology most likely secondary to bladder distention and retention. Kidney functions are trending down and nephrology following we will continue gentle hydration and follow-up with repeat labs. Creatinine 1.1 today Orthopedics following status post surgical intervention as mentioned above to enhance the quality of life as patient was noted to have compression fractures of T4-T11. Patient with metastatic disease with oncology following. Radiation oncology following as well and may undergo palliative radiation postsurgical intervention Recommend PT/OT therapy postsurgery and will need ECF on discharge Patient given significant comorbidities, is considered moderate to high risk and risk versus benefits including were discussed with family and patient and they are agreeable to proceed with surgical intervention. Continue current regimen per urology and nephrology. Encourage small frequent meals discussed with family if she prefers something from home, okay to bring in to encourage oral intake Overall prognosis is guarded at this time The impression and plan of care has been dictated by Lacy Brumfield, Nurse Practitioner as directed. Dr. Chele MD I have performed a history and examination and MDM of this patient, discussed the same with the dictator, and agree with the dictator's assessment and plan as written ,documented as a scribe. Based on total visit time, I have performed more than 50% of the visit. Objective - Vital Signs Vital signs: Vital Signs Temp 97.6 F 01/05/24 02:00 Pulse 58 L 01/05/24 02:00 Resp 16 01/04/24 13:10 BP 94/54 01/05/24 02:00 Pulse Ox 94 L 10/03/24 02:00 FiO2 Intake & Output 01/04/24 01/04/24 01/05/24 06:59 18:59 06:59 Intake Total 976 Output Total 425 950 Balance 551 -950 Weight 61.235 kg Intake: IV 976 Output: Urine 375 950 Estimated Blood Loss 50 Other: Voiding Method Indwelling Catheter Indwelling Catheter # Bowel Movements 1 - Labs CBC & Chem 7: 01/04/24 03:13 01/04/24 03:13 Labs: Abnormal Lab Results - Last 24 Hours (Table) 01/04/24 01/04/24 Range/Units 03:13 03:13 RBC 3.66 L (4.10-5.20) X 10*6/uL Hgb 9.9 L (12.0-15.0) g/dL Hct 34.1 L (37.2-46.3) % MCHC 29.0 L (32.0-37.0) g/dL MPV 9.0 L (9.5-12.2) FL Immature Gran # 0.08 H (0.00-0.04) X 10*3/uL Lymphocytes # 0.66 L (0.90-5.00) X 10*3/uL Eosinophils # 0.01 L (0.04-0.35) X 10*3/uL Chloride 111 H (96-109) mmol/L Carbon Dioxide 14.8 L (21.6-31.8) mmol/L Anion Gap 14.20 H (4.00-12.00) mmol/L BUN 35.0 H (9.0-27.0) mg/dL Est GFR (CKD-EPI) 51 L (>=60) BUN/Creatinine Ratio 31.82 H (12.00-20.00) Ratio
[2024-01-05 07:09] LABS: Basophils % (A) 0 %; Eosinophils % (A) 0 %; HCT 35.1 % (34.0-46.0); HGB 10.5 gm/dL (11.4-16.0); Hypochromasia Marked; Lymphocytes # (A) 0.5 k/uL (1.0-4.8); Lymphocytes % (A) 6 %; MCH 27.5 pg (25.0-35.0); MCV 91.9 fL (80.0-100.0); Monocytes # (A) 0.5 k/uL (0-1.0); Monocytes % (A) 6 %; Neutrophils # (A) 7.6 k/uL (1.3-7.7); Neutrophils % (A) 87 %; Platelet Count 278 k/uL (150-450); RBC 3.82 m/uL (3.80-5.40); RDW 14.4 % (11.5-15.5); WBC 8.8 k/uL (3.8-10.6)
[2024-01-05 07:21] LABS: Potassium 4.4 mmol/L (3.5-5.1)
[2024-01-05 07:22] LABS: ALT 9 U/L (4-34); AST 39 U/L (14-36); African American GFR (CKD) 75 (>60 ml/min/1.73 sqM); Albumin 2.5 g/dL (3.5-5.0); Alkaline Phosphatase 54 U/L (38-126); Anion Gap 8 mmol/L; Blood Urea Nitrogen 33 mg/dL (7-17); Calcium 9.7 mg/dL (8.4-10.2); Carbon Dioxide 20 mmol/L (22-30); Chloride 111 mmol/L (98-107); Globulin 2.6 g/dL; Glucose 152 mg/dL (74-99); Magnesium 1.6 mg/dL (1.6-2.3); Non-African American GFR(CKD) 65 (>60 ml/min/1.73 sqM); Sodium 139 mmol/L (137-145); Total Bilirubin 0.2 mg/dL (0.2-1.3); Total Protein 5.1 g/dL (6.3-8.2)
--- NOTE | 2024-01-05 11:27 | P.PN ---
Progress Note - Text Progress Note Date: 01/05/24 Patient seen this morning. Patient is resting comfortably in bed. Pain medication has just been provided. Surgical dressing is clean dry and intact. Continue to encourage patient to perform bed exercises and changing position every 2 hours. Patient is cleared from a orthopedic standpoint for discharge when medically stable. Continue to encourage incentive spirometer 10 times an hour while awake. No acute concerns at this time.
--- NOTE | 2024-01-05 11:33 | P.PN ---
Subjective Patient is seen for follow-up for acute kidney injury. No significant complaints today. Status post back surgery on 01/03/2024 with laminectomy and facetectomy Serum creatinine at 0.85 mg/dL Objective - Vital Signs Vital signs: Vital Signs Temp 97.7 F 01/05/24 07:33 Pulse 66 01/05/24 07:33 Resp 17 01/05/24 07:33 BP 127/64 01/05/24 07:33 Pulse Ox 96 01/05/24 07:33 FiO2 Intake & Output 01/04/24 01/05/24 01/05/24 18:59 06:59 18:59 Output Total 950 Balance -950 Weight 61.235 kg Output: Urine 950 Other: Voiding Method Indwelling Catheter # Bowel Movements 1 - Exam patient is a awake, comfortable, no acute distress. Examination of the heart S1 and S2 Examination of the lungs decreased breath sounds at the bases Abdomen is soft nontender Examination of lower extremity shows no evidence of edema. - Labs CBC & Chem 7: 01/05/24 06:57 01/05/24 06:57 Labs: Abnormal Lab Results - Last 24 Hours (Table) 01/05/24 01/05/24 Range/Units 06:57 06:57 Hgb 10.5 L (11.4-16.0) gm/dL MCHC 30.0 L (31.0-37.0) g/dL Lymphocytes # 0.5 L (1.0-4.8) k/uL Chloride 111 H (98-107) mmol/L Carbon Dioxide 20 L (22-30) mmol/L BUN 33 H (7-17) mg/dL Glucose 152 H (74-99) mg/dL AST 39 H (14-36) U/L Total Protein 5.1 L (6.3-8.2) g/dL Albumin 2.5 L (3.5-5.0) g/dL Assessment and Plan Assessment: 1. Acute kidney injury secondary to ATN and urinary retention. Creatinine at 1.1. Baseline creatinine near 0.7. 2. Solitary right kidney with hydronephrosis being followed by urology. Left kidney absent. 3. Hyperkalemia secondary to acute kidney injury, acidosis and urinary retention. 4. Metabolic acidosis secondary to acute kidney injury. 5. Metastatic renal cancer. 6. Cord compression due to metastatic lesion at T10. Status post laminectomy and facetectomy on 01/03/2024 Plan: continue IV bicarb Continue with oral sodium bicarb Repeat labs in a.m.
[2024-01-05 16:41] LABS: Glucose,Whole Blood 169 mg/dL (70-110)
[2024-01-05 20:58] LABS: Glucose,Whole Blood 230 mg/dL (70-110)
[2024-01-05] MEDS: SENNOSIDES-DOCUSATE SODIUM 1 EACH TAB PO PRN (21:12)
[2024-01-06 06:15] LABS: Glucose,Whole Blood 153 mg/dL (70-110)
[2024-01-06 06:59] LABS: Glucose,Whole Blood 191 mg/dL (70-110)
[2024-01-06 07:00] LABS: Glucose,Whole Blood 138 mg/dL (70-110)
[2024-01-06 07:01] LABS: Glucose,Whole Blood 151 mg/dL (70-110)
[2024-01-06 07:01] LABS: Glucose,Whole Blood 130 mg/dL (70-110)
[2024-01-06 07:18] LABS: Glucose,Whole Blood 113 mg/dL (70-110)
[2024-01-06 07:35] LABS: Glucose,Whole Blood 87 mg/dL (70-110)
[2024-01-06 08:15] LABS: Glucose,Whole Blood 162 mg/dL (70-110)
[2024-01-06 08:24] LABS: Glucose,Whole Blood 75 mg/dL (70-110)
[2024-01-06 08:24] LABS: Glucose,Whole Blood 154 mg/dL (70-110)
--- NOTE | 2024-01-06 08:48 | P.PN ---
Progress Note - Text Progress Note Date: 01/06/24 Patient seen and examined this morning. Patient's mentation is much improved. Patient reports that her pain is managed on current regimen. Surgical dressing to the thoracic spine has been removed edges are well-approximated with sutures intact. CHAVO drain has been removed and new dressing has been applied. Patient's heels need to be elevated off of bed, there is bruising to the left heel and they are becoming very soft to palpation. Recommend PRAFO boots. Patient is cleared from a orthopedic standpoint and our services will be signing off at this time. Please feel free to reach out with any questions or concerns.
--- NOTE | 2024-01-06 10:37 | P.PN ---
Subjective Progress Note Date: 01/05/24 78-year-old female transferred to the emergency department secondary to unable to walk. Patient states symptoms have progressed over the past couple of months. Patient does have a history of kidney cancer that she believes is a new diagnosis and is still awaiting treatment for this. Patient does complain of back pain however is unclear how long it has been going on for. Patient does have some underlying dementia complicating history. Patient states she is unable to walk even a step or 2 at this point. -Patient with history of metastatic renal cell cancer presents with progressive leg weakness, unable to walk. Patient will be admitted for further evaluation Blood work reveals a WBC of 12.7, hemoglobin of 12.4 and platelet count of 295, sodium 135, potassium 5.6, BUNs/creatinine of 79/2.59, blood glucose of 98 Chest x-ray is negative for any acute cardiopulmonary disease CT of the lumbar spine reveals destructive metastatic lesion of T10 which is status post vertebroplasty; mild compromise of spinal canal at T10 level secondary to neoplastic mass and posterior migration of vertebroplasty cement; mild superior endplate compression fracture of T4 without destructive lesion; possible superior endplate compression fracture of T11 Abdominal ultrasound reveals mild right hydronephrosis and layering debris in bladder, correlate with urinalysis for cystitis --Patient has Castañeda catheter in place; gross hematuria at this morning; urology is on board; will monitor CBC 01/02/2024 Patient is seen and evaluated in follow-up lethargic although arousable. Patient was having urinary retention had an indwelling Castañeda catheter placed with gross hematuria that persists. Patient was evaluated by urology reporting hematuria was likely due to retention recommend to continue with indwelling Castañeda catheter for now. Follow-up on repeat CBC and currently above 9. Patient and family would like to proceed with surgery for decompression to enhance quality of life. Patient will be considered moderate to high risk for surgical intervention and would need clearance by nephrology as well as patient does have a solitary kidney and came in with dehydration and CHEMO. Kidney functions are im proving and creatinine is 1.9 today. 01/03/2024 Patient is seen and evaluated in follow-up currently scheduled to undergo decompression with orthopedics and currently NPO. Multiple family members at bedside awaiting surgery at this time. Kidney functions have improved and creatinine is 1.2, hemoglobin remained stable with noted hematuria in the Castañeda. Patient to continue with indwelling Castañeda catheter 01/04/2024 Patient is seen and evaluated in follow-up this morning extremely lethargic alth ough arousable. Patient reports is not sleeping very well and reports to feeling somewhat improved since surgery. Patient reports she can feel her lower extremities and on demonstration feels she is moving them although there is no movement at this time. Awaiting to work with PT/OT therapy. Discussed with [id number] at the bedside in detail about overall treatment plan with multiple consultations following. Oncology and radiation oncology following as well. Plan is to return to [facility] for continued strength and mobility once discharged. 01/05/2024 Patient is seen and evaluated in follow-up and asleep although arousable as patient just received IV Dilaudid. Per nursing staff she sleeps for quite some time after receiving Dilaudid and recommend transitioning to some oral pain me dications as well. Patient is continued on sodium bicarb with nephrology following and kidney functions much improved. Patient also continues on IV dexamethasone and evaluated by orthopedics with no further interventions warranted at this time and has cleared the patient for discharge back to [facility]. Patient to work with physical therapy and would recommend working daily. Case management following as the plan is to return to [facility] for continued strength and mobility although need to discuss further with oncology and radiation oncology about overall treatment plan. Patient would likely need to gain strength prior to initiating treatments. Discussing possible palliative radiation. Review of systems: Constitutional: reports of fatigue, no fever, or chills Cardiovascular: No reports of chest pain or palpitations Respiratory: No reports of shortness of breath or cough GI: No reports of nausea, vomiting, or diarrhea, not much of an appetite at all although reports to feeling a little more hungry today : No reports of dysuria, reports retention Neurovascular: reports of generalized weakness with continued numbness in the lower extremities although reports being able to feel her legs All medications have been reviewed Physical exam: Gen: This is a 78-year-old female who is lethargic although arousable, alert and oriented x 3, thin build, elderly appearing, ill appearing HEENT: Head is atraumatic, normocephalic. Pupils equal, round. Sclerae is anicteric. NECK: Supple. No JVD. No lymphadenopathy. No thyromegaly. LUNGS: Diminished breath sounds bilaterally otherwise clear to auscultation. No wheezes or rhonchi. No intercostal retractions. HEART: S1, S2 are muffled ABDOMEN: Soft. Thin, bowel sounds are present. No masses. No tenderness. EXTREMITIES: No pedal edema. No calf tenderness. NEUROLOGICAL: Patient is awake, alert and oriented x3. Diffusely weak Assessment: -Back pain; compression fractures T4/T11, status post T9-11 bilateral laminectomy, partial medial facetectomy and foraminotomy with epidural tumor removal -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 -Acute renal injury; creatinine elevated at 2.59, improving -Hydronephrosis, on the right and per urology likely secondary to retention and bladder distention, continue indwelling Castañeda catheter Abdominal ultrasound reveals mild right hydronephrosis and layering debris in bladder, correlate with urinalysis for cystitis -UA is positive for bacteria, WBCs RBCs and leukocyte esterase, possible cystitis, asymptomatic bacteriuria likely, continue ceftriaxone and await cu lture -Hyperkalemia; likely related to acute renal injury; we will monitor electrolytes closely -Metastatic renal cell carcinoma; oncology and radiation oncology following -GI prophylaxis -DVT prophylaxis; SCDs only given hematuria -full code Plan: Patient was seen and evaluated by orthopedics and has cleared the patient for discharge to ECF. Patient to work with PT/OT therapy daily for continued strength and mobility. Plan is to return to [facility] on [facility] for continued PT/OT therapy urology has evaluated the patient and recommend to continue with indwelling Castañeda catheter Patient with metastatic disease with oncology following. Radiation oncology following as well and may undergo palliative radiation postsurgical intervention. Will need to discuss further with oncology and radiation oncology regarding treatment plan as family was unaware she cannot receive any oncological treatment during ECF. Patient would benefit from going to rehab for continued strength and mobility prior to initiating treatments. Recommend PT/OT therapy postsurgery and will need ECF on discharge Patient given significant comorbidities, is considered moderate to high risk and risk versus benefits including were discussed with family and patient and they are agreeable to proceed with surgical intervention. Continue current regimen per urology and nephrology. Encourage small frequent meals discussed with family if she prefers something from home, okay to bring in to encourage oral intake Overall prognosis is guarded at this time The impression and plan of care has been dictated by Lacy Brumfield, Nurse Practitioner as directed. Dr. Chele MD I have performed a history and examination and MDM of this patient, discussed the same with the dictator, and agree with the dictator's assessment and plan as written ,documented as a scribe. Based on total visit time, I have performed more than 50% of the visit. Objective - Vital Signs Vital signs: Vital Signs Temp 97.5 F L 01/06/24 07:13 Pulse 61 01/06/24 07:13 Resp 17 01/06/24 07:13 BP 117/65 01/06/24 07:13 Pulse Ox 93 L 01/06/24 07:13 FiO2 Intake & Output 01/05/24 01/06/24 01/06/24 18:59 06:59 18:59 Output Total 550 Balance -550 Output: Urine 550 Other: Voiding Method Indwelling Catheter Indwelling Catheter - Labs CBC & Chem 7: 01/05/24 06:57 01/05/24 06:57 Labs: Abnormal Lab Results - Last 24 Hours (Table) 01/03/24 01/03/24 01/04/24 Range/Units 19:16 20:53 11:16 POC Glucose (mg/dL) 154 H 162 H 113 H (70-110) mg/dL 01/04/24 01/04/24 01/05/24 Range/Units 16:46 20:51 05:52 POC Glucose (mg/dL) 151 H 130 H 138 H (70-110) mg/dL 01/05/24 01/05/24 01/05/24 Range/Units 11:36 16:40 20:57 POC Glucose (mg/dL) 191 H 169 H 230 H (70-110) mg/dL 01/06/24 Range/Units 06:13 POC Glucose (mg/dL) 153 H (70-110) mg/dL
[2024-01-06 11:21] LABS: African American GFR (CKD) 77 (>60 ml/min/1.73 sqM); Anion Gap 4 mmol/L; Blood Urea Nitrogen 28 mg/dL (7-17); Calcium 9.6 mg/dL (8.4-10.2); Carbon Dioxide 29 mmol/L (22-30); Chloride 104 mmol/L (98-107); Glucose 156 mg/dL (74-99); Non-African American GFR(CKD) 67 (>60 ml/min/1.73 sqM); Potassium 4.6 mmol/L (3.5-5.1); Sodium 137 mmol/L (137-145)
[2024-01-06 11:38] LABS: Glucose,Whole Blood 178 mg/dL (70-110)
[2024-01-06 11:55] LABS: Glucose,Whole Blood 100 mg/dL (70-110)
[2024-01-06 16:49] LABS: Glucose,Whole Blood 169 mg/dL (70-110)
[2024-01-06 20:52] LABS: Glucose,Whole Blood 157 mg/dL (70-110)
[2024-01-07 05:51] LABS: Glucose,Whole Blood 139 mg/dL (70-110)
--- NOTE | 2024-01-07 07:00 | P.PN ---
Subjective Progress Note Date: 01/06/24 78-year-old female transferred to the emergency department secondary to unable to walk. Patient states symptoms have progressed over the past couple of months. Patient does have a history of kidney cancer that she believes is a new diagnosis and is still awaiting treatment for this. Patient does complain of back pain however is unclear how long it has been going on for. Patient does have some underlying dementia complicating history. Patient states she is unable to walk even a step or 2 at this point. -Patient with history of metastatic renal cell cancer presents with progressive leg weakness, unable to walk. Patient will be admitted for further evaluation Blood work reveals a WBC of 12.7, hemoglobin of 12.4 and platelet count of 295, sodium 135, potassium 5.6, BUNs/creatinine of 79/2.59, blood glucose of 98 Chest x-ray is negative for any acute cardiopulmonary disease CT of the lumbar spine reveals destructive metastatic lesion of T10 which is status post vertebroplasty; mild compromise of spinal canal at T10 level secondary to neoplastic mass and posterior migration of vertebroplasty cement; mild superior endplate compression fracture of T4 without destructive lesion; possible superior endplate compression fracture of T11 Abdominal ultrasound reveals mild right hydronephrosis and layering debris in bladder, correlate with urinalysis for cystitis --Patient has Castañeda catheter in place; gross hematuria at this morning; urology is on board; will monitor CBC 01/02/2024 Patient is seen and evaluated in follow-up lethargic although arousable. Patient was having urinary retention had an indwelling Castañeda catheter placed with gross hematuria that persists. Patient was evaluated by urology reporting hematuria was likely due to retention recommend to continue with indwelling Castañeda catheter for now. Follow-up on repeat CBC and currently above 9. Patient and family would like to proceed with surgery for decompression to enhance quality of life. Patient will be considered moderate to high risk for surgical intervention and would need clearance by nephrology as well as patient does have a solitary kidney and came in with dehydration and CHEMO. Kidney functions are im proving and creatinine is 1.9 today. 01/03/2024 Patient is seen and evaluated in follow-up currently scheduled to undergo decompression with orthopedics and currently NPO. Multiple family members at bedside awaiting surgery at this time. Kidney functions have improved and creatinine is 1.2, hemoglobin remained stable with noted hematuria in the Castañeda. Patient to continue with indwelling Castañeda catheter 01/04/2024 Patient is seen and evaluated in follow-up this morning extremely lethargic alth ough arousable. Patient reports is not sleeping very well and reports to feeling somewhat improved since surgery. Patient reports she can feel her lower extremities and on demonstration feels she is moving them although there is no movement at this time. Awaiting to work with PT/OT therapy. Discussed with [id number] at the bedside in detail about overall treatment plan with multiple consultations following. Oncology and radiation oncology following as well. Plan is to return to [facility] for continued strength and mobility once discharged. 01/05/2024 Patient is seen and evaluated in follow-up and asleep although arousable as patient just received IV Dilaudid. Per nursing staff she sleeps for quite some time after receiving Dilaudid and recommend transitioning to some oral pain me dications as well. Patient is continued on sodium bicarb with nephrology following and kidney functions much improved. Patient also continues on IV dexamethasone and evaluated by orthopedics with no further interventions warranted at this time and has cleared the patient for discharge back to [facility]. Patient to work with physical therapy and would recommend working daily. Case management following as the plan is to return to [facility] for continued strength and mobility although need to discuss further with oncology and radiation oncology about overall treatment plan. Patient would likely need to gain strength prior to initiating treatments. Discussing possible palliative radiation. 01/06/2024 Patient is seen in follow-up today more awake and alert today extremely anxious. Patient is very tearful status post surgery with orthopedics with removal of tumor on the thoracic spine and patient continues to not be able to move her lower extremities. Patient is fearful she will never be able to walk again and feels overwhelmed. Patient is anxious at times and confused but easily redirect able. Patient has been receiving IV pain medications and recommend monitoring and limiting the use and titrating to oral pain medications and other supportive care. Patient continues with indwelling Castañeda catheter and will continue. Continue bowel regimen as scheduled as patient has not had a bowel movement as of yet. Patient is passing gas and felt she was having a bowel movement. Aide at the bedside noted she had a smear of stool. Patient is afebrile with no reports of chest pain or shortness of breath. Orthopedics has signed off the case recommends returning to [facility] for continued PT/OT therapy. Currently awaiting pathology and further discussion with oncology/radiation oncology. Miles patrica prognosis is extremely guarded at this time. Review of systems: Constitutional: reports of fatigue, no fever, or chills, reports feeling extremely anxious Cardiovascular: No reports of chest pain or palpitations Respiratory: No reports of shortness of breath or cough GI: No reports of nausea, vomiting, or diarrhea, not much of an appetite at all although reports to feeling a little more hungry today : No reports of dysuria, reports retention Neurovascular: reports of generalized weakness with continued numbness in the lower extremities although reports being able to feel her legs All medications have been reviewed Physical exam: Gen: This is a 78-year-old female who is awake, alert and oriented x 3, thin build, elderly appearing, ill appearing HEENT: Head is atraumatic, normocephalic. Pupils equal, round. Sclerae is anicteric. NECK: Supple. No JVD. No lymphadenopathy. No thyromegaly. LUNGS: Diminished breath sounds bilaterally otherwise clear to auscultation. No wheezes or rhonchi. No intercostal retractions. HEART: S1, S2 are muffled ABDOMEN: Soft. Thin, bowel sounds are present. No masses. No tenderness. EXTREMITIES: No pedal edema. No calf tenderness. Bilateral dropfoot noted NEUROLOGICAL: Patient is awake, alert and oriented x3. Diffusely weak Assessment: -Back pain; compression fractures T4/T11, status post T9-11 bilateral laminectomy, partial medial facetectomy and foraminotomy with epidural tumor removal -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 -Acute renal injury; creatinine elevated at 2.59, improving -Hydronephrosis, on the right and per urology likely secondary to retention and bladder distention, continue indwelling Castañeda catheter Abdominal ultrasound reveals mild right hydronephrosis and layering debris in bladder, correlate with urinalysis for cystitis -UA is positive for bacteria, WBCs RBCs and leukocyte esterase, possible cystitis, asymptomatic bacteriuria likely, continue ceftriaxone and await cult ure -Hyperkalemia; likely related to acute renal injury; improved. We will monitor electrolytes closely -Metastatic renal cell carcinoma; oncology and radiation oncology following -GI prophylaxis -DVT prophylaxis; SCDs only given hematuria -full code Plan: Patient was seen and evaluated by orthopedics status post thoracic tumor removal with kyphoplasty and has cleared the patient for discharge to ECF. Patient to work with PT/OT therapy daily for continued strength and mobility. Plan is to return to [facility] [place] for continued PT/OT therapy urology has evaluated the patient and recommend to continue with indwelling Castañeda catheter, hematuria resolved Patient with metastatic disease with oncology following. Radiation oncology following as well and may undergo palliative radiation postsurgical intervention. Will need to discuss further with oncology and radiation oncology regarding treatment plan as family was unaware she cannot receive any oncological treatment during ECF. Patient would benefit from going to rehab for continued strength and mobility prior to initiating treatments. Recommend PT/OT therapy postsurgery and will need ECF on discharge Encourage small frequent meals discussed with family if she prefers something from home, okay to bring in to encourage oral intake Overall prognosis is guarded at this time The impression and plan of care has been dictated by Lacy Brumfield, Nurse Practitioner as directed. Dr. Chele MD I have performed a history and examination and MDM of this patient, discussed the same with the dictator, and agree with the dictator's assessment and plan as written ,documented as a scribe. Based on total visit time, I have performed more than 50% of the visit. Objective - Vital Signs Vital signs: Vital Signs Temp 97.5 F L 01/06/24 07:13 Pulse 61 01/06/24 07:13 Resp 17 01/06/24 07:13 BP 117/65 01/06/24 07:13 Pulse Ox 93 L 01/06/24 07:13 FiO2 Intake & Output 01/05/24 01/06/24 01/06/24 18:59 06:59 18:59 Output Total 550 Balance -550 Output: Urine 550 Other: Voiding Method Indwelling Catheter Indwelling Catheter - Labs CBC & Chem 7: 01/05/24 06:57 01/06/24 10:18 Labs: Abnormal Lab Results - Last 24 Hours (Table) 01/03/24 01/03/24 01/04/24 Range/Units 19:16 20:53 11:16 POC Glucose (mg/dL) 154 H 162 H 113 H (70-110) mg/dL 01/04/24 01/04/24 01/05/24 Range/Units 16:46 20:51 05:52 POC Glucose (mg/dL) 151 H 130 H 138 H (70-110) mg/dL 01/05/24 01/05/24 01/05/24 Range/Units 11:36 16:40 20:57 POC Glucose (mg/dL) 191 H 169 H 230 H (70-110) mg/dL 01/06/24 Range/Units 06:13 POC Glucose (mg/dL) 153 H (70-110) mg/dL
[2024-01-07] MEDS: ALPRAZolam 0.25 MG TAB PO PRN (11:44)
[2024-01-07 11:46] LABS: Glucose,Whole Blood 153 mg/dL (70-110)
--- NOTE | 2024-01-07 12:13 | P.PN ---
Subjective Patient is seen for follow-up for acute kidney injury. No significant complaints today. Status post back surgery on 01/03/2024 with laminectomy and facetectomy Serum creatinine at 0.83 mg/dL Objective - Vital Signs Vital signs: Vital Signs Temp 98.1 F 01/07/24 07:24 Pulse 64 01/07/24 07:24 Resp 17 01/07/24 07:24 BP 127/59 01/07/24 07:24 Pulse Ox 94 L 01/07/24 07:24 FiO2 Intake & Output 01/06/24 01/07/24 01/07/24 18:59 06:59 18:59 Output Total 450 250 Balance -450 -250 Weight 61.235 kg Output: Urine 450 250 Other: Voiding Method Indwelling Catheter Indwelling Catheter Indwelling Catheter # Bowel Movements 1 - Exam patient is a awake, comfortable, no acute distress. Examination of the heart S1 and S2 Examination of the lungs decreased breath sounds at the bases Abdomen is soft nontender Examination of lower extremity shows no evidence of edema. - Labs CBC & Chem 7: 01/05/24 06:57 01/06/24 10:18 Labs: Abnormal Lab Results - Last 24 Hours (Table) 01/06/24 01/06/24 01/07/24 Range/Units 16:47 20:37 05:49 POC Glucose (mg/dL) 169 H 157 H 139 H (70-110) mg/dL 01/07/24 Range/Units 11:45 POC Glucose (mg/dL) 153 H (70-110) mg/dL Assessment and Plan Assessment: 1. Acute kidney injury secondary to ATN and urinary retention. Creatinine at 1.1. Baseline creatinine near 0.7. 2. Solitary right kidney with hydronephrosis being followed by urology. Left kidney absent. 3. Hyperkalemia secondary to acute kidney injury, acidosis and urinary retention. 4. Metabolic acidosis secondary to acute kidney injury. 5. Metastatic renal cancer. 6. Cord compression due to metastatic lesion at T10. Status post laminectomy and facetectomy on 01/03/2024 Plan: discontinue IV bicarb and oral bicarb Repeat labs in a.m.
--- NOTE | 2024-01-07 14:22 | PN ---
PROGRESS NOTE DATE OF SERVICE: 01/07/2024 SUBJECTIVE: This is an 78-year-old woman, who was admitted with severe back pain, also had multiple lesions, possibly metastatic lesions. The patient is severely anxious and would like to go back to the rehab at this time. The patient is just lying in the bed. Multiple consultants are following the patient closely. PAST MEDICAL HISTORY: Reviewed. REVIEW OF SYSTEMS: Fourteen-point review is negative except as mentioned earlier. CURRENT MEDICATIONS: Reviewed. PHYSICAL EXAMINATION: VITAL SIGNS: Pulse is 64, blood pressure 127/59, respirations 17. CHEST: A few scattered rhonchi and crackles. ABDOMEN: Soft. NERVOUS SYSTEM: Nonfocal. LABORATORY DATA: Hemoglobin is 10.5. Rest of the labs are noted. ASSESSMENT: 1. Severe back pain with compression fractures at T4-T11 and status post T9-T11 bilateral laminectomy. 2. CT scan of lumbar spine shows multiple metastasis, T10. 3. Acute renal injury. 4. Hydronephrosis. 5. Metastatic renal cell carcinoma. 6. Multiple complex medical issues. 7. Anxiety. RECOMMENDATIONS AND DISCUSSION: This is an 78-year-old woman, who presented with multiple complex medical issues, we will monitor the patient closely. Continue the current medications. Continue the pain medications. I would also recommend adding Xanax to the current regimen. The patient would like to go home, but at this time, I would recommend PT, OT, increase ambulation and if the patient is able to tolerate ambulation, possible ECF rehab. Prognosis guarded. Discussed with staff. Further recommendations to follow. MMODL / IJN: [id number] /
--- NOTE | 2024-01-07 16:36 | CT ---
EXAMINATION TYPE: CT brain wo con CT DLP: 1102.4 mGycm, Automated exposure control for dose reduction was used. DATE OF EXAM: 01/07/2024 3:59 PM COMPARISON: None. CLINICAL INDICATION: Female, 78 years old with history of mets??, AMS TECHNIQUE: Brain: Axial CT images of the brain were obtained with coronal and sagittal reformats created and rev iewed. Contrast used: None. Oral contrast used: None. FINDINGS: Brain: Extra-axial spaces: No abnormal extra-axial fluid collections. Stable extra-axial mass with mineraliz ation along the right frontal skull measuring up to 15 mm compared to 10/23/2022 Ventricular system: Dilatation in proportion to cerebral atrophy. Cerebral parenchyma: Cerebral atrophy. No acute intraparenchymal hemorrhage or mass effect. The crawford -white junction is well differentiated. Suspected remote injury to the right thalamus Scattered hypoa ttenuating areas are seen within the white matter. Cerebellum: Unremarkable. Mass effect: No evidence of midline shift. Intracranial vasculature: unremarkable Soft tissues: Normal. Calvarium/osseous structures: No depressed skull fracture. Paranasal sinuses and mastoid air cells: Mild scattered paranasal sinus disease. Visualized orbits: Orbital contents are intact. IMPRESSION: 1. No acute intracranial process. 2. Nonspecific white matter changes, likely secondary to chronic small vessel ischemic disease. 3. Remote appearing injury to the right thalamus. 4. Stable extra-axial mass with mineralization along the right frontal skull measuring up to 15 mm co mpared to 10/23/2022 finding likely represents meningioma. [facility], , 01/07/2024 4:33 PM
[2024-01-07 17:07] LABS: Glucose,Whole Blood 130 mg/dL (70-110)
[2024-01-07] MEDS: ACETAMINOPHEN TAB 325 MG TAB PO PRN (20:32)
[2024-01-07 20:58] LABS: Glucose,Whole Blood 148 mg/dL (70-110)
[2024-01-08 05:50] LABS: Glucose,Whole Blood 129 mg/dL (70-110)
[2024-01-08 09:12] LABS: Basophils # (A) 0.03 X 10*3/uL (0.00-0.10); Basophils % (A) 0.2 %; Eosinophils # (A) 0.06 X 10*3/uL (0.04-0.35); Eosinophils % (A) 0.4 %; HCT 34.4 % (37.2-46.3); HGB 10.3 g/dL (12.0-15.0); Lymphocytes # (A) 1.02 X 10*3/uL (0.90-5.00); Lymphocytes % (A) 6.6 %; MCH 27.8 pg (27.0-32.0); MCHC 29.9 g/dL (32.0-37.0); Mean Platelet Volume 10.1 FL (9.5-12.2); Monocytes # (A) 0.64 X 10*3/uL (0.20-1.00); Monocytes % (A) 4.1 %; NRBC Per 100 WBC 0 X 10*3/uL (0.00-0.01); Neutrophils # (A) 13.65 X 10*3/uL (1.80-7.70); Neutrophils % (A) 87.8 %; Platelet Count 204 X 10*3/uL (140-440); RDW 14.3 % (11.5-14.5); WBC 15.54 X 10*3/uL (4.50-10.00)
[2024-01-08 10:29] LABS: ALT 17 U/L (8-44); AST 34 U/L (13-35); Albumin 2.8 g/dL (3.8-4.9); Albumin/Globulin Ratio 1.33 Ratio (1.60-3.17); Alkaline Phosphatase 52 U/L (41-126); BUN/Creat Ratio 34.14 Ratio (12.00-20.00); Blood Urea Nitrogen 23.9 mg/dL (9.0-27.0); Calcium 8.9 mg/dL (8.7-10.3); Carbon Dioxide 25.4 mmol/L (21.6-31.8); Chloride 104 mmol/L (96-109); Globulin 2.1 g/dL (1.6-3.3); Glucose 136 mg/dL (70-110); Potassium 4.8 mmol/L (3.5-5.5); Sodium 138 mmol/L (135-145); Total Bilirubin <0.2 mg/dL (0.3-1.2); Total Protein 4.9 g/dL (6.2-8.2)
--- NOTE | 2024-01-08 11:31 | P.PN ---
Subjective Patient is seen for follow-up for acute kidney injury. No significant complaints today. Status post back surgery on 01/03/2024 with laminectomy and facetectomy Serum creatinine at 0.7 mg/dL Objective - Vital Signs Vital signs: Vital Signs Temp 97.5 F L 01/08/24 07:20 Pulse 69 01/08/24 07:20 Resp 17 01/08/24 07:20 BP 146/56 01/08/24 07:20 Pulse Ox 96 01/08/24 07:20 FiO2 Intake & Output 01/07/24 01/08/24 01/08/24 18:59 06:59 18:59 Output Total 1000 300 Balance -1000 -300 Output: Urine 1000 300 Other: Voiding Method Indwelling Catheter Indwelling Catheter Indwelling Catheter - Exam patient is a awake, comfortable, no acute distress. Examination of the heart S1 and S2 Examination of the lungs decreased breath sounds at the bases Abdomen is soft nontender Examination of lower extremity shows no evidence of edema. - Labs CBC & Chem 7: 01/08/24 03:18 01/08/24 03:18 Labs: Abnormal Lab Results - Last 24 Hours (Table) 01/07/24 01/07/24 01/07/24 Range/Units 11:45 17:06 20:57 WBC (4.50-10.00) X 10*3/uL RBC (4.10-5.20) X 10*6/uL Hgb (12.0-15.0) g/dL Hct (37.2-46.3) % MCHC (32.0-37.0) g/dL Immature Gran # (0.00-0.04) X 10*3/uL Neutrophils # (1.80-7.70) X 10*3/uL BUN/Creatinine Ratio (12.00-20.00) Ratio Glucose (70-110) mg/dL POC Glucose (mg/dL) 153 H 130 H 148 H (70-110) mg/dL Total Bilirubin (0.3-1.2) mg/dL Total Protein (6.2-8.2) g/dL Albumin (3.8-4.9) g/dL Albumin/Globulin Ratio (1.60-3.17) Ratio 01/08/24 01/08/24 01/08/24 Range/Units 03:18 03:18 05:49 WBC 15.54 H (4.50-10.00) X 10*3/uL RBC 3.70 L (4.10-5.20) X 10*6/uL Hgb 10.3 L (12.0-15.0) g/dL Hct 34.4 L (37.2-46.3) % MCHC 29.9 L (32.0-37.0) g/dL Immature Gran # 0.14 H (0.00-0.04) X 10*3/uL Neutrophils # 13.65 H (1.80-7.70) X 10*3/uL BUN/Creatinine Ratio 34.14 H (12.00-20.00) Ratio Glucose 136 H (70-110) mg/dL POC Glucose (mg/dL) 129 H (70-110) mg/dL Total Bilirubin <0.2 L (0.3-1.2) mg/dL Total Protein 4.9 L (6.2-8.2) g/dL Albumin 2.8 L (3.8-4.9) g/dL Albumin/Globulin Ratio 1.33 L (1.60-3.17) Ratio Assessment and Plan Assessment: 1. Acute kidney injury secondary to ATN and urinary retention. Creatinine at 1.1. Baseline creatinine near 0.7. 2. Solitary right kidney with hydronephrosis being followed by urology. Left kidney absent. 3. Hyperkalemia secondary to acute kidney injury, acidosis and urinary retention. 4. Metabolic acidosis secondary to acute kidney injury. 5. Metastatic renal cancer. 6. Cord compression due to metastatic lesion at T10. Status post laminectomy and facetectomy on 01/03/2024 Plan: encourage increased oral intake Awaiting rehab Continue with Castañeda catheter
[2024-01-08 11:35] LABS: Glucose,Whole Blood 113 mg/dL (70-110)
[2024-01-08 16:26] LABS: Glucose,Whole Blood 159 mg/dL (70-110)
[2024-01-08 21:03] LABS: Glucose,Whole Blood 136 mg/dL (70-110)
--- NOTE | 2024-01-09 02:25 | PN ---
PROGRESS NOTE DATE OF SERVICE: 01/08/2024 SUBJECTIVE: This 78-year-old woman who was admitted with severe back pain and fractures, also had metastasis. CT of the brain was done, showed no acute intracranial process. On exam, ECF rehab is being planned, but the patient has weakness of both legs. PAST MEDICAL HISTORY: Reviewed. REVIEW OF SYSTEMS: Fourteen-point review is negative except as mentioned earlier. CURRENT MEDICATIONS: Reviewed. PHYSICAL EXAMINATION: VITAL SIGNS: Pulse is 65, blood pressure 110/70, and respirations 17. HEENT: Conjunctivae normal. CARDIOVASCULAR: S1, S2. RESPIRATIONS: Breath sounds diminished at the bases. A few scattered rhonchi. ABDOMEN: Soft. NERVOUS SYSTEM: Bilateral leg weakness present. LABORATORY DATA: WBC 15.54. ASSESSMENT: 1. Severe back pain with compression fracture T4 to T11 and status post T9 to T11 bilateral laminectomies. 2. Weakness of both legs, paraparesis. 3. CT scan of the lumbar spine showing multiple metastasis, T10. 4. Acute renal injury. 5. Hydronephrosis. 6. Metastatic renal cell carcinoma. 7. Multiple complex medical issues. 8. Anxiety. RECOMMENDATIONS AND DISCUSSION: I recommend to continue current management. Recommend PT, OT evaluation. I would also recommend a Neurology evaluation also. Orthopedic surgery is already following the patient closely. The patient might require MRI studies also at this time. Further recommendations to follow. MMODL / IJN: [id number] /
[2024-01-09 05:39] LABS: Glucose,Whole Blood 115 mg/dL (70-110)
[2024-01-09 08:48] LABS: Basophils # (A) 0.02 X 10*3/uL (0.00-0.10); Basophils % (A) 0.1 %; Eosinophils % (A) 0.6 %; HGB 10.6 g/dL (12.0-15.0); Lymphocytes # (A) 0.93 X 10*3/uL (0.90-5.00); Lymphocytes % (A) 5.8 %; MCH 28.4 pg (27.0-32.0); MCHC 31.2 g/dL (32.0-37.0); MCV 91.2 FL (80.0-97.0); Mean Platelet Volume 9.9 FL (9.5-12.2); Monocytes # (A) 0.57 X 10*3/uL (0.20-1.00); Monocytes % (A) 3.6 %; NRBC Per 100 WBC 0 X 10*3/uL (0.00-0.01); Neutrophils # (A) 14.18 X 10*3/uL (1.80-7.70); Neutrophils % (A) 88.8 %; Platelet Count 225 X 10*3/uL (140-440); RBC 3.73 X 10*6/uL (4.10-5.20); RDW 14.5 % (11.5-14.5); WBC 15.98 X 10*3/uL (4.50-10.00)
[2024-01-09 09:01] LABS: ALT 24 U/L (8-44); AST 34 U/L (13-35); Albumin 2.8 g/dL (3.8-4.9); Albumin/Globulin Ratio 1.27 Ratio (1.60-3.17); Alkaline Phosphatase 59 U/L (41-126); Blood Urea Nitrogen 25.9 mg/dL (9.0-27.0); Carbon Dioxide 25.7 mmol/L (21.6-31.8); Chloride 105 mmol/L (96-109); Globulin 2.2 g/dL (1.6-3.3); Glucose 127 mg/dL (70-110); Potassium 4.9 mmol/L (3.5-5.5); Sodium 138 mmol/L (135-145); Total Bilirubin <0.2 mg/dL (0.3-1.2)
[2024-01-09 11:20] LABS: Glucose,Whole Blood 163 mg/dL (70-110)
--- NOTE | 2024-01-09 14:23 | P.PN ---
Subjective Progress Note Date: 01/09/24 Principal diagnosis: CHEMO secondary to Acute tubular necrosis and urinary retention Patient is a 78 year old female who was admitted on 12/31/23 due to generalised weakness and seen as a consult for acute kidney injury. At the time a kidney ultrasound showed right sided hydronephrosis and absent left kidney. She also has a history of kindey cancer. She was found to have CHEMO due to ATN and urinary retention. Creatinine was elevated at 2.59 01/09/24 Today the patient seems to be doing well. She notes an improvement in weakness although does complain of some lower back pain. She mentions having a low apetite. Denies abdominal pain. She doesn't report any burning or problems with the man catheter. Labs today show Na 138, K 4.9, BUN 25.9, Cr 0.7, BUN/Cr 37, Est GFR 87. Vitals: T 97.8F, P 84 bpm, RR 17, BP 117/56, O2 sat 95% on RA General: nontoxic, no distress, appears at stated age, normal bmi Derm: warm, dry, intact Head: atraumatic, normocephalic, symmetric Cardiovascular: S1 S2 reg, no murmur Lungs: CTA bilateral, no rhonchi, no rales, no accessory muscle use Abdominal: soft, non-tender to palpataion : Man catheter in place Extremities: trace edema, no gross muscle atrophy Neuro: Alert, Oriented Assessment: CKD stage II Acute kidney injury secondary to ATN urinary retention, improving Solitary right kidney with hydronephrosis, now improving. Followed by urology Hyperkalemia secondary to acute kidney injury, acidosis on and urinary retention. Now resolved Metastatic renal cancer Cord compression due to metastatic lesion at T10. Status postlaminectomy and facetectomy on 01/03/2024 Plan: Encourage increase oral intake Continue Man catheter Patient going to rehab upon discharge I have seen and examined the patient with resident and and agree with A&P as written. Man per urology. GFR at baseline. Objective - Vital Signs Vital signs: Vital Signs Temp 97.8 F 01/09/24 03:00 Pulse 55 L 01/09/24 07:37 Resp 16 01/09/24 07:37 BP 125/54 01/09/24 07:37 Pulse Ox 95 01/09/24 07:37 FiO2 Intake & Output 10/06/24 10/07/24 10/07/24 18:59 06:59 18:59 Output Total 500 Balance -500 Output: Urine 500 Other: Voiding Method Indwelling Catheter Indwelling Catheter - Labs CBC & Chem 7: 01/09/24 02:50 01/09/24 02:50 Labs: Abnormal Lab Results - Last 24 Hours (Table) 01/08/24 01/08/24 01/08/24 Range/Units 03:18 11:33 16:24 WBC (4.50-10.00) X 10*3/uL RBC (4.10-5.20) X 10*6/uL Hgb (12.0-15.0) g/dL Hct (37.2-46.3) % MCHC (32.0-37.0) g/dL Immature Gran # (0.00-0.04) X 10*3/uL Neutrophils # (1.80-7.70) X 10*3/uL BUN/Creatinine Ratio 34.14 H (12.00-20.00) Ratio Glucose 136 H (70-110) mg/dL POC Glucose (mg/dL) 113 H 159 H (70-110) mg/dL Total Bilirubin <0.2 L (0.3-1.2) mg/dL Total Protein 4.9 L (6.2-8.2) g/dL Albumin 2.8 L (3.8-4.9) g/dL Albumin/Globulin Ratio 1.33 L (1.60-3.17) Ratio 01/08/24 01/09/24 01/09/24 Range/Units 21:01 02:50 02:50 WBC 15.98 H (4.50-10.00) X 10*3/uL RBC 3.73 L (4.10-5.20) X 10*6/uL Hgb 10.6 L (12.0-15.0) g/dL Hct 34.0 L (37.2-46.3) % MCHC 31.2 L (32.0-37.0) g/dL Immature Gran # 0.18 H (0.00-0.04) X 10*3/uL Neutrophils # 14.18 H (1.80-7.70) X 10*3/uL BUN/Creatinine Ratio 37.00 H (12.00-20.00) Ratio Glucose 127 H (70-110) mg/dL POC Glucose (mg/dL) 136 H (70-110) mg/dL Total Bilirubin <0.2 L (0.3-1.2) mg/dL Total Protein 5.0 L (6.2-8.2) g/dL Albumin 2.8 L (3.8-4.9) g/dL Albumin/Globulin Ratio 1.27 L (1.60-3.17) Ratio 01/09/24 Range/Units 05:38 WBC (4.50-10.00) X 10*3/uL RBC (4.10-5.20) X 10*6/uL Hgb (12.0-15.0) g/dL Hct (37.2-46.3) % MCHC (32.0-37.0) g/dL Immature Gran # (0.00-0.04) X 10*3/uL Neutrophils # (1.80-7.70) X 10*3/uL BUN/Creatinine Ratio (12.00-20.00) Ratio Glucose (70-110) mg/dL POC Glucose (mg/dL) 115 H (70-110) mg/dL Total Bilirubin (0.3-1.2) mg/dL Total Protein (6.2-8.2) g/dL Albumin (3.8-4.9) g/dL Albumin/Globulin Ratio (1.60-3.17) Ratio
[2024-01-09 16:37] LABS: Glucose,Whole Blood 153 mg/dL (70-110)
--- NOTE | 2024-01-09 16:42 | P.CNNES ---
History of Present Illness Consult date: 01/09/24 Requesting physician: Herve Cyr Reason for Consult: paraparesis History of Present Illness: This is an 78-year-old woman with underlying history of dementia, metastatic renal cell carcinoma post left nephrectomy in January 2022 but was found to have metastatic disease this past year in which the patient had biopsy of T10 consistent with renal cell carcinoma and is on chemotherapy, patient fracture of the thoracic spine, s/p vertebroplasyt in August 2023 who is transferred to our emergency department on 12/31/2023 since the patient is unable to walk. It seems the patient symptoms has progressed over the past couple months. Is a poor historian. Patient continues to have significant weakness and the primary team states the orthopedic has off but the patient continues to have weakness even though she had surgery. Patient states that she just wants to get therapy. Primary team wants our input of obtaining MRI according to the nurse practitioner from the primary team. Some of the workup during this hospital visit consisted of: CT head is reported as no acute intracranial process. Remote appearing injury right thalamus. Stable extra-axial mass along the right frontal skull measuring up to 15 mm compared to 10/2022 likely represent meningioma I personally reviewed the CT and I agree there is no acute or subacute process. CT thoracic and lumbar is reported as destructive metastasis lesion of T10 which is status post ventricle plasty. There is mild compromise of the spinal canal at the T10 level secondary due to neoplastic mass and posterior margin Gratian of the vertebral plasty cement. Possible mild superior endplate compression fracture of T11. Review of Systems Limited. Past Medical History Past Medical History: Cancer, Dementia, Diabetes Mellitus, Hypertension Additional Past Medical History / Comment(s): Current renal cell cancer. 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 Type II DM. Hx fractured right femur from fall 04/04/23. No medication needed for Diabetes at this time. History of Any Multi-Drug Resistant Organisms: None Reported Past Surgical History: Appendectomy, Cholecystectomy, Hysterectomy, Orthopedic Surgery, Tonsillectomy Additional Past Surgical History / Comment(s): Left nephrectomy 01/23, left femur surgery, T-10 ablation with vertebroplasty. Past Anesthesia/Blood Transfusion Reactions: No Reported Reaction Additional Past Anesthesia/Blood Transfusion Reaction / Comment(s): Hx blood transfusion witj no issues. Past Psychological History: Anxiety Smoking Status: Never smoker Past Alcohol Use History: None Reported Past Drug Use History: None Reported - Past Family History Mother Family Medical History: Cancer Additional Family Medical History / Comment(s): Lung cancer. Medications and Allergies Home Medications Medication Instructions Recorded Confirmed Type amLODIPine [Norvasc] 5 mg PO DAILY@0901/07/22 12/31/23 History Acetaminophen Tab [Tylenol] 1,000 mg PO Q6H PRN 12/04/23 12/31/23 History Cholecalciferol (Vitamin D3) 50 mcg PO DAILY@89912/31/23 12/31/23 History [Vitamin D3 (50 Mcg = 2000 Iu)] Clotrimazole/Betameth Cream 1 applic TOPICAL HS 12/31/23 12/31/23 History [Lotrisone] Lactose-Reduced Food [Ensure Plus] 237 ml PO BID@899,1700 12/31/23 12/31/23 H istory Melatonin 3 mg PO HS@209912/31/23 12/31/23 History Mirtazapine [Remeron] 15 mg PO HS@209912/31/23 12/31/23 History Sertraline [Zoloft] 100 mg PO DAILY@89912/31/23 12/31/23 History Therahoney External Gel (Wound 1 applic TOPICAL DAILY PRN 12/31/23 12/31/23 History Dressing) Therahoney External Gel (Wound 1 applic TOPICAL HS 12/31/23 12/31/23 History Dressing) diphenhydrAMINE HCL [Benadryl] 25 mg PO TID PRN 12/31/23 12/31/23 History Allergies Allergy/AdvReac Type Severity Reaction Status Date / Time Sulfa (Sulfonamide Allergy Rash/Hives Verified 12/31/23 14:14 Antibiotics) Physical Examination - Vital Signs Vital Signs: Vital Signs Temp Pulse Resp BP Pulse Ox 01/09/24 15:00 98.2 F 70 16 135/59 94 L 01/09/24 09:10 55 L 16 01/09/24 07:37 55 L 16 125/54 95 01/09/24 03:00 97.8 F 84 117/56 95 01/08/24 19:53 98 F 65 104/55 96 Intake and Output 01/09/24 01/09/24 01/09/24 06:59 14:59 22:59 Output Total 500 Balance -500 Output: Urine 500 Other: Voiding Method Indwelling Catheter General: Lying in bed and does not appear in acute distress. Neuro: Limited. Is awake alert oriented to self place and time. She is slow to respond. She is able to name option correctly such as pen and watch. Is following simple commands. Patient kept on repeating I want therapy I want therapy at Rehab. Pupils are round equal reactive to light symmetrically. No facial weakness. No dysarthria Motor: Somewhat limited. Forearm extension is 4+ flexion is 5 -. Otherwise upper extremity 5 is 5 over. In the lowers: Left lower is about 1 otherwise lowers are 0 out of 5. Patient is decreasing/in the lowers compared to the uppers Reflexes is 1-2 in the uppers in the lowers 0. Plantars: Mute bilaterally. Results - Laboratory Findings CBC and BMP: 01/09/24 02:50 01/09/24 02:50 Abnormal Lab Findings: Abnormal Labs 12/31/23 12/31/23 12/31/23 13:25 13:25 14:15 WBC 12.7 H RBC Hgb Hct MCHC 30.7 L MPV Immature Gran # Neutrophils # 9.9 H Lymphocytes # Monocytes # 1.2 H Eosinophils # Sodium 135 L Potassium 5.6 H Chloride Carbon Dioxide 17 L Anion Gap BUN 79 H Creatinine 2.59 H Est GFR (CKD-EPI) BUN/Creatinine Ratio Glucose POC Glucose (mg/dL) Total Bilirubin AST ALT Total Protein 6.0 L Albumin 3.1 L Albumin/Globulin Ratio Urine Appearance Turbid H Urine pH 8.5 H Urine Protein 4+ H Urine Blood Large H Ur Leukocyte Esterase Large H Urine RBC >182 H Urine WBC 65 H Urine Bacteria Rare H 01/01/24 01/01/24 01/01/24 06:40 06:40 16:57 WBC 12.41 H RBC 3.90 L Hgb 11.0 L Hct 36.4 L MCHC 30.2 L MPV Immature Gran # 0.07 H Neutrophils # 8.74 H Lymphocytes # Monocytes # 1.62 H Eosinophils # 0.50 H Sodium 134 L Potassium 5.7 H Chloride 109 H Carbon Dioxide 17.2 L 21 L Anion Gap BUN 75.0 H 75 H Creatinine 2.6 H 2.20 H Est GFR (CKD-EPI) 18 L BUN/Creatinine Ratio 28.85 H Glucose 65 L POC Glucose (mg/dL) Total Bilirubin AST ALT 7 L Total Protein 5.6 L Albumin 2.9 L Albumin/Globulin Ratio 1.07 L Urine Appearance Urine pH Urine Protein Urine Blood Ur Leukocyte Esterase Urine RBC Urine WBC Urine Bacteria 01/02/24 01/02/24 01/02/24 05:24 05:24 18:20 WBC RBC 3.55 L 3.54 L Hgb 9.9 L 10.0 L D Hct 33.2 L 32.7 L MCHC 29.8 L 30.6 L MPV Immature Gran # Neutrophils # Lymphocytes # Monocytes # Eosinophils # 0.48 H Sodium Potassium Chloride 110 H Carbon Dioxide 21.0 L Anion Gap BUN 62.4 H Creatinine 1.9 H Est GFR (CKD-EPI) 26 L BUN/Creatinine Ratio 32.84 H Glucose POC Glucose (mg/dL) Total Bilirubin AST ALT Total Protein Albumin Albumin/Globulin Ratio Urine Appearance Urine pH Urine Protein Urine Blood Ur Leukocyte Esterase Urine RBC Urine WBC Urine Bacteria 01/03/24 01/03/24 01/03/24 06:15 06:15 19:16 WBC RBC 3.42 L Hgb 9.7 L Hct 31.6 L MCHC 30.6 L MPV Immature Gran # Neutrophils # Lymphocytes # 0.9 L Monocytes # Eosinophils # Sodium Potassium 3.4 L Chloride 114 H Carbon Dioxide 20 L Anion Gap BUN 45 H Creatinine 1.21 H Est GFR (CKD-EPI) BUN/Creatinine Ratio Glucose 72 L POC Glucose (mg/dL) 154 H Total Bilirubin AST ALT Total Protein 4.7 L Albumin 2.3 L Albumin/Globulin Ratio Urine Appearance Urine pH Urine Protein Urine Blood Ur Leukocyte Esterase Urine RBC Urine WBC Urine Bacteria 01/03/24 01/04/24 01/04/24 20:53 03:13 03:13 WBC RBC 3.66 L Hgb 9.9 L Hct 34.1 L MCHC 29.0 L MPV 9.0 L Immature Gran # 0.08 H Neutrophils # Lymphocytes # 0.66 L Monocytes # Eosinophils # 0.01 L Sodium Potassium Chloride 111 H Carbon Dioxide 14.8 L Anion Gap 14.20 H BUN 35.0 H Creatinine Est GFR (CKD-EPI) 51 L BUN/Creatinine Ratio 31.82 H Glucose POC Glucose (mg/dL) 162 H Total Bilirubin AST ALT Total Protein Albumin Albumin/Globulin Ratio Urine Appearance Urine pH Urine Protein Urine Blood Ur Leukocyte Esterase Urine RBC Urine WBC Urine Bacteria 01/04/24 01/04/24 01/04/24 11:16 16:46 20:51 WBC RBC Hgb Hct MCHC MPV Immature Gran # Neutrophils # Lymphocytes # Monocytes # Eosinophils # Sodium Potassium Chloride Carbon Dioxide Anion Gap BUN Creatinine Est GFR (CKD-EPI) BUN/Creatinine Ratio Glucose POC Glucose (mg/dL) 113 H 151 H 130 H Total Bilirubin AST ALT Total Protein Albumin Albumin/Globulin Ratio Urine Appearance Urine pH Urine Protein Urine Blood Ur Leukocyte Esterase Urine RBC Urine WBC Urine Bacteria 01/05/24 01/05/24 01/05/24 05:52 06:57 06:57 WBC RBC Hgb 10.5 L Hct MCHC 30.0 L MPV Immature Gran # Neutrophils # Lymphocytes # 0.5 L Monocytes # Eosinophils # Sodium Potassium Chloride 111 H Carbon Dioxide 20 L Anion Gap BUN 33 H Creatinine Est GFR (CKD-EPI) BUN/Creatinine Ratio Glucose 152 H POC Glucose (mg/dL) 138 H Total Bilirubin AST 39 H ALT Total Protein 5.1 L Albumin 2.5 L Albumin/Globulin Ratio Urine Appearance Urine pH Urine Protein Urine Blood Ur Leukocyte Esterase Urine RBC Urine WBC Urine Bacteria 01/05/24 01/05/24 01/05/24 11:36 16:40 20:57 WBC RBC Hgb Hct MCHC MPV Immature Gran # Neutrophils # Lymphocytes # Monocytes # Eosinophils # Sodium Potassium Chloride Carbon Dioxide Anion Gap BUN Creatinine Est GFR (CKD-EPI) BUN/Creatinine Ratio Glucose POC Glucose (mg/dL) 191 H 169 H 230 H Total Bilirubin AST ALT Total Protein Albumin Albumin/Globulin Ratio Urine Appearance Urine pH Urine Protein Urine Blood Ur Leukocyte Esterase Urine RBC Urine WBC Urine Bacteria 01/06/24 01/06/24 01/06/24 06:13 10:18 11:37 WBC RBC Hgb Hct MCHC MPV Immature Gran # Neutrophils # Lymphocytes # Monocytes # Eosinophils # Sodium Potassium Chloride Carbon Dioxide Anion Gap BUN 28 H Creatinine Est GFR (CKD-EPI) BUN/Creatinine Ratio Glucose 156 H POC Glucose (mg/dL) 153 H 178 H Total Bilirubin AST ALT Total Protein Albumin Albumin/Globulin Ratio Urine Appearance Urine pH Urine Protein Urine Blood Ur Leukocyte Esterase Urine RBC Urine WBC Urine Bacteria 01/06/24 01/06/24 01/07/24 16:47 20:37 05:49 WBC RBC Hgb Hct MCHC MPV Immature Gran # Neutrophils # Lymphocytes # Monocytes # Eosinophils # Sodium Potassium Chloride Carbon Dioxide Anion Gap BUN Creatinine Est GFR (CKD-EPI) BUN/Creatinine Ratio Glucose POC Glucose (mg/dL) 169 H 157 H 139 H Total Bilirubin AST ALT Total Protein Albumin Albumin/Globulin Ratio Urine Appearance Urine pH Urine Protein Urine Blood Ur Leukocyte Esterase Urine RBC Urine WBC Urine Bacteria 01/07/24 01/07/24 01/07/24 11:45 17:06 20:57 WBC RBC Hgb Hct MCHC MPV Immature Gran # Neutrophils # Lymphocytes # Monocytes # Eosinophils # Sodium Potassium Chloride Carbon Dioxide Anion Gap BUN Creatinine Est GFR (CKD-EPI) BUN/Creatinine Ratio Glucose POC Glucose (mg/dL) 153 H 130 H 148 H Total Bilirubin AST ALT Total Protein Albumin Albumin/Globulin Ratio Urine Appearance Urine pH Urine Protein Urine Blood Ur Leukocyte Esterase Urine RBC Urine WBC Urine Bacteria 01/08/24 01/08/24 01/08/24 03:18 03:18 05:49 WBC 15.54 H RBC 3.70 L Hgb 10.3 L Hct 34.4 L MCHC 29.9 L MPV Immature Gran # 0.14 H Neutrophils # 13.65 H Lymphocytes # Monocytes # Eosinophils # Sodium Potassium Chloride Carbon Dioxide Anion Gap BUN Creatinine Est GFR (CKD-EPI) BUN/Creatinine Ratio 34.14 H Glucose 136 H POC Glucose (mg/dL) 129 H Total Bilirubin <0.2 L AST ALT Total Protein 4.9 L Albumin 2.8 L Albumin/Globulin Ratio 1.33 L Urine Appearance Urine pH Urine Protein Urine Blood Ur Leukocyte Esterase Urine RBC Urine WBC Urine Bacteria 01/08/24 01/08/24 01/08/24 11:33 16:24 21:01 WBC RBC Hgb Hct MCHC MPV Immature Gran # Neutrophils # Lymphocytes # Monocytes # Eosinophils # Sodium Potassium Chloride Carbon Dioxide Anion Gap BUN Creatinine Est GFR (CKD-EPI) BUN/Creatinine Ratio Glucose POC Glucose (mg/dL) 113 H 159 H 136 H Total Bilirubin AST ALT Total Protein Albumin Albumin/Globulin Ratio Urine Appearance Urine pH Urine Protein Urine Blood Ur Leukocyte Esterase Urine RBC Urine WBC Urine Bacteria 01/09/24 01/09/24 01/09/24 02:50 02:50 05:38 WBC 15.98 H RBC 3.73 L Hgb 10.6 L Hct 34.0 L MCHC 31.2 L MPV Immature Gran # 0.18 H Neutrophils # 14.18 H Lymphocytes # Monocytes # Eosinophils # Sodium Potassium Chloride Carbon Dioxide Anion Gap BUN Creatinine Est GFR (CKD-EPI) BUN/Creatinine Ratio 37.00 H Glucose 127 H POC Glucose (mg/dL) 115 H Total Bilirubin <0.2 L AST ALT Total Protein 5.0 L Albumin 2.8 L Albumin/Globulin Ratio 1.27 L Urine Appearance Urine pH Urine Protein Urine Blood Ur Leukocyte Esterase Urine RBC Urine WBC Urine Bacteria 01/09/24 11:19 WBC RBC Hgb Hct MCHC MPV Immature Gran # Neutrophils # Lymphocytes # Monocytes # Eosinophils # Sodium Potassium Chloride Carbon Dioxide Anion Gap BUN Creatinine Est GFR (CKD-EPI) BUN/Creatinine Ratio Glucose POC Glucose (mg/dL) 163 H Total Bilirubin AST ALT Total Protein Albumin Albumin/Globulin Ratio Urine Appearance Urine pH Urine Protein Urine Blood Ur Leukocyte Esterase Urine RBC Urine WBC Urine Bacteria Assessment and Plan Assessment: This is an 78 y/o woman with hx of renal cell carcinoma post left nephrectomy in January 2022 but was found to have metastatic disease this past year in which the patient had biopsy of T10 consistent with renal cell carcinoma and is on chemotherapy, fracture of the thoracic spine, which vertebroblasty in August 2023 who is transferred to our emergency department on 12/31/2023 since the patient is unable to walk. Her symptoms are progressive over past couple month. 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 History of metastatic renal carcinoma Compression fracture in thoracic region Dementia History of renal cell carcinoma post left nephrectomy in January 2022 Hydronephrosis Probable acute UTI Plan: I spoke with the nurse practitioner primary team and she stated that primary attending feels patient is continues to be persistent even though after surgery and neurology input regarding pursuing MRI and further evaluation regarding her weakness especially since orthopedic has signed off. Recommend MRI thoracic and lumbar region w/ and without but I think the primary team should discuss this with orthopedic surgery team since there will be artifact from surgery. If does not reveal cause then obtain MRI Cervical spine. Recommend EMG with nerve conduction study as an outpatient of the lowers than the uppers I ordered TSH, vitamin B12, hemoglobin A1c. Patient is on Decadron 4 mg every 4 hours. Continue physical therapy In this hospital visit orthopedic surgery team was consulted, urology team was consulted, radiation oncology team was consulted. Recommend intensive rehab if possible. Thank you for the consultation. Time with Patient: Greater than 30
[2024-01-09 21:37] LABS: Glucose,Whole Blood 207 mg/dL (70-110)
--- NOTE | 2024-01-10 00:40 | P.PN ---
Subjective Progress Note Date: 01/09/24 78-year-old female transferred to the emergency department secondary to unable to walk. Patient states symptoms have progressed over the past couple of months. Patient does have a history of kidney cancer that she believes is a new diagnosis and is still awaiting treatment for this. Patient does complain of back pain however is unclear how long it has been going on for. Patient does have some underlying dementia complicating history. Patient states she is unable to walk even a step or 2 at this point. -Patient with history of metastatic renal cell cancer presents with progressive leg weakness, unable to walk. Patient will be admitted for further evaluation Blood work reveals a WBC of 12.7, hemoglobin of 12.4 and platelet count of 295, sodium 135, potassium 5.6, BUNs/creatinine of 79/2.59, blood glucose of 98 Chest x-ray is negative for any acute cardiopulmonary disease CT of the lumbar spine reveals destructive metastatic lesion of T10 which is status post vertebroplasty; mild compromise of spinal canal at T10 level secondary to neoplastic mass and posterior migration of vertebroplasty cement; mild superior endplate compression fracture of T4 without destructive lesion; possible superior endplate compression fracture of T11 Abdominal ultrasound reveals mild right hydronephrosis and layering debris in bladder, correlate with urinalysis for cystitis --Patient has Castañeda catheter in place; gross hematuria at this morning; urology is on board; will monitor CBC 01/02/2024 Patient is seen and evaluated in follow-up lethargic although arousable. Patient was having urinary retention had an indwelling Castañeda catheter placed with gross hematuria that persists. Patient was evaluated by urology reporting hematuria was likely due to retention recommend to continue with indwelling Castañeda catheter for now. Follow-up on repeat CBC and currently above 9. Patient and family would like to proceed with surgery for decompression to enhance quality of life. Patient will be considered moderate to high risk for surgical intervention and would need clearance by nephrology as well as patient does have a solitary kidney and came in with dehydration and CHEMO. Kidney functions are im proving and creatinine is 1.9 today. 01/03/2024 Patient is seen and evaluated in follow-up currently scheduled to undergo decompression with orthopedics and currently NPO. Multiple family members at bedside awaiting surgery at this time. Kidney functions have improved and creatinine is 1.2, hemoglobin remained stable with noted hematuria in the Castañeda. Patient to continue with indwelling Castañeda catheter 01/04/2024 Patient is seen and evaluated in follow-up this morning extremely lethargic alth ough arousable. Patient reports is not sleeping very well and reports to feeling somewhat improved since surgery. Patient reports she can feel her lower extremities and on demonstration feels she is moving them although there is no movement at this time. Awaiting to work with PT/OT therapy. Discussed with [id number] at the bedside in detail about overall treatment plan with multiple consultations following. Oncology and radiation oncology following as well. Plan is to return to [facility] for continued strength and mobility once discharged. 01/05/2024 Patient is seen and evaluated in follow-up and asleep although arousable as patient just received IV Dilaudid. Per nursing staff she sleeps for quite some time after receiving Dilaudid and recommend transitioning to some oral pain me dications as well. Patient is continued on sodium bicarb with nephrology following and kidney functions much improved. Patient also continues on IV dexamethasone and evaluated by orthopedics with no further interventions warranted at this time and has cleared the patient for discharge back to [facility]. Patient to work with physical therapy and would recommend working daily. Case management following as the plan is to return to [facility] for continued strength and mobility although need to discuss further with oncology and radiation oncology about overall treatment plan. Patient would likely need to gain strength prior to initiating treatments. Discussing possible palliative radiation. 01/06/2024 Patient is seen in follow-up today more awake and alert today extremely anxious. Patient is very tearful status post surgery with orthopedics with removal of tumor on the thoracic spine and patient continues to not be able to move her lower extremities. Patient is fearful she will never be able to walk again and feels overwhelmed. Patient is anxious at times and confused but easily redirect able. Patient has been receiving IV pain medications and recommend monitoring and limiting the use and titrating to oral pain medications and other supportive care. Patient continues with indwelling Castañeda catheter and will continue. Continue bowel regimen as scheduled as patient has not had a bowel movement as of yet. Patient is passing gas and felt she was having a bowel movement. Aide at the bedside noted she had a smear of stool. Patient is afebrile with no reports of chest pain or shortness of breath. Orthopedics has signed off the case recommends returning to [facility] for continued PT/OT therapy. Currently awaiting pathology and further discussion with oncology/radiation oncology. Miles burciaga prognosis is extremely guarded at this time. 01/10/2024 Patient is seen and evaluated in follow-up this morning lethargic although easily arousable reports she feels improved and reports she is moving her legs although there is no movement noted. Patient work with PT/OT therapy and plan is for patient to go to rehab for continued strength and mobility. Neurology was consulted and appreciate input and recommendations regarding lower extremity paresis and also to evaluate if patient would benefit from MRI for further evaluation. Orthopedics has signed off of the case status post surgery and will discuss further regarding imaging. Patient has had recent surgery regarding a hip fracture and unsure if she can have MRI at this time. Patient is afebrile with no reports of chest pain or shortness of breath. Patient reports she has been tolerating diet with no reported nausea or vomiting. Recommend limiting IV narcotic use. Plan is for patient to go to rehab at [facility] on discharge. Review of systems: Constitutional: reports of fatigue, no fever, or chills, reports feeling e xtremely anxious Cardiovascular: No reports of chest pain or palpitations Respiratory: No reports of shortness of breath or cough GI: No reports of nausea, vomiting, or diarrhea, not much of an appetite although eating a little more : No reports of dysuria, reports retention Neurovascular: reports of generalized weakness with continued numbness in the lower extremities although reports being able to feel her legs All medications have been reviewed Physical exam: Gen: This is a 78-year-old female who is awake, alert and oriented x 3, thin build, elderly appearing, ill appearing HEENT: Head is atraumatic, normocephalic. Pupils equal, round. Sclerae is anicteric. NECK: Supple. No JVD. No lymphadenopathy. No thyromegaly. LUNGS: Diminished breath sounds bilaterally otherwise clear to auscultation. No wheezes or rhonchi. No intercostal retractions. HEART: S1, S2 are muffled ABDOMEN: Soft. Thin, bowel sounds are present. No masses. No tenderness. EXTREMITIES: No pedal edema. No calf tenderness. Bilateral dropfoot noted NEUROLOGICAL: Patient is awake, alert and oriented x3. Diffusely weak Assessment: -Back pain; compression fractures T4/T11, status post T9-11 bilateral lami nectomy, partial medial facetectomy and foraminotomy with epidural tumor removal -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 -Acute renal injury; creatinine elevated at 2.59, improved -Hydronephrosis, on the right and per urology likely secondary to retention and bladder distention, continue indwelling Castañeda catheter -UA is positive for bacteria, WBCs RBCs and leukocyte esterase, possible cystitis, asymptomatic bacteriuria likely -Hyperkalemia; likely related to acute renal injury; improved. We will monitor electrolytes closely, resolved -Metastatic renal cell carcinoma; oncology and radiation oncology following -GI prophylaxis -DVT prophylaxis; SCDs only given hematuria -full code Plan: Patient was seen and evaluated by orthopedics status post thoracic tumor removal with kyphoplasty and has cleared the patient for discharge to ECF. Will need to discuss further with orthopedics regarding possible MRI as patient continues to have lower extremity paresis and unsure if she can have an MRI due to recent hip fracture and surgery Patient to work with PT/OT therapy daily for continued strength and mobility. Plan is to return to [facility] on the [place] for continued PT/OT therapy urology has evaluated the patient and recommend to continue with indwelling Castañeda catheter, hematuria resolved Patient with metastatic disease with oncology following. Radiation oncology following as well and may undergo palliative radiation postsurgical intervention. Will need to discuss further with oncology and radiation oncology regarding treatment plan as family was unaware she cannot receive any oncological treatment during ECF. Patient would benefit from going to rehab for continued strength and mobility prior to initiating treatments. Recommend PT/OT therapy postsurgery and will need ECF on discharge. Patient has received insurance authorization at [facility] and case management following Encourage small frequent meals discussed with family if she prefers something from home, okay to bring in to encourage oral intake Neurology was consulted and appreciate input and recommendations. Will discuss further with orthopedics if MRI is warranted CODE STATUS needs to be addressed as patient remains full code. Given significant comorbidities overall prognosis is extremely poor and guarded at this time The impression and plan of care has been dictated by Lacy Brumfield, Nurse Practitioner as directed. Dr. Ger MD I have performed a history and examination and MDM of this patient, discussed the same with the dictator, and agree with the dictator's assessment and plan as written ,documented as a scribe. Based on total visit time, I have performed more than 50% of the visit. Objective - Vital Signs Vital signs: Vital Signs Temp 98.2 F 01/09/24 15:00 Pulse 70 01/09/24 15:00 Resp 16 01/09/24 15:00 BP 135/59 01/09/24 15:00 Pulse Ox 94 L 01/09/24 15:00 FiO2 Intake & Output 01/09/24 01/09/24 01/10/24 06:59 18:59 06:59 Output Total 500 500 Balance -500 -500 Output: Urine 500 500 Other: Voiding Method Indwelling Catheter Indwelling Catheter - Labs CBC & Chem 7: 01/09/24 02:50 01/09/24 02:50 Labs: Abnormal Lab Results - Last 24 Hours (Table) 01/09/24 01/09/24 01/09/24 Range/Units 02:50 02:50 05:38 WBC 15.98 H (4.50-10.00) X 10*3/uL RBC 3.73 L (4.10-5.20) X 10*6/uL Hgb 10.6 L (12.0-15.0) g/dL Hct 34.0 L (37.2-46.3) % MCHC 31.2 L (32.0-37.0) g/dL Immature Gran # 0.18 H (0.00-0.04) X 10*3/uL Neutrophils # 14.18 H (1.80-7.70) X 10*3/uL BUN/Creatinine Ratio 37.00 H (12.00-20.00) Ratio Glucose 127 H (70-110) mg/dL POC Glucose (mg/dL) 115 H (70-110) mg/dL Total Bilirubin <0.2 L (0.3-1.2) mg/dL Total Protein 5.0 L (6.2-8.2) g/dL Albumin 2.8 L (3.8-4.9) g/dL Albumin/Globulin Ratio 1.27 L (1.60-3.17) Ratio 01/09/24 01/09/24 01/09/24 Range/Units 11:19 16:36 21:35 WBC (4.50-10.00) X 10*3/uL RBC (4.10-5.20) X 10*6/uL Hgb (12.0-15.0) g/dL Hct (37.2-46.3) % MCHC (32.0-37.0) g/dL Immature Gran # (0.00-0.04) X 10*3/uL Neutrophils # (1.80-7.70) X 10*3/uL BUN/Creatinine Ratio (12.00-20.00) Ratio Glucose (70-110) mg/dL POC Glucose (mg/dL) 163 H 153 H 207 H (70-110) mg/dL Total Bilirubin (0.3-1.2) mg/dL Total Protein (6.2-8.2) g/dL Albumin (3.8-4.9) g/dL Albumin/Globulin Ratio (1.60-3.17) Ratio
[2024-01-10 06:32] LABS: Glucose,Whole Blood 183 mg/dL (70-110)
[2024-01-10 08:32] LABS: Basophils # (A) 0.01 X 10*3/uL (0.00-0.10); Basophils % (A) 0.1 %; Eosinophils # (A) 0.02 X 10*3/uL (0.04-0.35); Eosinophils % (A) 0.1 %; HCT 36.9 % (37.2-46.3); HGB 10.9 g/dL (12.0-15.0); Lymphocytes # (A) 0.95 X 10*3/uL (0.90-5.00); Lymphocytes % (A) 6.9 %; MCH 27.9 pg (27.0-32.0); MCHC 29.5 g/dL (32.0-37.0); MCV 94.4 FL (80.0-97.0); Mean Platelet Volume 10.4 FL (9.5-12.2); Monocytes # (A) 0.42 X 10*3/uL (0.20-1.00); Monocytes % (A) 3.1 %; NRBC Per 100 WBC 0 X 10*3/uL (0.00-0.01); Neutrophils # (A) 12.18 X 10*3/uL (1.80-7.70); Neutrophils % (A) 89.1 %; Platelet Count 201 X 10*3/uL (140-440); RBC 3.91 X 10*6/uL (4.10-5.20); RDW 14.7 % (11.5-14.5); WBC 13.68 X 10*3/uL (4.50-10.00)
[2024-01-10 09:13] VITALS: RESP 18
[2024-01-10 09:26] LABS: ALT 27 U/L (8-44); AST 31 U/L (13-35); Albumin 2.8 g/dL (3.8-4.9); Albumin/Globulin Ratio 1.27 Ratio (1.60-3.17); Alkaline Phosphatase 58 U/L (41-126); BUN/Creat Ratio 34.25 Ratio (12.00-20.00); Blood Urea Nitrogen 27.4 mg/dL (9.0-27.0); Carbon Dioxide 23.1 mmol/L (21.6-31.8); Chloride 104 mmol/L (96-109); Globulin 2.2 g/dL (1.6-3.3); Glucose 150 mg/dL (70-110); Magnesium 1.9 mg/dL (1.5-2.4); Potassium 5.1 mmol/L (3.5-5.5); Sodium 136 mmol/L (135-145); Total Bilirubin <0.2 mg/dL (0.3-1.2)
[2024-01-10] MEDS ORDERED: SENNOSIDES 8.6 MG TAB PO PRN (11:17)
[2024-01-10 11:47] LABS: Glucose,Whole Blood 204 mg/dL (70-110)
[2024-01-10] MEDS: MAGNESIUM HYDROXIDE 2,400 MG/30 ML CUP PO STA (11:48)
--- NOTE | 2024-01-10 11:49 | P.PN ---
Subjective Progress Note Date: 01/10/24 Principal diagnosis: CHEMO secondary to Acute tubular necrosis and urinary retention Patient is a 78 year old female who was admitted on 12/31/23 due to generalised weakness and seen as a consult for acute kidney injury. At the time a kidney ultrasound showed right sided hydronephrosis and absent left kidney. She also has a history of kindey cancer. She was found to have CHEMO due to ATN and urinary retention. Creatinine was elevated at 2.59 01/09/24 Today the patient seems to be doing well. She notes an improvement in weakness although does complain of some lower back pain. She mentions having a low apetite. Denies abdominal pain. She doesn't report any burning or problems with the man catheter. Labs today show Na 138, K 4.9, BUN 25.9, Cr 0.7, BUN/Cr 37, Est GFR 87. 01/10/24 Patient evaluated today.She still complains of lower back pain. Denies abdominal pain. Currently man catheter in place. Voiding trial close to discharge per urology Her kidney function has improved and is awaiting placement at rehab. Labs show Na 136, K 5.1, BUN 27.4, creatinine 0.8, GFR 74. 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 Followed by urology Hyperkalemia secondary to acute kidney injury, acidosis on and urinary retention. Now resolved Metastatic renal cancer Cord compression due to metastatic lesion at T10. Status postlaminectomy and facetectomy on 01/03/2024 Plan: Encourage increase oral intake Voiding trial close to discharge per urology Patient going to rehab upon discharge I have seen and examined the patient with resident and agree with A&P as written. Objective - Vital Signs Vital signs: Vital Signs Temp 97.4 F L 01/10/24 07:46 Pulse 67 01/10/24 07:46 Resp 18 01/10/24 07:46 BP 151/66 01/10/24 07:46 Pulse Ox 96 01/10/24 07:46 FiO2 Intake & Output 01/09/24 01/10/24 01/10/24 18:59 06:59 18:59 Output Total 500 850 Balance -500 -850 Output: Urine 500 850 Other: Voiding Method Indwelling Catheter Indwelling Catheter Indwelling Catheter - Labs CBC & Chem 7: 01/10/24 02:51 01/10/24 02:51 Labs: Abnormal Lab Results - Last 24 Hours (Table) 01/09/24 01/09/24 01/10/24 Range/Units 16:36 21:35 02:51 WBC 13.68 H (4.50-10.00) X 10*3/uL RBC 3.91 L (4.10-5.20) X 10*6/uL Hgb 10.9 L (12.0-15.0) g/dL Hct 36.9 L (37.2-46.3) % MCHC 29.5 L (32.0-37.0) g/dL RDW 14.7 H (11.5-14.5) % Immature Gran # 0.10 H (0.00-0.04) X 10*3/uL Neutrophils # 12.18 H (1.80-7.70) X 10*3/uL Eosinophils # 0.02 L (0.04-0.35) X 10*3/uL BUN (9.0-27.0) mg/dL BUN/Creatinine Ratio (12.00-20.00) Ratio Glucose (70-110) mg/dL POC Glucose (mg/dL) 153 H 207 H (70-110) mg/dL Total Bilirubin (0.3-1.2) mg/dL Total Protein (6.2-8.2) g/dL Albumin (3.8-4.9) g/dL Albumin/Globulin Ratio (1.60-3.17) Ratio 01/10/24 01/10/24 Range/Units 02:51 06:31 WBC (4.50-10.00) X 10*3/uL RBC (4.10-5.20) X 10*6/uL Hgb (12.0-15.0) g/dL Hct (37.2-46.3) % MCHC (32.0-37.0) g/dL RDW (11.5-14.5) % Immature Gran # (0.00-0.04) X 10*3/uL Neutrophils # (1.80-7.70) X 10*3/uL Eosinophils # (0.04-0.35) X 10*3/uL BUN 27.4 H (9.0-27.0) mg/dL BUN/Creatinine Ratio 34.25 H (12.00-20.00) Ratio Glucose 150 H (70-110) mg/dL POC Glucose (mg/dL) 183 H (70-110) mg/dL Total Bilirubin <0.2 L (0.3-1.2) mg/dL Total Protein 5.0 L (6.2-8.2) g/dL Albumin 2.8 L (3.8-4.9) g/dL Albumin/Globulin Ratio 1.27 L (1.60-3.17) Ratio
--- NOTE | 2024-01-10 11:57 | P.PN ---
Subjective Progress Note Date: 01/10/24 Pt tearful at todays visit. Shes having decreased sensation in BLE and BLE near paralysis. Ortho and neuro following Reporting abd pain while trying to have a BM, last recorded BM was on 01/05. Objective - Vital Signs Vital signs: Vital Signs Temp 97.4 F L 01/10/24 07:46 Pulse 67 01/10/24 07:46 Resp 18 01/10/24 07:46 BP 151/66 01/10/24 07:46 Pulse Ox 96 01/10/24 07:46 FiO2 Intake & Output 01/09/24 01/10/24 01/10/24 18:59 06:59 18:59 Output Total 500 Balance -500 Output: Urine 500 Other: Voiding Method Indwelling Catheter Indwelling Catheter Indwelling Catheter - Constitutional General appearance: Present: mild distress - EENT ENT: Present: hearing grossly normal - Respiratory Details: breathing is even and unlabored - Cardiovascular Details: skin warm and dry - Neurologic Neurologic Comment(s): significant decrease sensation in BLE, only has very slight movement of right toes - Psychiatric Psychiatric: Present: A&O x's 3 - Labs CBC & Chem 7: 01/10/24 02:51 01/10/24 02:51 Labs: Abnormal Lab Results - Last 24 Hours (Table) 01/09/24 01/09/24 01/09/24 Range/Units 11:19 16:36 21:35 WBC (4.50-10.00) X 10*3/uL RBC (4.10-5.20) X 10*6/uL Hgb (12.0-15.0) g/dL Hct (37.2-46.3) % MCHC (32.0-37.0) g/dL RDW (11.5-14.5) % Immature Gran # (0.00-0.04) X 10*3/uL Neutrophils # (1.80-7.70) X 10*3/uL Eosinophils # (0.04-0.35) X 10*3/uL BUN (9.0-27.0) mg/dL BUN/Creatinine Ratio (12.00-20.00) Ratio Glucose (70-110) mg/dL POC Glucose (mg/dL) 163 H 153 H 207 H (70-110) mg/dL Total Bilirubin (0.3-1.2) mg/dL Total Protein (6.2-8.2) g/dL Albumin (3.8-4.9) g/dL Albumin/Globulin Ratio (1.60-3.17) Ratio 01/10/24 01/10/24 01/10/24 Range/Units 02:51 02:51 06:31 WBC 13.68 H (4.50-10.00) X 10*3/uL RBC 3.91 L (4.10-5.20) X 10*6/uL Hgb 10.9 L (12.0-15.0) g/dL Hct 36.9 L (37.2-46.3) % MCHC 29.5 L (32.0-37.0) g/dL RDW 14.7 H (11.5-14.5) % Immature Gran # 0.10 H (0.00-0.04) X 10*3/uL Neutrophils # 12.18 H (1.80-7.70) X 10*3/uL Eosinophils # 0.02 L (0.04-0.35) X 10*3/uL BUN 27.4 H (9.0-27.0) mg/dL BUN/Creatinine Ratio 34.25 H (12.00-20.00) Ratio Glucose 150 H (70-110) mg/dL POC Glucose (mg/dL) 183 H (70-110) mg/dL Total Bilirubin <0.2 L (0.3-1.2) mg/dL Total Protein 5.0 L (6.2-8.2) g/dL Albumin 2.8 L (3.8-4.9) g/dL Albumin/Globulin Ratio 1.27 L (1.60-3.17) Ratio Assessment and Plan (1) Cord compression Current Visit: Yes Status: Acute Priority: High Code(s): G95.20 - UNSPECIFIED CORD COMPRESSION SNOMED Code(s): 09830323 (2) Leg weakness Current Visit: Yes Status: Acute Priority: High Code(s): R29.898 - OTH SYMPTOMS AND SIGNS INVOLVING THE MUSCULOSKELETAL SYSTEM SNOMED Code(s): 652070112 (3) Renal cancer Current Visit: Yes Status: Acute Priority: High Code(s): C64.9 - MALIGNANT NEOPLASM OF UNSP KIDNEY, EXCEPT RENAL PELVIS SNOMED Code(s): 220960659 Plan: Spinal cord compression, metastatic RCC - Destructive metastatic lesion of T10 which is status post vertebroplasty. Mild compromise of the spinal canal at T10 level secondary to neoplastic mass in posterior migration of the vertebroplasty cement. Mild superior endplate compression fracture of T4 with obstructive lesion or retropulsion. Possible mild superior endplate compression fracture of T11 without triple potion or destructive lesion, no fractures or destructive lesions to the lumbar spine. -S/p surgery with Ortho spine. Having significant decreased sensation and paresis of BLE. Neuro and ortho following, planning for possible MRI of spine. Defer management of the same to admitting and consulted teams -Rad Onc has seen patient. Planning to f/u for RT once healed from surgery -Cont dex and PPI - Hold opdivo for RCC while IP. Cabometyx has been available since October. Pt did not follow up for education on the drug and did not call to bead picker drug. Plan is for rehab on discharge. Will see how she progresses and schedule f/u to further discuss plans for proceeding with treatment. Constipation: -Scheduled and PRN medications adjusted
--- NOTE | 2024-01-10 15:25 | P.DS ---
Providers Date of admission: 12/31/23 13:48 Expected date of discharge: 01/10/24 Attending physician: Jay Quinonez MD Consults: 12/31/23 13:48 Consult Physician Routine Consulting Provider: Madan Bass Consult Reason/Comments: leg weakness Do you want consulting provider notified?: Yes Consult Physician Urgent Consulting Provider: Sarah Moore Consult Reason/Comments: leg weakness, renal cell pt Do you want consulting provider notified?: Yes Consult Physician Urgent Consulting Provider: Eulogio Mendoza Consult Reason/Comments: jerilyn Do you want consulting provider notified?: Yes 12/31/23 18:30 Consult Physician Routine Consulting Provider: Car Benton Consult Reason/Comments: Hydronephrosis Do you want consulting provider notified?: Yes, Notify in am 01/01/24 11:19 Consult Physician Routine Consulting Provider: Jose Coffman Consult Reason/Comments: spinal met Do you want consulting provider notified?: Yes 01/08/24 15:58 Consult Physician Routine Consulting Provider: Amina Fam Consult Reason/Comments: paraparesis Do you want consulting provider notified?: Yes Primary care physician: [facility] Hospital Course: Final diagnosis -Back pain; compression fractures T4/T11, status post T9-11 bilateral laminectomy, partial medial facetectomy and foraminotomy with epidural tumor removal -Bilateral lower extremity paresthesias likely secondary to above -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 -Acute renal injury; creatinine elevated at 2.59, improved -Hydronephrosis, on the right and per urology likely secondary to retention and bladder distention, continue indwelling Castañeda catheter -UA is positive for bacteria, WBCs RBCs and leukocyte esterase, possible cystitis, asymptomatic bacteriuria likely. Patient was treated with empiric antibiotics and has been discontinued -Hyperkalemia; likely related to acute renal injury; improved. We will monitor electrolytes closely, resolved -Metastatic renal cell carcinoma; oncology and radiation oncology following -GI prophylaxis -DVT prophylaxis; SCDs -full code Discharge disposition Patient is being discharged in a stable condition with guarded prognosis to [facility] the [place]. Patient will follow-up with Dr. Hall in the outpatient setting upon discharge. Patient is to continue with Decadron taper as discussed below along with outpatient follow-up with orthopedics as scheduled. Patient is agreeable to no oncological care during ECF and will follow-up with oncology in the outpatient setting once discharged from ECF. Patient will likely also need outpatient follow-up with neurology for possible EMG studies. Total time taken is greater than 35 minutes. Hospital course This is a 78-year-old female who was recently admitted with back pain along with inability to ambulate being closely monitored. Multiple consultations following including oncology, radiation oncology, orthopedics and urology as patient was noted to have a destructive metastatic lesion of the T10 which is status post vertebroplasty and there is also a neoplastic mass and posterior migration of the cement resulting in concerns of cord compression and compression fractures. Patient is status post bilateral laminectomy of T9-11 with medial facetectomy and foraminotomy with epidural tumor removal. Per orthopedics patient has been cleared for discharge to [facility] and this was discussed in detail and at length with patient's family along with patient that there is a likelihood patient may never walk again. Patient has been willing to work with physical therapy although continues to have bilateral lower extremity paresthesias. Patient reports she feels her legs moving although they are not moving. Patient is very tearful and extremely anxious about overall prognosis. Discussed with patient in detail also about receiving any oncological care and patient is understanding and agreeable she will not receive any oncology care or follow-up with oncology while at [facility]. Discussed with her about CODE STATUS as she remains full code and patient wishes to remain full code at this time. Discussed with family as well and clinically patient is more appropriate for no code and possible palliative care. Patient would like to go to [facility] for continued strength and mobility to attempt to work with physical therapy more aggressively to possibly walk again. Neurology briefly evaluated the patient although cannot receive an MRI at this time due to recent hip surgery and migration of cement and would need outpatient follow-up with neurology. Discussed possible EMG studies as well for nerve conduction studies if patient continues to be unable to move lower extremities. Per orthopedics this was discussed in detail prior to surgery. Please refer to other consultation notes for further HPI. Currently no reports of chest pain, shortness of breath, or palpitations. Patient is afebrile. No reports of nausea or vomiting and patient is tolerating diet. Patient will be going to [facility] [place]. Overall extremely guarded and poor prognosis. Physical exam: Gen: This is a 78-year-old female who is awake, alert and oriented x 2-3, extremely anxious, tearful, well-developed, elderly appearing, ill-appearing HEENT: Head is atraumatic, normocephalic. Pupils equal, round. Sclerae is anicteric. NECK: Supple. No JVD. No lymphadenopathy. No thyromegaly. LUNGS: Diminished breath sounds bilaterally otherwise clear to auscultation. No wheezes or rhonchi. No intercostal retractions. HEART: S1, S2 are muffled ABDOMEN: Soft. Thin bowel sounds are present. No masses. No tenderness. EXTREMITIES: No pedal edema. No calf tenderness. Bilateral foot drop noted and strength 0/5 bilaterally of lower extremities NEUROLOGICAL: Patient is awake, alert and oriented x to. Diffusely weak Please refer to medication reconciliation sheet for a list of medications. The impression and plan of care has been dictated by Lacy Brumfield, Nurse Practitioner as directed. Dr. Ger MD I have performed a history and examination and MDM of this patient, discussed the same with the dictator, and agree with the dictator's assessment and plan as written ,documented as a scribe. Based on total visit time, I have performed more than 50% of the visit. Patient Condition at Discharge: Fair Plan - Discharge Summary Discharge Rx Participant: No New Discharge Prescriptions: New Famotidine [Pepcid] 20 mg PO DAILY tab Sennosides [Senokot] 8.6 mg PO BID tab Acetaminophen Tab [Tylenol] 650 mg PO Q6HR PRN tab PRN Reason: Mild Pain Or Fever > 100.5 traMADol HCl [Ultram] 50 mg PO Q6H PRN #6 tab PRN Reason: Moderate Pain (Scale 4 To 6) ALPRAZolam [Xanax] 0.25 mg PO TID PRN #6 tab PRN Reason: Anxiety Docusate [Colace] 100 mg PO BID cap Magnesium Hydroxide [Milk of Magnesia] 2,400 mg PO DAILY PRN ml PRN Reason: Constipation HYDROcodone/APAP 5-325MG [[place] 5-325] 1 each PO Q6HR PRN #6 tab PRN Reason: Pain Scale 4 - 6 dexAMETHasone [Decadron] 4 mg PO TID #30 tablet Continue Therahoney External Gel (Wound Dressing) 1 applic TOPICAL HS Cholecalciferol (Vitamin D3) [Vitamin D3 (50 Mcg = 2000 Iu)] 50 mcg PO DAILY@0900 Lactose-Reduced Food [Ensure Plus] 237 ml PO BID@0900,1700 Melatonin 3 mg PO HS@2100 amLODIPine [Norvasc] 5 mg PO DAILY@0900 Therahoney External Gel (Wound Dressing) 1 applic TOPICAL DAILY PRN PRN Reason: wound care Clotrimazole/Betameth Cream [Lotrisone] 1 applic TOPICAL HS diphenhydrAMINE HCL [Benadryl] 25 mg PO TID PRN PRN Reason: Itching Mirtazapine [Remeron] 15 mg PO HS@2100 Sertraline [Zoloft] 100 mg PO DAILY@0900 Discontinued Acetaminophen Tab [Tylenol] 1,000 mg PO Q6H PRN PRN Reason: Pain Discharge Medication List amLODIPine [Norvasc] 5 mg PO DAILY@0900 01/07/22 [History] Cholecalciferol (Vitamin D3) [Vitamin D3 (50 Mcg = 2000 Iu)] 50 mcg PO DAILY@0900 12/31/23 [History] Clotrimazole/Betameth Cream [Lotrisone] 1 applic TOPICAL HS 12/31/23 [History] Lactose-Reduced Food [Ensure Plus] 237 ml PO BID@0900,1700 12/31/23 [History] Melatonin 3 mg PO HS@209912/31/23 [History] Mirtazapine [Remeron] 15 mg PO HS@209912/31/23 [History] Sertraline [Zoloft] 100 mg PO DAILY@89912/31/23 [History] Therahoney External Gel (Wound Dressing) 1 applic TOPICAL DAILY PRN 12/31/23 [History] Therahoney External Gel (Wound Dressing) 1 applic TOPICAL HS 12/31/23 [History] diphenhydrAMINE HCL [Benadryl] 25 mg PO TID PRN 12/31/23 [History] ALPRAZolam [Xanax] 0.25 mg PO TID PRN #6 tab 01/10/24 [Rx] Acetaminophen Tab [Tylenol] 650 mg PO Q6HR PRN tab 01/10/24 [Rx] Docusate [Colace] 100 mg PO BID cap 01/10/24 [Rx] Famotidine [Pepcid] 20 mg PO DAILY tab 01/10/24 [Rx] HYDROcodone/APAP 5-325MG [[place] 5-325] 1 each PO Q6HR PRN #6 tab 01/10/24 [Rx] Magnesium Hydroxide [Milk of Magnesia] 2,400 mg PO DAILY PRN ml 01/10/24 [Rx] Sennosides [Senokot] 8.6 mg PO BID tab 01/10/24 [Rx] dexAMETHasone [Decadron] 4 mg PO TID #30 tablet 01/10/24 [Rx] traMADol HCl [Ultram] 50 mg PO Q6H PRN #6 tab 01/10/24 [Rx] Follow up Appointment(s)/Referral(s): Sarah Moore MD [STAFF PHYSICIAN] - 6 Weeks (Please call office upon discharge from rehab to schedule follow up appointment ) Jerry Hall MD [Primary Care Provider] - 1-2 days [facility] [place], [NON-STAFF] - As Needed Madan Bass DO [Doctor of Osteopathic Medicine] - 2 Weeks Activity/Diet/Wound Care/Special Instructions: Patient is going to [facility] [place] Activity as tolerated with orthopedic restrictions. Patient is high risk for falls given continued lower extremity paresis and needs aggressive physical therapy Patient is to continue on Decadron 4 mg 3 times daily for 4 days, then 4 mg twice daily for 4 days, then 2 mg twice daily for 4 days, then 2 mg daily for 4 days. Patient is agreeable to withhold all oncological care during ECF and will follow-up with oncology in the outpatient setting once discharged from ECF Patient is full code and CODE STATUS was discussed and patient wishes to remain full code. This was also discussed with her family and need to be discussed in further detail in the outpatient setting overall prognosis is extremely poor and guarded at this time Continue Ensure supplements with chocolate flavor please 3 times daily between meals Continue regular diet Continue indwelling Castañeda catheter and outpatient follow-up with urology Strongly recommend palliative care Spine Discharge and Recovery Instructions Date of Surgery: 01/03/2024 Diagnosis: PARAPLEGIA METESTATIC RCC T10 FRACTURE S/P KYPHOPLASTY SEVERE STENOSIS THORACIC SPINE WITH MYELOPATHY COMPLEX MEDICAL PATIENT Procedure(s) Performed: T9-T11 BILATERAL LAMINECTOMY, PARTIAL MEDIAL FACETECTOMY AND FORAMINOTOMY WITH EPIDURAL TUMOR REMOVA Medications: See medication list All medication refills should be obtained through your primary care doctor or your clinic spine surgeon. Please discuss prescription refills at your follow up appointment. Do not call the hospital for medication refills. Dressing: Leave your dressing in place for a total of 5 days post operatively. Then you may remove your dressing and leave open to air. Keep the area clean and if not able to keep area clean, then cover with sterile gauze and tape. Showering: You may shower 3 days after your procedure allowing soap and water to run over incision. Do not scrub. Do not soak. Blot dry. Follow up: Please confirm a follow up appointment with your surgeon 3 weeks post operatively. Please make an appointment to follow up with your PCP in 1-2 weeks after surgery for evaluation '3 phase, 3-week plan' POST OP WEEKS 1-3 1. Lifting/carrying/pushing/pulling limited to less than 5 pounds. 2. Do not sit for longer than 15 minutes at one time. Get up and walk around. Prolonged sitting is NOT advised. If you lay down, see if you can tolerate laying down on you front (belly side) 3. Walk for periods of 15 minutes = 1 mile but no longer; do it multiple times times each day. 4. Ice your low back after activity. POST OP WEEKS 3-6 1. Lifting limited to less than 20 pounds. 2. Do not sit for longer than 30 minutes at a time. Frequently change positions. Use a sit-to stand workstation or take frequent breaks from sitting if you have returned to work. 3. Walk for 30 minutes each day. If possible, do these three or more times a day POST OP WEEKS 6+ At your 6-week appointment we will give you a physical therapy referral to focus on a core stabilization and strengthening program. You should also work on leg & buttock strengthening, hamstring & quadriceps stretching, and continue a low impact aerobic activity program such as swimming, walking, or riding a stationary bicycle. During the initial 6 weeks after your surgery, you are at the highest risk of re-injuring your spine. You should generally avoid BLT's (bending, lifting and twisting combination motions) and follow the above guidelines to reduce the chance of reinjury. You can anticipate post op appointments in our office at approximately 3 weeks and 6 weeks after your surgery. INCISION CARE: If your incision is not draining you do NOT need to cover it with a dressing. Keep your incision clean, dry and intact. In most cases, we apply skin glue, camacho or sutures to the incision at the time of surgery. This will be like a crust or have the appearance of a scab and will fall off in time on its own. The stitches or camacho need to be removed at 3 weeks post op appointment. You may begin to shower 3 days after surgery (this allows the glue to orellana well). However, please avoid scrubbing the incision site or peeling off any of the skin glue. This will ensure optimal healing of your incision. Also, during this time avoid soaking the incision area in water - this includes swimming pools, hot tubs or baths. No ointments, lotions or oils on the incision until your surgeon allows. Leave camacho, sutures or glue in place. Neurological dysfunction that comes on suddenly can also be a sign of a stroke. Below some common symptoms of a stroke are listed: B - balance difficulty such as sudden onset walking or leaning to one side - NEW E - eye problem such as sudden double vision or trouble seeing on one side - NEW F - Facial weakness or numbness on one side - NEW A - Arm or leg weakness or numbness on one side - NEW S - Slurred speech or difficulty with word finding - NEW T - Time is BRAIN! Call 911 as soon as you recognize these symptoms Diet: Consume a regular diet rich in vegetables and lean protein such as chicken or fish. You should consume in a ratio of approximately 20% fats|40% carbohydrates|40%protein. Vegetables, sweet potatoes, brown rice or quinoa are examples of good carbohydrates. Chips, white bread, cookies and sweets/sugar are examples of bad carbohydrates. Limit your bad carbs, go wild with good carbs. "Life's Simple 7" Guidelines as per [place] [employer] These will help you reclaim your life after surgery and seismic prospecting observer helper in your recovery, keeping in mind your restrictions. (1) Get Active. Physical activity can help people lose weight, control high blood pressure and cholesterol, feel emotionally better, and sleep better. (2) Control Cholesterol. Avoid a diet high in saturated fat, trans fat, & cholesterol. Limit whole milk & cream, ice cream, butter, egg yolks, processed meats (like sausage and hot dogs), and fatty meats. Choose healthy foods that are low in saturated fat, trans fat and cholesterol which include: Fruits and vegetables, fiber rich grain products (like whole grain pasta and brown rice), lean meat such as chicken, fish, nuts, seeds, and legumes. (3) Eat Better. Eat small portions. Shop at the grocery with a list and do not stray from it. Tips for a healthy diet include: Limit sodium intake to less than 1500mg daily, avoid prepackaged, processed, and fast foods, choose a diet rich in fruits, vegetables, and whole grain, high fiber foods, and limit saturated & cholesterol in your diet. (4) Manage Blood Pressure. If you have high blood pressure, you should have a cuff at home so that you can check your blood pressure regularly. Be sure you have a good cuff. An arm one is generally better than a wrist one. Bring the cuff to a doctor's appointment to validate that the measurements that your cuff are taking are accurate. Take your blood pressure twice daily when you are sitting down and relaxing. Record the numbers in a log and bring this log with you to your doctors' appointments. (5) Lose Weight if your BMI is above 25. A healthy BMI is between 19-25. To calculate Your BMI, you may use a Standard BMI Calculator on the NIH BMI website: <www.nhlbi.nih.gov/guidelines/obesity/BMI/bmicalc.htm>. Weigh oneself daily. If you are overweight, set a goal to lose weight. A pound a week loss if needed is a good target. (6) Reduce Blood Sugar. Limit foods and liquids with "added sugars." (Added sugars include sucrose, fructose, glucose, maltose, dextrose, high fructose corn syrup, corn syrup, concentrated fruit juice and honey). (7) Stop Smoking. If you smoke, quitting smoking is one of the best things that you can do for your health. Smoking increases your risk of heart attack, stroke, and peripheral vascular disease, which is a build-up of plaque in your arteries. Please discard all the cigarettes and lighters in your house. Have a plan for what you will do when you have the urge to smoke. Direct and second- hand smoke shortens your life as well as the lives of your family, friends and others around you. For your health and the health of those around you, please consider quitting! Proper Bending Body Mechanics: Maintain a wide stance with one foot slightly in front of the other. Keep your back straight. Bend utilizing the strength in your hips and knees. Do not bend at the waist. Maintain the lifted object at your waist-level close to your body. Avoid lifting weight that causes immediately pain or pain anywhere in the body afterwards. Smoking/Nicotine If there was ever one thing that you could do to increase your overall health, decrease your risk of cardiovascular problems by about 39% the second you make the choice, it is to STOP SMOKING. Your body's most instant gratification is the second you stop smoking. We have all heard the studies, read the articles but it is true, smoking is extremely bad for your overall health, and moreover it is detrimental to your bone health. Nicotine, IN ANY FORM, kills bone cells, prevents your body from healing fractures, and significantly prolongs healing after surgery. In spine surgery specifically, it increases your risk of not healing your bones to create a fusion and increases your risk of having a revision surgery due to this up to 60%. I know it is hard. I know it feels impossible. But there are ways. Take control of your life. We are here to help you through it. And when you are ready, ask us and we can direct you to help if you desire. Use the START Plan to Quit Smoking (please visit the Helpguide.org website listed below for more information): S = Set a quit date. Choose a date within the next 2 weeks, so you have enough time to prepare without losing your motivation to quit. If you mainly smoke at work, quit on the weekend, so you have a few days to adjust to the change. T = Tell family, friends, and co-workers that you plan to quit. Let your friends and family in on your plan to quit smoking and tell them you need their support and encouragement to stop. Look for a quit britt who wants to stop smoking as well. You can help each other get through the rough times. A = Anticipate and plan for the challenges you'll face while quitting. Most people who begin smoking again do so within the first 3 months. You can help yourself make it through by preparing ahead for common challenges, such as nicotine withdrawal and cigarette cravings. R = Remove cigarettes and other tobacco products from your home, car, and work. Throw away all your cigarettes (no emergency pack!), lighters, ashtrays, and matches. Wash your clothes and freshen up anything that smells like smoke. Shampoo your car, clean your drapes and carpet, and steam your furniture. T = Talk to your doctor about getting help to quit. Your doctor can prescribe medication to help with withdrawal and suggest other alternatives. If you can't see a doctor, you can get many products over the counter at your local pharmacy or grocery store, including the nicotine patch, nicotine lozenges, and nicotine gum. Resources for Quitting Smoking: <https://www.[place].gov/documents/api healthcare/Quit_Tobacco_Resources_for_patients_313 480_7.pdf> Supplementation: Take recommended dosages of Vitamin D and Calcium to help fortify your bones and help them to heal. See your health maintenance packet for dosages and recommended levels. DVT/VTE prophylaxis: You will be given compression stockings from the hospital. Wear these daily for the first two weeks after surgery. You may take them off at night. You may be prescribed a medication to help thin your blood. Take this as directed. If you are not prescribed this medication, early and frequent ambulation has been shown to be the best prophylaxis to deep vein thrombosis and sequelae related to this event. Discharge Disposition: TRANSFER TO SNF/ECF
[2024-01-10 15:26] VITALS: BP 151/63; PULSE 69; TEMP 98.1
[2024-01-10 17:03] LABS: Glucose,Whole Blood 223 mg/dL (70-110)
--- NOTE | 2024-01-10 17:37 | P.PN ---
Subjective Progress Note Date: 01/10/24 Patient seen at bedside and feels about the same. I spoke with the nurse practitioner primary team and she stated that she got a hold of orthopedic team and they recommended to hold off on imaging and to pursue with rehab and to consider imaging as an outpatient. Objective - Vital Signs Vital signs: Vital Signs Temp 98.1 F 01/10/24 15:00 Pulse 69 01/10/24 15:00 Resp 18 01/10/24 15:00 BP 151/63 01/10/24 15:00 Pulse Ox 97 01/10/24 15:00 FiO2 Intake & Output 01/09/24 01/10/24 01/10/24 18:59 06:59 18:59 Output Total 500 850 Balance -500 -850 Output: Urine 500 850 Other: Voiding Method Indwelling Catheter Indwelling Catheter Indwelling Catheter # Bowel Movements 1 - Exam General: Lying in bed and does not appear in acute distress. Neuro: Limited. Is awake alert oriented to self place and time. She is slow to respond. She is able to name option correctly such as pen and watch. Is following simple commands. Patient kept on repeating I want therapy I want therapy at Rehab. Pupils are round equal reactive to light symmetrically. No facial weakness. No dysarthria Motor: Somewhat limited. Forearm extension is 4+ flexion is 5 -. Otherwise upper extremity 5 is 5 over. In the lowers: Left lower is about 1 otherwise lowers are 0 out of 5. Patient is decreasing/in the lowers compared to the uppers Reflexes is 1-2 in the uppers in the lowers 0. Plantars: Mute bilaterally. Some of the workup during this hospital visit consisted of: Hemoglobin A1c is 5.6 B12 is 735. TSH is 2.120 CT head is reported as no acute intracranial process. Remote appearing injury right thalamus. Stable extra-axial mass along the right frontal skull measuring up to 15 mm compared to 10/2022 likely represent meningioma I personally revi ewed the CT and I agree there is no acute or subacute process. CT thoracic and lumbar is reported as destructive metastasis lesion of T10 which is status post ventricle plasty. There is mild compromise of the spinal canal at the T10 level secondary due to neoplastic mass and posterior margin Gratian of the vertebral plasty cement. Possible mild superior endplate compression fracture of T11. - Labs CBC & Chem 7: 01/10/24 02:51 01/10/24 02:51 Labs: Abnormal Lab Results - Last 24 Hours (Table) 01/09/24 01/10/24 01/10/24 Range/Units 21:35 02:51 02:51 WBC 13.68 H (4.50-10.00) X 10*3/uL RBC 3.91 L (4.10-5.20) X 10*6/uL Hgb 10.9 L (12.0-15.0) g/dL Hct 36.9 L (37.2-46.3) % MCHC 29.5 L (32.0-37.0) g/dL RDW 14.7 H (11.5-14.5) % Immature Gran # 0.10 H (0.00-0.04) X 10*3/uL Neutrophils # 12.18 H (1.80-7.70) X 10*3/uL Eosinophils # 0.02 L (0.04-0.35) X 10*3/uL BUN 27.4 H (9.0-27.0) mg/dL BUN/Creatinine Ratio 34.25 H (12.00-20.00) Ratio Glucose 150 H (70-110) mg/dL POC Glucose (mg/dL) 207 H (70-110) mg/dL Total Bilirubin <0.2 L (0.3-1.2) mg/dL Total Protein 5.0 L (6.2-8.2) g/dL Albumin 2.8 L (3.8-4.9) g/dL Albumin/Globulin Ratio 1.27 L (1.60-3.17) Ratio 01/10/24 01/10/24 01/10/24 Range/Units 06:31 11:45 17:01 WBC (4.50-10.00) X 10*3/uL RBC (4.10-5.20) X 10*6/uL Hgb (12.0-15.0) g/dL Hct (37.2-46.3) % MCHC (32.0-37.0) g/dL RDW (11.5-14.5) % Immature Gran # (0.00-0.04) X 10*3/uL Neutrophils # (1.80-7.70) X 10*3/uL Eosinophils # (0.04-0.35) X 10*3/uL BUN (9.0-27.0) mg/dL BUN/Creatinine Ratio (12.00-20.00) Ratio Glucose (70-110) mg/dL POC Glucose (mg/dL) 183 H 204 H 223 H (70-110) mg/dL Total Bilirubin (0.3-1.2) mg/dL Total Protein (6.2-8.2) g/dL Albumin (3.8-4.9) g/dL Albumin/Globulin Ratio (1.60-3.17) Ratio Assessment and Plan Assessment: This is an 78 y/o woman with hx of renal cell carcinoma post left nephrectomy in January 2022 but was found to have metastatic disease this past year in which the patient had biopsy of T10 consistent with renal cell carcinoma and is on chemotherapy, fracture of the thoracic spine, which vertebroblasty in August 2023 who is transferred to our emergency department on 12/31/2023 since the patient is unable to walk. Her symptoms are progressive over past couple month. 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 History of metastatic renal carcinoma Compression fracture in thoracic region Dementia History of renal cell carcinoma post left nephrectomy in January 2022 Hydronephrosis Probable acute UTI Plan: I spoke with the nurse practitioner primary team and she stated that primary attending feels patient is continues to be persistent even though after surgery and neurology input regarding pursuing MRI and further evaluation regarding her weakness especially since orthopedic has signed off. Recommend MRI thoracic and lumbar region w/ and without and primary team nurse practitioner spoke with the orthopedic surgery team and they recommended to hold off for now. She is to pursue with rehab and if no improvement to obtain MRI thoracic and lumbar and if negative to pursue with MRI cervical spine. Recommend EMG with nerve conduction study as an outpatient of the lowers than the uppers Patient is on Decadron 4 mg every 4 hours. Continue physical therapy In this hospital visit orthopedic surgery team was consulted, urology team was consulted, radiation oncology team was consulted. Recommend intensive rehab if possible. The plan is discussed with patient, primary team N.P. and her nurse. There is no further neurological work-up. Will sign off. Please reconsult if needed. Time with Patient: Less than 30
[2024-01-10] MEDS ORDERED: DOCUSATE 100 MG CAP PO SCH (21:00)
== END 2024-01-10 18:26 | DRG 518 ==
LOC: EC 12:21 → 5NMEDONC 13:48 → 4SSUR 01-03 20:49
PROVIDERS: ADMIT Internal Medicine; ATTEND Internal Medicine
PROC: 00BX0ZX Excision of Thoracic Spinal Cord, Open Approach, Diagnostic (ICD-10-PCS; 2024-01-03)
PROC: 0RB90ZZ Excision of Thoracic Vertebral Disc, Open Approach (ICD-10-PCS; principal; 2024-01-03 07:30)
DX: M84.58XA Pathological fracture in neoplastic disease, other specified site, initial encounter for fracture (principal); N17.0 Acute kidney failure with tubular necrosis; C64.9 Malignant neoplasm of unspecified kidney, except renal pelvis; C79.51 Secondary malignant neoplasm of bone; E87.20 Acidosis, unspecified; F03.94 Unspecified dementia, unspecified severity, with anxiety; G82.20 Paraplegia, unspecified; N13.6 Pyonephrosis; G95.20 Unspecified cord compression; D72.829 Elevated white blood cell count, unspecified; E87.5 Hyperkalemia; I10 Essential (primary) hypertension; R31.0 Gross hematuria; E11.22 Type 2 diabetes mellitus with diabetic chronic kidney disease; D32.0 Benign neoplasm of cerebral meninges; E86.0 Dehydration; R33.8 Other retention of urine; I12.9 Hypertensive chronic kidney disease with stage 1 through stage 4 chronic kidney disease, or unspecified chronic kidney disease; N18.2 Chronic kidney disease, stage 2 (mild); N31.9 Neuromuscular dysfunction of bladder, unspecified; N32.89 Other specified disorders of bladder; Z79.899 Other long term (current) drug therapy; Z85.528 Personal history of other malignant neoplasm of kidney; Z86.011 Personal history of benign neoplasm of the brain; Z90.5 Acquired absence of kidney; Z90.710 Acquired absence of both cervix and uterus; Z88.2 Allergy status to sulfonamides
CPT/HCPCS: 36415; 51798; 70450; 71046; 72070; 72128; 72131; 76770; 80048; 80053; 81001; 82607; 83036; 83735; 84443; 85025; 85610; 85730; 86850; 86900; 86901; 88305; 88341; 88342; 93005; 96361; 96374; 96376; 99291